=== PATIENT | male | born 1955 | race Caucasian/White ===

== ENCOUNTER 2020-07-29 06:20 | Outpatient (REF) | payer MEDICARE, OTHER, SELFPAY ==
[2020-07-29 07:02] LABS: MANUAL DIFF FLAG NO
[2020-07-29 07:06] LABS: Basophils Absolute Auto 0.1 X10*3/uL (0.0-0.2); Basophils Percent Auto 1.5 % (0-2); Eosinophils Absolute Auto 0.2 X10*3/uL (0.0-0.4); Eosinophils Percent Auto 3.8 % (0-4); Hematocrit 44.2 % (42-52); Hemoglobin 15.2 g/dl (14.0-18.0); Imm Gran Abs Auto 0.01 X10*3/uL (0.00-0.03); Imm Gran Pct Auto 0.2 % (0.0-0.4); Lymphocytes Absolute Auto 1.6 X10*3/uL (1.2-4.9); Lymphocytes Percent Auto 30.3 % (20-40); Mean Corpuscular HGB Conc 34.4 g/dl (31.0-36.0); Mean Corpuscular Hemoglobin 30.5 pg (27.0-33.0); Mean Corpuscular Volume 88.6 fL (80-98); Mean Platelet Volume 10.7 fL (9.4-12.4); Monocytes Absolute Auto 0.6 X10*3/uL (0.1-1.2); Monocytes Percent Auto 11.1 % (2-11); Neutrophils Absolute Auto 2.8 X10*3/uL (2.0-8.3); Neutrophils Percent Auto 53.1 % (45-73); Platelet Count 218 X10*3/uL (160-400); Red Blood Count 4.99 X10*6/uL (4.60-5.80); Red Cell Distribution Width 11.6 % (11.0-16.0); White Blood Count 5.2 X10*3/uL (4.8-10.8)
[2020-07-29 07:32] LABS: Alanine Aminotransferase 21 U/L (0-40); Albumin Level 4.3 g/dL (3.5-5.0); Alkaline Phosphatase 81 U/L (39-117); Anion Gap 10 (12-20); Aspartate Amino Transferase 20 U/L (5-37); Bilirubin Total 0.6 mg/dL (0.0-1.0); Blood Urea Nitrogen 17 mg/dL (9-16); Calcium 9.2 mg/dL (8.4-10.2); Carbon Dioxide 31 mmol/L (22-29); Chloride 106 mmol/L (96-108); Cholesterol 212 mg/dL; Estimated Glomerular Filt Rate > 60; Glucose Fasting 97 mg/dL (60-99); HDL Cholesterol 54 mg/dL; LDL Cholesterol Calculated 114 mg/dl; Potassium 4.2 mmol/l (3.3-5.1); Sodium 143 mmol/L (135-145); Total Protein 6.5 g/dL (6.5-8.0); Triglycerides 220 mg/dL
[2020-07-29 07:58] LABS: Prostate Specific Antigen Scr 1.49 ng/mL (<0.05-4.0); Thyroid Stimulating Hormone 1.49 mIU/mL (0.32-4.0)
[2020-07-29 08:29] LABS: T4 Thyroxine 7.5 ug/dL (4.5-12.0)
[2020-07-29 08:44] LABS: Folate 19.4 ng/mL (> or = 4.0); Vitamin B12 789 pg/mL (200-900)
== END 2020-07-29 06:21 | disposition home or self-care (01) ==
LOC: HO.LAB 06:20
PROVIDERS: PCP Internal Medicine; Visit Provider Internal Medicine
DX: Z12.5 Encounter for screening for malignant neoplasm of prostate (principal); N40.0 Benign prostatic hyperplasia without lower urinary tract symptoms; E78.00 Pure hypercholesterolemia, unspecified; J44.9 Chronic obstructive pulmonary disease, unspecified
CPT/HCPCS: 36415; 80053; 80061; 82607; 82746; 84153; 84436; 84443; 85025

== ENCOUNTER 2022-08-09 11:04 | Outpatient (REF) | payer MEDICARE, SELFPAY ==
[2022-08-09 11:49] LABS: Binax Internal Control QC Valid; Binax Now Covid-19 Ag Negative (Negative)
[2022-08-09 14:54] LABS: Influenza A PCR NEGATIVE (Negative); Influenza B PCR NEGATIVE (Negative); Resp Syncy Virus RNA Qual PCR POSITIVE (Negative); SARS COV2 PCR INHOUSE NEGATIVE (Negative)
== END 2022-08-09 11:05 | disposition home or self-care (01) ==
LOC: HO.HMGCLDS 11:04
PROVIDERS: PCP Internal Medicine; Visit Provider Physician Assistant
DX: J06.9 Acute upper respiratory infection, unspecified (principal); Z20.822 Contact with and (suspected) exposure to COVID-19
CPT/HCPCS: 0241U; 87811; C9803

== ENCOUNTER 2022-08-17 10:37 | Outpatient (REF) | payer MEDICARE, SELFPAY ==
--- NOTE | ~2022-08-17 | XR_ITS ---
EXAMINATION: XR CHEST CLINICAL INFORMATION: Acute exacerbation of COPD. COMPARISON: March 24, 2012. TECHNIQUE: 2 views of the chest were obtained. FINDINGS: No significant abnormality is noted involving the heart, lungs, mediastinum, or soft tissues. Mild degenerative changes of the spine. XR/XR chest 2V IMPRESSION: Unremarkable examination.
== END 2022-08-17 10:38 | disposition home or self-care (01) ==
LOC: HO.HMGCX 10:37
PROVIDERS: PCP Internal Medicine; Visit Provider Internal Medicine
DX: J44.1 Chronic obstructive pulmonary disease with (acute) exacerbation (principal)
CPT/HCPCS: 71046

== ENCOUNTER 2022-11-19 08:10 | Outpatient (REF) | payer MEDICARE, SELFPAY ==
[2022-11-19 08:21] LABS: MANUAL DIFF FLAG NO
[2022-11-19 09:03] LABS: Basophils Absolute Auto 0.1 X10*3/uL (0.0-0.2); Basophils Percent Auto 1.6 % (0-2); Eosinophils Absolute Auto 0.2 X10*3/uL (0.0-0.4); Eosinophils Percent Auto 4.3 % (0-4); Hematocrit 44.8 % (42.0-52.0); Hemoglobin 14.9 g/dl (14.0-18.0); Imm Gran Abs Auto 0.01 X10*3/uL (0.00-0.03); Imm Gran Pct Auto 0.2 % (0.0-0.4); Lymphocytes Absolute Auto 1.5 X10*3/uL (1.2-4.9); Lymphocytes Percent Auto 33.6 % (20-40); Mean Corpuscular HGB Conc 33.3 g/dl (31.0-36.0); Mean Corpuscular Hemoglobin 29.3 pg (27.0-33.0); Mean Corpuscular Volume 88.2 fL (80.0-98.0); Mean Platelet Volume 10.9 fL (9.4-12.4); Monocytes Absolute Auto 0.5 X10*3/uL (0.1-1.2); Monocytes Percent Auto 10.4 % (2-11); Neutrophils Absolute Auto 2.2 x10*3/uL (2.0-8.3); Neutrophils Percent Auto 49.9 % (45-73); Platelet Count 222 X10*3/uL (160-400); Red Blood Count 5.08 X10*6/uL (4.60-5.80); Red Cell Distribution Width 11.8 % (11.0-16.0); White Blood Count 4.4 X10*3/uL (4.8-10.8)
[2022-11-19 09:53] LABS: Alanine Aminotransferase 15 U/L (0-40); Albumin Level 4.2 g/dL (3.5-5.0); Alkaline Phosphatase 75 U/L (39-117); Anion Gap 13 (12-20); Aspartate Amino Transferase 19 U/L (5-37); Bilirubin Total 0.6 mg/dL (0.0-1.0); Blood Urea Nitrogen 17 mg/dL (9-16); Calcium 9.5 mg/dL (8.4-10.2); Carbon Dioxide 29 mmol/L (22-29); Chloride 106 mmol/L (96-108); Cholesterol 231 mg/dL; Estimated Glomerular Filt Rate > 60; Glucose Random 100 mg/dL (60-115); HDL Cholesterol 65 mg/dL; LDL Cholesterol Calculated 144 mg/dl; Potassium 4.8 mmol/L (3.3-5.1); Sodium 143 mmol/L (135-145); Total Protein 6.4 g/dL (6.5-8.0); Triglycerides 110 mg/dL
[2022-11-19 10:12] LABS: Free T4 (Free Thyroxine) 0.95 ng/dL (0.71-1.85); Prostate Specific Antigen Scr 1.03 ng/mL (<0.05-4.0); Thyroid Stimulating Hormone 1.61 uIU/mL (0.32-4.0)
[2022-11-19 10:15] LABS: Folate 16.7 ng/mL (> or = 4.0); Vitamin B12 487 pg/mL (200-900)
== END 2022-11-19 08:11 | disposition home or self-care (01) ==
LOC: HO.LAB 08:10
PROVIDERS: PCP Internal Medicine; Visit Provider Internal Medicine
DX: Z12.5 Encounter for screening for malignant neoplasm of prostate (principal); N40.1 Benign prostatic hyperplasia with lower urinary tract symptoms; R39.11 Hesitancy of micturition; E78.00 Pure hypercholesterolemia, unspecified
CPT/HCPCS: 36415; 80053; 80061; 82607; 82746; 84153; 84439; 84443; 85025

== ENCOUNTER 2023-02-08 07:13 | Outpatient (REF) | payer MEDICARE, SELFPAY ==
[2023-02-08 08:26] LABS: Estimated Average Glucose 111 mg/dL; Hemoglobin A1C 151.3549 umol/L; Hemoglobin A1c % 5.5 %
[2023-02-08 08:32] LABS: Alanine Aminotransferase 16 U/L (0-40); Albumin Level 4.1 g/dL (3.5-5.0); Alkaline Phosphatase 79 U/L (39-117); Anion Gap 12 (12-20); Aspartate Amino Transferase 18 U/L (5-37); Bilirubin Total 0.8 mg/dL (0.0-1.0); Blood Urea Nitrogen 15 mg/dL (9-16); Calcium 9.1 mg/dL (8.4-10.2); Carbon Dioxide 29 mmol/L (22-29); Chloride 108 mmol/L (96-108); Cholesterol 226 mg/dL; Estimated Glomerular Filt Rate > 60; Glucose Random 98 mg/dL (60-115); HDL Cholesterol 61 mg/dL; LDL Cholesterol Calculated 137 mg/dl; Potassium 4.5 mmol/L (3.3-5.1); Sodium 144 mmol/L (135-145); Total Protein 6.1 g/dL (6.5-8.0); Triglycerides 141 mg/dL
== END 2023-02-08 07:14 | disposition home or self-care (01) ==
LOC: HO.LAB 07:13
PROVIDERS: PCP Internal Medicine; Visit Provider Internal Medicine
DX: R73.01 Impaired fasting glucose (principal); E78.00 Pure hypercholesterolemia, unspecified
CPT/HCPCS: 36415; 80053; 80061; 83036

== ENCOUNTER 2023-07-19 22:13 | Emergency (ER) | payer MEDICARE, SELFPAY ==
[2023-07-19 22:17] VITALS: BP 137/58; PULSE 79; RESP 18; TEMP 37.1; O2SAT 96; BMI 24.0
[2023-07-19 23:16] LABS: MANUAL DIFF FLAG NO
[2023-07-19 23:18] LABS: Basophils Absolute Auto 0.1 X10*3/uL (0.0-0.2); Basophils Percent Auto 0.8 % (0-2); Eosinophils Percent Auto 0.3 % (0-4); Hematocrit 43.7 % (42.0-52.0); Hemoglobin 14.6 g/dl (14.0-18.0); Imm Gran Abs Auto 0.02 X10*3/uL (0.00-0.03); Imm Gran Pct Auto 0.3 % (0.0-0.4); Lymphocytes Absolute Auto 0.6 X10*3/uL (1.2-4.9); Lymphocytes Percent Auto 8.9 % (20-40); Mean Corpuscular HGB Conc 33.4 g/dl (31.0-36.0); Mean Corpuscular Hemoglobin 29.4 pg (27.0-33.0); Mean Corpuscular Volume 88.1 fL (80.0-98.0); Mean Platelet Volume 10.3 fL (9.4-12.4); Monocytes Absolute Auto 0.7 X10*3/uL (0.1-1.2); Monocytes Percent Auto 10.9 % (2-11); Neutrophils Absolute Auto 5.2 x10*3/uL (2.0-8.3); Neutrophils Percent Auto 78.8 % (45-73); Platelet Count 179 X10*3/uL (160-400); Red Blood Count 4.96 X10*6/uL (4.60-5.80); Red Cell Distribution Width 11.7 % (11.0-16.0); White Blood Count 6.6 X10*3/uL (4.8-10.8)
[2023-07-19 23:24] LABS: COVID-19 Test Positive (Negative); IDNOW Serial# 08D9AD1C
[2023-07-19 23:45] LABS: Anion Gap 13 (12-20); Blood Urea Nitrogen 12 mg/dL (9-16); Calcium 9.2 mg/dL (8.4-10.2); Carbon Dioxide 28 mmol/L (22-29); Chloride 104 mmol/L (96-108); Creatinine Clr Calc Pharmacy 66.5; Estimated Glomerular Filt Rate > 60; Glucose Random 104 mg/dL (60-115); Sodium 141 mmol/L (135-145)
--- NOTE | 2023-07-20 00:02 | ED.URI ---
HPI - URI/Sore Throat General Chief Complaint: Upper Respiratory Symptoms Stated Complaint: COVID positive, headache Time Seen by Provider: 07/19/23 23:38 Source: patient Mode of arrival: ambulatory Limitations: no limitations History of Present Illness HPI Narrative: 68-year-old male presents emergency department for evaluation of headache and positive COVID test. The patient states he has been working at the [employer] the past week. States that today he developed a headache and a nonproductive cough. He also had chest tightness. He denied shortness of breath or dyspnea on exertion. He did a home COVID test which was positive. He came to the emergency department to seek treatment. Related Data Home Medications Medication Instructions Recorded Confirmed aspirin 81 mg tablet,delayed 81 mg PO DAILY 08/04/20 02/07/23 release (Adult Aspirin Regimen) multivitamin 1 tab PO DAILY 08/04/20 02/07/23 Previous Rx's Medication Instructions Recorded fluticasone propionate 50 2 spray intranasal DAILY #16 grams 08/10/22 mcg/actuation nasal spray,suspension (Flonase Allergy Relief) albuterol sulfate 90 mcg/actuation 2 puff inhalation Q4-6H PRN 08/17/22 aerosol inhaler (ProAir HFA) bronchospasm #8.5 grams dutasteride 0.5 mg capsule 0.5 mg PO DAILY #90 caps 09/12/22 pravastatin 40 mg tablet 40 mg PO DAILY 90 days #90 tabs 11/23/22 tamsulosin 0.4 mg capsule 0.4 mg PO DAILY #90 caps 07/11/23 nirmatrelvir 300 mg (150 mg See Rx Instructions PO .COMPLEX 07/20/23 x2)-ritonavir 100 mg tablet,dose #30 ea pack (Paxlovid) Allergies Allergy/AdvReac Type Severity Reaction Status Date / Time ENVIROMENTAL Allergy Unknown RUNNY, Uncoded 02/07/23 11:44 SNEEZING, SINUS Review of Systems Review of Systems: Yes all other systems are reviewed and are negative [facility] Past Medical History [facility] Narrative: Social history: He denies tobacco use. Occasional drinks alcohol. He denies drug use. Medical History COPD (chronic obstructive pulmonary disease) BPH (benign prostatic hyperplasia) Impaired glucose tolerance Hypercholesterolemia Surgical History History of removal of skin mole History of wrist fracture History of nasal septoplasty History of dislocation of shoulder History of tonsillectomy History of appendectomy Family History Family History Father CVD (cardiovascular disease) Myocardial infarction Mother Dementia Sister Family history of cervical cancer Social History Social History Housing: House Alcohol intake: current Alcohol intake frequency: a few times a month Patient Tobacco Use Status: Former Tobacco user Tobacco use type: Cigarette Years Smoked: quit 1999 e-Cigarette/Vaping Use: Never Used Second Hand Smoke Exposure: Yes Advance Directives: No Advance Directives Information Provided: No service: Yes Current occupational status: retired Cognitive needs: No Hearing needs: No Vision needs: Yes Physical Exam Vital Signs: Vital Signs: Last Vital Signs Temp 98.7 F 07/19/23 22:17 Pulse 79 07/19/23 22:17 Resp 18 07/19/23 22:17 BP 137/58 L 07/19/23 22:17 Pulse Ox 96 07/19/23 22:17 O2 Del Method Room Air 07/19/23 22:17 BMI result Body Mass Index 24.0 Vital signs were normal Exam General: Awake, alert in no distress Head: Normocephalic, atraumatic EENT: PERRL, Lids normal, sclera normal, conjunctiva normal, nose normal , ears normal, throat without erythema or exudates Neck: Supple, no adenopathy, trachea midline and nontender Lung: breath sounds symmetric, no wheezing, rales or rhonchi Chest: symmetric movement, nontender Heart: regular rate and rhythm, normal S1, S2 no murmurs or rubs Abdomen: soft, non-tender, nondistended, normal bowel sounds Back: no vertebral tenderness, no CVAT Extremities: no deformities, moves all extremities symmetrically Skin: no rashes, no lesion, normal color and warmth Neuro: Awake, alert, oriented, normal speech, cranial nerves intact, moves all extremities symmetrically Psych: Pleasant, cooperative Medical Decision Making Medical Decision Making MDM Narrative: 68-year-old male who history of COPD, BPH and hyperlipidemia presents emergency department for evaluation of headache, dyspnea on exertion and nonproductive cough x1 day. Patient had a positive home COVID test. Patient's the vital signs were normal with a normal O2 saturation on room air. Physical examination was unremarkable. Following evaluation was ordered: CBC, CMP, COVID-19 0019: Patient's laboratory evaluation was unremarkable. The patient has been vaccinated against COVID-19 but he is at high risk for worsening illness secondary to his COPD and hyperlipidemia. Patient was started on Paxlovid convenience pack q.12 hours x5 days He was instructed to stop taking his pravastatin and tamsulosin while he is taking. Patient was also instructed to isolate for 5 days and to wear a mask for total of 10 days. He was given printed and verbal instructions and discharged home Differential Diagnosis Differential Diagnoses: The differential diagnosis associated with the presentation includes Differential diagnosis includes was not limited to COVID-19 infection, electrolyte abnormalities, anemia COVID-19 pneumonia Admission/Observation Consideration of admission/observation: Escalation of care including admission/observation considered Lab Data [facility] Lab Attestation statement: I reviewed the patient's lab results. My independent interpretation patient's laboratory evaluation as follows: CBC and BMP were normal. COVID-19 was positive 07/19/23 23:12 07/19/23 23:12 Labs: Lab Results 07/19/23 Range/Units 23:12 WBC 6.6 (4.8-10.8) X10*3/uL RBC 4.96 (4.60-5.80) X10*6/uL Hgb 14.6 (14.0-18.0) g/dl Hct 43.7 (42.0-52.0) % MCV 88.1 (80.0-98.0) fL MCH 29.4 (27.0-33.0) pg MCHC 33.4 (31.0-36.0) g/dl RDW 11.7 (11.0-16.0) % Plt Count 179 (160-400) X10*3/uL MPV 10.3 (9.4-12.4) fL Immature Gran % (Auto) 0.3 (0.0-0.4) % Neut % (Auto) 78.8 H (45-73) % Lymph % (Auto) 8.9 L (20-40) % Forrest % (Auto) 10.9 (2-11) % Eos % (Auto) 0.3 (0-4) % Baso % (Auto) 0.8 (0-2) % Lymph # (Auto) 0.6 L (1.2-4.9) X10*3/uL Forrest # (Auto) 0.7 (0.1-1.2) X10*3/uL Eos # (Auto) 0.0 (0.0-0.4) X10*3/uL Baso # (Auto) 0.1 (0.0-0.2) X10*3/uL Abs Immat Gran (auto) 0.02 (0.00-0.03) X10*3/uL Absolute Neuts (auto) 5.2 (2.0-8.3) x10*3/uL Absolute Nucleated RBC 0.000 (0.0-0.012) X10*3/uL Nucleated RBC % (auto) 0.0 (0.0-0.2) /100WBC Sodium 141 (135-145) mmol/L Potassium 4.0 (3.3-5.1) mmol/L Chloride 104 (96-108) mmol/L Carbon Dioxide 28 (22-29) mmol/L Anion Gap 13 (12-20) BUN 12 (9-16) mg/dL Creatinine 0.98 (0.5-1.4) mg/dL Estim Creat Clear Calc 66.5 Estimated GFR > 60 Random Glucose 104 (60-115) mg/dL Calcium 9.2 (8.4-10.2) mg/dL COVID-19 (RACH) Positive A (Negative) COVID-19 Clin Com See Note Prescription Management I considered prescription management with: Other (Paxlivid) Chronic Conditions Patient?s care impacted by: Other (COPD, hyperlipidemia, BPH) Discharge Plan Discharge Clinical Impression: COVID-19 Patient Disposition: Home, Self-Care Instructions: COVID-19 (Coronavirus Disease 2019) (ED) Additional Instructions: Your blood work was normal. Your COVID-19 test was positive. Take Paxlovid convenience pack( 3 pills) every 12 hours x5 days. While you are taking Paxlovid, you need to stop taking tamsulosin and pravastatin. You can restart these medications after you finish the Paxlovid. You need to isolate (stay home) for 5 days and wear a mask for total of 10 days. Take ibuprofen 200 mg pills, 2 pills every 6 hours as needed for pain or fever. Take Tylenol (acetaminophen) 500 mg pills, 2 pills every 6 hours as needed for pain or fever. Follow-up with your doctor in 2 days. Please return to the emergency department if your symptoms get worse or if you develop any symptoms that are concerning to you. Prescriptions: New Paxlovid 300 mg (150 mg x 2)-100 mg tablets,dose pack See Rx Instructions PO .COMPLEX Qty: 30 0RF Rx Instructions: take TWO 150 mg tablets of nirmatrelvir with ONE 100 mg tablet of ritonavir twice daily for 5 days No Action fluticasone propionate [Flonase Allergy Relief] 50 mcg/actuation spray,suspension 2 spray intranasal DAILY Qty: 16 0RF Rx Instructions: administer into each nostril dutasteride 0.5 mg capsule 0.5 mg PO DAILY Qty: 90 2RF tamsulosin 0.4 mg capsule 0.4 mg PO DAILY Qty: 90 2RF aspirin [Adult Aspirin Regimen] 81 mg tablet,delayed release (DR/EC) 81 mg PO DAILY multivitamin Tablet 1 tab PO DAILY pravastatin 40 mg tablet 40 mg PO DAILY 90 Days Qty: 90 2RF albuterol sulfate [ProAir HFA] 90 mcg/actuation HFA aerosol inhaler 2 puff inhalation Q4-6H PRN (Reason: bronchospasm) Qty: 8.5 0RF
== END 2023-07-20 01:15 | disposition home or self-care (01) ==
PROVIDERS: Emergency Provider Emergency Medicine Emergency Medical Services; PCP Internal Medicine
DX: U07.1 COVID-19 (principal); R51.9 Headache, unspecified; R05.9 Cough, unspecified; Z87.891 Personal history of nicotine dependence; Z79.899 Other long term (current) drug therapy
CPT/HCPCS: 36415; 80048; 85025; 87635; 99283; 99284

== ENCOUNTER 2023-08-10 06:56 | Outpatient (REF) | payer MEDICARE, SELFPAY ==
[2023-08-10 07:12] LABS: MANUAL DIFF FLAG NO
[2023-08-10 07:53] LABS: Basophils Absolute Auto 0.1 X10*3/uL (0.0-0.2); Basophils Percent Auto 1.3 % (0-2); Eosinophils Absolute Auto 0.1 X10*3/uL (0.0-0.4); Eosinophils Percent Auto 3.1 % (0-4); Hematocrit 43.4 % (42.0-52.0); Hemoglobin 14.7 g/dl (14.0-18.0); Imm Gran Abs Auto 0.01 X10*3/uL (0.00-0.03); Imm Gran Pct Auto 0.2 % (0.0-0.4); Lymphocytes Absolute Auto 1.5 X10*3/uL (1.2-4.9); Lymphocytes Percent Auto 34.1 % (20-40); Mean Corpuscular HGB Conc 33.9 g/dl (31.0-36.0); Mean Corpuscular Hemoglobin 29.9 pg (27.0-33.0); Mean Corpuscular Volume 88.2 fL (80.0-98.0); Mean Platelet Volume 11.2 fL (9.4-12.4); Monocytes Absolute Auto 0.5 X10*3/uL (0.1-1.2); Monocytes Percent Auto 10.4 % (2-11); Neutrophils Absolute Auto 2.3 x10*3/uL (2.0-8.3); Neutrophils Percent Auto 50.9 % (45-73); Platelet Count 229 X10*3/uL (160-400); Red Blood Count 4.92 X10*6/uL (4.60-5.80); Red Cell Distribution Width 11.6 % (11.0-16.0); White Blood Count 4.5 X10*3/uL (4.8-10.8)
[2023-08-10 08:22] LABS: Alanine Aminotransferase 11 U/L (0-40); Alkaline Phosphatase 94 U/L (39-117); Anion Gap 13 (12-20); Aspartate Amino Transferase 18 U/L (5-37); Bilirubin Total 0.6 mg/dL (0.0-1.0); Blood Urea Nitrogen 14 mg/dL (9-16); Calcium 9.5 mg/dL (8.4-10.2); Carbon Dioxide 25 mmol/L (22-29); Chloride 107 mmol/L (96-108); Cholesterol 198 mg/dL (<200); Estimated Glomerular Filt Rate > 60; Glucose Random 94 mg/dL (60-115); HDL Cholesterol 53 mg/dL (>40); LDL Cholesterol Calculated 121 mg/dL (<100); Potassium 4.1 mmol/L (3.3-5.1); Sodium 141 mmol/L (135-145); Total Protein 6.8 g/dL (6.5-8.0); Triglycerides 122 mg/dL (<150)
[2023-08-10 08:41] LABS: Thyroid Stimulating Hormone 2.44 uIU/mL (0.32-4.0)
[2023-08-10 10:09] LABS: Influenza A PCR NEGATIVE (Negative); Influenza B PCR NEGATIVE (Negative); Resp Syncy Virus RNA Qual PCR NEGATIVE (Negative); SARS COV2 PCR INHOUSE POSITIVE (Negative)
== END 2023-08-10 06:57 | disposition home or self-care (01) ==
LOC: HO.LAB 06:56
PROVIDERS: PCP Internal Medicine; Visit Provider Internal Medicine
DX: Z11.52 Encounter for screening for COVID-19 (principal); E78.00 Pure hypercholesterolemia, unspecified; J44.1 Chronic obstructive pulmonary disease with (acute) exacerbation
CPT/HCPCS: 0241U; 80053; 80061; 84443; 85025

== ENCOUNTER 2023-08-11 09:46 | Outpatient (AMB) | payer MEDICARE, SELFPAY ==
[2023-08-11 09:50] VITALS: BP 110/62; PULSE 68; O2SAT 97; BMI 23.5
--- NOTE | 2023-08-11 09:50 | MHC.PC.OV ---
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 Accompanied by: Self / Same As Patient Allergies ENVIROMENTAL Allergy (Unknown, Uncoded 08/11/23 09:50) RUNNY, SNEEZING, SINUS Medication List - Last Reconciled 08/11/23 by Lawrence Coats MD albuterol sulfate 90 mcg/actuation (ProAir HFA) 2 puffs inhalation Q4-6H PRN aspirin (Adult Aspirin Regimen) 81 mg PO DAILY dutasteride 0.5 mg PO DAILY fluticasone propionate 50 mcg/actuation (Flonase Allergy Relief) 2 sprays intranasal DAILY multivitamin 1 tab PO DAILY pravastatin 40 mg PO DAILY 90 days Tobacco use date assessed: 11/23/22 Fall risk assessment: No Falls in past year Last assessed Fall Risk: 08/11/23 Dental Screening Dental Screen Date: 08/11/23 Did you have a dental visit in the last 12 months?: No Did you have a dental problem in the last 6 months where you did not have access to dental care?: No Was dental information given to patient?: Patient has dentist HPI 6 month f/u HPI Details 68-year-old male with hypercholesterolemia COPD impaired glucose tolerance and BPH last seen in January 2023 patient is here for follow-up. Up-to-date with colonoscopy. Review of the notes June 2023 was in the ER for respiratory symptoms COVID positive patient was prescribed antiviral. [facility] Medical History COPD (chronic obstructive pulmonary disease) BPH (benign prostatic hyperplasia) Impaired glucose tolerance Hypercholesterolemia Surgical History History of removal of skin mole History of wrist fracture History of nasal septoplasty History of dislocation of shoulder History of tonsillectomy History of appendectomy Family History Father CVD (cardiovascular disease) Myocardial infarction Mother Dementia Sister Family history of cervical cancer Social History Housing: House Alcohol intake: current Alcohol intake frequency: a few times a month Patient Tobacco Use Status: Former Tobacco user Tobacco use type: Cigarette Years Smoked: quit 1999 e-Cigarette/Vaping Use: Never Used Second Hand Smoke Exposure: Yes service: Yes Current occupational status: retired Cognitive needs: No Hearing needs: No Vision needs: Yes Questionnaire Thrive Questionnaire Date Thrive assessed: 11/23/22 ADEN-7 AMB Questionnaire ADEN-7 Date ADEN - 7 assessed: 11/23/22 Source: Developed by Drs. Sumit Begum, Rosario Savage, Duarte Deras and colleagues, with an educational donavon from [employer]. Physical exam (Primary Care) Vital Signs: Last Vital Signs Pulse 68 08/11/23 09:50 BP 110/62 08/11/23 09:50 Pulse Ox 97 08/11/23 09:50 Oxygen Delivery Method Room Air 08/11/23 09:50 BMI result Body Mass Index 25.1 Tobacco/Smoking Status: Tobacco use Status Tobacco use date assessed 11/23/22 08/11/23 09:53 Patient Tobacco Use Status Former Tobacco user 08/11/23 09:53 Tobacco use type Cigarette 08/11/23 09:53 e-Cigarette/Vaping Use Never Used 08/11/23 09:53 Thrive Assessment: Date of Thrive Assessment Date Thrive assessed 11/23/22 08/11/23 09:53 Const General: alert; No acute distress Eyes Conjunctivae: conjunctivae normal Resp Auscultation: clear to auscultation bilaterally Cardio Rate: regular rate Rhythm: regular rhythm GI Inspection: Yes normal to inspection Extrem General: Yes normal to inspection and No edema Office Procedures Flu Questionnaire Does the patient have a severe egg allergy?: No Does the patient have severe life threatening allergies?: No Does the patient have a fever or illness today?: No Has the patient ever had Guillain-Addy Syndrome?: No Has the patient ever had any past reaction to a flu shot?: No Immunizations flu vacc [id number] 6mos up(PF) 60 mcg(15 mcgx4)/0.5 mL IM syringe Performing Provider: Lawrence Coats MD Performing Location: [facility] Administered by: VIVI [place] on 08/11/23 10:36 Dose Route Admin Location Dispensed Lot Number Expiration Date [employer] 0.5 mL IM Right Deltoid 0.5 mL [id number] 04/22/24 32275-965-23 [employer] VIS Given Date VIS Provided VIS Publication Date 08/11/23 Single Vaccine 21 Eligibility Eligibility Date Funding Source Not [facility] Eligible 08/11/23 Private Assessment and Plan Assessment & Plan (1) Hypercholesterolemia: Code(s): E78.00 - Pure hypercholesterolemia, unspecified Plan: Avoid fried foods, chicken skin, eggs, butter margarine, pastries and meat. Be it pork or beef they have a lot of cholesterol LDL goal of less than 130 and triglyceride of less than 150. Patient on pravastatin 40 mg once a day (2) BPH (benign prostatic hyperplasia): Code(s): N40.0 - Benign prostatic hyperplasia without lower urinary tract symptoms Qualifiers: Lower urinary tract symptom detail: urinary hesitancy Lower urinary tract symptom presence: symptoms present Qualified Code(s): N40.1 - Benign prostatic hyperplasia with lower urinary tract symptoms; R39.11 - Hesitancy of micturition Plan: Continue with dutasteride (3) COPD (chronic obstructive pulmonary disease): Code(s): J44.9 - Chronic obstructive pulmonary disease, unspecified Plan: Continue with inhaler (4) Impaired fasting blood sugar: Code(s): R73.01 - Impaired fasting glucose Plan: Decrease the amount of carbohydrate intake, pasta, bread, rice and potatoes are all sugar and that is aside from all the sweet stuff, remember that fruits are good but they are Sweet also. Orders: Orders Influenza [id number] Immunization Today Z23 - Encounter for immunization Coding Level of Care Code Est Pt Level 4 (19918) Diagnoses Hypercholesterolemia E78.00 Benign prostatic hyperplasia with urinary hesitancy N40.1; R39.11 Lower urinary tract symptom detail: urinary hesitancy Lower urinary tract symptom presence: symptoms present COPD (chronic obstructive pulmonary disease) J44.9 Impaired fasting blood sugar R73.01
== END 2023-08-11 10:40 | disposition home or self-care (01) ==
PROVIDERS: Visit Provider Internal Medicine
DX: E78.00 Pure hypercholesterolemia, unspecified (principal); N40.1 Benign prostatic hyperplasia with lower urinary tract symptoms; R39.11 Hesitancy of micturition; J44.9 Chronic obstructive pulmonary disease, unspecified; R73.01 Impaired fasting glucose; Z23 Encounter for immunization
CPT/HCPCS: 90471; 90686; 99214

== ENCOUNTER 2023-12-05 08:41 | Outpatient (AMB) | payer MEDICARE, SELFPAY ==
[2023-12-05 08:41] VITALS: BP 114/60; PULSE 71; O2SAT 95; BMI 23.7
--- NOTE | 2023-12-05 08:41 | A.OFFPC_ITS ---
Vital Signs 12/05/23 08:41 Height 5 ft 7 in Weight 151 lb 0.4 oz BMI 23.7 BP 114/60 Blood Pressure Location Lt brachial Position Sitting Pulse 71 Pulse Source Pulse Oximeter Pulse Oximetry (%) 95 Oxygen Delivery Method Room Air Intake Visit Reasons: Annual Exam Intake Note: Patient is here today for a physical. Rn Community Required: No Allergies ENVIROMENTAL Allergy (Unknown, Uncoded 12/05/23 08:45) RUNNY, SNEEZING, SINUS Medication List - Last Reconciled 12/05/23 by Lawrence Coats MD albuterol sulfate 90 mcg/actuation (ProAir HFA) 2 puffs inhalation Q4-6H PRN aspirin (Adult Aspirin Regimen) 81 mg PO DAILY dutasteride 0.5 mg PO DAILY fluticasone propionate 50 mcg/actuation (Flonase Allergy Relief) 2 sprays intranasal DAILY multivitamin 1 tab PO DAILY pravastatin 40 mg PO DAILY 90 days Tobacco use date assessed: 12/05/23 Fall risk assessment: No Falls in past year Last assessed Fall Risk: 12/05/23 Dental Screening Dental Screen Date: 12/05/23 Did you have a dental visit in the last 12 months?: Yes Did you have a dental problem in the last 6 months where you did not have access to dental care?: No Was dental information given to patient?: Patient has dentist HPI Annual Exam HPI Details 68-year-old male with COPD impaired gluc ose tolerance BPH hypercholesterolemia last seen July 2023. Patient's colonoscopy is up-to-date. And is here for physical exam. . R foot noted to be externally rotated and has been exercising . noted forgetfull and will have a cognitive testing - end of the month testing. will have chacorta fit - exercise program [facility] Medical History COPD (chronic obstructive pulmonary disease) BPH (benign prostatic hyperplasia) Impaired glucose tolerance Hypercholesterolemia Surgical History History of removal of skin mole History of wrist fracture History of nasal septoplasty History of dislocation of shoulder History of tonsillectomy History of appendectomy Family History Father CVD (cardiovascular disease) Myocardial infarction Mother Dementia Sister Family history of cervical cancer Social History (Updated 12/05/23 @ 09:01 by Lawrence Coats MD) Housing: House Alcohol intake: current Alcohol intake frequency: a few times a month Comment: once q week 1 beer Patient Tobacco Use Status: Former Tobacco user Tobacco use type: Cigarette Years Smoked: quit 1999 e-Cigarette/Vaping Use: Never Used Second Hand Smoke Exposure: Yes service: Yes Current occupational status: retired Cognitive needs: No Hearing needs: No Vision needs: Yes Questionnaire PHQ-9 Over the last 2 weeks, how often have you been bothered by any of the following problems? 1. Little interest or pleasure in doing things: not at all 2. Feeling down, depressed, or hopeless: not at all 3. Trouble falling or staying asleep, or sleeping too much: not at all 4. Feeling tired or having little energy: not at all 5. Poor appetite or overeating: not at all 6. Feeling bad about yourself - or that you are a failure or have let yourself or your family down: not at all 7. Trouble concentrating on things, such as reading the newspaper or watching television: not at all 8. Moving or speaking so slowly that other people could have noticed. Or the opposite - being so fidgety or restless that you have been moving around a lot more than usual: not at all 9. Thoughts that you would be better off or of hurting yourself in some way: not at all Total score: 0 Depression Screening Interpretation: Negative Depression Screening Done: Yes Source: Developed by Drs. Sumit Begum, Rosario Savage, Duarte Deras and colleagues, with an educational donavon from [employer]. Thrive Questionnaire Date Thrive assessed: 12/05/23 I am a: Patient What is your living situation today?: I have a steady place to live Within the past 12 months, did the food you bought not last and you didn't have the money to get more?: Never true Within the past 12 months, did you worry whether your food would run out before you got money to buy more?: Never true Do you have trouble paying for medicines?: No Do you have trouble getting transportation to medical appointments?: No Do you have trouble paying your heating and electricity bill?: No Do you have trouble taking care of your child, family member or friend?: No Do you have trouble with day-to-day activities such as bathing, preparing meals, shopping, managing finances, etc.?: No Are you currently unemployed and looking for a job?: No Are you interested in more education?: No Please select the resources that you would like help with: None THRIVE Score: 0 AUDIT C Alcohol Use Questionnaire (AUDIT-C) 1. How often do you have a drink containing alcohol?: 2-4 times a month 2. How many drinks containing alcohol do you have on a typical day when you are drinking?: 5 or 6 3. How often do you have six or more drinks on one occasion?: Never Total Score: 4 ADEN-7 AMB Questionnaire ADEN-7 Date ADEN - 7 assessed: 12/05/23 Feeling nervous, anxious, or on edge: 0 = Not at all Not being able to stop or control worryin = Not at all Worrying too much about different things: 0 = Not at all Trouble relaxin = Not at all Being so restless that it is hard to sit still: 0 = Not at all Becoming easily annoyed or irritable: 0 = Not at all Feeling afraid as if something awful might happen: 0 = Not at all Total ADEN-7 score (0-4 normal; 5-9 mild; 10-14 moderate; 15-21 severe): 0 Source: Developed by Drs. Sumit Begum, Rosario Savage, Duarte Deras and colleagues, with an educational donavon from [employer]. Review of Systems Const Denies poor appetite and Denies weakness Eyes Denies no additional complaints ENT Reports Normal hearing present, Denies dizziness, Denies nasal congestion, Denies tinnitus and Denies sore throat Card Denies chest pain, Denies syncope, Denies rapid heart rate and Denies dyspnea Resp Denies cough and Denies dyspnea GI Denies change in stool character, Reports constipation, Denies diarrhea, Denies nausea and Denies vomiting Denies dysuria and Denies urinary frequency Neuro Reports Normal hearing present, Denies confusion, Denies dizziness, Denies syncope and Denies weakness Psych Denies confusion Physical exam (Primary Care) Vital Signs: Last Vital Signs Pulse 71 12/05/23 08:41 BP 114/60 12/05/23 08:41 Pulse Ox 95 12/05/23 08:41 Oxygen Delivery Method Room Air 12/05/23 08:41 BMI result Body Mass Index 23.7 Tobacco/Smoking Status: Tobacco use Status Tobacco use date assessed 12/05/23 12/05/23 08:47 Patient Tobacco Use Status Former Tobacco user 12/05/23 08:47 Tobacco use type Cigarette 12/05/23 08:47 e-Cigarette/Vaping Use Never Used 12/05/23 08:47 PHQ-9: PHQ-9 Score PHQ-9: Total score 0 12/05/23 08:47 Depression Screening Interpretation: Negative Thrive Assessment: Date of Thrive Assessment Date Thrive assessed 12/05/23 12/05/23 08:47 Const General: No confusion Orientation/consciousness: No confusion HENMT Head: Yes normocephalic Ears: external ears normal and TM's normal bilaterally Face and sinus: Yes normal facial exam Mouth: moist mucous membranes Throat: Yes tonsils normal Eyes Conjunctivae: conjunctivae normal Pupils: Equal, round and reactive pupils present and Pupil accommodation reflex normal Direct Ophthalmoscopy: normal light reflex Neck Neck: No lymphadenopathy Thyroid: Thyroid normal Chest Chest palpation & inspection: normal inspection of the chest Resp Effort & Inspection: normal respiratory effort and no audible wheezes Auscultation: clear to auscultation bilaterally, no crackles, no wheezes and lung sounds not diminished Cardio Rate: regular rate Rhythm: regular rhythm Peripheral pulses: radial pulses present and dorsalis pedis present GI Other: declined Palpation (GI): no masses Auscultation: normal bowel sounds and normoactive bowel sounds Rectal Exam - Male: Yes deferred Male General Exam: Yes normal external exam Skin General skin exam: no rashes or lesions noted Rashes: no rashes Neuro General: No confusion Cranial nerves: Yes Equal, round and reactive pupils present and Yes Normal hearing present Cognition (Neuro): normal cognition Gait exam (Neuro): Normal gait present Motor exam (neuro): 5/5 motor strength present throughout Deep tendon reflexes (DTR's): Right brachioradialis reflex intensity grade: 2+, Left brachioradialis reflex intensity grade: 2+, Right patellar reflex intensity grade: 2+ and Left patellar reflex intensity grade: 2+ Extrem General: No edema Assessment and Plan Assessment & Plan (1) Annual physical exam: Code(s): Z00.00 - Encounter for general adult medical examination without abnormal findings (2) COPD (chronic obstructive pulmonary disease): Code(s): J44.9 - Chronic obstructive pulmonary disease, unspecified Plan: Continue with the inhaler as needed (3) Hypercholesterolemia: Code(s): E78.00 - Pure hypercholesterolemia, unspecified Plan: Avoid fried foods, chicken skin, eggs, butter margarine, pastries and meat. Be it pork or beef they have a lot of cholesterol LDL goal of less than 130 and triglyceride of less than 150 July blood work normal (4) BPH (benign prostatic hyperplasia): Code(s): N40.0 - Benign prostatic hyperplasia without lower urinary tract symptoms Qualifiers: Lower urinary tract symptom presence: symptoms present Lower urinary tract symptom detail: urinary hesitancy Qualified Code(s): N40.1 - Benign prostatic hyperplasia with lower urinary tract symptoms; R39.11 - Hesitancy of micturition Plan: Continue with the steroid. Orders: Orders Thyroid Stimulating Hormone 6 Months E78.00 - Pure hypercholesterolemia, unspecified Vitamin B12 and Folate 6 Months E78.00 - Pure hypercholesterolemia, unspecified Prostate Specific Antigen Scr 6 Months E78.00 - Pure hypercholesterolemia, unspecified Complete Blood Count Auto Diff 6 Months E78.00 - Pure hypercholesterolemia, unspecified Comprehensive Met. Panel 6 Months E78.00 - Pure hypercholesterolemia, unspecified Free T4 (Free Thyroxine) 6 Months E78.00 - Pure hypercholesterolemia, unspecified Lipid Panel 6 Months E78.00 - Pure hypercholesterolemia, unspecified Coding Level of Care Code Est Pt Prev Care >65y(65626) Diagnoses Annual physical exam Z00.00 COPD (chronic obstructive pulmonary disease) J44.9 Hypercholesterolemia E78.00 Benign prostatic hyperplasia with urinary hesitancy N40.1; R39.11 Lower urinary tract symptom presence: symptoms present Lower urinary tract symptom detail: urinary hesitancy
== END 2023-12-05 09:16 | disposition home or self-care (01) ==
PROVIDERS: Visit Provider Internal Medicine
DX: Z00.00 Encounter for general adult medical examination without abnormal findings (principal); J44.9 Chronic obstructive pulmonary disease, unspecified; E78.00 Pure hypercholesterolemia, unspecified; N40.1 Benign prostatic hyperplasia with lower urinary tract symptoms; R39.11 Hesitancy of micturition
CPT/HCPCS: 99397

== ENCOUNTER 2023-12-06 10:39 | Outpatient (REF) | payer MEDICARE, SELFPAY ==
[2023-12-06 10:49] LABS: MANUAL DIFF FLAG NO
[2023-12-06 10:53] LABS: Basophils Absolute Auto 0.1 X10*3/uL (0.0-0.2); Basophils Percent Auto 1.5 % (0-2); Eosinophils Absolute Auto 0.2 X10*3/uL (0.0-0.4); Eosinophils Percent Auto 4.4 % (0-4); Hematocrit 46.6 % (42.0-52.0); Hemoglobin 15.8 g/dl (14.0-18.0); Imm Gran Abs Auto 0.01 X10*3/uL (0.00-0.03); Imm Gran Pct Auto 0.2 % (0.0-0.4); Lymphocytes Absolute Auto 1.5 X10*3/uL (1.2-4.9); Lymphocytes Percent Auto 27.9 % (20-40); Mean Corpuscular HGB Conc 33.9 g/dl (31.0-36.0); Mean Corpuscular Hemoglobin 29.6 pg (27.0-33.0); Mean Corpuscular Volume 87.3 fL (80.0-98.0); Mean Platelet Volume 10.5 fL (9.4-12.4); Monocytes Absolute Auto 0.6 X10*3/uL (0.1-1.2); Neutrophils Absolute Auto 2.8 x10*3/uL (2.0-8.3); Platelet Count 222 X10*3/uL (160-400); Red Blood Count 5.34 X10*6/uL (4.60-5.80); Red Cell Distribution Width 11.5 % (11.0-16.0); White Blood Count 5.3 X10*3/uL (4.8-10.8)
[2023-12-06 11:59] LABS: Alanine Aminotransferase 15 U/L (0-40); Albumin Level 4.3 g/dL (3.5-5.0); Alkaline Phosphatase 92 U/L (39-117); Anion Gap 11 (12-20); Aspartate Amino Transferase 19 U/L (5-37); Bilirubin Total 0.6 mg/dL (0.0-1.0); Blood Urea Nitrogen 13 mg/dL (9-16); Calcium 9.4 mg/dL (8.4-10.2); Carbon Dioxide 30 mmol/L (22-29); Chloride 106 mmol/L (96-108); Cholesterol 211 mg/dL (<200); Estimated Glomerular Filt Rate > 60; Glucose Random 96 mg/dL (60-115); HDL Cholesterol 63 mg/dL (>40); LDL Cholesterol Calculated 127 mg/dL (<100); Potassium 4.7 mmol/L (3.3-5.1); Sodium 142 mmol/L (135-145); Total Protein 7.2 g/dL (6.5-8.0); Triglycerides 108 mg/dL (<150)
[2023-12-06 12:15] LABS: Free T4 (Free Thyroxine) 1.05 ng/dL (0.71-1.85); Thyroid Stimulating Hormone 1.55 uIU/mL (0.32-4.0)
[2023-12-06 12:23] LABS: Folate 13.7 ng/mL (> or = 4.0); Prostate Specific Antigen Scr 1.58 ng/mL (<0.05-4.0); Vitamin B12 1445 pg/mL (200-900)
== END 2023-12-06 10:40 | disposition home or self-care (01) ==
LOC: HO.LAB 10:39
PROVIDERS: PCP Internal Medicine; Visit Provider Internal Medicine
DX: Z12.5 Encounter for screening for malignant neoplasm of prostate (principal); E78.00 Pure hypercholesterolemia, unspecified
CPT/HCPCS: 36415; 80053; 80061; 82607; 82746; 84153; 84439; 84443; 85025

== ENCOUNTER 2024-02-23 13:15 | Outpatient (REF) | payer MEDICARE, SELFPAY ==
[2024-02-23 13:36] LABS: MANUAL DIFF FLAG NO
[2024-02-23 14:24] LABS: Basophils Absolute Auto 0.1 X10*3/uL (0.0-0.2); Basophils Percent Auto 0.9 % (0-2); Eosinophils Absolute Auto 0.1 X10*3/uL (0.0-0.4); Eosinophils Percent Auto 1.1 % (0-4); Hematocrit 43.8 % (42.0-52.0); Hemoglobin 14.8 g/dl (14.0-18.0); Imm Gran Abs Auto 0.02 X10*3/uL (0.00-0.03); Imm Gran Pct Auto 0.4 % (0.0-0.4); Lymphocytes Absolute Auto 1.3 X10*3/uL (1.2-4.9); Lymphocytes Percent Auto 22.5 % (20-40); Mean Corpuscular HGB Conc 33.8 g/dl (31.0-36.0); Mean Corpuscular Volume 88.7 fL (80.0-98.0); Monocytes Absolute Auto 0.5 X10*3/uL (0.1-1.2); Neutrophils Absolute Auto 3.7 x10*3/uL (2.0-8.3); Neutrophils Percent Auto 66.1 % (45-73); Platelet Count 219 X10*3/uL (160-400); Red Blood Count 4.94 X10*6/uL (4.60-5.80); Red Cell Distribution Width 11.7 % (11.0-16.0); White Blood Count 5.6 X10*3/uL (4.8-10.8)
[2024-02-23 14:28] LABS: Estimated Average Glucose 114 mg/dL; Hemoglobin A1c % 5.6 % (<6.0)
[2024-02-23 14:57] LABS: Creatinine Urine 119.39 mg/dL
[2024-02-23 15:09] LABS: Alanine Aminotransferase 15 U/L (0-40); Albumin Level 4.1 g/dL (3.5-5.0); Alkaline Phosphatase 68 U/L (39-117); Anion Gap 14 (12-20); Aspartate Amino Transferase 18 U/L (5-37); Bilirubin Total 0.6 mg/dL (0.0-1.0); Blood Urea Nitrogen 14 mg/dL (9-16); Calcium 9.3 mg/dL (8.4-10.2); Carbon Dioxide 25 mmol/L (22-29); Chloride 104 mmol/L (96-108); Cholesterol 200 mg/dL (<200); Estimated Glomerular Filt Rate > 60; Glucose Random 82 mg/dL (60-115); HDL Cholesterol 68 mg/dL (>40); LDL Cholesterol Calculated 119 mg/dL (<100); Sodium 139 mmol/L (135-145); Total Protein 6.7 g/dL (6.5-8.0); Triglycerides 69 mg/dL (<150)
[2024-02-23 15:17] LABS: TSH reflex Free T4 1.12 uIU/mL (0.32-4.0)
[2024-02-23 15:34] LABS: Folate 14.3 ng/mL (> or = 4.0); Prostate Specific Antigen 1.06 ng/mL (<0.05-4.0); Vitamin B12 1975 pg/mL (200-900)
== END 2024-02-23 13:16 | disposition home or self-care (01) ==
LOC: HO.LAB 13:15
PROVIDERS: PCP Internal Medicine; Visit Provider Physician Assistant
DX: Z12.5 Encounter for screening for malignant neoplasm of prostate (principal); N40.0 Benign prostatic hyperplasia without lower urinary tract symptoms; R41.3 Other amnesia; E78.5 Hyperlipidemia, unspecified
CPT/HCPCS: 36415; 80053; 80061; 82043; 82306; 82570; 82607; 82746; 83036; 84153; 84443; 85025

== ENCOUNTER 2024-06-06 08:20 | Outpatient (AMB) | payer MEDICARE, SELFPAY ==
--- NOTE | 2024-06-06 08:25 | MHC.PC.OV ---
Vital Signs 06/06/24 08:26 Height 5 ft 7 in Weight 143 lb BMI 22.4 BP 122/68 Blood Pressure Location Lt brachial Position Sitting Pulse 57 Pulse Source Pulse Oximeter Pulse Oximetry (%) 94 Oxygen Delivery Method Room Air Intake Visit Reasons: copd Allergies ENVIROMENTAL Allergy (Unknown, Uncoded 06/06/24 08:26) RUNNY, SNEEZING, SINUS Tobacco use date assessed: 12/05/23 Fall risk assessment: No Falls in past year Last assessed Fall Risk: 06/06/24 Dental Screening Dental Screen Date: 12/05/23 HPI copd HPI Details 69-year-old male with COPD hypercholesterolemia BPH last seen in November 2023 patient is here for follow-up. Patient is colonoscopy last done in June 2019. [facility] Medical History COPD (chronic obstructive pulmonary disease) BPH (benign prostatic hyperplasia) Impaired glucose tolerance Hypercholesterolemia Surgical History History of removal of skin mole History of wrist fracture History of nasal septoplasty History of dislocation of shoulder History of tonsillectomy History of appendectomy Family History Father CVD (cardiovascular disease) Myocardial infarction Mother Dementia Sister Family history of cervical cancer Social History (Updated 12/05/23 @ 09:01 by Lawrence Coats MD) Housing: House Alcohol intake: current Alcohol intake frequency: a few times a month Comment: once q week 1 beer Patient Tobacco Use Status: Former Tobacco user Tobacco use type: Cigarette Years Smoked: quit 1999 e-Cigarette/Vaping Use: Never Used Second Hand Smoke Exposure: Yes service: Yes Current occupational status: retired Cognitive needs: No Hearing needs: No Vision needs: Yes Questionnaire PHQ-9 Over the last 2 weeks, how often have you been bothered by any of the following problems? 1. Little interest or pleasure in doing things: not at all 2. Feeling down, depressed, or hopeless: not at all 3. Trouble falling or staying asleep, or sleeping too much: not at all 4. Feeling tired or having little energy: not at all 5. Poor appetite or overeating: not at all 6. Feeling bad about yourself - or that you are a failure or have let yourself or your family down: not at all 7. Trouble concentrating on things, such as reading the newspaper or watching television: not at all 8. Moving or speaking so slowly that other people could have noticed. Or the opposite - being so fidgety or restless that you have been moving around a lot more than usual: not at all 9. Thoughts that you would be better off or of hurting yourself in some way: not at all Total score: 0 Depression Screening Interpretation: Negative Depression Screening Done: Yes Source: Developed by Drs. Sumit Begum, Rosario Savage, Duarte Deras and colleagues, with an educational donavon from [employer]. Thrive Questionnaire Date Thrive assessed: 12/05/23 AUDIT C Alcohol Use Questionnaire (AUDIT-C) 1. How often do you have a drink containing alcohol?: 2-4 times a month 2. How many drinks containing alcohol do you have on a typical day when you are drinking?: 5 or 6 3. How often do you have six or more drinks on one occasion?: Never Total Score: 4 ADEN-7 AMB Questionnaire ADEN-7 Date ADEN - 7 assessed: 12/05/23 Source: Developed by Drs. Sumit Begum, Rosario Savage, Duarte Deras and colleagues, with an educational donavon from [employer]. Physical exam (Primary Care) Vital Signs: Last Vital Signs Pulse 57 06/06/24 08:26 BP 122/68 06/06/24 08:26 Pulse Ox 94 06/06/24 08:26 Oxygen Delivery Method Room Air 06/06/24 08:26 BMI result Body Mass Index 22.4 Tobacco/Smoking Status: Tobacco use Status Tobacco use date assessed 12/05/23 06/06/24 08:31 Patient Tobacco Use Status Former Tobacco user 06/06/24 08:31 Tobacco use type Cigarette 06/06/24 08:31 e-Cigarette/Vaping Use Never Used 06/06/24 08:31 PHQ-9: PHQ-9 Score PHQ-9: Total score 0 06/06/24 08:31 Depression Screening Interpretation: Negative Thrive Assessment: Date of Thrive Assessment Date Thrive assessed 12/05/23 06/06/24 08:31 Const General: alert; No acute distress Eyes Conjunctivae: conjunctivae normal Resp Auscultation: clear to auscultation bilaterally Cardio Rate: regular rate Rhythm: regular rhythm GI Inspection: Yes normal to inspection Extrem General: Yes normal to inspection and No edema Assessment and Plan Assessment & Plan (1) Impaired fasting blood sugar: Code(s): R73.01 - Impaired fasting glucose Plan: Decrease the amount of carbohydrate intake, pasta, bread, rice and potatoes are all sugar and that is aside from all the sweet stuff, remember that fruits are good but they are Sweet also. (2) COPD (chronic obstructive pulmonary disease): Code(s): J44.9 - Chronic obstructive pulmonary disease, unspecified Plan: Continue with albuterol inhaler p.r.n. (3) BPH (benign prostatic hyperplasia): Code(s): N40.0 - Benign prostatic hyperplasia without lower urinary tract symptoms Qualifiers: Lower urinary tract symptom presence: symptoms present Lower urinary tract symptom detail: urinary hesitancy Qualified Code(s): N40.1 - Benign prostatic hyperplasia with lower urinary tract symptoms; R39.11 - Hesitancy of micturition Plan: Continue with dutasteride 0.5 mg once a day (4) Hypercholesterolemia: Code(s): E78.00 - Pure hypercholesterolemia, unspecified Plan: Avoid fried foods, chicken skin, eggs, butter margarine, pastries and meat. Be it pork or beef they have a lot of cholesterol LDL goal of less than 130 and triglyceride of less than 150. Barbara blood work received. Coding Level of Care Code Est Pt Level 4 (23149) Diagnoses Impaired fasting blood sugar R73.01 COPD (chronic obstructive pulmonary disease) J44.9 Benign prostatic hyperplasia with urinary hesitancy N40.1; R39.11 Lower urinary tract symptom presence: symptoms present Lower urinary tract symptom detail: urinary hesitancy Hypercholesterolemia E78.00
[2024-06-06 08:26] VITALS: BP 122/68; PULSE 57; O2SAT 94; BMI 22.4
== END 2024-06-06 09:14 | disposition home or self-care (01) ==
PROVIDERS: PCP Internal Medicine; Visit Provider Internal Medicine
DX: R73.01 Impaired fasting glucose (principal); J44.9 Chronic obstructive pulmonary disease, unspecified; N40.1 Benign prostatic hyperplasia with lower urinary tract symptoms; R39.11 Hesitancy of micturition; E78.00 Pure hypercholesterolemia, unspecified
CPT/HCPCS: 99214

== ENCOUNTER 2024-12-06 12:21 | Outpatient (AMB) | payer MEDICARE, SELFPAY ==
--- OUTSIDE RECORDS SUMMARY | 2024-12-06 12:33 | XMS_ITS | Encounter Summary ---
Author Name [facility] [place] [facility] [place] [facility] [place] [facility] [place] Address [address] [place] [id number] Care Team Providers Care Zone Maintenance Technician Name Role Phone CONSTANTIN SULTANA Primary Care Provider Unavailabl e Insurance Providers: All historical and current Section Date Range: From patient's date of to the date document was created. This section includes the names of all active insurance providers for the patient. Insurance Provider Type of Coverage Plan Name Start of Policy Coverage End of Policy Coverage Group Number Member ID Insurance Provider's Telephone Number Policy Raymond's Name Patient's Relationship to Policy Raymond [facility] ([facility]) MEDICARE ADVANTAGE MCR ([facility]) Oct 24, 2021 [id number] DAREN MCGRAW PATIENT [facility] ([facility]) MEDICARE ADVANTAGE MCR ([facility]) Oct 24, 2021 [id number] DAREN MCGRAW PATIENT Selected Encounter This section includes the information on record at [place] for the Encounter. Date/Time Encounter Type Encounter Description Reason Provider Source Nov 21, 2024 07:30 AM EXERCISE CLASS HEALTH/WELL[facility] ICD-10-CM Z72.3 Lack of physical exercise HEATHER HOANG Encounter Template Text not used by [place] Assessments - Encounter Diagnoses This section includes the primary and secondary diagnoses documented for the Encounter. Date/Time Primary/Secondary Diagnosis Diagnosis Name Provider Source Nov 21, 2024 10:47 AM PRIMARY Lack of physical exercise HEATHER HOANG [place] [facility] [place] [facility] Plan of Treatment: Future Appointments (+ 6 months) and Future Tests (+/- 45 days) The Plan of Treatment section includes future care activities for the patient [facility] [place] [facility] This section includes future appointments and future orders which are active, pending or scheduled. Future Appointments This section includes appointments that were scheduled to occur 6 months from the date of the Encounter, up to a maximum of 20 appointments. The data comes from all [facility]. Appointment Date/Time Appointment Type Appointme nt Facility Name Nov 27, 2024 01:30 PM AMBULATORY - REHAB MEDICIN E [place] [facility] [place] [facility] Dec 04, 2024 09:00 AM AMBULATORY - [place]HAB MEDICIN E [place] [facility] [place] [facility] Dec 05, 2024 01:00 PM AMBULATORY - PSYCHIATRY [place] [facility] [place] [facility] Dec 06, 2024 08:30 AM AMBULATORY - MEDICINE [place] [facility] [place] [facility] Dec 12, 2024 09:30 AM AMBULATORY - [facility] [place] [facility] Dec 18, 2024 10:00 AM AMBULATORY - [place] MEDICIN [place] [facility] [place] [facility] Jan 09, 2025 09:30 AM AMBULATORY - MEDICINE [place] [facility] [place] [facility] Jan 28, 2025 08:30 AM AMBULATORY - PSYCHIATRY [place] [facility] [place] [facility] Feb 01, 2025 09:00 AM AMBULATORY - MEDICINE [place] [facility] [place] [facility] February 22, 2025 01:00 PM AMBULATORY - PSYCHIATRY [facility] [place] [facility] March 20, 2025 02:30 PM AMBULATORY - MEDICINE [place] [facility] [place] [facility] Active, Pending, and Scheduled Orders This section includes a listing of several types of active, pending, and scheduled orders, including clinic medications orders, diagnostic test orders, procedure orders and consult orders; where the start date of the order is 45 days before the date of the Encounter or 45 days after the date of theEncounter. The data comes from all [facility]. Test Date/Time Test Type Test Details Facility Name Oct 10, 2024 11:06 AM Consult Order NEUROPSYCHOLOGICAL TESTING OUTPT Cons Policy Officer's Choice [place] [facility] [place] [facility] Dec 06, 2024 09:03 AM Consult [facility] Policy Officer's Choice [place] [facility] [place] [facility] Lab Results: +/- 30 days of the encounter This section includes the Chemistry and Hematology Lab Results on record with [place] for the patient. Radiology Reports and Pathology Reports are provided separately, in subsequent sections. Lab Results This section contains the Chemistry/Hematology Results that were resulted 30 days before or 30 daysafter the date of the Encounter. Date/Time Source Result Type Result - Unit Interpretation Reference Range Comment Nov 13, 2024 08:42 AM [place] [facility] [place] [facility] METHYLMALONIC ACID (SERUM-QU) Specimen Type: SERUM Comment: Serum methylmalonic acid (MMA) levels are used to diagnose and monitor several rare inborn errors of metabolism, including methylmalonic aciduria. The enzymatic conversion of MMA to succinic acid requires vitamin B12 (adenosyl-cobala min) as a cofactor. Serum MMA levels are also used for assessing functional vitamin B12 deficiency. Vitamin B12 is essential for neurodevelopment , particularly early in . Undiagnosed maternal vitamin B12 deficiency may be associated with adverse / outcomes, such as neural tube defects and intrauterine growth restriction. [facility] utilized Multi-Modal Decomposition (MMD) analysis to establish first and second trimester- specific MMA reference intervals in , as given below: MMA, First trimester (<13 wks gestation): 58-167 nmol/L MMA, Second trimester (13-23 wks gestation): 63-241 nmol/L This test was developed and its analytical performance characteristics have been determined by [employer]. It has not been cleared or approved by the FDA. This assay has been validated pursuant to the CLIA regulations and is used for clinical purposes. Test Performed by [facility], [facility], [address] [place] [address] Oz Dalton M.D., Ph.D., Director of Laboratories , CLIA [id number] TEST PERFORMED AT: , Ordering Provider: CONSTANTIN SULTANA Report Released Date/Time: Nov 02, 2024 08:37 AM Reporting Lab: [facility] [address] [facility] [address] Performing Lab: [facility] [address] [address] METHYLMALONIC ACID (SERUM-QU) 138 nmol/L 69-390 Nov 13, 2024 08:42 AM [facility] HOMOCYSTEINE Specimen Type: SERUM Comment: For Test: HOMOCYSTEINE + Ordering Provider: CONSTANTIN SULTANA Report Released Date/Time: Nov 02, 2024 08:37 AM Reporting Lab: [facility] [address] [facility] [address] Performing Lab: [facility] [address] [facility] [address] HOMOCYSTEINE 6.5 umol/L 5-15 Nov 13, 2024 08:42 AM [facility] VITAMIN B12 Specimen Type: SERUM No comment entered. Ordering Provider: CONSTANTIN SULTANA Report Released Date/Time: Nov 02, 2024 08:37 AM Reporting Lab: [facility] [address] [facility] [address] Performing Lab: [facility] [address] [facility] [address] VITAMIN B12 582 pg/mL 200-900 Nov 13, 2024 08:42 AM [facility] BASIC METABOLIC PANEL (non-fasting) Specimen Type: SERUM No comment entered. Ordering Provider: CONSTANTIN SULTANA Report Released Date/Time: Nov 02, 2024 08:37 AM Reporting Lab: [facility] [address] [facility] [address] Performing Lab: [facility] [address] [facility] [address] UREA NITROGEN 18 mg/dL 7-25 GLUCOSE 100 mg/dL 65-100 SODIUM 143 mmol/L 135-145 POTASSIUM 4.0 mmol/L 3.5-5.0 CHLORIDE 107 mmol/L 100-110 CO2 27 meq/L 20-30 CREATININE, Serum 0.95 mg/dL 0.50-1.40 eGFR(CKD-EPI 2020) 86 mL/min >60 Nov 13, 2024 08:42 AM [facility] LIVER FUNCTION Specimen Type: SERUM No comment entered. Ordering Provider: CONSTANTIN SULTANA Report Released Date/Time: Nov 02, 2024 08:37 AM Reporting Lab: [facility] [address] [facility] [address] Performing Lab: [address] [address] PROTEIN,TOTAL 7.3 g/dL 6.0-8.3 ALBUMIN 4.3 g/dL 3.5-5.0 ALKALINE PHOSPHATASE 79 U/L 40-150 AST 17 U/L 5-34 ALT 13 U/L BILIRUBIN, TOTAL 0.7 mg/dL 0.2-1.2 Nov 13, 2024 08:42 AM [facility] TSH Specimen Type: SERUM No comment entered. Ordering Provider: CONSTANTIN SULTANA Report Released Date/Time: Nov 02, 2024 08:37 AM Reporting Lab: [facility] [address] [facility] [address] Performing Lab: [address] [address] TSH 1.28 u[IU]/mL 0.35-5.00 Nov 13, 2024 08:42 AM [facility] CBC AND DIFF (AUTO) Specimen Type: BLOOD No comment entered. Ordering Provider: CONSTANTIN SULTANA Report Released Date/Time: Nov 02, 2024 08:37 AM Reporting Lab: [facility] [address] [facility] [address] Performing Lab: [address] [address] WBC 5.22 10*3/uL 4.50-11.00 RBC 5.01 10*6/uL 4.23-5.66 HGB 15.3 g/dL 12.8-17 HCT 44.9 39.2-50.4 MCV 89.6 fL 82-99 MCHC 34.1 g/dL 30.8-35.1 PLT 227 10*3/uL 140-360 RDW-CV 11.9 L 12.0-16.0 MONO, ABS 0.52 10*3/uL 0.30-1.10 MCH 30.5 pg 26.2-32.6 NEUT % 61.4 43.7-75.8 LYMPH % 23.8 14.0-42.3 MONO % 10.0 5.1-13.7 EOS % 3.3 0.4-6.8 BASO % 1.3 0.1-2.0 NEUT, ABS 3.21 10*3/uL 2.20-7.60 LYMPH, ABS 1.24 10*3/uL 1.00-3.20 EOS, ABS 0.17 10*3/uL 0.03-0.44 BASO, ABS 0.07 10*3/uL 0.01-0.13 IMMATURE GRAN % 0.2 0.0-0.7 IMMATURE GRAN, ABS 0.01 10*3/uL 0.00-0.06 NRBC % 0.0 0.0-0.0 NRBC, ABS 0.00 10*3/uL 0.00-0.00 Nov 13, 2024 08:42 AM [facility] PSA Specimen Type: SERUM No comment entered. Ordering Provider: CONSTANTIN SULTANA Report Released Date/Time: Nov 02, 2024 08:37 AM Reporting Lab: [address] [address] Performing Lab: [address] [address] PSA 1.22 ng/mL 0.00-4.00 Nov 13, 2024 08:42 AM [facility] LIPASE Specimen Type: SERUM No comment entered. Ordering Provider: CONSTANTIN SULTANA Report Released Date/Time: Nov 02, 2024 08:37 AM Reporting Lab: [address] [address] Performing Lab: [address] [address] LIPASE 28 U/L 8-82 Nov 13, 2024 08:42 AM [facility] URINALYSIS CLEAN CATCH Specimen Type: URINE Comment: If Glucose = >500 and Ketones are positive, please alert the Physician. Ordering Provider: CONSTANTIN SULTANA Report Released Date/Time: Nov 02, 2024 08:37 AM Reporting Lab: [facility] [address] [facility] [address] Performing Lab: [address] [address] UA COLOR Yellow Yellow UA APPEARANCE Clear Clear UA GLUCOSE Normal mg/dL Negative UA KETONES NEGATIVE mg/dL Negative UA BLOOD NEGATIVE mg/dL Negative UA PROTEIN 10 mg/dL Negative UA NITRITE NEGATIVE mg/dL Negative UA BILIRUBIN NEGATIVE mg/dL Negative UA SPECIFIC GRAVITY 1.029 H 1.016-1.02 2 UA pH 6.0 5.0-9.0 UA UROBILINOGEN Normal mg/dL <2.0 UA LEUKOCYTE NEGATIVE Negative Nov 02, 2024 12:00 AM [facility] OCCULT BLOOD FIT X1 SCREEN(IN-HOUSE) Specimen Type: FECES No comment entered. Ordering Provider: CONSTANTIN USLTANA Report Released Date/Time: Nov 02, 2024 04:48 PM Reporting Lab: [address] [address] Performing Lab: [address] [address] OCCULT BLOOD (FIT)#1 OF 1 Negative NEG Social History: Smoking Status (Most current) and Tobacco Use (All prior to encounter date) This section includes the most current, and the historical, smoking and tobacco- related health factors from the [place] facility where the Encounter took place. Current Smoking Status This section includes the most current smoking, or tobacco-related health factor, from the [place] facility where the Encounter took place. Date/Time Current Smoking Status Comment Facil ity May 23, 2024 10:00 AM [place]-TOBACCO QUIT 15 YRS OR MORE [facility] Tobacco Use History This section includes a history of the smoking, or tobacco-related health factors, that were collected on or before the date of the Encounter. The data comes from the [place] facility where the Encounter took place. Date/Time Smoking Status/Tobacco Use Comment F acility May 23, 2024 10:00 AM [place]-TOBACCO QUIT 15 YRS OR MORE [facility] Apr 06, 2023 11:05 AM [place]-TOBACCO FORMER USER [facility] Apr 06, 2023 11:05 AM [place]-TOBACCO QUIT 15 YRS OR MORE [facility] Radiology Reports: +/- 30 days of the encounter Radiology Reports For cases when an order for radiology services may have been completed prior to the date of the Encounter, the report list includes the Radiology Reports that were completed up to 30 days before dateof the Encounter. For cases when an order for radiology services may have been completed after the date of the Encounter, the report list also includes the Radiology Reports that were completed up to30 days after date of the Encounter. The data comes from all [place] treatment facilities. Date/Time Radiology Report Provider Source Nov 15, 2024 12:[address] ABDOMEN AND PELVIS WITH CONTRAST: OLGA MCGRAW [id number] -[id number] M Exm Date: NOV 15, 2024@12:08 Req Phys: CONSTANTIN SULTANA Loc: CWM/NO/PACT 2 (Req'g Loc) Img Loc: [facility]/CT Service: Unknown [place] [address] (Case [id number] COMPLETE) CT ABDOMEN AND PELVIS WITH CONTRA(CT Detailed) CPT:28046 Contrast Media : Non-ionic Iodinated Reason for Study: LLQ pain, look for cancer Clinical History: Report Status: Verified Date Reported: NOV 15, 2024 Date Verified: NOV 15, 2024 Oncology Navigator E-Sig:/ES/AVANI MONROY JR Report: Study: CT scan of the abdomen and pelvis with contrast. Comparison: None. Technique: After the uneventful administration of oral and 100 cc of Omnipaque 350 nonionic intravenous contrast media, multiple 2 mm contiguous axial images were taken from the lung bases through the pubic symphysis. Soft tissue windows are provided. Coronal and sagittal reformatted images are also provided. Findings: Moderate centrilobular and paraseptal emphysematous changes are present at the lung bases. The visualized heart and pericardium appear normal. Several too small to characterize hypodensities in the liver are statistically consistent with simple cysts. No solid mass or abnormal enhancement is identified. The portal vein is patent and normal. No intrahepatic or extra hepatic biliary ductal dilatation is identified. The pancreas, small splenule, spleen, and the adrenal glands appear normal. The kidneys enhance normally and symmetrically. Left renal parapelvic cysts are present. There is a small lower pole cortical simple cyst in the left kidney. The ureters are normal in course and caliber. The stomach and small bowel appear normal in course and caliber. The ascending and transverse colons contain a moderate to large amount of formed stool. There is a moderate diverticular burden present to the descending and sigmoid colons with some sigmoid colonic wall mural thickening suggestive of remote prior episodes of diverticulitis versus infection or inflammation, with no evidence of acute diverticulitis. Colonoscopy is much more sensitive for colonic pathology, if clinically indicated. The abdominal aorta is patent and normal in course and caliber. No abdominal wall hernia is identified. A cutaneous marker over the left groin shows no focal abnormality. Moderate prostatomegaly indents the base of the bladder. No focal bladder abnormality is identified. The seminal vesicles appear normal. Multiple pelvic phleboliths are present. There is no dominant abdominal, pelvic or retroperitoneal lymphadenopathy. There is no intra-abdominal free air or free fluid. Age-appropriate degenerative changes are seen to the spine. No acute bony pathology is seen. Impression: No acute abnormality identified with no clear etiology for left lower quadrant pain. Moderate to large amount of formed stool present in the ascending and transverse colons with evidence of prior infectious or inflammatory process likely related to repetitive episodes of diverticulitis within the descending and sigmoid colons without acute diverticulitis changes identified, as described above. Primary Diagnostic Code: No immediate attention required Primary Interpreting Staff: AVANI MONROY JR, Radiologist (Oncology Navigator) /EAAVANI NOLAN JR [facility] Nov 02, 2024 08:43 AM FINGER(S) 2 OR MORE VIEWS: OLGA MCGRAW [id number] -[id number] M Ex Date: NOV 02, 2024@08:43 Req Phys: CONSTANTIN SULTANA Loc: CWM/NO/PACT 2 (Req'g Loc) Im Loc: [facility] Service: Unknown [facility] [address] (Case [id number] COMPLETE) FINGER(S) 2 OR MORE VIEWS (RAD Detailed) CPT:02090 Proc Modifiers : LEFT Reason for Study: left finger #4 trigger finger Clinical History: Report Status: Verified Date Reported: NOV 02, 2024 Date Verified: NOV 02, 2024 Oncology Navigator E-Sig:/DELVIN/AVANI MONROY JR Report: Study: AP, lateral and oblique views of the left fourth finger. Comparison: None. Findings: The soft tissues appear normal. The bony mineralization appears normal. No joint space erosions are identified. The left fourth finger joint spaces are normal and well-maintained. No acute bony abnormality is seen. Impression: No focal abnormality identified. Primary Diagnostic Code: No immediate attention required Primary Interpreting Staff: AVANI MONROY JR, Radiologist (Oncology Navigator) /AVANI PARKER JR [facility] Encounter Notes: All associated encounter notes This section contains the clinical notes associated to the Encounter. Date/Time Encounter Note(s) Provider Source Nov 21, 2024 10:46 AM PHYSICAL MEDICINE REHAB NOTE: LOCAL TITLE: GEROFIT-SUPERVISED EXERCISE NOTE STANDARD TITLE: PHYSICAL MEDICINE REHAB NOTE DATE OF NOTE: NOV 21, 2024@10:46 ENTRY DATE: NOV 21, 2024@10:46:35 AUTHOR: ANIKA HOANG COSIGNER: URGENCY: STATUS: COMPLETED [place] participated in the [facility] exercise program today. Activities were focused on progression of their individual exercise prescription (cardiorespiratory fitness training, strength training, etc.) and group based exercise sessions to include, but not limited to: flexibility training, balance training, functional circuit training, Vignesh Chi for arthritis, and other functional strength and neuromotor exercises. Exercise participation was supervised by [facility] staff and any questions/concerns were addressed with the patient. Modifications were made to programming as appropriate to suit Veterans individual needs, preferences, and whole health concerns. /delvin/ AMADOR LI LICENSE DEPUTY CLERK Signed: 11/21/2024 10:51 ANIKA HOANG [facility]
--- OUTSIDE RECORDS SUMMARY | 2024-12-06 12:33 | XMS_ITS | Encounter Summary ---
Author Name [facility] [place] [facility] [place] [facility] [facility] [place] Address [address] [place] [id number] Care Team Providers Care Material Stress Tester Name Role Phone CONSTANTIN SULTANA Primary Care [...] Raymond's Name Patient's Relationship to Policy Raymond [facility] ([facility]) MEDICARE ADVANTAGE MCR ([facility]) Oct 24, 2021 [id number] DAREN MCGRAW PATIENT [facility] ([facility]) MEDICARE ADVANTAGE MCR ([facility]) Oct 24, 2021 [id number] DAREN MCGRAW PATIENT Selected Encounter This section includes the information on record at CT for the Encounter. Date/Time Encounter Type Encounter Description Reason Provider Source Nov 19, 2024 07:30 AM EXERCISE CLASS HEALTH/WELLBEING [facility] ICD-10-CM Z72.3 Lack of physical exercise HEATHER HOANG Encounter Template Text not used by CT Assessments - Encounter Diagnoses This section includes the primary and secondary diagnoses documented for the Encounter. Date/Time Primary/Secondary Diagnosis Diagnosis Name Provider Source Nov 19, 2024 10:36 AM PRIMARY Lack of physical exercise HEATHER HOANG [facility] [place] [facility] Plan of Treatment: Future Appointments (+ 6 months) and Future Tests (+/- 45 days) The Plan of Treatment section includes future care activities for the patient [facility] This section includes future appointments and future orders which are active, pending or scheduled. Future Appointments This section includes appointments that were scheduled to occur 6 months from the date of the Encounter, up to a maximum of 20 appointments. The data comes from all [facility]. Appointment Date/Time Appointment Type Appointme nt Facility Name Nov 27, 2024 01:30 PM AMBULATORY - REHAB MEDICIN E [facility] [place] [facility] Dec 04, 2024 09:00 AM AMBULATORY - REHAB MEDICIN E [facility] [place] [facility] Dec 05, 2024 01:00 PM AMBULATORY - PSYCHIATRY [facility] [place] [facility] Dec 06, 2024 08:30 AM AMBULATORY - MEDICINE [facility] [place] [facility] Dec 12, 2024 09:30 AM AMBULATORY - [facility] MEDICIN [facility] [place] [facility] Dec 18, 2024 10:00 AM AMBULATORY - REHAB MEDICIN E [facility] [place] [facility] Jan 09, 2025 09:30 AM AMBULATORY - MEDICINE [facility] [place] [facility] Jan 28, 2025 08:30 AM AMBULATORY - PSYCHIATRY [facility] [place] [facility] Feb 01, 2025 09:00 AM AMBULATORY - MEDICINE [facility] [place] [facility] February 22, 2025 01:00 PM AMBULATORY - PSYCHIATRY [facility] [place] [facility] March 20, 2025 02:30 PM AMBULATORY - MEDICINE [facility] [place] [facility] Active, Pending, and Scheduled Orders This section includes a listing of several types of active, pending, and scheduled orders, including clinic medications orders, diagnostic test orders, procedure orders and consult orders; where the start date of the order is 45 days before the date of the Encounter or 45 days after the date of theEncounter. The data comes from all [facility]. Test Date/Time Test Type Test Details Facility Name Oct 10, 2024 11:06 AM Consult Order NEUROPSYCHOLOGICAL TESTING OUTPT Cons Slip Cover Sewer's Choice [facility] [place] [facility] Dec 06, 2024 09:03 AM Consult Order [facility] Cons Slip Cover Sewer's Choice [facility] [place] [facility] Lab Results: +/- 30 days of the encounter This section includes the Chemistry and Hematology Lab Results on record with CT for the patient. Radiology Reports and Pathology Reports are provided separately, in subsequent sections. Lab Results This section contains the Chemistry/Hematology Results that were resulted 30 days before or 30 daysafter the date of the Encounter. Date/Time Source Result Type Result - Unit Interpretation Reference Range Comment Nov 13, 2024 08:[address] [facility] [place] [facility] METHYLMALONIC ACID (SERUM-QU) Specimen Type: SERUM [...] neural tube defects and intrauterine growth restriction. [facility] utilized Multi-Modal Decomposition (MMD) analysis to establish first and second trimester- specific MMA reference intervals in , as given below: MMA, First trimester (<13 wks gestation): 58-167 nmol/L MMA, Second trimester (13-23 wks gestation): 63-241 nmol/L This test was developed and its analytical performance characteristics have been determined by [facility]. It has not been cleared or approved by the FDA. This assay has been validated pursuant to the CLIA regulations and is used for clinical purposes. Test Performed by [facility], [facility], [address] [place] [address] Oz Dalton M.D., Ph.D., Director of Laboratories , CLIA [id number] TEST PERFORMED AT: , Ordering Provider: CONSTANTIN SULTANA Report Released Date/Time: Nov 02, 2024 08:37 AM Reporting Lab: [facility] [place] [facility] [address] [facility] [address] Performing Lab: [facility] [place] [facility] [address] [address] METHYLMALONIC ACID (SERUM-QU) 138 nmol/L 69-390 Nov 13, 2024 08:42 AM [facility] HOMOCYSTEINE Specimen Type: SERUM Comment: For Test: HOMOCYSTEINE + Ordering Provider: CONSTANTIN SULTANA Report Released Date/Time: Nov 02, 2024 08:37 AM Reporting Lab: [facility] [address] [facility] [address] Performing Lab: [facility] [address] [facility] [address] HOMOCYSTEINE 6.5 umol/L 5-15 Nov 13, 2024 08:42 AM [facility] VITAMIN B12 Specimen Type: SERUM No comment entered. Ordering Provider: CONSTANTIN SULTANA Report Released Date/Time: Nov 02, 2024 08:37 AM Reporting Lab: [facility] [address] [facility] [address] Performing Lab: [facility] [address] [facility] [address] VITAMIN B12 582 pg/mL 200-900 Nov 13, 2024 08:42 AM [facility] LIVER FUNCTION Specimen Type: SERUM No comment entered. Ordering Provider: CONSTANTIN SULTANA Report Released Date/Time: Nov 02, 2024 08:37 AM Reporting Lab: [facility] [address] [facility] [address] Performing Lab: [facility] [address] [address] PROTEIN,TOTAL 7.3 g/dL 6.0-8.3 ALBUMIN 4.3 g/dL 3.5-5.0 ALKALINE PHOSPHATASE 79 U/L 40-150 AST 17 U/L 5-34 ALT 13 U/L BILIRUBIN, TOTAL 0.7 mg/dL 0.2-1.2 Nov 13, 2024 08:42 AM [facility] BASIC METABOLIC PANEL (non-fasting) Specimen Type: SERUM No comment entered. Ordering Provider: CONSTANTIN SULTANA Report Released Date/Time: Nov 02, 2024 08:37 AM Reporting Lab: [facility] [address] [facility] [address] Performing Lab: [facility] [address] [address] UREA NITROGEN 18 mg/dL 7-25 GLUCOSE 100 mg/dL 65-100 SODIUM 143 mmol/L 135-145 POTASSIUM 4.0 mmol/L 3.5-5.0 CHLORIDE 107 mmol/L 100-110 CO2 27 meq/L 20-30 CREATININE, Serum 0.95 mg/dL 0.50-1.40 eGFR(CKD-EPI 2020) 86 mL/min >60 Nov 13, 2024 08:42 AM [facility] TSH Specimen Type: SERUM No comment entered. Ordering Provider: CONSTANTIN SULTANA Report Released Date/Time: Nov 02, 2024 08:37 AM Reporting Lab: [facility] [address] Performing Lab: [facility] [address] TSH 1.28 u[IU]/mL 0.35-5.00 Nov 13, 2024 08:42 AM [facility] PSA Specimen Type: SERUM No comment entered. Ordering Provider: CONSTANTIN SULTANA Report Released Date/Time: Nov 02, 2024 08:37 AM Reporting Lab: [facility] [address] [facility] [address] Performing Lab: [facility]ENTERUSETS [address] [address] PSA 1.22 ng/mL 0.00-4.00 Nov 13, 2024 08:42 AM [facility] CBC AND DIFF (AUTO) Specimen Type: BLOOD No comment entered. Ordering Provider: CONSTANTIN SULTANA Report Released Date/Time: Nov 02, 2024 08:37 AM Reporting Lab: [facility] [address] Performing Lab: [facility] [address] [facility] [address] WBC 5.22 10*3/uL 4.50-11.00 RBC 5.01 10*6/uL [...] 10*3/uL 0.00-0.00 Nov 13, 2024 08:42 AM [facility] LIPASE Specimen Type: SERUM No comment entered. Ordering Provider: CONSTANTIN SULTANA Report Released Date/Time: Nov 02, 2024 08:37 AM Reporting Lab: [facility] [address] [facility] [address] Performing Lab: [facility] [address] [facility] [address] LIPASE 28 U/L 8-82 Nov 13, 2024 08:42 AM [facility] URINALYSIS CLEAN CATCH Specimen Type: URINE Comment: If Glucose = >500 and Ketones are positive, please alert the Physician. Ordering Provider: CONSTANTIN SULTANA Report Released Date/Time: Nov 02, 2024 08:37 AM Reporting Lab: [facility] [address] [facility] [address] Performing Lab: [address] [address] UA COLOR Yellow Yellow UA APPEARANCE Clear Clear UA GLUCOSE Normal mg/dL Negative UA KETONES NEGATIVE mg/dL Negative UA BLOOD NEGATIVE mg/dL Negative UA PROTEIN 10 mg/dL Negative UA NITRITE NEGATIVE mg/dL Negative UA BILIRUBIN NEGATIVE mg/dL Negative UA SPECIFIC GRAVITY 1.029 H 1.016-1.02 2 UA pH 6.0 5.0-9.0 UA UROBILINOGEN Normal mg/dL <2.0 UA LEUKOCYTE NEGATIVE Negative Nov 02, 2024 12:00 AM [facility] OCCULT BLOOD FIT X1 SCREEN(IN-HOUSE) Specimen Type: FECES No comment entered. Ordering Provider: CONSTANTIN SULTANA Report Released Date/Time: Nov 02, 2024 04:48 PM Reporting Lab: [address] [address] Performing Lab: [address] [address] OCCULT BLOOD (FIT)#1 OF 1 Negative NEG Social History: Smoking Status (Most current) and Tobacco Use (All prior to encounter date) This section includes the most current, and the historical, smoking and tobacco- related health factors from the CT facility where the Encounter took place. Current Smoking Status This section includes the most current smoking, or tobacco-related health factor, from the [place] facility where the Encounter took place. Date/Time Current Smoking Status Comment Facil ity May 23, 2024 10:00 AM VA-TOBACCO FORMER USER [facility] Tobacco Use History This section includes a history of the smoking, or tobacco-related health factors, that were collected on or before the date of the Encounter. The data comes from the CT facility where the Encounter took place. Date/Time Smoking Status/Tobacco Use Comment F acility May 23, 2024 10:[address]-TOBACCO QUIT 15 YRS OR MORE [facility] Apr 06, 2023 11:[address]-TOBACCO FORMER USER [facility] Apr 06, 2023 11:[address]-TOBACCO QUIT 15 YRS OR MORE [facility] Radiology Reports: +/- 30 days of the [...] the Encounter. The data comes from all CT treatment facilities. Date/Time Radiology Report Provider Source Nov 15, 2024 12:[address] ABDOMEN AND PELVIS WITH CONTRAST: OLGA MCGRAW [id number] -1955 M Exm Date: NOV 15, 2024@12:08 Req Phys: CONSTANTIN SULTANA Loc: CWM/NO/PACT 2 (Req'g Loc) Img Loc: [facility]/CT Service: [place] [address] (Case [id number] COMPLETE) CT ABDOMEN AND PELVIS WITH CONTRA(CT Detailed) CPT:19195 Contrast Media : Non-ionic Iodinated Reason for Study: LLQ pain, look for cancer Clinical History: Report Status: Verified Date Reported: NOV 15, 2024 Date Verified: NOV 15, 2024 Convention Services Manager E-Sig:/ES/AVANI MONROY JR Report: Study: CT scan [...] Primary Interpreting Staff: AVANI MONROY JR, Radiologist (Convention Services Manager) /AVANI PARKER JR [facility] Nov 02, 2024 08:43 AM FINGER(S) 2 OR MORE VIEWS: OLGA MCGRAW [id number] -1955 Ex Date: NOV 02, 2024@08:43 Req Phys: CONSTANTIN SULTANA Loc: CWM/NO/PACT 2 (Req'g Loc) Img [facility] Service: [place] [address] (Case [id number] COMPLETE) FINGER(S) 2 OR MORE VIEWS (RAD Detailed) CPT:31318 Proc Modifiers : LEFT Reason for Study: left finger #4 trigger finger Clinical History: Report Status: Verified Date Reported: NOV 02, 2024 Date Verified: NOV 02, 2024 Convention Services Manager E-Sig:/DELVIN/AVANI MONROY JR Report: Study: AP, lateral [...] Primary Interpreting Staff: AVANI MONROY JR, Radiologist (Convention Services Manager) /AVANI PARKER JR [facility] Encounter Notes: All associated encounter notes This section contains the clinical notes associated to the Encounter. Date/Time Encounter Note(s) Provider Source Nov 19, 2024 10:35 AM PHYSICAL MEDICINE REHAB NOTE: LOCAL TITLE: GEROFIT-SUPERVISED EXERCISE NOTE STANDARD TITLE: PHYSICAL MEDICINE REHAB NOTE DATE OF NOTE: NOV 19, 2024@10:35 ENTRY DATE: NOV 19, 2024@10:35:37 AUTHOR: ANIKA HOANG EXP COSIGNER: URGENCY: STATUS: COMPLETED [place] participated in the [facility] exercise program today. Activities were focused on progression of their individual exercise prescription (cardiorespiratory fitness training, strength training, etc.) and group based exercise sessions to include, but not limited to: flexibility training, balance training, functional circuit training, Vignesh Chi for arthritis, and other functional strength and neuromotor exercises. Exercise participation was supervised by [facility] staff and any questions/concerns were addressed with the patient. Modifications were made to programming as appropriate to suit Veterans individual needs, preferences, and whole health concerns. /delvin/ AMADOR LI LICENSE VP PATIENT Signed: 11/19/2024 10:41 ANIKA HOANG [facility]
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
--- OUTSIDE RECORDS SUMMARY | 2024-12-06 12:33 | XMS_ITS | Encounter Summary ---
Author Name [facility] [place] [facility] [place] Organization [facility] [place] Address [address] [place] [id number] Care Team Providers Care Biodiesel Plant Manager Name Role Phone CONSTANTIN SULTANA Primary Care [...] Raymond's Name Patient's Relationship to Policy Raymond [facility]) MEDICARE ADVANTAGE MCR ([facility]) Oct 24, 2021 [id number] DAREN MCGRAW PATIENT [facility] ([facility]) MEDICARE ADVANTAGE MCR ([facility]) Oct 24, 2021 [id number] DAREN MCGRAW PATIENT Selected Encounter This section includes the information on record at [place] for the Encounter. Date/Time Encounter Type Encounter Description Reason Pro vider Source IHE Encounter Template Text not used by VA
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
--- OUTSIDE RECORDS SUMMARY | 2024-12-06 12:33 | XMS_ITS | Encounter Summary ---
Author Name [facility] [place] [facility] [place] [address] [place] [id number] Care Team Providers Care Slide Fastener Repairer Name Role Phone CONSTANTIN SULTANA Primary Care [...] Name Patient's Relationship to Policy Raymond [facility] ([facility]) MEDICARE ADVANTAGE MCR ([facility]) Oct 24, 2021 [id number] DAREN MCGRAW PATIENT [facility] ([facility]) MEDICARE ADVANTAGE MCR ([facility]) Oct 24, 2021 [id number] [phone] DAREN MCGRAW PATIENT Selected Encounter This section includes the information on record at [place] for the Encounter. Date/Time Encounter Type Encounter Description Reason Provider Source Nov 28, 2024 07:30 AM EXERCISE CLASS HEALTH/WELLBEING [facility] ICD-10-CM Z72.3 Lack of physical exercise HEATHER HOANG IHKimberly Encounter Template Text not used by [facility] Assessments - Encounter Diagnoses This section includes the primary and secondary diagnoses documented for the Encounter. Date/Time Primary/Secondary Diagnosis Diagnosis Name Provider Source Nov 28, 2024 10:50 AM PRIMARY Lack of physical exercise HEATHER HOANG [place] [facility] [place] [facility] Plan of Treatment: Future Appointments (+ 6 months) and Future Tests (+/- 45 days) The Plan of Treatment section includes future care activities for the [facility] [place] [facility] This section includes future appointments and future orders which are active, pending or scheduled. Future Appointments This section includes appointments that were scheduled to occur 6 months from the date of the Encounter, up to a maximum of 20 appointments. The data comes from all [facility]. Appointment Date/Time Appointment Type Appointme nt Facility Name Dec 04, 2024 09:00 AM AMBUL[place]ORY - [place] [facility] [place] [facility] Dec 05, 2024 01:00 PM AM[place] [facility] [place] [facility] Dec 06, 2024 08:30 AM AMBULATORY - MEDICINE [facility] [place] [facility] Dec 12, 2024 09:30 AM [place] [facility] [place] [facility] Dec 18, 2024 10:00 AM [place] [facility] [place] [facility] Jan 09, 2025 09:30 AM [place] [facility] [place] [facility] Jan 28, 2025 08:30 AM [place] [facility] [place] [facility] Feb 01, 2025 09:00 AM AMBULATORY - MEDICINE [facility] [place] [facility] February 22, 2025 01:00 PM [place] [facility] [place] [facility] March 20, 2025 02:30 PM AMBULATORY - MEDICINE [facility] [place] [facility] Active, Pending, and Scheduled Orders This section includes a listing of several types of active, pending, and scheduled orders, including clinic medications orders, diagnostic test orders, procedure orders and consult orders; where the start date of the order is 45 days before the date of the Encounter or 45 days after the date of theEncounter. The data comes from all [facility]. Test Date/Time Test Type Test Details Facility Name Dec 06, 2024 09:03 AM Consult Order [facility] Cons Clean Rice Grader And Reel Tender's Choice [facility] Lab Results: +/- 30 days of the encounter This section includes the Chemistry and Hematology Lab Results on record with [place] for the patient. Radiology Reports and Pathology Reports are provided separately, in subsequent sections. Lab Results This section contains the Chemistry/Hematology Results that were resulted 30 days before or 30 daysafter the date of the Encounter. Date/Time Source Result Type Result - Unit Interpretation Reference Range Comment Nov 13, 2024 08:42 AM [facility] METHYLMALONIC ACID (SERUM-QU) Specimen Type: [...] neural tube defects and intrauterine growth restriction. [employer] utilized Multi-Modal Decomposition (MMD) analysis to establish first and second trimester- specific MMA reference intervals in , as given below: MMA, First trimester (<13 wks gestation): 58-167 nmol/L MMA, Second trimester (13-23 wks gestation): 63-241 nmol/L This test was developed and its analytical performance characteristics have been determined by [employer]. It has not been cleared or approved by the FDA. This assay has been validated pursuant to the CLIA regulations and is used for clinical purposes. Test Performed by [employer], [facility], [address] [place] [address] Oz Dalton M.D., Ph.D., Director of Laboratories , CLIA [id number] TEST PERFORMED AT: , Ordering Provider: CONSTANTIN SULTANA Report Released Date/Time: Nov 02, 2024 08:37 AM Reporting Lab: [facility] [address] [facility] [address] Performing Lab: [facility] [address] [address] METHYLMALONIC ACID (SERUM-QU) 138 nmol/L 69-390 Nov 13, 2024 08:42 AM [facility] HOMOCYSTEINE Specimen Type: SERUM Comment: For Test: HOMOCYSTEINE + Ordering Provider: CONSTANTIN SULTANA Report Released Date/Time: Nov 02, 2024 08:37 AM Reporting Lab: [facility] [address] [facility] [address] Performing Lab: [facility] [address] [facility] [address] HOMOCYSTEINE 6.5 umol/L 5-15 Nov 13, 2024 08:42 AM [facility] VITAMIN B12 Specimen Type: SERUM No comment entered. Ordering Provider: CONSTANTIN SULTANA Report Released Date/Time: Nov 02, 2024 08:37 AM Reporting Lab: [facility] [address] [facility] [address] Performing Lab: [address] [address] VITAMIN B12 582 pg/mL 200-900 Nov 13, 2024 08:42 AM [facility] BASIC METABOLIC PANEL (non-fasting) Specimen Type: SERUM No comment entered. Ordering Provider: CONSTANTIN SULTANA Report Released Date/Time: Nov 02, 2024 08:37 AM Reporting Lab: [facility] [address] [facility] [address] Performing Lab: [address] [address] UREA NITROGEN 18 mg/dL 7-25 GLUCOSE 100 mg/dL 65-100 SODIUM 143 mmol/L 135-145 POTASSIUM 4.0 mmol/L 3.5-5.0 CHLORIDE 107 mmol/L 100-110 CO2 27 meq/L 20-30 CREATININE, Serum 0.95 mg/dL 0.50-1.40 eGFR(CKD-EPI 2020) 86 mL/min >60 Nov 13, 2024 08:42 AM [facility] LIVER FUNCTION Specimen Type: SERUM No comment entered. Ordering Provider: CONSTANTIN SULTANA Report Released Date/Time: Nov 02, 2024 08:37 AM Reporting [facility] [address] [facility] [address] Performing Lab: [facility] [address] [facility] [address] PROTEIN,TOTAL 7.3 g/dL 6.0-8.3 ALBUMIN 4.3 g/dL 3.5-5.0 ALKALINE PHOSPHATASE 79 U/L 40-150 AST 17 U/L 5-34 ALT 13 U/L BILIRUBIN, TOTAL 0.7 mg/dL 0.2-1.2 Nov 13, 2024 08:42 AM [facility] TSH Specimen Type: SERUM No comment entered. Ordering Provider: CONSTANTIN SULTANA Report Released Date/Time: Nov 02, 2024 08:37 AM Reporting Lab: [facility] [address] [facility] [address] Performing Lab: [address] [address] TSH 1.28 u[IU]/mL 0.35-5.00 Nov 13, 2024 08:42 AM [facility] PSA Specimen Type: SERUM No comment entered. Ordering Provider: CONSTANTIN SULTANA Report Released Date/Time: Nov 02, 2024 08:37 AM Reporting Lab: [facility] [address] [facility] [address] Performing Lab: [address] [address] PSA 1.22 ng/mL 0.00-4.00 Nov 13, 2024 08:42 AM [facility] CBC AND DIFF (AUTO) Specimen Type: BLOOD No comment entered. Ordering Provider: CONSTANTIN SULTANA Report Released Date/Time: Nov 02, 2024 08:37 AM Reporting Lab: [facility] [address] [facility] [address] Performing Lab: [facility] [address] WBC 5.22 10*3/uL 4.50-11.00 RBC 5.01 10*6/uL [...] 10*3/uL 0.00-0.00 Nov 13, 2024 08:42 AM [facility] LIPASE Specimen Type: SERUM No comment entered. Ordering Provider: CONSTANTIN SULTANA Report Released Date/Time: Nov 02, 2024 08:37 AM Reporting Lab: [facility] [address] [facility] [address] Performing Lab: [address] [address] LIPASE 28 U/L 8-82 Nov 13, 2024 08:42 AM [facility] URINALYSIS CLEAN CATCH Specimen Type: URINE Comment: If Glucose = >500 and Ketones are positive, please alert the Physician. Ordering Provider: CONSTANTIN SULTANA Report Released Date/Time: Nov 02, 2024 08:37 AM Reporting Lab: [address] [place] [address] Performing Lab: [facility] [address] [facility] [address] UA COLOR Yellow Yellow UA APPEARANCE Clear Clear UA GLUCOSE Normal mg/dL Negative UA KETONES NEGATIVE mg/dL Negative UA BLOOD NEGATIVE mg/dL Negative UA PROTEIN 10 mg/dL Negative UA NITRITE NEGATIVE mg/dL Negative UA BILIRUBIN NEGATIVE mg/dL Negative UA SPECIFIC GRAVITY 1.029 H 1.016-1.02 2 UA pH 6.0 5.0-9.0 UA UROBILINOGEN Normal mg/dL <2.0 UA LEUKOCYTE NEGATIVE Negative Nov 02, 2024 12:00 AM [facility] OCCULT BLOOD FIT X1 SCREEN(IN-HOUSE) Specimen Type: FECES No comment entered. Ordering Provider: CONSTANTIN SULTANA Report Released Date/Time: Nov 02, 2024 04:48 PM Reporting Lab: [address] [address] Performing Lab: [address] [address] OCCULT BLOOD (FIT)#1 OF 1 Negative NEG Social History: Smoking Status (Most current) and Tobacco Use (All prior to encounter date) This section includes the most current, and the historical, smoking and tobacco- related health factors from the [place] facility where the Encounter took place. Current Smoking Status This section includes the most current smoking, or tobacco-related health factor, from the [place] facility where the Encounter took place. Date/Time Current Smoking Status Comment Ariel ity May 23, 2024 10:00 AM [place]-TOBACCO FORMER USER [facility] Tobacco Use History This section includes a history of the smoking, or tobacco-related health factors, that were collected on or before the date of the Encounter. The data comes from the [place] facility where the Encounter took place. Date/Time Smoking Status/Tobacco Use Comment F acrosa May 23, 2024 10:00 AM [place]-TO[place] QU[place] 15 YRS OR MORE [facility] Apr 06, 2023 11:05 AM [place]-TOBACCO FORMER USER [facility] Apr 06, 2023 11:05 AM [place] QUIT 15 YRS OR MORE [facility] Radiology Reports: +/- 30 days of [...] the Encounter. The data comes from all [place] treatment facilities. Date/Time Radiology Report Provider Source Nov 15, 2024 12:[address] ABDOMEN AND PELVIS WITH CONTRAST: OLGA MCGRAW [id number] -[id number] M Exm Date: NOV 15, 2024@12:08 Req Phys: CONSTANTIN SULTANA Loc: CWM/NO/PACT 2 (Req'g Loc) Img Loc: [facility]/CT Service: Unknown [facility] [address] (Case [id number] COMPLETE) CT ABDOMEN AND PELVIS WITH CONTRA(CT Detailed) CPT:45121 Contrast Media : Non-ionic Iodinated Reason for Study: LLQ pain, look for cancer Clinical History: Report Status: Verified Date Reported: NOV 15, 2024 Date Verified: NOV 15, 2024 Lance Crewmember/Mlrs Sergeant E-Sig:/ES/AVANI MONROY JR Report: Study: CT scan [...] Primary Interpreting Staff: AVANI MONROY JR, Radiologist (Lance Crewmember/Mlrs Sergeant) /AVANI PARKER JR [facility] Nov 02, 2024 08:43 AM FINGER(S) 2 OR MORE VIEWS: MARILUZOLGA CRUZ [id number] -[id number] M Ex Date: NOV 02, 2024@08:43 Req Phys: CONSTANTIN SULTANA Loc: CWM/NO/PACT 2 (Req'g Loc) Img Loc: [facility] 1 Service: [place] [address] (Case [id number] COMPLETE) FINGER(S) 2 OR MORE VIEWS (RAD Detailed) CPT:75206 Proc Modifiers : LEFT Reason for Study: left finger #4 trigger finger Clinical History: Report Status: Verified Date Reported: NOV 02, 2024 Date Verified: NOV 02, 2024 Lance Crewmember/Mlrs Sergeant E-Sig:/ES/AVANI MONROY JR Report: Study: AP, lateral [...] Primary Interpreting Staff: AVANI MONROY JR, Radiologist (Lance Crewmember/Mlrs Sergeant) /EAD AVANI MONROY JR [facility] Encounter Notes: All associated encounter notes This section contains the clinical notes associated to the Encounter. Date/Time Encounter Note(s) Provider Source Nov 28, 2024 10:49 AM PHYSICAL MEDICINE REHAB NOTE: LOCAL TITLE: GEROFIT-SUPERVISED EXERCISE NOTE STANDARD TITLE: PHYSICAL MEDICINE REHAB NOTE DATE OF NOTE: NOV 28, 2024@10:49 ENTRY DATE: NOV 28, 2024@10:49:29 AUTHOR: ANIKA HOANG COSIGNER: URGENCY: STATUS: COMPLETED participated in the [facility] exercise program today. Activities were focused on progression of their individual exercise prescription (cardiorespiratory fitness training, strength training, etc.) and group based exercise sessions to include, but not limited to: flexibility training, balance training, functional circuit training, Vignesh Chi for arthritis, and other functional strength and neuromotor exercises. Exercise participation was supervised by [facility] staff and any questions/concerns were addressed with the patient. Modifications were made to programming as appropriate to suit Veterans individual needs, preferences, and whole health concerns. /karen/ AMADOR LI LICENSE QUILL SKINNER Signed: 11/28/2024 10:54 ANIKA HOANG [facility]
--- OUTSIDE RECORDS SUMMARY | 2024-12-06 12:34 | XMS_ITS | Encounter Summary ---
Author Name [facility] [place] Address [address] [place] [id number] Care Team Providers Care Photographic Equipment Technician Name Role Phone CONSTANTIN SULTANA Primary [...] Name Patient's Relationship to Policy Raymond [facility] ([facility]) MEDICARE ADVANTAGE MCR ([facility]) Oct 24, 2021 [id number] [phone] DAREN MCGRAW PATIENT [facility] ([facility]) MEDICARE ADVANTAGE MCR ([facility]) Oct 24, 2021 [id number] [phone] DAREN MCGRAW PATIENT Selected Encounter This section includes the information on record at [place] for the Encounter. Date/Time Encounter Type Encounter Description Reason Provider Source Dec 03, 2024 07:30 AM EXERCISE CLASS [facility] ICD-10-CM Z72.3 Lack of physical exercise JANNA DANIELLE Kimberly Encounter Template Text not used by [facility] Assessments - Encounter Diagnoses This section includes the primary and secondary diagnoses documented for the Encounter. Date/Time Primary/Secondary Diagnosis Diagnosis Name Provider Source Dec 03, 2024 10:18 AM PRIMARY Lack of physical exercise HEATHER HOANG [place] [facility] [place] [facility] Plan of Treatment: Future Appointments (+ 6 months) and Future Tests (+/- 45 days) The Plan of Treatment section includes future care activities for the [facility] This section includes future appointments and future orders which are active, pending or scheduled. Future Appointments This section includes appointments that were scheduled to occur 6 months from the date of the Encounter, up to a maximum of 20 appointments. The data comes from all [facility]. Appointment Date/Time Appointment Type Appointme nt Facility Name Dec 04, 2024 09:00 AM AMBULATORY - REHAB MEDICIN E [place] [facility] [place] [facility] Dec 05, 2024 01:00 PM AMBULATORY - PSYCHIATRY [place] [facility] [place] [facility] Dec 06, 2024 08:30 AM AMBULATORY - MEDICINE [place] [facility] [place] [facility] Dec 12, 2024 09:30 AM AMBULATORY - REHAB MEDICIN E [facility] [place] [facility] Dec 18, 2024 10:00 AM AMBULATORY - REHAB MEDICIN E [facility] [place] [facility] Jan 09, 2025 09:30 AM AMBULATORY - MEDICINE [place] [facility] [place] [facility] Jan 28, 2025 08:30 AM AMBULATORY - PSYCHIATRY [place] [facility] [place] [facility] Feb 01, 2025 09:00 AM AMBULATORY - MEDICINE [facility] [place] [facility] February 22, 2025 01:00 PM AMBULATORY - PSYCHIATRY [place] [facility] [place] [facility] March 20, 2025 02:30 PM AMBULATORY - MEDICINE [facility] [place] [facility] Active, Pending, and Scheduled Orders This section includes a listing of several types of active, pending, and scheduled orders, including clinic medications orders, diagnostic test orders, procedure orders and consult orders; where the start date of the order is 45 days before the date of the Encounter or 45 days after the date of theEncounter. The data comes from all [facility]. Test Date/Time Test Type Test Details Facility Name Dec 06, 2024 09:03 AM Consult Order [facility] Cons Anime Artist's Choice [facility] Lab Results: +/- 30 days of the encounter This section includes the Chemistry and Hematology Lab Results on record with [place] for the patient. Radiology Reports and Pathology Reports are provided separately, in subsequent sections. Lab Results This section contains the Chemistry/Hematology Results that were resulted 30 days before or 30 daysafter the date of the Encounter. Date/Time Source Result Type Result - Unit Interpretation Reference Range Comment Nov 13, 2024 08:42 AM [facility] METHYLMALONIC ACID (SERUM-QU) Specimen Type: SERUM [...] neural tube defects and intrauterine growth restriction. [facility] utilized Multi-Modal Decomposition (MMD) analysis to establish first and second trimester- specific MMA reference intervals in , as given below: MMA, First trimester (<13 wks gestation): 58-167 nmol/L MMA, Second trimester (13-23 wks gestation): 63-241 nmol/L This test was developed and its analytical performance characteristics have been determined by [facility]. It has not been cleared or approved by the FDA. This assay has been validated pursuant to the CLIA regulations and is used for clinical purposes. Test Performed by [facility] [place], [facility], [address] [place] [address] Oz Dalton M.D., Ph.D., Director of Laboratories , CLIA [id number] TEST PERFORMED AT: , Ordering Provider: CONSTANTIN SULTANA Report Released Date/Time: Nov 02, 2024 08:37 AM Reporting Lab: [facility] [address] [facility] [address] Performing Lab: [facility] [address] [address] METHYLMALONIC ACID (SERUM-QU) 138 nmol/L 69-390 Nov 13, 2024 08:42 AM [facility] HOMOCYSTEINE Specimen Type: SERUM Comment: For Test: HOMOCYSTEINE + Ordering Provider: CONSTANTIN SULTANA Report Released Date/Time: Nov 02, 2024 08:37 AM Reporting Lab: [facility] [address] [facility] [address] Performing [facility]: [facility] [address] [facility] [address] HOMOCYSTEINE 6.5 umol/L 5-15 Nov 13, 2024 08:42 AM [facility] VITAMIN B12 Specimen Type: SERUM No comment entered. Ordering Provider: CONSTANTIN SULTANA Report Released Date/Time: Nov 02, 2024 08:37 AM Reporting Lab: [facility] [address] [facility] [address] Performing Lab: [address] [address] VITAMIN B12 582 pg/mL 200-900 Nov 13, 2024 08:42 AM [facility] BASIC METABOLIC PANEL (non-fasting) Specimen Type: SERUM No comment entered. Ordering Provider: CONSTANTIN SULTANA Report Released Date/Time: Nov 02, 2024 08:37 AM Reporting Lab: [facility] [address] [facility] [address] Performing Lab: [address] [address] UREA NITROGEN 18 mg/dL 7-25 GLUCOSE 100 mg/dL 65-100 SODIUM 143 mmol/L 135-145 POTASSIUM 4.0 mmol/L 3.5-5.0 CHLORIDE 107 mmol/L 100-110 CO2 27 meq/L 20-30 CREATININE, Serum 0.95 mg/dL 0.50-1.40 eGFR(CKD-EPI 2020) 86 mL/min >60 Nov 13, 2024 08:42 AM [facility] TSH Specimen Type: SERUM No comment entered. Ordering Provider: CONSTANTIN SULTANA Report Released Date/Time: Nov 02, 2024 08:37 AM Reporting Lab: [facility] [place] [facility] [address] [facility] [address] Performing Lab: [place] [facility] [place] [facility] [address] [facility] [address] TSH 1.28 u[IU]/mL 0.35-5.00 Nov 13, 2024 08:42 AM [facility] CBC AND DIFF (AUTO) Specimen Type: BLOOD No comment entered. Ordering Provider: CONSTANTIN SULTANA Report Released Date/Time: Nov 02, 2024 08:37 AM Reporting Lab: [facility] [address] [facility] [address] Performing Lab: [facility] [address] [facility] [address] WBC 5.22 10*3/uL 4.50-11.00 RBC 5.01 10*6/uL [...] 10*3/uL 0.00-0.00 Nov 13, 2024 08:42 AM [facility] LIVER FUNCTION Specimen Type: SERUM No comment entered. Ordering Provider: CONSTANTIN SULTANA Report Released Date/Time: Nov 02, 2024 08:37 AM Reporting Lab: [facility] [address] [facility] [address] Performing Lab: [address] [address] PROTEIN,TOTAL 7.3 g/dL 6.0-8.3 ALBUMIN 4.3 g/dL 3.5-5.0 ALKALINE PHOSPHATASE 79 U/L 40-150 AST 17 U/L 5-34 ALT 13 U/L BILIRUBIN, TOTAL 0.7 mg/dL 0.2-1.2 Nov 13, 2024 08:42 AM [facility] PSA Specimen Type: SERUM No comment entered. Ordering Provider: CONSTANTIN SULTANA Report Released Date/Time: Nov 02, 2024 08:37 AM Reporting Lab: [address] [address] Performing Lab: [address] [address] PSA 1.22 ng/mL 0.00-4.00 Nov 13, 2024 08:42 AM [facility] LIPASE Specimen Type: SERUM No comment entered. Ordering Provider: CONSTANTIN SULTANA Report Released Date/Time: Nov 02, 2024 08:37 AM Reporting Lab: [address] [address] Performing Lab: [address] [address] LIPASE 28 U/L 8-82 Nov 13, 2024 08:42 AM [facility] URINALYSIS CLEAN CATCH Specimen Type: URINE Comment: If Glucose = >500 and Ketones are positive, please alert the Physician. Ordering Provider: CONSTANTIN SULTANA Report Released Date/Time: Nov 02, 2024 08:37 AM Reporting Lab: [address] [place] [address] Performing Lab: [facility] [address] [facility] [address] UA COLOR Yellow Yellow UA APPEARANCE Clear Clear UA GLUCOSE Normal mg/dL Negative UA KETONES NEGATIVE mg/dL Negative UA BLOOD NEGATIVE mg/dL Negative UA PROTEIN 10 mg/dL Negative UA NITRITE NEGATIVE mg/dL Negative UA BILIRUBIN NEGATIVE mg/dL Negative UA SPECIFIC GRAVITY 1.029 H 1.016-1.02 2 UA pH 6.0 5.0-9.0 UA UROBILINOGEN Normal mg/dL <2.0 UA LEUKOCYTE NEGATIVE Negative Social History: Smoking Status (Most current) and Tobacco Use (All prior to encounter date) This section includes the most current, and the historical, smoking and tobacco- related health factors from the NE facility where the Encounter took place. Current Smoking Status This section includes the most current smoking, or tobacco-related health factor, from the NE facility where the Encounter took place. Date/Time Current Smoking Status Comment Facil ity May 23, 2024 10:00 AM NE-TOBACCO FORMER USER [facility] Tobacco Use History This section includes a history of the smoking, or tobacco-related health factors, that were collected on or before the date of the Encounter. The data comes from the NE facility where the Encounter took place. Date/Time Smoking Status/Tobacco Use Comment F acrosa May 23, 2024 10:00 AM NE-TOBACCO QUIT 15 YRS OR MORE [facility] Apr 06, 2023 11:05 AM NE-TOBACCO FORMER USER [facility] Apr 06, 2023 11:05 AM NE-TOBACCO QUIT 15 YRS OR MORE [facility] Radiology Reports: +/- 30 days [...] the Encounter. The data comes from all [facility] facilities. Date/Time Radiology Report Provider Source Nov 15, 2024 12:[address] ABDOMEN AND PELVIS WITH CONTRAST: OLGA MCGRAW [id number] -[id number] M Exm Date: NOV 15, 2024@12:08 Req Phys: CONSTANTIN SULTANA Loc: CWM/NO/PACT 2 (Req'g Loc) Img Loc: NHM/CT Service: Unknown [facility] [address] (Case [id number] COMPLETE) CT ABDOMEN AND PELVIS WITH CONTRA(CT Detailed) CPT:35940 Contrast Media : Non-ionic Iodinated Reason for Study: LLQ pain, look for cancer Clinical History: Report Status: Verified Date Reported: NOV 15, 2024 Date Verified: NOV 15, 2024 Molecular Spectroscopist E-Sig:/ES/AVANI MONROY JR Report: Study: CT scan [...] Primary Interpreting Staff: AVANI MONROY JR, Radiologist (Molecular Spectroscopist) /AVANI PARKER JR [facility] Encounter Notes: All associated encounter notes This section contains the clinical notes associated to the Encounter. Date/Time Encounter Note(s) Provider Source Dec 03, 2024 10:17 AM PHYSICAL MEDICINE REHAB NOTE: LOCAL TITLE: GEROFIT-SUPERVISED EXERCISE NOTE STANDARD TITLE: PHYSICAL MEDICINE REHAB NOTE DATE OF NOTE: DEC 03, 2024@10:17 ENTRY DATE: DEC 03, 2024@10:17:15 AUTHOR: ANIKA HOANG COSIGNER: URGENCY: STATUS: COMPLETED [place] participated in the [facility] exercise program today. Activities were focused on progression of their individual exercise prescription (cardiorespiratory fitness training, strength training, etc.) and group based exercise sessions to include, but not limited to: flexibility training, balance training, functional circuit training, Vignesh Chi for arthritis, and other functional strength and neuromotor exercises. Exercise participation [facility] supervised [facility] staff and any questions/concerns were addressed with the patient. Modifications were made to programming as appropriate to suit Veterans individual needs, preferences, and whole health concerns. /karen/ [employer] LICENSE G[employer]ING COMMISSIONER Signed: 12/03/2024 10:25 ANIKA HOANG [facility]
--- OUTSIDE RECORDS SUMMARY | 2024-12-06 12:34 | XMS_ITS ---
Author Name [facility] (MD) Organization [facility] (MD) Address [address] [place] [address] Care Team Providers Care Silicator Name Role Phone EVGENY SPARKS Primary Care [...] Patient's Relationship to Policy Raymond [facility] ([facility]) MEDICARE ADVANTAGE MCR ([facility]) Oct 24, 2021 [id number] [phone] DAREN MCGRAW PATIENT [facility] ([facility]) MEDICARE ADVANTAGE MCR ([facility]) Oct 24, 2021 [id number] DAREN MCGRAW PATIENT Selected Encounter This section includes the information on record at MD for the Encounter. Date/Time Encounter Type Encounter Description Reason Pro vider Source Nov 15, 2024 02:50 PM Outpatient Encounter PRIMARY CARE/MEDICINE IHE Encounter Template Text not used by MD Plan of Treatment: Future Appointments (+ 6 months) and Future Tests (+/- 45 days) The Plan of Treatment section includes future care activities for the patient from all VA treatmentfacilities. This section includes future appointments and future orders which are active, pending or scheduled. Future Appointments This section includes appointments that were scheduled to occur 6 months from the date of the Encounter, up to a maximum of 20 appointments. The data comes from all MD treatment facilities. Appointment Date/Time Appointment Type Appointme nt Facility Name Nov 16, 2024 01:00 PM AMBULATORY - [facility]IATRY [facility] [place] [facility] Nov 27, 2024 01:30 PM AMBULATORY - REHAB MEDICIN E [facility] [place] [facility] Dec 04, 2024 09:00 AM AMBULATORY - REHAB MEDICIN E [facility] [place] [facility] Dec 05, 2024 01:00 PM AMBULATORY - PSYCHIATRY [facility] [place] [facility] Dec 06, 2024 08:30 AM AMBULATORY - MEDICINE [facility] [place] [facility] Dec 12, 2024 09:30 AM AMBULATORY - REHAB MEDICIN E [facility] [place] [facility] Dec 18, 2024 10:00 AM AMBULATORY - REHAB MEDICIN E [facility] [place] [facility] Jan 09, 2025 09:30 AM AMBULATORY - MEDICINE [facility] [place] [facility] Jan 28, 2025 08:30 AM AMBULATORY - PSYCHIATRY [facility] [place] [facility] Feb 01, 2025 09:00 AM AMBULATORY - MEDICINE [facility] [place] [facility] February 22, 2025 01:00 PM AMBULATORY - PSYCHIATRY [facility] [place] [facility] March 20, 2025 02:30 PM AMBULATORY - MEDICINE [facility] [place] [facility] Active, Pending, and Scheduled Orders [...] The data comes from all MD treatment [facility]. Test Date/Time Test Type Test Details Facility Name Oct 10, 2024 11:06 AM Consult Order NEUROPSYCHOLOGICAL TESTING OUTPT Cons Instructional Supervisor's Choice [facility] [place] [facility] Dec 06, 2024 09:03 AM Consult Order [facility] Cons Instructional Supervisor's Choice [facility] [place] [facility] Lab Results: +/- 30 days of the [...] Range Comment Nov 13, 2024 08:42 AM [facility] METHYLMALONIC ACID (SERUM-QU) Specimen Type: SERUM [...] neural tube defects and intrauterine growth restriction. [facility] utilized Multi-Modal Decomposition (MMD) analysis to establish first and second trimester- specific MMA reference intervals in , as given below: MMA, First trimester (<13 wks gestation): 58-167 nmol/L MMA, Second trimester (13-23 wks gestation): 63-241 nmol/L This test was developed and its analytical performance characteristics have been determined by [facility]. It has not been cleared or approved by the FDA. This assay has been validated pursuant to the CLIA regulations and is used for clinical purposes. Test Performed by [employer], [facility], [address] [place] [address] Oz Dalton M.D., Ph.D., Director of Laboratories , CLIA [id number] TEST PERFORMED AT: , Ordering Provider: EVGENY SPARKS Report Released Date/Time: Nov 02, 2024 08:37 AM Reporting Lab: [facility] [address] [facility] [address] Performing Lab: [facility] [address] [address] METHYLMALONIC ACID (SERUM-QU) 138 nmol/L 69-390 Nov 13, 2024 08:42 AM [facility] HOMOCYSTEINE Specimen Type: SERUM Comment: For Test: HOMOCYSTEINE + Ordering Provider: EVGENY SPARKS Report Released Date/Time: Nov 02, 2024 08:37 AM Reporting Lab: [facility] [address] [facility] [address] Performing Lab: [facility] [address] [facility] [address] HOMOCYSTEINE 6.5 umol/L 5-15 Nov 13, 2024 08:42 AM [facility] VITAMIN B12 Specimen Type: SERUM No comment entered. Ordering Provider: EVGENY SPARKS Report Released Date/Time: Nov 02, 2024 08:37 AM Reporting Lab: [address] [address] Performing Lab: [address] [address] VITAMIN B12 582 pg/mL 200-900 Nov 13, 2024 08:42 AM [facility] BASIC METABOLIC PANEL (non-fasting) Specimen Type: SERUM No comment entered. Ordering Provider: EVGENY SPARKS Report Released Date/Time: Nov 02, 2024 08:37 AM Reporting Lab: [address] [address] Performing Lab: [address] [address] UREA NITROGEN 18 mg/dL 7-25 GLUCOSE 100 mg/dL 65-100 SODIUM 143 mmol/L 135-145 POTASSIUM 4.0 mmol/L 3.5-5.0 CHLORIDE 107 mmol/L 100-110 CO2 27 meq/L 20-30 CREATININE, Serum 0.95 mg/dL 0.50-1.40 eGFR(CKD-EPI 2020) 86 mL/min >60 Nov 13, 2024 08:42 AM [facility] LIVER FUNCTION Specimen Type: SERUM No comment entered. Ordering Provider: EVGENY SPARKS Report Released Date/Time: Nov 02, 2024 08:37 AM Reporting Lab: [facility] [address] [facility] [address] Performing Lab: [facility] [address] [facility] [address] PROTEIN,TOTAL 7.3 g/dL 6.0-8.3 ALBUMIN 4.3 g/dL 3.5-5.0 ALKALINE PHOSPHATASE 79 U/L 40-150 AST 17 U/L 5-34 ALT 13 U/L BILIRUBIN, TOTAL 0.7 mg/dL 0.2-1.2 Nov 13, 2024 08:42 AM [facility] TSH Specimen Type: SERUM No comment entered. Ordering Provider: EVGENY SPARKS Report Released Date/Time: Nov 02, 2024 08:37 AM Reporting Lab: [facility] [address] [facility] [address] Performing Lab: [facility] [address] TSH 1.28 u[IU]/mL 0.35-5.00 Nov 13, 2024 08:42 AM [facility] PSA Specimen Type: SERUM No comment entered. Ordering Provider: EVGENY SPARKS Report Released Date/Time: Nov 02, 2024 08:37 AM Reporting Lab: [facility] [address] [facility] [facility] [address] Performing Lab: [facility] [address] [address] PSA 1.22 ng/mL 0.00-4.00 Nov 13, 2024 08:42 AM [facility] CBC AND DIFF (AUTO) Specimen Type: BLOOD No comment entered. Ordering Provider: EVGENY SPARKS Report Released Date/Time: Nov 02, 2024 08:37 AM Reporting Lab: [facility] [address] [facility] [facility] [address] Performing Lab: [facility] [address] [address] WBC 5.22 10*3/uL 4.50-11.00 RBC 5.01 10*6/uL [...] 10*3/uL 0.00-0.00 Nov 13, 2024 08:42 AM [facility] LIPASE Specimen Type: SERUM No comment entered. Ordering Provider: EVGENY SPARKS Report Released Date/Time: Nov 02, 2024 08:37 AM Reporting Lab: [facility] [address] [facility] [address] Performing Lab: [address] [address] LIPASE 28 U/L 8-82 Nov 13, 2024 08:42 AM [facility] URINALYSIS CLEAN CATCH Specimen Type: URINE Comment: If Glucose = >500 and Ketones are positive, please alert the Physician. Ordering Provider: EVGENY SPARKS Report Released Date/Time: Nov 02, 2024 08:37 AM Reporting Lab: [facility] [address] [facility] [facility] [address] Performing Lab: [address] [address] UA COLOR Yellow Yellow UA APPEARANCE Clear Clear UA GLUCOSE Normal mg/dL Negative UA KETONES NEGATIVE mg/dL Negative UA BLOOD NEGATIVE mg/dL Negative UA PROTEIN 10 mg/dL Negative UA NITRITE NEGATIVE mg/dL Negative UA BILIRUBIN NEGATIVE mg/dL Negative UA SPECIFIC GRAVITY 1.029 H 1.016-1.02 2 UA pH 6.0 5.0-9.0 UA UROBILINOGEN Normal mg/dL <2.0 UA LEUKOCYTE NEGATIVE Negative Nov 02, 2024 12:00 AM [facility] OCCULT BLOOD FIT X1 SCREEN(IN-HOUSE) Specimen Type: FECES No comment entered. Ordering Provider: EVGENY SPARKS Report Released Date/Time: Nov 02, 2024 04:48 PM Reporting Lab: [address] [address] Performing Lab: [address] [address] OCCULT BLOOD (FIT)#1 OF 1 Negative NEG [...] Ariel miramontes May 23, 2024 10:00 AM VA-TOBACCO FORMER USER [facility] Tobacco Use History This section includes a history of the smoking, or tobacco-related health factors, that were collected on or before the date of the Encounter. The data comes from the MD facility where the Encounter took place. Date/Time Smoking Status/Tobacco Use Comment F vipul May 23, 2024 10:00 AM MD-TOBACCO QUIT 15 YRS OR MORE [facility] Apr 06, 2023 11:05 AM VA-TOBACCO FORMER USER [facility] Apr 06, 2023 11:05 AM MD-TOBACCO QUIT 15 YRS OR MORE [facility] Radiology Reports: +/- 30 days of [...] ABDOMEN AND PELVIS WITH CONTRAST: OLGA MCGRAW [id number] -1955 M Exm Date: NOV 15, 2024@12:08 Req Phys: EVGENY SPARKS Loc: CWM/NO/PACT 2 (Req'g Loc) Img Loc: NHM/CT Service: Unknown [place] [address] (Case [id number] COMPLETE) CT ABDOMEN AND PELVIS WITH CONTRA(CT Detailed) CPT:48405 Contrast Media : Non-ionic Iodinated Reason for Study: LLQ pain, look for cancer Clinical History: Report Status: Verified Date Reported: NOV 15, 2024 Date Verified: NOV 15, 2024 Solution Designer E-Sig:/ES/AVANI MONROY JR Report: Study: CT scan [...] Primary Interpreting Staff: AVANI MONROY JR, Radiologist (Solution Designer) /AVANI PARKER JR [facility] Nov 02, 2024 08:43 AM FINGER(S) 2 OR MORE VIEWS: OLGA MCGRAW [id number] -1955 Ex Date: NOV 02, 2024@08:43 Req Phys: EVGENY SPARKS Loc: CWM/NO/PACT 2 (Req'g Loc) Img Loc: [facility] 1 Service: [place] [address] (Case [id number] COMPLETE) FINGER(S) 2 OR MORE VIEWS (RAD Detailed) CPT:40037 Proc Modifiers : LEFT Reason for Study: left finger #4 trigger finger Clinical History: Report Status: Verified Date Reported: NOV 02, 2024 Date Verified: NOV 02, 2024 Solution Designer E-Sig:/ES/AVANI MONROY JR Report: Study: AP, lateral [...] Primary Interpreting Staff: AVANI MONROY JR, Radiologist (Solution Designer) /AVANI PARKER JR [facility] Encounter Notes: All associated encounter notes This section contains the clinical notes associated to the Encounter. Date/Time Encounter Note(s) Provider Source Nov 15, 2024 02:50 PM LETTERS: LOCAL TITLE: PATIENT LETTER (T) STANDARD TITLE: LETTERS DATE OF NOTE: NOV 15, 2024@14:50 ENTRY DATE: NOV 15, 2024@14:51:05 AUTHOR: EVGENY SPARKS EXP COSIGNER: URGENCY: STATUS: COMPLETED DEPARTMENT OF [facility] Toll Free Number Primary Care Telephone Assistance can be reached at extension [phone] [facility] scheduling can be reached at extension [phone] [facility] scheduling can be reached at ext [phone] OLGA MCGRAW [address], [place], [address] November 15, 2024 Dear Stuart, Please find enclosed a copy of recent testing. CAT scan of the abdomen showed no acute disease. Please contact me if you have questions. Respectfully, Evgeny Sparks MD Sincerely, Your Primary Care Team [facility] [address] [address] [place] [address] [phone] [facility] [address] [place] [address] [place] [address] [facility] [address] [place] [address] [place] [address] EVGENY SPARKS [facility]
--- OUTSIDE RECORDS SUMMARY | 2024-12-06 12:34 | XMS_ITS ---
Author Name [facility] Organization [facility] [place] Address [address] [place] [address] Care Team Providers Care Beadworker Name Role Phone EVGENY SPARKS Primary Care [...] Name Patient's Relationship to Policy Raymond [facility] ([facility]) MEDICARE ADVANTAGE MCR ([facility]) Oct 24, 2021 [id number] DAREN MCGRAW PATIENT [facility] ([facility]) MEDICARE ADVANTAGE MCR ([facility]) Oct 24, 2021 [id number] DAREN MCGRAW PATIENT Selected Encounter This section includes the information on record at [place] for the Encounter. Date/Time Encounter Type Encounter Description Reason Pro vider Source Nov 18, 2024 04:40 PM Outpatient Encounter PRIMARY CARE/MEDICINE IHE Encounter Template Text not used by [place] Plan of Treatment: Future Appointments (+ 6 [...] 20 appointments. The data comes from all [place] treatment facilities. Appointment Date/Time Appointment Type Appointme nt Facility Name Nov 27, 2024 01:30 PM AMBULATORY - [facility] [place] [facility] Dec 04, 2024 09:00 AM AMBULATORY - [facility] MEDIC[facility] [place] [facility] Dec 05, 2024 01:00 PM AMBULATORY - PSYCHIATRY [facility] [place] [facility] Dec 06, 2024 08:30 AM [facility]IC[facility] [place] [facility] Dec 12, 2024 09:30 AM AMBULATORY - [facility] MEDICIN [facility] [place] [facility] Dec 18, 2024 10:00 AM AMBULATORY - REHAB MEDICIN [facility] [place] [facility] Jan 09, 2025 09:30 AM [facility]ULATORY [facility] [place] [facility] Jan 28, 2025 08:30 AM AMBULATORY - PSYCHIATRY [facility] [place] [facility] Feb 01, 2025 09:00 AM AM[facility]ULATORY [facility]IC[facility] [place] [facility] February 22, 2025 01:00 PM AMBULATORY - PSYCHIATRY [facility] [place] [facility] March 20, 2025 02:30 PM AMBULATORY - MEDICINE [facility] [place] [facility] Active, Pending, and Scheduled Orders This section includes a listing of several types of active, pending, and scheduled orders, including clinic medications orders, diagnostic test orders, procedure orders and consult orders; where the start date of the order is 45 days before the date of the Encounter or 45 days after the date of theEncounter. The data comes from all [place] treatment facilities. Test Date/Time Test Type Test Details Facility Name Oct 10, 2024 11:06 AM Consult Order NEUROPSYCHOLOGICAL TESTING OUTPT Cons Director [employer] [facility] [place] [facility] Dec 06, 2024 09:03 AM Consult Order COMMUNITY CARE-MENTAL HEALTH Cons Director [employer] [facility] [place] [facility] Lab Results: +/- 30 days of the encounter This section includes the Chemistry and Hematology Lab Results on record with [place] for the patient. Radiology Reports and Pathology Reports are provided separately, in subsequent sections. Lab Results This section contains the Chemistry/Hematology Results that were resulted 30 days before or 30 daysafter the date of the Encounter. Date/Time Source Result Type Result - Unit Interpretation Reference Range Comment Nov 13, 2024 08:42 AM [facility] METHYLMALONIC ACID (SERUM-QU) Specimen Type: SERUM Comment: [...] neural tube defects and intrauterine growth restriction. [facility] utilized Multi-Modal Decomposition (MMD) analysis to establish first and second trimester- specific MMA reference intervals in , as given below: MMA, First trimester (<13 wks gestation): 58-167 nmol/L MMA, Second trimester (13-23 wks gestation): 63-241 nmol/L This test was developed and its analytical performance characteristics have been determined by [facility]. It has not been cleared or approved by the FDA. This assay has been validated pursuant to the CLIA regulations and is used for clinical purposes. Test Performed by [place], [facility], [address] [place] [address] Oz Dalton M.D., Ph.D., Director of Laboratories , CLIA [id number] TEST PERFORMED AT: , Ordering Provider: EVGENY SPARKS Report Released Date/Time: Nov 02, 2024 08:37 AM Reporting Lab: [facility] [address] [facility] [address] Performing Lab: [facility] [address] [address] METHYLMALONIC ACID (SERUM-QU) 138 nmol/L 69-390 Nov 13, 2024 08:42 AM [facility] HOMOCYSTEINE Specimen Type: SERUM Comment: For Test: HOMOCYSTEINE + Ordering Provider: EVGENY SPARKS Report Released Date/Time: Nov 02, 2024 08:37 AM Reporting [facility]: [facility] [address] [facility] [address] Performing Lab: [facility] [address] [facility] [place] [address] HOMOCYSTEINE 6.5 umol/L 5-15 Nov 13, 2024 08:42 AM [facility] VITAMIN B12 Specimen Type: SERUM No comment entered. Ordering Provider: EVGENY SPARKS Report Released Date/Time: Nov 02, 2024 08:37 AM Reporting Lab: [facility] [address] [facility] [address] Performing Lab: [address] [address] VITAMIN B12 582 pg/mL 200-900 Nov 13, 2024 08:42 AM [facility] LIVER FUNCTION Specimen Type: SERUM No comment entered. Ordering Provider: EVGENY SPARKS Report Released Date/Time: Nov 02, 2024 08:37 AM Reporting Lab: [facility] [address] [facility] [address] Performing Lab: [address] [address] PROTEIN,TOTAL 7.3 g/dL 6.0-8.3 ALBUMIN 4.3 g/dL 3.5-5.0 ALKALINE PHOSPHATASE 79 U/L 40-150 AST 17 U/L 5-34 ALT 13 U/L BILIRUBIN, TOTAL 0.7 mg/dL 0.2-1.2 Nov 13, 2024 08:42 AM [facility] BASIC METABOLIC PANEL (non-fasting) Specimen Type: SERUM No comment entered. Ordering Provider: EVGENY SPARKS Report Released Date/Time: Nov 02, 2024 08:37 AM Reporting Lab: [facility] [address] Performing Lab: [place] [address] [facility] [address] UREA NITROGEN 18 mg/dL 7-25 GLUCOSE 100 mg/dL 65-100 SODIUM 143 mmol/L 135-145 POTASSIUM 4.0 mmol/L 3.5-5.0 CHLORIDE 107 mmol/L 100-110 CO2 27 meq/L 20-30 CREATININE, Serum 0.95 mg/dL 0.50-1.40 eGFR(CKD-EPI 2020) 86 mL/min >60 Nov 13, 2024 08:42 AM [facility] TSH Specimen Type: SERUM No comment entered. Ordering Provider: EVGENY SPARKS Report Released Date/Time: Nov 02, 2024 08:37 AM Reporting Lab: [address] [address] Performing Lab: [address] [address] TSH 1.28 u[IU]/mL 0.35-5.00 Nov 13, 2024 08:42 AM [facility] PSA Specimen Type: SERUM No comment entered. Ordering Provider: EVGENY SPARKS Report Released Date/Time: Nov 02, 2024 08:37 AM Reporting Lab: [address] [address] Performing Lab: [address] [address] PSA 1.22 ng/mL 0.00-4.00 Nov 13, 2024 08:42 AM [facility] CBC AND DIFF (AUTO) Specimen Type: BLOOD No comment entered. Ordering Provider: EVGENY SPARKS Report Released Date/Time: Nov 02, 2024 08:37 AM Reporting Lab: [address] [address] Performing Lab: [address] [address] WBC 5.22 10*3/uL 4.50-11.00 RBC 5.01 10*6/uL [...] 10*3/uL 0.00-0.00 Nov 13, 2024 08:42 AM [facility] LIPASE Specimen Type: SERUM No comment entered. Ordering Provider: EVGENY SPARKS Report Released Date/Time: Nov 02, 2024 08:37 AM Reporting Lab: [facility] [address] [facility] [address] Performing Lab: [address] [address] LIPASE 28 U/L 8-82 Nov 13, 2024 08:42 AM [facility] URINALYSIS CLEAN CATCH Specimen Type: URINE Comment: If Glucose = >500 and Ketones are positive, please alert the Physician. Ordering Provider: EVGENY SPARKS Report Released Date/Time: Nov 02, 2024 08:37 AM Reporting Lab: [address] [address] Performing Lab: [facility] [address] [facility] [address] UA COLOR Yellow Yellow UA APPEARANCE Clear Clear UA GLUCOSE Normal mg/dL Negative UA KETONES NEGATIVE mg/dL Negative UA BLOOD NEGATIVE mg/dL Negative UA PROTEIN 10 mg/dL Negative UA NITRITE NEGATIVE mg/dL Negative UA BILIRUBIN NEGATIVE mg/dL Negative UA SPECIFIC GRAVITY 1.029 H 1.016-1.02 2 UA pH 6.0 5.0-9.0 UA UROBILINOGEN Normal mg/dL <2.0 UA LEUKOCYTE NEGATIVE Negative Nov 02, 2024 12:00 AM [facility] OCCULT BLOOD FIT X1 SCREEN(IN-HOUSE) Specimen Type: FECES No comment entered. Ordering Provider: EVGENY SPARKS Report Released Date/Time: Nov 02, 2024 04:48 PM Reporting Lab: [address] [address] Performing Lab: [address] [address] OCCULT BLOOD (FIT)#1 OF 1 Negative NEG Social History: Smoking Status (Most current) and Tobacco Use (All prior to encounter date) This section includes the most current, and the historical, smoking and tobacco- related health factors from the [place] facility where the Encounter took place. Current Smoking Status This section includes the most current smoking, or tobacco-related health factor, from the [place] facility where the Encounter took place. Date/Time Current Smoking Status Comment Ariel ity May 23, 2024 10:00 AM [place]-TOBACCO FORMER USER [facility] Tobacco Use History This section includes a history of the smoking, or tobacco-related health factors, that were collected on or before the date of the Encounter. The data comes from the [place] facility where the Encounter took place. Date/Time Smoking Status/Tobacco Use Comment F acility May 23, 2024 10:00 AM [place]-TOBACCO QUIT 15 YRS OR MORE [facility] Apr 06, 2023 11:05 AM [place]-TOBAC[place] FORMER USER [facility] Apr 06, 2023 11:05 AM [place]-TOBACCO QUIT 15 YRS OR MORE [facility] Radiology Reports: +/- 30 days of the [...] the Encounter. The data comes from all [place] treatment facilities. Date/Time Radiology Report Provider Source Nov 15, 2024 12:[address] ABDOMEN AND PELVIS WITH CONTRAST: OLGA MCGRAW [id number] -1955 M Exm Date: NOV 15, 2024@12:08 Req Phys: EVGENY SPARKS Loc: CWM/NO/PACT 2 (Req'g Loc) Img Loc: [facility]/CT Service: Unknown [place] [facility] [address] (Case [id number] COMPLETE) CT ABDOMEN AND PELVIS WITH CONTRA(CT Detailed) CPT:50660 Contrast Media : Non-ionic Iodinated Reason for Study: LLQ pain, look for cancer Clinical History: Report Status: Verified Date Reported: NOV 15, 2024 Date Verified: NOV 15, 2024 Administrative Asst E-Sig:/ES/AVANI MONROY JR Report: Study: CT scan [...] Primary Interpreting Staff: AVANI MONROY JR, Radiologist (Administrative Asst) /AVANI PARKER JR [facility] Nov 02, 2024 08:43 AM FINGER(S) 2 OR MORE VIEWS: OLGA MCGRAW [id number] -1955 M Ex Date: NOV 02, 2024@08:43 Req Phys: EVGENY SPARKS Loc: CWM/NO/PACT 2 (Req'g Loc) Img Loc: [facility] 1 Service: [place] [address] (Case [id number] COMPLETE) FINGER(S) 2 OR MORE VIEWS (RAD Detailed) CPT:60475 Proc Modifiers : LEFT Reason for Study: left finger #4 trigger finger Clinical History: Report Status: Verified Date Reported: NOV 02, 2024 Date Verified: NOV 02, 2024 Administrative Asst E-Sig:/ES/AVANI MONROY JR Report: Study: AP, lateral [...] Primary Interpreting Staff: AVANI MONROY JR, Radiologist (Administrative Asst) /AVANI PARKER JR [facility] Encounter Notes: All associated encounter notes This section contains the clinical notes associated to the Encounter. Date/Time Encounter Note(s) Provider Source Nov 18, 2024 04:40 PM LETTERS: LOCAL TITLE: PATIENT LETTER (T) STANDARD TITLE: LETTERS DATE OF NOTE: NOV 18, 2024@16:40 ENTRY DATE: NOV 18, 2024@16:40:33 AUTHOR: EVGENY SPARKS EXP COSIGNER: URGENCY: STATUS: COMPLETED DEPARTMENT OF [facility] Toll Free Number Primary Care Telephone Assistance can be reached at extension [phone] [facility] scheduling can be reached at extension [phone] [facility] scheduling can be reached at ext [phone] OLGA CRUZ MCGRAW [address], [place], [address] November 18, 2024 Dear , Please find enclosed a copy of recent testing. The following tests were normal: Red blood cell count, white blood cell count, platelets, TSH thyroid, PSA prostate, liver enzymes, kidney enzymes, glucose, urine. Please contact me if you have questions. Respectfully, Evgeny Sparks MD Sincerely, Your Primary Care Team [facility] [address] [address] [place] [address] [phone] [facility] [address] [place] [address] [place] [address] [facility] [address] [facility] [place] [phone] [place] [address] EVGENY SPARKS [facility]
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
--- OUTSIDE RECORDS SUMMARY | 2024-12-06 12:34 | XMS_ITS | Encounter Summary ---
Author Name [facility] [facility] [place] [facility] [place] Address [address] [place] [id number] Care Team Providers Care Order Entry Representative Name Role Phone CONSTANTIN SULTANA Primary Care [...] Patient's Relationship to Policy Raymond [facility] ([facility]) MEDICARE ADVANTAGE MCR ([facility]) Oct 24, 2021 [id number] [phone] DAREN MCGRAW PATIENT [facility] ([facility]) MEDICARE ADVANTAGE MCR ([facility]) Oct 24, 2021 [id number] [phone] DAREN MCGRAW PATIENT Selected Encounter This section includes the information on record at [place] for the Encounter. Date/Time Encounter Type Encounter Description Reason Provider Source Nov 16, 2024 07:30 AM EXERCISE CLASS HEALTH/WELLBE[facility] ICD-10-CM Z72.3 Lack of physical exercise FRANKY SOLIS Kimberly Encounter Template Text not used by [place] Assessments - Encounter Diagnoses This section includes the primary and secondary diagnoses documented for the Encounter. Date/Time Primary/Secondary Diagnosis Diagnosis Name Provider Source Nov 16, 2024 02:47 PM PRIMARY Lack of physical exercise FRANKY SOLIS [facility] [place] [facility] Plan of Treatment: Future Appointments (+ 6 months) and Future Tests (+/- 45 days) The Plan of Treatment section includes future care activities for the patient [facility] [place] [facility]. This section includes future appointments and future orders which are active, pending or scheduled. Future Appointments This section includes appointments that were scheduled to occur 6 months from the date of the Encounter, up to a maximum of 20 appointments. The data comes from all [place] treatment facilities. Appointment Date/Time Appointment Type Appointme nt Facility Name Nov 27, 2024 01:30 PM AMBULATORY - REHAB MEDICIN E [facility] [place] [facility] Dec 04, 2024 09:00 AM AMBULATORY - [place]IC[facility] [place] [facility] [place] [facility] Dec 05, 2024 01:00 PM AMBULATORY - PS[place]CHIATRY [place] [facility] [place] [facility] Dec 06, 2024 08:30 AM AMBULATORY - MEDICINE [place] [facility] [place] [facility] Dec 12, 2024 09:30 AM AMBULATORY - [facility]AB MEDICIN E [facility] [place] [facility] Dec 18, 2024 10:00 AM AMBULATORY - [place] MEDICIN [place] [facility] [place] [facility] Jan 09, 2025 09:30 AM AMBULATORY - MEDICINE [place] [facility] [place] [facility] Jan 28, 2025 08:30 AM AMBULATORY - PS[place]CHIATRY [facility] [place] [facility] Feb 01, 2025 09:00 AM AMBULATORY - MEDICINE [place] [facility] [place] [facility] February 22, 2025 01:00 PM AMBULATORY - PS[place]CHIATRY [place] [facility] [place] [facility] March 20, 2025 02:30 PM AMBULATORY - MEDICINE [place] [facility] [place] [facility] Active, Pending, and Scheduled Orders This section includes a listing of several types of active, pending, and scheduled orders, including clinic medications orders, diagnostic test orders, procedure orders and consult orders; where the start date of the order is 45 days before the date of the Encounter or 45 days after the date of theEncounter. The data comes from all [place] treatment [facility]. Test Date/Time Test Type Test Details Facility Name Oct 10, 2024 11:06 AM Consult Order NEUROPSYCHOLOGICAL TESTING OUTPT Cons Proof Plate Maker[facility] Choice [facility] [place] [facility] Dec 06, 2024 09:03 AM Consult Order [facility] Cons Proof Plate Maker's Choice [facility] Lab Results: +/- 30 days of the encounter This section includes the Chemistry and Hematology Lab Results on record with [place] for the patient. Radiology Reports and Pathology Reports are provided separately, in subsequent sections. Lab Results This section contains the Chemistry/Hematology Results that were resulted 30 days before or 30 daysafter the date of the Encounter. Date/Time Source Result Type Result - Unit Interpretation Reference Range Comment Nov 13, 2024 08:42 AM [facility] METHYLMALONIC ACID (SERUM-QU) Specimen Type: SERUM Comment: [...] neural tube defects and intrauterine growth restriction. [employer] utilized Multi-Modal Decomposition (MMD) analysis to establish first and second trimester- specific MMA reference intervals in , as given below: MMA, First trimester (<13 wks gestation): 58-167 nmol/L MMA, Second trimester (13-23 wks gestation): 63-241 nmol/L This test was developed and its analytical performance characteristics have been determined by [employer]. It has not been cleared or approved by the FDA. This assay has been validated pursuant to the CLIA regulations and is used for clinical purposes. Test Performed by [facility], [employer] [facility], [address] [place], [place] Oz Dalton M.D., Ph.D., Director of Laboratories , CLIA [id number] TEST PERFORMED AT: , Ordering Provider: CONSTANTIN SULTANA Report Released Date/Time: Nov 02, 2024 08:37 AM Reporting Lab: [facility] [address] [address] Performing Lab: [facility] [address] [address] METHYLMALONIC ACID (SERUM-QU) 138 nmol/L 69-390 Nov 13, 2024 08:42 AM [facility] HOMOCYSTEINE Specimen Type: SERUM Comment: For Test: HOMOCYSTEINE + Ordering Provider: CONSTANTIN SULTANA Report Released Date/Time: Nov 02, 2024 08:37 AM Reporting Lab: [facility] [address] [address] Performing Lab: [facility] [address] [facility] [address] HOMOCYSTEINE 6.5 umol/L 5-15 Nov 13, 2024 08:42 AM [facility] VITAMIN B12 Specimen Type: SERUM No comment entered. Ordering Provider: CONSTANTIN SULTANA Report Released Date/Time: Nov 02, 2024 08:37 AM Reporting Lab: [address] [address] Performing Lab: [address] [address] VITAMIN B12 582 pg/mL 200-900 Nov 13, 2024 08:42 AM [facility] LIVER FUNCTION Specimen Type: SERUM No comment entered. Ordering Provider: CONSTANTIN SULTANA Report Released Date/Time: Nov 02, 2024 08:37 AM Reporting Lab: [facility] [address] [address] Performing Lab: [facility] [address] PROTEIN,TOTAL 7.3 g/dL 6.0-8.3 ALBUMIN 4.3 g/dL 3.5-5.0 ALKALINE PHOSPHATASE 79 U/L 40-150 AST 17 U/L 5-34 ALT 13 U/L BILIRUBIN, TOTAL 0.7 mg/dL 0.2-1.2 Nov 13, 2024 08:42 AM [facility] BASIC METABOLIC PANEL (non-fasting) Specimen Type: SERUM No comment entered. Ordering Provider: CONSTANITN SULTANA Report Released Date/Time: Nov 02, 2024 08:37 AM Reporting Lab: [facility] [place] [facility] [address] [address] Performing Lab: [facility] [address] [address] UREA NITROGEN 18 mg/dL 7-25 GLUCOSE 100 mg/dL 65-100 SODIUM 143 mmol/L 135-145 POTASSIUM 4.0 mmol/L 3.5-5.0 CHLORIDE 107 mmol/L 100-110 CO2 27 meq/L 20-30 CREATININE, Serum 0.95 mg/dL 0.50-1.40 eGFR(CKD-EPI 2020) 86 mL/min >60 Nov 13, 2024 08:42 AM [facility] TSH Specimen Type: SERUM No comment entered. Ordering Provider: CONSTANTIN SULTANA Report Released Date/Time: Nov 02, 2024 08:37 AM Reporting Lab: [facility] [place] [address] [address] Performing Lab: [facility] [address] [address] TSH 1.28 u[IU]/mL 0.35-5.00 Nov 13, 2024 08:42 AM [facility] PSA Specimen Type: SERUM No comment entered. Ordering Provider: CONSTANTIN SULTANA Report Released Date/Time: Nov 02, 2024 08:37 AM Reporting Lab: [facility] [place] [facility] [address] [address] Performing Lab: [facility] [address] [address] PSA 1.22 ng/mL 0.00-4.00 Nov 13, 2024 08:42 AM [facility] CBC AND DIFF (AUTO) Specimen Type: BLOOD No comment entered. Ordering Provider: CONSTANTIN SULTANA Report Released Date/Time: Nov 02, 2024 08:37 AM Reporting Lab: [facility] [address] [address] Performing Lab: [facility] [address] [address] WBC 5.22 10*3/uL 4.50-11.00 RBC 5.01 10*6/uL [...] 10*3/uL 0.00-0.00 Nov 13, 2024 08:42 AM [facility] LIPASE Specimen Type: SERUM No comment entered. Ordering Provider: CONSTANTIN SULTANA Report Released Date/Time: Nov 02, 2024 08:37 AM Reporting Lab: [facility] [address] [address] Performing Lab: [address] [address] LIPASE 28 U/L 8-82 Nov 13, 2024 08:42 AM [facility] URINALYSIS CLEAN CATCH Specimen Type: URINE Comment: If Glucose = >500 and Ketones are positive, please alert the Physician. Ordering Provider: CONSTANTIN SULTANA Report Released Date/Time: Nov 02, 2024 08:37 AM Reporting Lab: [address] [address] Performing Lab: [address] [address] UA COLOR Yellow Yellow UA APPEARANCE Clear Clear UA GLUCOSE Normal mg/dL Negative UA KETONES NEGATIVE mg/dL Negative UA BLOOD NEGATIVE mg/dL Negative UA PROTEIN 10 mg/dL Negative UA NITRITE NEGATIVE mg/dL Negative UA BILIRUBIN NEGATIVE mg/dL Negative UA SPECIFIC GRAVITY 1.029 H 1.016-1.02 2 UA pH 6.0 5.0-9.0 UA UROBILINOGEN Normal mg/dL <2.0 UA LEUKOCYTE NEGATIVE Negative Nov 02, 2024 12:00 AM [facility] OCCULT BLOOD FIT X1 SCREEN(IN-HOUSE) Specimen Type: FECES No comment entered. Ordering Provider: CONSTANTIN SULTANA Report Released Date/Time: Nov 02, 2024 04:48 PM Reporting Lab: [address] [address] Performing Lab: [address] [address] OCCULT BLOOD (FIT)#1 OF 1 Negative NEG Social History: Smoking Status (Most current) and Tobacco Use (All prior to encounter date) This section includes the most current, and the historical, smoking and tobacco- related health factors from the [place] facility where the Encounter took place. Current Smoking Status This section includes the most current smoking, or tobacco-related health factor, from the [place] facility where the Encounter took place. Date/Time Current Smoking Status Comment Facil ity May 23, 2024 10:00 AM [place]-TOBAC[place] FORMER USER [facility] Tobacco Use History This section includes a history of the smoking, or tobacco-related health factors, that were collected on or before the date of the Encounter. The data comes from the [place] facility where the Encounter took place. Date/Time Smoking Status/Tobacco Use Comment F acility May 23, 2024 10:00 AM [place] QU[place] 15 YRS OR MORE [facility] Apr 06, 2023 11:05 AM [place] FORMER USER [facility] Apr 06, 2023 11:05 AM [place] QU[place] 15 YRS OR MORE [facility] Radiology Reports: +/- 30 days of the [...] the Encounter. The data comes from all [place] treatment facilities. Date/Time Radiology Report Provider Source Nov 15, 2024 12:[address] ABDOMEN AND PELVIS WITH CONTRAST: OLGA MCGRAW [id number] -[id number] M Exm Date: NOV 15, 2024@12:08 Req Phys: CONSTANTIN SULTANA Pat Loc: CWM/NO/PACT 2 (Req'g Loc) Img Loc: [facility]/CT Service: Unknown [place] [address] (Case [id number] COMPLETE) CT ABDOMEN AND PELVIS WITH CONTRA(CT Detailed) CPT:00308 Contrast Media : Non-ionic Iodinated Reason for Study: LLQ pain, look for cancer Clinical History: Report Status: Verified Date Reported: NOV 15, 2024 Date Verified: NOV 15, 2024 Mat Maker E-Sig:/ES/AVANI MONROY JR Report: Study: CT scan [...] Primary Interpreting Staff: AVANI MONROY JR, Radiologist (Mat Maker) /AVANI PARKER JR [facility] Nov 02, 2024 08:43 AM FINGER(S) 2 OR MORE VIEWS: OLGA MCGRAW [id number] -[id number] M Ex Date: NOV 02, 2024@08:43 Req Phys: CONSTANTIN SULTANA Loc: CWM/NO/PACT 2 (Req'g Loc) Img Loc: [facility] 1 Service: Unknown [facility] [place] [address] (Case [id number] COMPLETE) FINGER(S) 2 OR MORE VIEWS (RAD Detailed) CPT:88810 Proc Modifiers : LEFT Reason for Study: left finger #4 trigger finger Clinical History: Report Status: Verified Date Reported: NOV 02, 2024 Date Verified: NOV 02, 2024 Mat Maker E-Sig:/DELVIN/AVANI MONROY JR Report: Study: AP, lateral [...] Primary Interpreting Staff: AVANI MONROY JR, Radiologist (Mat Maker) /AVANI PARKER JR [facility] Encounter Notes: All associated encounter notes This section contains the clinical notes associated to the Encounter. Date/Time Encounter Note(s) Provider Source Nov 16, 2024 02:47 PM PHYSICAL MEDICINE REHAB NOTE: [facility] STANDARD TITLE: PHYSICAL MEDICINE REHAB NOTE DATE OF NOTE: NOV 16, 2024@14:47 ENTRY DATE: NOV 16, 2024@14:47:29 AUTHOR: FRANKY SOLIS COSIGNER: URGENCY: STATUS: COMPLETED [place] participated in the [facility] exercise program today. Activities were focused on progression of their individual exercise prescription (cardiorespiratory fitness training, strength training, etc.) and group based exercise sessions to include, but not limited to: flexibility training, balance training, functional circuit training, Vignesh Chi for arthritis, and other functional strength and neuromotor exercises. Exercise participation was supervised by [facility] staff and any questions/concerns were addressed with the patient. Modifications were made to programming as appropriate to suit Veterans individual needs, preferences, and whole health concerns. /delvin/ FRANKY SOLIS, PT, DPT PHYSICAL THERAPIST Signed: 11/16/2024 14:49 FRANKY SOLIS [facility]
--- OUTSIDE RECORDS SUMMARY | 2024-12-06 12:34 | XMS_ITS ---
Author Name [facility] Organization [facility] [place] Address [address] [place] [id number] Care Team Providers Care Research Aide Name Role Phone CONSTANTIN SULTANA Primary Care [...] Name Patient's Relationship to Policy Raymond [facility] ([facility] MEDICARE ADVANTAGE MCR ([facility]) Oct 24, 2021 [id number] DAREN MCGRAW PATIENT [facility] ([facility]) MEDICARE ADVANTAGE MCR ([facility]) Oct 24, 2021 [id number] DAREN MCGRAW PATIENT Selected Encounter This section includes the information on record at OR for the Encounter. Date/Time Encounter Type Encounter Description Reason Provider Source Nov 23, 2024 12:50 PM EXERCISE CLASS HEALTH/WELL[facility] ICD-10-CM Z72.3 Lack of physical exercise JANNA DANIELLE Kimberly Encounter Template Text not used by OR Assessments - Encounter Diagnoses This section includes the primary and secondary diagnoses documented for the Encounter. Date/Time Primary/Secondary Diagnosis Diagnosis Name Provider Source Nov 23, 2024 12:57 PM PRIMARY Lack of physical exercise JANNA DANIELLE [facility] [place] [facility] Plan of Treatment: Future Appointments (+ 6 months) and Future Tests (+/- 45 days) The Plan of Treatment section includes future care activities for the [facility] This section includes future appointments and future orders which are active, pending or scheduled. Future Appointments This section includes appointments that were scheduled to occur 6 months from the date of the Encounter, up to a maximum of 20 appointments. The data comes from all [facility]. Appointment Date/Time Appointment Type Appointme nt Facility Name Nov 27, 2024 01:30 PM AMBULATORY - REHAB MEDICIN E [place] [facility] [place] [facility] Dec 04, 2024 09:00 AM AMBULATORY - REHAB MEDICIN E [place] [facility] [place] [facility] Dec 05, 2024 01:00 PM AMBULATORY - PSYCHIATRY [place] [facility] [place] [facility] Dec 06, 2024 08:30 AM AMBULATORY - MEDICINE [place] [facility] [place] [facility] Dec 12, 2024 09:30 AM AMBULATORY - REHAB MEDICIN E [place] [facility] [place] [facility] Dec 18, 2024 10:00 AM AMBULATORY - REHAB MEDICIN E [place] [facility] [place] [facility] Jan 09, 2025 09:30 AM AMBULATORY - MEDICINE OR [facility] [place] [facility] Jan 28, 2025 08:30 AM AMBULATORY - PSYCHIATRY [place] [facility] [place] [facility] Feb 01, 2025 09:00 AM AMBULATORY - MEDICINE OR [facility] [place] [facility] February 22, 2025 01:00 PM AMBULATORY - PSYCHIATRY [place] [facility] [place] [facility] March 20, 2025 02:30 PM AMBULATORY - MEDICINE OR C [facility] [place] [facility] Active, Pending, and Scheduled Orders This section includes a listing of several types of active, pending, and scheduled orders, including clinic medications orders, diagnostic test orders, procedure orders and consult orders; where the start date of the order is 45 days before the date of the Encounter or 45 days after the date of theEncounter. The data comes from all [facility]. Test Date/Time Test Type Test Details Facility Name Oct 10, 2024 11:06 AM Consult Order NEUROPSYCHOLOGICAL TESTING OUTPT [employer] [facility] [place] [facility] Dec 06, 2024 09:03 AM Consult [facility] [employer] [facility] [place] [facility] Lab Results: +/- 30 days of the encounter This section includes the Chemistry and Hematology Lab Results on record with OR for the patient. Radiology Reports and Pathology Reports are provided separately, in subsequent sections. Lab Results This section contains the Chemistry/Hematology Results that were resulted 30 days before or 30 daysafter the date of the Encounter. Date/Time Source Result Type Result - Unit Interpretation Reference Range Comment Nov 13, 2024 08:42 AM [facility] METHYLMALONIC ACID (SERUM-QU) Specimen Type: [...] neural tube defects and intrauterine growth restriction. [employer] utilized Multi-Modal Decomposition (MMD) analysis to establish first and second trimester- specific MMA reference intervals in , as given below: MMA, First trimester (<13 wks gestation): 58-167 nmol/L MMA, Second trimester (13-23 wks gestation): 63-241 nmol/L This test was developed and its analytical performance characteristics have been determined by [employer]. It has not been cleared or approved by the FDA. This assay has been validated pursuant to the CLIA regulations and is used for clinical purposes. Test Performed by [employer], [employer] [facility], [address] [place], [place] Oz Dalton M.D., Ph.D., Director of Laboratories , CLIA [id number] TEST PERFORMED AT: , Ordering Provider: CONSTANTIN SULTANA Report Released Date/Time: Nov 02, 2024 08:37 AM Reporting [facility]: [facility] [address] [facility] [address] Performing Lab: [facility] [address] [address] METHYLMALONIC ACID (SERUM-QU) 138 nmol/L 69-390 Nov 13, 2024 08:42 AM [facility] HOMOCYSTEINE Specimen Type: SERUM Comment: For Test: HOMOCYSTEINE + Ordering Provider: CONSTANTIN SULTANA Report Released Date/Time: Nov 02, 2024 08:37 AM Reporting Lab: [facility] [address] [facility] [facility] [address] Performing Lab: [facility] [address] [facility] [address] HOMOCYSTEINE 6.5 umol/L 5-15 Nov 13, 2024 08:42 AM [facility] VITAMIN B12 Specimen Type: SERUM No comment entered. Ordering Provider: CONSTANTIN SULTANA Report Released Date/Time: Nov 02, 2024 08:37 AM Reporting Lab: [facility] [address] [facility] [address] Performing [facility]: [facility] [address] [facility] [facility] [address] VITAMIN B12 582 pg/mL 200-900 Nov 13, 2024 08:42 AM [facility] BASIC METABOLIC PANEL (non-fasting) Specimen Type: SERUM No comment entered. Ordering Provider: CONSTANTIN SULTANA Report Released Date/Time: Nov 02, 2024 08:37 AM Reporting Lab: [facility] [address] [facility] [address] Performing Lab: [facility] [address] [facility] [facility] [address] UREA NITROGEN 18 mg/dL 7-25 GLUCOSE 100 mg/dL 65-100 SODIUM 143 mmol/L 135-145 POTASSIUM 4.0 mmol/L 3.5-5.0 CHLORIDE 107 mmol/L 100-110 CO2 27 meq/L 20-30 CREATININE, Serum 0.95 mg/dL 0.50-1.40 eGFR(CKD-EPI 2020) 86 mL/min >60 Nov 13, 2024 08:42 AM [facility] LIVER FUNCTION Specimen Type: SERUM No comment entered. Ordering Provider: CONSTANTIN SULTANA Report Released Date/Time: Nov 02, 2024 08:37 AM Reporting Lab: [facility] [address] [facility] [facility] [address] Performing Lab: [address] [address] PROTEIN,TOTAL 7.3 g/dL 6.0-8.3 ALBUMIN 4.3 g/dL 3.5-5.0 ALKALINE PHOSPHATASE 79 U/L 40-150 AST 17 U/L 5-34 ALT 13 U/L BILIRUBIN, TOTAL 0.7 mg/dL 0.2-1.2 Nov 13, 2024 08:42 AM [facility] TSH Specimen Type: SERUM No comment entered. Ordering Provider: CONSTANTIN SULTANA Report Released Date/Time: Nov 02, 2024 08:37 AM Reporting Lab: [facility] [address] Performing Lab: [facility] [address] [address] TSH 1.28 u[IU]/mL 0.35-5.00 Nov 13, 2024 08:42 AM [facility] PSA Specimen Type: SERUM No comment entered. Ordering Provider: CONSTANTIN SULTANA Report Released Date/Time: Nov 02, 2024 08:37 AM Reporting Lab: [facility] [address] [facility] [facility] [address] Performing Lab: [facility] [address] PSA 1.22 ng/mL 0.00-4.00 Nov 13, 2024 08:42 AM [facility] CBC AND DIFF (AUTO) Specimen Type: BLOOD No comment entered. Ordering Provider: CONSTANTIN SULTANA Report Released Date/Time: Nov 02, 2024 08:37 AM Reporting Lab: [facility] [address] Performing Lab: [facility] [address] [facility] [facility] [address] WBC 5.22 10*3/uL 4.50-11.00 RBC 5.01 10*6/uL [...] 10*3/uL 0.00-0.00 Nov 13, 2024 08:42 AM [facility] LIPASE Specimen Type: SERUM No comment entered. Ordering Provider: CONSTANTIN SULTANA Report Released Date/Time: Nov 02, 2024 08:37 AM Reporting Lab: [address] [address] Performing Lab: [address] [address] LIPASE 28 U/L 8-82 Nov 13, 2024 08:42 AM [facility] URINALYSIS CLEAN CATCH Specimen Type: URINE Comment: If Glucose = >500 and Ketones are positive, please alert the Physician. Ordering Provider: CONSTANTIN SULTANA Report Released Date/Time: Nov 02, 2024 08:37 AM Reporting Lab: [facility] [address] [facility] [address] Performing Lab: [address] [address] UA COLOR Yellow Yellow UA APPEARANCE Clear Clear UA GLUCOSE Normal mg/dL Negative UA KETONES NEGATIVE mg/dL Negative UA BLOOD NEGATIVE mg/dL Negative UA PROTEIN 10 mg/dL Negative UA NITRITE NEGATIVE mg/dL Negative UA BILIRUBIN NEGATIVE mg/dL Negative UA SPECIFIC GRAVITY 1.029 H 1.016-1.02 2 UA pH 6.0 5.0-9.0 UA UROBILINOGEN Normal mg/dL <2.0 UA LEUKOCYTE NEGATIVE Negative Nov 02, 2024 12:00 AM [facility] OCCULT BLOOD FIT X1 SCREEN(IN-HOUSE) Specimen Type: FECES No comment entered. Ordering Provider: CONSTANTIN SULTANA Report Released Date/Time: Nov 02, 2024 04:48 PM Reporting Lab: [address] [address] Performing Lab: [address] [address] OCCULT BLOOD (FIT)#1 OF 1 Negative NEG Social History: Smoking Status (Most current) and Tobacco Use (All prior to encounter date) This section includes the most current, and the historical, smoking and tobacco- related health factors from the OR facility where the Encounter took place. Current Smoking Status This section includes the most current smoking, or tobacco-related health factor, from the OR facility where the Encounter took place. Date/Time Current Smoking Status Comment Facil ity May 23, 2024 10:00 AM [place]-TOBACCO FORMER USER [facility] Tobacco Use History This section includes a history of the smoking, or tobacco-related health factors, that were collected on or before the date of the Encounter. The data comes from the OR facility where the Encounter took place. Date/Time Smoking Status/Tobacco Use Comment F acility May 23, 2024 10:00 AM OR-TOBACCO QUIT 15 YRS OR MORE [facility] Apr 06, 2023 11:05 AM OR-TOBACCO FORMER USER [facility] Apr 06, 2023 11:05 AM OR-TOBACCO QUIT 15 YRS OR MORE [facility] Radiology Reports: +/- 30 days of [...] the Encounter. The data comes from all [place] treatment facilities. Date/Time Radiology Report Provider Source Nov 15, 2024 12:[address] ABDOMEN AND PELVIS WITH CONTRAST: OLGA MCGRAW [id number] -1955 M Exm Date: NOV 15, 2024@12:08 Req Phys: CONSTANTIN SULTANA Loc: CWM/NO/PACT 2 (Req'g Loc) Img Loc: NHM/CT Service: [place] [address] (Case [id number] COMPLETE) CT ABDOMEN AND PELVIS WITH CONTRA(CT Detailed) CPT:72727 Contrast Media : Non-ionic Iodinated Reason for Study: LLQ pain, look for cancer Clinical History: Report Status: Verified Date Reported: NOV 15, 2024 Date Verified: NOV 15, 2024 Pharmacy Coordinator E-Sig:/ES/AVANI MONROY JR Report: Study: CT scan [...] Primary Interpreting Staff: AVANI MONROY JR, Radiologist (Pharmacy Coordinator) /AVANI PARKER JR [facility] Nov 02, 2024 08:43 AM FINGER(S) 2 OR MORE VIEWS: OLGA MCGRAW [id number] -1955 M Ex Date: NOV 02, 2024@08:43 Req Phys: CONSTANTIN SULTANA Loc: CWM/NO/PACT 2 (Req'g Loc) Img Loc: [facility] 1 Service: [place] [address] (Case [id number] COMPLETE) FINGER(S) 2 OR MORE VIEWS (RAD Detailed) CPT:51899 Proc Modifiers : LEFT Reason for Study: left finger #4 trigger finger Clinical History: Report Status: Verified Date Reported: NOV 02, 2024 Date Verified: NOV 02, 2024 Pharmacy Coordinator E-Sig:/DELVIN/AVANI MONROY JR Report: Study: AP, lateral [...] Primary Interpreting Staff: AVANI MONROY JR, Radiologist (Pharmacy Coordinator) /AVANI PARKER JR [facility] Encounter Notes: All associated encounter notes This section contains the clinical notes associated to the Encounter. Date/Time Encounter Note(s) Provider Source Nov 23, 2024 12:56 PM PHYSICAL MEDICINE REHAB NOTE: LOCAL TITLE: GEROFIT-SUPERVISED EXERCISE NOTE STANDARD TITLE: PHYSICAL MEDICINE REHAB NOTE DATE OF NOTE: NOV 23, 2024@12:56 ENTRY DATE: NOV 23, 2024@12:56:36 AUTHOR: JANNA DANIELLE EXP COSIGNER: URGENCY: STATUS: COMPLETED participated in the [facility] exercise program today. Activities were focused on progression of their individual exercise prescription (cardiorespiratory fitness training, strength training, etc.) and group based exercise sessions to include, but not limited to: flexibility training, balance training, functional circuit training, Vignesh Chi for arthritis, and other functional strength and neuromotor exercises. Exercise participation was supervised by [facility] staff and any questions/concerns were addressed with the patient. Modifications were made to programming as appropriate to suit Veterans individual needs, preferences, and whole health concerns. /delvin/ Janna Danielle PT,DPT PHYSICAL THERAPIST Signed: 11/23/2024 13:01 JANNA DANIELLE [facility]
--- OUTSIDE RECORDS SUMMARY | 2024-12-06 12:34 | XMS_ITS ---
Author Name [facility] [place] Organization [place] Address [address] [place] [id number] Care Team Providers Care Senior Process Analyst Name Role Phone CONSTANTIN SULTANA Primary Care [...] Raymond's Name Patient's Relationship to Policy Raymond [facility] [place] 2[place] MEDICARE ADVANTAGE MCR ([facility]) Oct 24, 2021 [id number] DAREN MCGRAW PATIENT [facility] ([facility]) MEDICARE ADVANTAGE MCR ([facility]) Oct 24, 2021 [id number] [phone] DAREN MCGRAW PATIENT Selected Encounter This section includes the information on record at [place] for the Encounter. Date/Time Encounter Type Encounter Description Reason Provider Source Dec 04, 2024 09:00 AM MULUGETA MDLTY 1+ULTRASOUND EA 15 OCCUPATIONAL THERAPY ICD-10-CM M79.645 Pain in left finger(s) LUCY DUARTE Encounter Template Text not used by [facility] Assessments - Encounter Diagnoses This section includes the primary and secondary diagnoses documented for the Encounter. Date/Time Primary/Secondary Diagnosis Diagnosis Name Provider Source Dec 04, 2024 01:56 PM PRIMARY Pain in left finger(s) USHA DUARTELIKimberly Harris [facility] [place] [facility] Plan of Treatment: Future Appointments (+ 6 months) and Future Tests (+/- 45 days) The Plan of Treatment section includes future care activities for the patient from [facility] [place] [facility] [place] This section includes future appointments and future orders which are active, pending or scheduled. Future Appointments This section includes appointments that were scheduled to occur 6 months from the date of the Encounter, up to a maximum of 20 appointments. The data comes from all [place] treatment [facility]. Appointment Date/Time Appointment Type Appointme nt Facility Name Dec 05, 2024 01:00 PM AMBULATORY - PSYCHIATRY [place] [facility] [place] [facility] Dec 06, 2024 08:30 AM AMBULATORY - MEDICINE NE C [facility] [facility] Dec 12, 2024 09:30 AM AMBULATORY - REHAB MEDICIN E [place] [facility] [place] [facility] Dec 18, 2024 10:00 AM AMBULATORY - REHAB MEDICIN E [place] [facility] [place] [facility] Jan 09, 2025 09:30 AM AMBULATORY - MEDICINE NE C [place] [facility] Jan 28, 2025 08:30 AM AMBULATORY - PSYCHIATRY [place] [facility] [place] [facility] Feb 01, 2025 09:00 AM AMBULATORY - MEDICINE NE C [place] [facility] February 22, 2025 01:00 PM AMBULATORY - PSYCHIATRY [place] [facility] [place] [facility] March 20, 2025 02:30 PM AMBULATORY - MEDICINE [facility] Active, Pending, and Scheduled Orders This section includes a listing of several types of active, pending, and scheduled orders, including clinic medications orders, diagnostic test orders, procedure orders and consult orders; where the start date of the order is 45 days before the date of the Encounter or 45 days after the date of theEncounter. The data comes from all [facility]. Test Date/Time Test Type Test Details Facility Name Dec 06, 2024 09:03 AM Consult Order [facility] Cons [employer] Worker's Choice [facility] Lab Results: +/- 30 days [...] Range Comment Nov 13, 2024 08:42 AM [facility] METHYLMALONIC ACID (SERUM-QU) Specimen Type: SERUM [...] neural tube defects and intrauterine growth restriction. [employer] utilized Multi-Modal Decomposition (MMD) analysis to establish first and second trimester- specific MMA reference intervals in , as given below: MMA, First trimester (<13 wks gestation): 58-167 nmol/L MMA, Second trimester (13-23 wks gestation): 63-241 nmol/L This test was developed and its analytical performance characteristics have been determined by [employer]. It has not been cleared or approved by the FDA. This assay has been validated pursuant to the CLIA regulations and is used for clinical purposes. Test Performed by [facility], [employer] [facility], [address] [place] [address] Oz Dalton M.D., Ph.D., Director of Laboratories , CLIA [id number] TEST PERFORMED AT: , Ordering Provider: CONSTANTIN SULTANA Report Released Date/Time: Nov 02, 2024 08:37 AM Reporting Lab: [facility] [address] [facility] [address] Performing Lab: [facility] [address] [address] METHYLMALONIC ACID (SERUM-QU) 138 nmol/L 69-390 Nov 13, 2024 08:42 AM [facility] HOMOCYSTEINE Specimen Type: SERUM Comment: For Test: HOMOCYSTEINE + Ordering Provider: CONSTANTIN SULTANA Report Released Date/Time: Nov 02, 2024 08:37 AM Reporting [facility] [address] [facility] [address] Performing Lab: [facility] [address] [facility] [address] HOMOCYSTEINE 6.5 umol/L 5-15 Nov 13, 2024 08:42 AM [facility] VITAMIN B12 Specimen Type: SERUM No comment entered. Ordering Provider: CONSTANTIN SULTANA Report Released Date/Time: Nov 02, 2024 08:37 AM Reporting Lab: [address] [address] Performing Lab: [address] [address] VITAMIN B12 582 pg/mL 200-900 Nov 13, 2024 08:42 AM [facility] LIVER FUNCTION Specimen Type: SERUM No comment entered. Ordering Provider: CONSTANTIN SULTANA Report Released Date/Time: Nov 02, 2024 08:37 AM Reporting Lab: [address] [address] Performing Lab: [address] [address] PROTEIN,TOTAL 7.3 g/dL 6.0-8.3 ALBUMIN 4.3 g/dL 3.5-5.0 ALKALINE PHOSPHATASE 79 U/L 40-150 AST 17 U/L 5-34 ALT 13 U/L BILIRUBIN, TOTAL 0.7 mg/dL 0.2-1.2 Nov 13, 2024 08:42 AM [facility] BASIC METABOLIC PANEL (non-fasting) Specimen Type: SERUM No comment entered. Ordering Provider: CONSTANTIN SULTANA Report Released Date/Time: Nov 02, 2024 08:37 AM Reporting Lab: [facility]ITAL[facility] [address] [address] Performing Lab: [facility] [address] [facility] [address] UREA NITROGEN 18 mg/dL 7-25 GLUCOSE 100 mg/dL 65-100 SODIUM 143 mmol/L 135-145 POTASSIUM 4.0 mmol/L 3.5-5.0 CHLORIDE 107 mmol/L 100-110 CO2 27 meq/L 20-30 CREATININE, Serum 0.95 mg/dL 0.50-1.40 eGFR(CKD-EPI 2020) 86 mL/min >60 Nov 13, 2024 08:42 AM [facility] TSH Specimen Type: SERUM No comment entered. Ordering Provider: CONSTANTIN SULTANA Report Released Date/Time: Nov 02, 2024 08:37 AM Reporting Lab: [facility] [address] [facility] [address] Performing Lab: [address] [address] TSH 1.28 u[IU]/mL 0.35-5.00 Nov 13, 2024 08:42 AM [facility] PSA Specimen Type: SERUM No comment entered. Ordering Provider: CONSTANTIN SULTANA Report Released Date/Time: Nov 02, 2024 08:37 AM Reporting Lab: [facility] [address] [facility] [address] Performing Lab: [address] [address] PSA 1.22 ng/mL 0.00-4.00 Nov 13, 2024 08:42 AM [facility] CBC AND DIFF (AUTO) Specimen Type: BLOOD No comment entered. Ordering Provider: CONSTANTIN SULTANA Report Released Date/Time: Nov 02, 2024 08:37 AM Reporting Lab: [address] [address] Performing Lab: [address] [address] WBC 5.22 10*3/uL 4.50-11.00 RBC 5.01 10*6/uL [...] 10*3/uL 0.00-0.00 Nov 13, 2024 08:42 AM [facility] LIPASE Specimen Type: SERUM No comment entered. Ordering Provider: CONSTANTIN SULTANA Report Released Date/Time: Nov 02, 2024 08:37 AM Reporting Lab: [facility] [address] [facility] [address] Performing Lab: [address] [address] LIPASE 28 U/L 8-82 Nov 13, 2024 08:42 AM [facility] URINALYSIS CLEAN CATCH Specimen Type: URINE Comment: If Glucose = >500 and Ketones are positive, please alert the Physician. Ordering Provider: CONSTANTIN SULTANA Report Released Date/Time: Nov 02, 2024 08:37 AM Reporting Lab: [facility] [employer] [address] Performing Lab: [facility] [address] [facility] [address] UA COLOR Yellow Yellow UA APPEARANCE Clear [...] 23, 2024 10:00 AM NE-TOBACCO FORMER USER [facility] Tobacco Use History This section includes a history of the smoking, or tobacco-related health factors, that were collected on or before the date of the Encounter. The data comes from the [place] facility where the Encounter took place. Date/Time Smoking Status/Tobacco Use Comment F acility May 23, 2024 10:00 AM NE-TOBACCO QUIT 15 YRS OR MORE [facility] Apr 06, 2023 11:05 AM NE-TOBACCO FORMER USER [facility] Apr 06, 2023 11:05 AM NE-TOBACCO QUIT 15 YRS OR MORE [facility] Radiology Reports: +/- 30 days of [...] the Encounter. The data comes from all [place] treatment facilities. Date/Time Radiology Report Provider Source Nov 15, 2024 12:[address] ABDOMEN AND PELVIS WITH CONTRAST: OLGA MCGRAW [id number] -[id number] M Exm Date: NOV 15, 2024@12:08 Req Phys: CONSTANTIN SULTANA Loc: CWM/NO/PACT 2 (Req'g Loc) Img Loc: WAM/CT Service: Unknown [place] CNTRL TRN [facility]USE[facility] [address] (Case [id number] COMPLETE) CT ABDOMEN AND PELVIS WITH CONTRA(CT Detailed) CPT:77211 Contrast Media : Non-ionic Iodinated Reason for Study: LLQ pain, look for cancer Clinical History: Report Status: Verified Date Reported: NOV 15, 2024 Date Verified: NOV 15, 2024 [employer] E-Sig:/ES/AVANI MONROY JR Report: Study: CT scan [...] Primary Interpreting Staff: AVANI MONROY JR, Radiologist ([employer]) /AVANI PARKER JR [place] [facility] Encounter Notes: All associated encounter notes This section contains the clinical notes associated to the Encounter. Date/Time Encounter Note(s) Provider Source Dec 04, 2024 08:23 AM OCCUPATIONAL THERAPY NOTE: LOCAL TITLE: OCCUPATIONAL THERAPY STANDARD TITLE: OCCUPATIONAL THERAPY NOTE DATE OF NOTE: DEC 04, 2024@08:23 ENTRY DATE: DEC 04, 2024@08:23:55 AUTHOR: LUCY DUARTE COSIGNER: URGENCY: STATUS: COMPLETED Initial Evaluation date: Nov Progress Note Date: Treatment #: 2 Treatment time: 28 minutes Diagnosis: Pain in left Finger(s)(ICD-10-CM M79.645) Provider: Clare GOMES Treatment Precautions: Patient identified by full name and date of SUBJECTIVE: Pt reports that his finger isn't snapping as hard. The splint is very helpful in preventing the snapping all together. Pain Level: 0/10 OBJECTIVE: THERAPEUTIC EXERCISE: MINUTES: MANUAL THERAPY: *mobilization/FDM to L RF flexor tendon, LLPS of L RF into hyperextension at MCP joint w/ 30-60 second hold MINUTES: 16 THERAPEUTIC DYNAMIC ACTIVITIES: MINUTES: NEUROMUSCULAR EDUCATION: MINUTES: OTHER: MINUTES: MODALITIES: *US 1.4 w/cm2 100% 3MHz over L RF flexor tendon MINUTES: 8 [] Contraindication screen completed prior to modality [] Skin intact pre/post SELF CARE/EDUCATION: MINUTES: Patient education was provided for all aspects of care during this clinical encounter. ASSESSMENT: pt tolerated tx well this date. he reports some improvement w/ the severity of the triggering. during mobilization, palpable nodule w/ ttp. improved flexibility w/ stretch into hyperextension at MCP joint. reminded pt to perform this on his own, which he will. following tx, no triggering of RF w/ active flexion. PLAN: continue w/ OT POC; modify tx as needed. pt is in agreement w/ this POC. /karen/ Lucy Duarte, MS OTR/L, T Occupational Therapist Signed: 12/04/2024 13:56 LUCY DUARTE CN[facility]L [facility]
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
--- OUTSIDE RECORDS SUMMARY | 2024-12-06 12:34 | XMS_ITS ---
Author Name [facility] [place] Organization [facility] [place] Address [address] [place] [id number] Care Team Providers Care Surveillance Supervisor Name Role Phone EVGENY SPARKS Primary Care [...] Name Patient's Relationship to Policy Raymond [facility]) MEDICARE ADVANTAGE MCR ([facility]) Oct 24, 2021 [id number] D[address] ROBLES PATIENT [facility] ([facility]) MEDICARE ADVANTAGE MCR ([facility]) Oct 24, 2021 [id number] [phone] DAREN ROBLES PATIENT Selected Encounter This section includes the information on record at [place] for the Encounter. Date/Time Encounter Type Encounter Description Reason Provider Source Nov 27, 2024 01:30 PM MANUAL THERAPY 1/> [facility] ICD-10-CM M79.645 Pain in left finger(s) JENNIFER DUARTE Encounter Template Text not used by [facility] Assessments - Encounter Diagnoses This section includes the primary and secondary diagnoses documented for the Encounter. Date/Time Primary/Secondary Diagnosis Diagnosis Name Provider Source Nov 27, 2024 04:26 PM PRIMARY Pain in left finger(s) JENNIFER DUARTE [place] [facility] [place] [facility] Plan of Treatment: Future Appointments (+ 6 months) and Future Tests (+/- 45 days) The Plan of Treatment section includes future care activities for the patient from all [place] treatmentfacilities. This section includes future appointments and future orders which are active, pending or scheduled. Future Appointments This section includes appointments that were scheduled to occur 6 months from the date of the Encounter, up to a maximum of 20 appointments. The data comes from all [place] treatment facilities. Appointment Date/Time Appointment Type Appointme nt Facility Name Dec 04, 2024 09:00 AM AMBULATORY - REHAB MEDICIN E [facility] [place] [facility] Dec 05, 2024 01:00 PM AMBULATORY - PSYCHIATRY [facility] [place] [facility] Dec 06, 2024 08:30 AM AMBULATORY - MEDICINE [place] [facility] [place] [facility] Dec 12, 2024 09:30 AM AMBULATORY - REHAB MEDICIN E [facility] [place] [facility] Dec 18, 2024 10:00 AM AMBULATORY - REHAB MEDICIN E [facility] [place] [facility] Jan 09, 2025 09:30 AM AMBULATORY - MEDICINE [place] [facility] [place] [facility] Jan 28, 2025 08:30 AM AMBULATORY - PSYCHIATRY [facility] [place] [facility] Feb 01, 2025 09:00 AM AMBULATORY - MEDICINE [place] [facility] [place] [facility] February 22, 2025 01:00 PM AMBULATORY - PSYCHIATRY [facility] [place] [facility] March 20, 2025 02:30 PM AMBULATORY - MEDICINE [place] [facility] [place] [facility] Active, Pending, and Scheduled Orders This section includes a listing of several types of active, pending, and scheduled orders, including clinic medications orders, diagnostic test orders, procedure orders and consult orders; where the start date of the order is 45 days before the date of the Encounter or 45 days after the date of theEncounter. The data comes from all [facility]. Test Date/Time Test Type Test Details Facility Name Dec 06, 2024 09:03 AM Consult Order [facility] Cons Deodorizer Operator's Choice [facility] Lab Results: +/- 30 days of the encounter This section includes the Chemistry and Hematology Lab Results on record with [place] for the patient. Radiology Reports and Pathology Reports are provided separately, in subsequent sections. Lab Results This section contains the Chemistry/Hematology Results that were resulted 30 days before or 30 daysafter the date of the Encounter. Date/Time Source Result Type Result - Unit Interpretation Reference Range Comment Nov 13, 2024 08:42 AM [facility] METHYLMALONIC ACID (SERUM-QU) Specimen Type: SERUM [...] neural tube defects and intrauterine growth restriction. [employer] utilized Multi-Modal Decomposition (MMD) analysis to establish first and second trimester- specific MMA reference intervals in , as given below: MMA, First trimester (<13 wks gestation): 58-167 nmol/L MMA, Second trimester (13-23 wks gestation): 63-241 nmol/L This test was developed and its analytical performance characteristics have been determined by [employer]. It has not been cleared or approved by the FDA. This assay has been validated pursuant to the CLIA regulations and is used for clinical purposes. Test Performed by [facility], [facility], [address] [place] [address] Oz Dalton M.D., Ph.D., Director of Laboratories , CLIA [id number] TEST PERFORMED AT: , Ordering Provider: EVGENY SPARKS Report Released Date/Time: Nov 02, 2024 08:37 AM Reporting Lab: [facility] [address] [facility] [address] Performing Lab: [facility] [address] [address] METHYLMALONIC ACID (SERUM-QU) 138 nmol/L 69-390 Nov 13, 2024 08:42 AM [facility] HOMOCYSTEINE Specimen Type: SERUM Comment: For Test: HOMOCYSTEINE + Ordering Provider: EVGENY SPARKS Report Released Date/Time: Nov 02, 2024 08:37 AM Reporting Lab: [address] [address] Performing Lab: [facility] [address] [facility] [address] HOMOCYSTEINE 6.5 umol/L 5-15 Nov 13, 2024 08:42 AM [facility] VITAMIN B12 Specimen Type: SERUM No comment entered. Ordering Provider: EVGENY SPARKS Report Released Date/Time: Nov 02, 2024 08:37 AM Reporting Lab: [address] [address] Performing Lab: [address] [address] VITAMIN B12 582 pg/mL 200-900 Nov 13, 2024 08:42 AM [facility] BASIC METABOLIC PANEL (non-fasting) Specimen Type: SERUM No comment entered. Ordering Provider: EVGENY SPARKS Report Released Date/Time: Nov 02, 2024 08:37 AM Reporting Lab: [address] [address] Performing Lab: [address] [address] UREA NITROGEN 18 mg/dL 7-25 GLUCOSE 100 mg/dL 65-100 SODIUM 143 mmol/L 135-145 POTASSIUM 4.0 mmol/L 3.5-5.0 CHLORIDE 107 mmol/L 100-110 CO2 27 meq/L 20-30 CREATININE, Serum 0.95 mg/dL 0.50-1.40 eGFR(CKD-EPI 2020) 86 mL/min >60 Nov 13, 2024 08:42 AM [facility] LIVER FUNCTION Specimen Type: SERUM No comment entered. Ordering Provider: EVGENY SPARKS Report Released Date/Time: Nov 02, 2024 08:37 AM [facility] [address] [facility] [address] [facility] [address] [address] PROTEIN,TOTAL 7.3 g/dL 6.0-8.3 ALBUMIN 4.3 g/dL 3.5-5.0 ALKALINE PHOSPHATASE 79 U/L 40-150 AST 17 U/L 5-34 ALT 13 U/L BILIRUBIN, TOTAL 0.7 mg/dL 0.2-1.2 Nov 13, 2024 08:42 AM [facility] TSH Specimen Type: SERUM No comment entered. Ordering Provider: EVGENY SPARKS Report Released Date/Time: Nov 02, 2024 08:37 AM Reporting Lab: [address] [address] Performing Lab: [address] [address] TSH 1.28 u[IU]/mL 0.35-5.00 Nov 13, 2024 08:42 AM [facility] CBC AND DIFF (AUTO) Specimen Type: BLOOD No comment entered. Ordering Provider: EVGENY SPARKS Report Released Date/Time: Nov 02, 2024 08:37 AM Reporting Lab: [address] [address] Performing Lab: [address] [address] WBC 5.22 10*3/uL 4.50-11.00 RBC 5.01 10*6/uL [...] 10*3/uL 0.00-0.00 Nov 13, 2024 08:42 AM [facility] PSA Specimen Type: SERUM No comment entered. Ordering Provider: EVGENY SPARKS Report Released Date/Time: Nov 02, 2024 08:37 AM Reporting Lab: [facility] [address] [address] Performing Lab: [facility] [address] PSA 1.22 ng/mL 0.00-4.00 Nov 13, 2024 08:42 AM [facility] LIPASE Specimen Type: SERUM No comment entered. Ordering Provider: EVGENY SPARKS Report Released Date/Time: Nov 02, 2024 08:37 AM Reporting Lab: [facility] [address] [facility] [address] Performing Lab: [facility] [address] LIPASE 28 U/L 8-82 Nov 13, 2024 08:42 AM [facility] URINALYSIS CLEAN CATCH Specimen Type: URINE Comment: If Glucose = >500 and Ketones are positive, please alert the Physician. Ordering Provider: EVGENY SPARKS Report Released Date/Time: Nov 02, 2024 08:37 AM Reporting Lab: [facility] [address] [facility] [address] Performing Lab: [address] [address] UA COLOR Yellow Yellow UA APPEARANCE Clear Clear UA GLUCOSE Normal mg/dL Negative UA KETONES NEGATIVE mg/dL Negative UA BLOOD NEGATIVE mg/dL Negative UA PROTEIN 10 mg/dL Negative UA NITRITE NEGATIVE mg/dL Negative UA BILIRUBIN NEGATIVE mg/dL Negative UA SPECIFIC GRAVITY 1.029 H 1.016-1.02 2 UA pH 6.0 5.0-9.0 UA UROBILINOGEN Normal mg/dL <2.0 UA LEUKOCYTE NEGATIVE Negative Nov 02, 2024 12:00 AM [facility] OCCULT BLOOD FIT X1 SCREEN(IN-HOUSE) Specimen Type: FECES No comment entered. Ordering Provider: EVGENY SPARKS Report Released Date/Time: Nov 02, 2024 04:48 PM Reporting Lab: [address] [address] Performing Lab: [address] [address] OCCULT BLOOD (FIT)#1 OF 1 Negative NEG Social History: Smoking Status (Most current) and Tobacco Use (All prior to encounter date) This section includes the most current, and the historical, smoking and tobacco- related health factors from the [place] facility where the Encounter took place. Current Smoking Status This section includes the most current smoking, or tobacco-related health factor, from the [place] facility where the Encounter took place. Date/Time Current Smoking Status Comment Ariel miramontes May 23, 2024 10:00 AM [place]-TOBACCO QUIT 15 YRS OR MORE [facility] Tobacco Use History This section includes a history of the smoking, or tobacco-related health factors, that were collected on or before the date of the Encounter. The data comes from the [place] facility where the Encounter took place. Date/Time Smoking Status/Tobacco Use Comment Fannie matthew May 23, 2024 10:00 AM [place]-TOBACCO QUIT 15 YRS OR MORE [facility] Apr 06, 2023 11:05 AM [place]-TOBACCO FORMER USER [facility] Apr 06, 2023 11:05 AM [place]-TOBACCO QUIT 15 YRS OR MORE [facility] Radiology Reports: +/- 30 days of [...] the Encounter. The data comes from all [place] treatment facilities. Date/Time Radiology Report Provider Source Nov 15, 2024 12:[address] ABDOMEN AND PELVIS WITH CONTRAST: OLGA ROBLES [id number] -[id number] M Exm Date: NOV 15, 2024@12:08 Req Phys: EVGENY SPARKS Loc: CWM/NO/PACT 2 (Req'g Loc) Img Loc: NHM/CT Service: Unknown [place] [address] (Case [id number] COMPLETE) CT ABDOMEN AND PELVIS WITH CONTRA(CT Detailed) CPT:66896 Contrast Media : Non-ionic Iodinated Reason for Study: LLQ pain, look for cancer Clinical History: Report Status: Verified Date Reported: NOV 15, 2024 Date Verified: NOV 15, 2024 Nursing Instructor E-Sig:/ES/AVANI MONROY JR Report: Study: CT scan [...] Primary Interpreting Staff: AVANI MONROY JR, Radiologist (Nursing Instructor) /AVANI PARKER JR [facility] Nov 02, 2024 08:43 AM FINGER(S) 2 OR MORE VIEWS: MARILUZOLGAMICHELINE CRUZ [id number] -[id number] M Ex Date: NOV 02, 2024@08:43 Req Phys: EVGENY SPARKS Loc: CWM/NO/PACT 2 (Req'g Loc) Img Loc: [facility] Service: [place] [address] (Case [id number] COMPLETE) FINGER(S) 2 OR MORE VIEWS (RAD Detailed) CPT:36401 Proc Modifiers : LEFT Reason for Study: left finger #4 trigger finger Clinical History: Report Status: Verified Date Reported: NOV 02, 2024 Date Verified: NOV 02, 2024 Nursing Instructor E-Sig:/ES/AVANI MONROY JR Report: Study: AP, lateral [...] Primary Interpreting Staff: AVANI MONROY JR, Radiologist ([place]) /AVANI PARKER JR [place] [facility] Encounter Notes: All associated encounter notes This section contains the clinical notes associated to the Encounter. Date/Time Encounter Note(s) Provider Source Nov 27, 2024 01:29 PM OCCUPATIONAL MEDICINE CONSULT: LOCAL TITLE: CONSULT REPORT/OCCUPATIONAL THERAPY STANDARD TITLE: OCCUPATIONAL MEDICINE CONSULT DATE OF NOTE: NOV 27, 2024@13:29 ENTRY DATE: NOV 27, 2024@13:30:25 AUTHOR: JENNIFER DUARTE COSIGNER: EVGENY SPARKS URGENCY: STATUS: COMPLETED Initial Evaluation date: Nov Progress Note Date: Treatment #: eval Treatment time: 50 minutes Diagnosis: Pain in left Finger(s)(ICD-10-CM M79.645) Provider: Clare GOMES Treatment Precautions: Patient identified by full name and date of S: Mr. Robles is a 69 y/o [facility] male who was referred to OT for L RF trigger finger. He was seen in the OT clinic on 11/27/2024. PMH: Active problems - Computerized Problem List is the source for the followin. Abdominal pain 2. Trigger finger 3. Anxiety (SCT [id number]) 4. Impaired memory 5. Hypercholesterolemia (SCT 08380042) 6. Pain of right knee joint 7. Enlarged prostate 8. Chronic obstructive lung disease 9. Tinnitus 10. Cataracts JAHAIRA: pt reports that he has been experiencing L RF trigger finger for over a month. it has been getting stuck for a little over a month. it can get achy. 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 he has never had this dx before. Imaging: X-ray dated 11/02/2024: Report: Study: AP, lateral and oblique views of the left fourth finger. Comparison: None. Findings: The soft tissues appear normal. The bony mineralization appears normal. No joint space erosions are identified. The left fourth finger joint spaces are normal and well-maintained. No acute bony abnormality is seen. Impression: No focal abnormality identified. Primary Diagnostic Code: No immediate attention required Pain Level: 1-2/10 at rest, increasing to 4-5/10 Pain Location: volar aspect of L RF, flexor tendon Aggravating Factors: flexing the finger Alleviating Factors: rest O: Pt is R hand dominant. 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 He enjoys fishing and yard work. Clinical Presentation: obvious locking of L RF no edema nor erythema noted Palpation: palpable nodule palpable, ttp here palpable locking/triggering w/ active flexion Bar Host/Hostess Strength Per Dynamometer: measured in pounds per pressure (norms: age) [R] [L] 1. 43# (norm:85#) 48# (norm:80#) 2. 43# 47# 3. 42# 44# Sensation: pt denies paresthesia's; nocturnal or otherwise. TX: *US 1.4 w/cm2 100% 3MHz over L RF flexor tendon x7' *mobilization/FDM to L RF flexor tendon, LLPS of L RF into hyperextension at MCP joint w/ 30-60 second hold, x9' *fabrication of MCP blocking orthosis for L RF. care was taken to smooth edges to ensure comfort. Amelia was instructed to wear x2 hours and then remove to inspect skin. If no red bryson/indentations, continue wear as instructed (during sleep and during the day when appropriate). If there are red bryson/indentations, wait 15-20 minutes and re-inspect skin. If bryson disappear, resume use. If they do not please contact this scenario writer and come in for modifications. Discontinuation of orthosis wear is recommended until modifications can be made. Amelia v/u. *pt will engage in LLPS of L RF into hyperextension at MCP joint w/ 30-60 second hold. able to r/d and v/u. ASSESSMENT: Salomón is a 69 y/o male who presents to the OT clinic w/ s/s of L non- dominant RF trigger finger as evidenced by pt report and clinical presentation. He has obvious locking of the RF w/ active flexion moving back into extension. He tolerated tx well w/ persistent triggering following tx. Fabricated a MCP blocking orthosis for wear during the day as tolerated. PLAN: Plan to see 1x/week for 4-6 weeks. Tx to include modalities (ice, heat, u/s), ther-ex (ROM, strengthening when indicated), manual therapy/FDM/IASTM, orthosis fabrication as needed, HEP and patient edu. Patient is in agreement with this POC. GOALS: 1. pt to be compliant w/ HEP and orthosis wear 2. pt will report improved locking of digit to <4x per day 3. pain <5/10 at worst The practitioner's co-signature on this note signifies agreement with plan of care and clinical diagnosis code. /karen/ Jennifer Duarte MS OTR/Delia, CHT Occupational Therapist Signed: 11/27/2024 16:26 /karen/ Evgeny Sparks MD Staff Physician Cosigned: 11/27/2024 17:56 JENNIFER DUARTE [place] [facility] [place] [facility]
--- OUTSIDE RECORDS SUMMARY | 2024-12-06 12:34 | XMS_ITS | Continuity of Care Document ---
Author Name [facility] Organization [facility] Care Team Providers Care Art Model Name Role Phone [facility] Unavailable Unavailable Problems Combined list of problems from Department of Defense and Veterans Affairs facilities. It does not include entries that were removed or entered in error. Problem Status Onset Date Problem Type Date of Resolution Comments Source Abdominal pain Active 025 Condition Nov 02, 2024 Entered By: CONSTANTIN SULTANA Comment: ordered evaluation [facility] Trigger finger Active 025 Condition Nov 02, 2024 Entered By: CONSTANTIN SULTANA Comment: ordered occupational therapy [facility] Anxiety (SCT [id number]) Active 024 Condition May 23, 2024 Entered By: CONSTANTNI SULTANA Comment: Referred to mental health [facility] Hypercholesterolemia (SCT [id number]) Active 023 Condition Apr 19, 2023 Entered By: CONSTANTIN SULTANA Comment: Treated with pravastatin [facility] Impaired memory Active 023 Condition Aug 15, 2023 Entered By: COSNTANTIN SULTANA Comment: Ordered neuropsychology testing [facility] Pain of right knee joint Active 023 Condition Apr 19, 2023 Entered By: CONSTANTIN SULTANA Comment: Treated with physical therapy [facility] Cataracts Active 022 Condition Apr 06, 2023 Entered By: LEANDRO MARIE Comment: Left eye [facility] Enlarged prostate Active 018 Condition [facility] Chronic obstructive lung disease Active 013 Condition [facility] Tinnitus Active 000 Condition [facility] Diagnosis: ICD-10-CM R10.9 Unspecified abdominal pain Active Diagnosis [facility] Diagnosis: ICD-10-CM F41.9 Anxiety disorder, unspecified Active Diagnosis [facility] Diagnosis: ICD-10-CM Z72.3 Lack of physical exercise Active Diagnosis [facility] Diagnosis: ICD-10-CM M79.645 Pain in left finger(s) Active Diagnosis [facility] Diagnosis: ICD-10-CM R10.30 Lower abdominal pain, unspecified Active Diagnosis [facility] Diagnosis: ICD-10-CM R41.3 Other amnesia Active Diagnosis [facility] Diagnosis: ICD-10-CM H04.123 Dry eye syndrome of bilateral lacrimal glands Active Diagnosis [facility] Diagnosis: ICD-10-CM Z13.6 Encounter for screening for cardiovascular disorders Active Diagnosis [facility] Diagnosis: ICD-10-CM M25.561 Pain in right knee Active Diagnosis [facility] Medications Combined list of outpatient medications from Department of Defense and Veterans Affairs facilities.Medications provided include 1) outpatient medications from the last 15 months, and 2) patient-reported medications. Medication Details Route Status Patient Instructions Prescription Expires Prescription Number Last Dispense Date Ordering Provider Order Date Order Qty Source PRAVASTATIN NA 40MG TAB TAKE ONE TABLET BY MOUTH AT BEDTIME ORAL ACTIVE TYSHAWN SULTANA 2022 [facility] SERTRALINE HCL 100MG TAB TAKE ONE-HALF TABLET BY MOUTH ONCE DAILY ORAL ACTIVE 10/04/2025 [id number] KIMI ALLEN 2023 45 [facility] SERTRALINE HCL 100MG TAB TAKE ONE-HALF TABLET BY MOUTH ONCE DAILY FOR MAJOR DEPRESSI VE DISORDER ORAL DISCONT INUED (EDIT) 08/08/2025 [id number] KIMI ALLEN 2023 15 [facility] TAMSULOSIN HCL 0.4MG CAP TAKE 1 CAPSULE BY MOUTH AT BEDTIME ORAL ACTIVE TYSHAWN SULTANA [address] [facility] [place] [facility] Allergies, Adverse Reactions, Alerts Combined list of allergies from Department of Defense and Veterans Affairs facilities. It does not include entries that were removed or entered in error. Substance Category Reaction Severity Reaction type Status Date Reported Comments Source LISINOPRIL Propensity to adverse reactions to drug (finding) active 3 [facility] [place] [facility] OMEPRAZOLE Propensity to adverse reactions to drug (finding) active [address] [facility] [place] [facility] Immunizations Combined list of available immunizations from the Department of Defense and Veterans Affairs facilities. Immunization Series Date Given Administered By Site Reaction Lot Number CVX Code Drug Reservation Agent Status Comments Source COVID-19 (MODERNA), MRNA, LNP-S, PF, 50 MCG/0.5 ML (AGES 12+ YEARS) 2023 YOSEPH MATTSON RIGHT DELTO ID [id number] 312 complet ed [facility] [place] [facility] INFLUENZA, HIGH-DOSE, TRIVALENT, PF 2023 YOSEPH MATTSON LEFT DELTO ID [id number] 135 complet ed [facility] [place] [facility] COVID-19 (MODERNA), MRNA, LNP-S, PF, 50 MCG/0.5 ML (AGES 12+ YEARS) 2023 YOSEPH MATTSON LEFT DELTO ID [id number] 312 complet ed [facility] [place] [facility] PNEUMOCOCCAL CONJUGATE PCV20, POLYSACCHARID E [id number] CONJUGATE, ADJUVANT, PF 2023 YOSEPH MATTSON LEFT DELTO ID [id number] 216 complet ed [facility] [facility] TDAP 2023 YOSEPH MATTSON RIGHT DELTO ID [id number] 115 complet ed [facility] [place] [facility] COVID-19 (MODERNA), MRNA, LNP-S, PF, 50 MCG/0.5 ML (AGES 12+ YEARS) 8 2023 FLYNN CEVALLOS LEFT DELTO ID [id number] 312 complet ed [facility] RSV, BIVALENT, PROTEIN SUBUNIT RSVPREF, DILUENT RECONSTITUTED , 0.5 ML, PF 2023 FLYNN CEVALLOS RIGHT DELTO ID [id number] 305 complet ed [facility] INFLUENZA, UNSPECIFIED FORMULATION 2022 88 complet ed [facility] COVID-19 (MODERNA), MRNA, LNP-S, BIVALENT, PF, 50 MCG/0.5 ML OR 25MCG/0.25 ML DOSE 2022 IAN CALI RIGHT DELTO ID [id number] 229 complet ed [facility] COVID-19 (MODERNA), MRNA, LNP-S, PF, 50 MCG/0.5 ML (AGES 12+ YEARS) 1 2022 312 complet ed [facility] COVID-19 (PFIZER), MRNA, LNP-S, PF, 30 MCG/0.3 ML DOSE, ELAINE-SUCROSE (AGES 12+ YEARS) 5 2022 217 complet ed Covid card Mfr: [employer] [facility] INFLUENZA, UNSPECIFIED FORMULATION 2021 88 complet ed vet's record [facility] COVID-19 (PFIZER), MRNA, LNP-S, BIVALENT, PF, 30 MCG/0.3 ML DOSE 6 2021 300 complet ed Covid Card Lot#: [id number] Mfr: [employer] [facility] COVID-19 (PFIZER), MRNA, LNP-S, PF, 30 MCG/0.3 ML DOSE 4 2021 208 complet ed Covid Card Lot#: [id number] Mfr: [employer] [facility] COVID-19 (Agolo), MRNA, LNP-S, PF, 30 MCG/0.3 ML DOSE 3 2020 208 complet ed Covid Card Lot#: [id number] Mfr: [employer] [facility] COVID-19 (Agolo), MRNA, LNP-S, PF, 30 MCG/0.3 ML DOSE 2 2020 208 complet ed Covid card Lot#: [id number] Mfr: [employer] [facility] COVID-19 (PFIZER), MRNA, LNP-S, PF, 30 MCG/0.3 ML DOSE 1 2020 208 complet ed Covid Card Lot#: [id number] Mfr: [employer] [facility] Results Combined list of recent chemistry, hematology and other laboratory results from Department of Defense and Veterans Affairs, ranging from 15 months to all on record, depending upon the facility. Order Name Results Value Reference Range Date Interpretation Specimen Comments Source METHYLMA LONIC ACID (SERUM-Q U) METHYLMALO TORRI [MOLES/VOL UME] IN SERUM OR PLASMA 138 nmol/L 69 - 390 11/13 Specimen Type: SERUM Comment: Serum methylmalon ic acid (MMA) levels are used to diagnose and monitor several rare inborn errors of metabolism, including methylmalon ic aciduria. The enzymatic conversion of MMA to succinic acid requires vitamin B12 (adenosyl-c obalamin) as a cofactor. Serum MMA levels are also used for assessing functional vitamin B12 deficiency. Vitamin B12 is essential for neurodevelo pment, particularl y early in . Undiagnosed maternal vitamin B12 deficiency may be associated with adverse /neona dex outcomes, such as neural tube defects and intrauterin e growth restriction . [facility] utilized Multi-Modal Decompositi on (MMD) analysis to establish first and second trimester- specific MMA reference intervals in , as given below: MMA, First trimester (<13 wks gestation): 58-167 nmol/L MMA, Second trimester (13-23 wks gestation): 63-241 nmol/L This test was developed and its analytical performance characteris tics have been determined by [facility] . It has not been cleared or approved by the FDA. This assay has been validated pursuant to the CLIA regulations and is used for clinical purposes. Test Performed by [facility], [address] [place] [address] Oz Dalton M.D., Ph.D., Director of Laboratorie s , CLIA [id number] TEST PERFORMED AT: , Ordering Provider: TOSHIA SULTANA Report Released Date/Time: Nov 02, 2024 08:37 AM Reporting Lab: [facility] [place] [facility] [address] [facility] [address] Performing Lab: [facility] [place] [facility] [address] [address] [facility] [place] [facility] HOMOCYST EINE HOMOCYSTEI NE [MOLES/VOL UME] IN SERUM OR PLASMA 6.5 umol/L 5 - 15 11/13 Specimen Type: SERUM Comment: For Test: HOMOCYSTEIN E + Ordering Provider: TOSHIA SULTANA Report Released Date/Time: Nov 02, 2024 08:37 AM Reporting Lab: [facility] [place] [facility] [address] [facility] [address] Performing Lab: [facility] [place] [facility] [address] [facility] [address] [facility] [place] [facility] VITAMIN B12 COBALAMIN (VITAMIN B12) [MASS/VOLU ME] IN SERUM OR PLASMA 582 pg/mL 200 - 900 11/13 Specimen Type: SERUM No comment entered. Ordering Provider: TOSHIA SULTANA Report Released Date/Time: Nov 02, 2024 08:37 AM Reporting Lab: [facility] [place] [facility] [address] [facility] [address] Performing Lab: [facility] [place] [facility] [address] [facility] [address] [facility] [place] [facility] BASIC METABOLI C PANEL (non-fas ting) UREA NITROGEN [MASS/VOLU ME] IN SERUM OR PLASMA 18 mg/dL 7 - 25 11/13 Specimen Type: SERUM No comment entered. Ordering Provider: TOSHIA SULTANA Report Released Date/Time: Nov 02, 2024 08:37 AM Reporting Lab: [facility] [place] [facility] [address] [facility] [address] Performing Lab: [facility] [address] [facility] [address] [facility] BASIC METABOLI C PANEL (non-fas ting) GLUCOSE [MASS/VOLU ME] IN SERUM OR PLASMA 100 mg/dL 65 - 100 11/13 Specimen Type: SERUM No comment entered. Ordering Provider: TOSHIA SULTANA Report Released Date/Time: Nov 02, 2024 08:37 AM Reporting Lab: [facility] [address] [address] Performing Lab: [facility] [address] [address] [facility] BASIC METABOLI C PANEL (non-fas ting) SODIUM [MOLES/VOL UME] IN SERUM OR PLASMA 143 mmol/L 135 - 145 11/13 Specimen Type: SERUM No comment entered. Ordering Provider: TOSHIA SULTANA Report Released Date/Time: Nov 02, 2024 08:37 AM Reporting Lab: [address] [address] Performing Lab: [address] [address] [facility] BASIC METABOLI C PANEL (non-fas ting) POTASSIUM [MOLES/VOL UME] IN SERUM OR PLASMA 4.0 mmol/L 3.5 - 5.0 11/13 Specimen Type: SERUM No comment entered. Ordering Provider: TOSHIA SULTANA Report Released Date/Time: Nov 02, 2024 08:37 AM Reporting Lab: [facility] [address] [address] Performing Lab: [facility] [address] [address] [facility] BASIC METABOLI C PANEL (non-fas ting) CHLORIDE [MOLES/VOL UME] IN SERUM OR PLASMA 107 mmol/L 100 - 110 11/13 Specimen Type: SERUM No comment entered. Ordering Provider: TOSHIA SULTANA Report Released Date/Time: Nov 02, 2024 08:37 AM Reporting Lab: [facility] [place] [facility] [address] [facility] [address] Performing Lab: [facility] [address] [facility] [place] [facility] BASIC METABOLI C PANEL (non-fas ting) CARBON DIOXIDE, TOTAL [MOLES/VOL UME] IN SERUM OR PLASMA 27 meq/L 20 - 30 11/13 Specimen Type: SERUM No comment entered. Ordering Provider: TOSHIA SULTANA Report Released Date/Time: Nov 02, 2024 08:37 AM Reporting Lab: [facility] [address] [address] Performing Lab: [facility] [address] [facility] BASIC METABOLI C PANEL (non-fas ting) CREATININE [MASS/VOLU ME] IN SERUM OR PLASMA 0.95 mg/dL 0.50 - 1.40 11/13 Specimen Type: SERUM No comment entered. Ordering Provider: TOSHIA SULTANA Report Released Date/Time: Nov 02, 2024 08:37 AM Reporting Lab: [facility] [address] Performing Lab: [facility] [address] [facility] BASIC METABOLI C PANEL (non-fas ting) GLOMERULAR FILTRATION RATE/1.73 SQ M.PREDICTE D [VOLUME RATE/AREA] IN SERUM, PLASMA OR BLOOD BY CREATININE -BASED FORMULA (CKD-EPI 2020) 86 mL/min 60 11/13 Specimen Type: SERUM No comment entered. Ordering Provider: TOSHIA SULTANA Report Released Date/Time: Nov 02, 2024 08:37 AM Reporting Lab: [facility] [address] Performing Lab: [facility] [address] [facility] [place] [facility] LIVER FUNCTION PROTEIN [MASS/VOLU ME] IN SERUM OR PLASMA 7.3 g/dL 6.0 - 8.3 11/13 Specimen Type: SERUM No comment entered. Ordering Provider: TOSHIA SULTANA Report Released Date/Time: Nov 02, 2024 08:37 AM Reporting Lab: [facility] [place] [facility] [address] [facility] [address] Performing Lab: [facility] [place] [facility] [address] [facility] [address] [facility] [place] [facility] LIVER FUNCTION ALBUMIN [MASS/VOLU ME] IN SERUM OR PLASMA 4.3 g/dL 3.5 - 5.0 11/13 Specimen Type: SERUM No comment entered. Ordering Provider: TOSHIA SULTANA Report Released Date/Time: Nov 02, 2024 08:37 AM Reporting Lab: [facility] [place] [address] [address] Performing Lab: [facility] [place] [address] [address] [facility] [place] [facility] LIVER FUNCTION ALKALINE PHOSPHATAS E [ENZYMATIC ACTIVITY/V OLUME] IN SERUM OR PLASMA 79 U/L 40 - 150 11/13 Specimen Type: SERUM No comment entered. Ordering Provider: TOSHIA SULTANA Report Released Date/Time: Nov 02, 2024 08:37 AM Reporting Lab: [facility] [place] [address] [address] Performing Lab[facility] [place] [facility] [address] [facility] [address] [facility] [place] [facility] LIVER FUNCTION ASPARTATE AMINOTRANS FERASE [ENZYMATIC ACTIVITY/V OLUME] IN SERUM OR PLASMA 17 U/L 5 - 34 11/13 Specimen Type: SERUM No comment entered. Ordering Provider: TOSHIA SULTANA Report Released Date/Time: Nov 02, 2024 08:37 AM Reporting Lab: [facility] [place] [address] [address] Performing Lab: [facility] [place] [facility] [address] [facility] [address] [facility] [place] [facility] LIVER FUNCTION ALANINE AMINOTRANS FERASE [ENZYMATIC ACTIVITY/V OLUME] IN SERUM OR PLASMA 13 U/L 11/13 Specimen Type: SERUM No comment entered. Ordering Provider: TOSHIA SULTANA Report Released Date/Time: Nov 02, 2024 08:37 AM Reporting Lab: [facility] [place] [facility] [address] [facility] [address] Performing Lab: [facility] [place] [facility] [address] [facility] [address] [facility] LIVER FUNCTION BILIRUBIN. TOTAL [MASS/VOLU ME] IN SERUM OR PLASMA 0.7 mg/dL 0.2 - 1.2 11/13 Specimen Type: SERUM No comment entered. Ordering Provider: TOSHIA SULTANA Report Released Date/Time: Nov 02, 2024 08:37 AM Reporting Lab: [facility] [place] [facility] [address] [facility] [address] Performing Lab: [facility] [place] [facility] [address] [facility] [address] [facility] [place] [facility] TSH THYROTROPI N [UNITS/VOL UME] IN SERUM OR PLASMA 1.28 u[IU]/mL 0.35 - 5.00 11/13 Specimen Type: SERUM No comment entered. Ordering Provider: TOSHIA SULTANA Report Released Date/Time: Nov 02, 2024 08:37 AM Reporting Lab: [facility] [place] [facility] [address] [facility] [address] Performing Lab: [facility] [place] [facility] [address] [facility] [address] [facility] [place] [facility] PSA PROSTATE SPECIFIC AG [MASS/VOLU ME] IN SERUM OR PLASMA 1.22 ng/mL 0.00 - 4.00 11/13 Specimen Type: SERUM No comment entered. Ordering Provider: TOSHIA SULTANA Report Released Date/Time: Nov 02, 2024 08:37 AM Reporting Lab: [facility] [address] [facility] [address] Performing Lab: [facility] [place] [facility] [address] [facility] [address] [facility] [place] CBC AND DIFF (AUTO) LEUKOCYTES [#/VOLUME] IN BLOOD BY AUTOMATED COUNT 5.22 10*3/uL 4.50 - 11.00 11/13 Specimen Type: BLOOD No comment entered. Ordering Provider: TOSHIA SULTANA Report Released Date/Time: Nov 02, 2024 08:37 AM Reporting Lab: [facility] [place] [facility] [address] [facility] [address] Performing Lab: [facility] [place] [facility] [address] [facility] [address] [facility] CBC AND DIFF (AUTO) ERYTHROCYT ES [#/VOLUME] IN BLOOD BY AUTOMATED COUNT 5.01 10*6/uL 4.23 - 5.66 11/13 Specimen Type: BLOOD No comment entered. Ordering Provider: TOSHIA SULTANA Report Released Date/Time: Nov 02, 2024 08:37 AM Reporting Lab: [facility] [place] [facility] [address] [facility] [address] Performing Lab: [facility] [place] [facility] [address] [facility] [address] [facility] CBC AND DIFF (AUTO) HEMOGLOBIN [MASS/VOLU ME] IN BLOOD 15.3 g/dL 12.8 - 17 11/13 Specimen Type: BLOOD No comment entered. Ordering Provider: TOSHIA SULTANA Report Released Date/Time: Nov 02, 2024 08:37 AM Reporting Lab: [facility] [place] [facility] [address] [facility] [address] Performing Lab: [facility] [place] [facility] [address] [facility] [address] [facility] CBC AND DIFF (AUTO) HEMATOCRIT [VOLUME FRACTION] OF BLOOD BY AUTOMATED COUNT 44.9 39.2 - 50.4 11/13 Specimen Type: BLOOD No comment entered. Ordering Provider: TOSHIA SULTANA Report Released Date/Time: Nov 02, 2024 08:37 AM Reporting Lab: [facility] [place] [facility] [address] [facility] [address] Performing Lab: [facility] [place] [facility] [address] [facility] [address] [facility] [place] [facility] CBC AND DIFF (AUTO) MCV [ENTITIC VOLUME] BY AUTOMATED COUNT 89.6 fL 82 - 99 11/13 Specimen Type: BLOOD No comment entered. Ordering Provider: TOSHIA SULTANA Report Released Date/Time: Nov 02, 2024 08:37 AM Reporting Lab: [facility] [place] [facility] [address] [facility] [address] Performing Lab: [facility] [place] [address] [address] [facility] [place] [facility] CBC AND DIFF (AUTO) MCHC [MASS/VOLU ME] BY AUTOMATED COUNT 34.1 g/dL 30.8 - 35.1 11/13 Specimen Type: BLOOD No comment entered. Ordering Provider: TOSHIA SULTANA Report Released Date/Time: Nov 02, 2024 08:37 AM Reporting Lab: [facility] [place] [facility] [address] [facility] [address] Performing Lab: [facility] [place] [facility] [address] [facility] [address] [facility] [place] [facility] CBC AND DIFF (AUTO) PLATELETS [#/VOLUME] IN BLOOD BY AUTOMATED COUNT 227 10*3/uL 140 - 360 11/13 Specimen Type: BLOOD No comment entered. Ordering Provider: TOSHIA SULTANA Report Released Date/Time: Nov 02, 2024 08:37 AM Reporting Lab: [facility] [place] [facility] [address] [facility] [address] Performing Lab: [facility] [place] [facility] [address] [facility] [address] [facility] [place] [facility] CBC AND DIFF (AUTO) ERYTHROCYT E DISTRIBUTI ON WIDTH [RATIO] BY AUTOMATED COUNT 11.9 12.0 - 16.0 11/13 L Specimen Type: BLOOD No comment entered. Ordering Provider: TOSHIA SULTANA Report Released Date/Time: Nov 02, 2024 08:37 AM Reporting Lab: [facility] [place] [facility] [address] [facility] [address] Performing Lab: [facility] [place] [facility] [address] [facility] [address] [facility] [place] [facility] CBC AND DIFF (AUTO) MONOCYTES [#/VOLUME] IN BLOOD BY AUTOMATED COUNT 0.52 10*3/uL 0.30 - 1.10 11/13 Specimen Type: BLOOD No comment entered. Ordering Provider: TOSHIA SULTANA Report Released Date/Time: Nov 02, 2024 08:37 AM Reporting Lab: [facility] [place] [address] [address] Performing Lab: [facility] [place] [address] [address] [facility] [place] [facility] CBC AND DIFF (AUTO) MCH [ENTITIC MASS] BY AUTOMATED COUNT 30.5 pg 26.2 - 32.6 11/13 Specimen Type: BLOOD No comment entered. Ordering Provider: TOSHIA SULTANA Report Released Date/Time: Nov 02, 2024 08:37 AM Reporting Lab: [facility] [place] [address] [address] Performing Lab: [facility] [place] [address] [address] [facility] [place] [facility] CBC AND DIFF (AUTO) NEUTROPHIL S/100 LEUKOCYTES IN BLOOD BY AUTOMATED COUNT 61.4 43.7 - 75.8 11/13 Specimen Type: BLOOD No comment entered. Ordering Provider: TOSHIA SULTANA Report Released Date/Time: Nov 02, 2024 08:37 AM Reporting Lab: [facility] [place] [address] [address] Performing Lab: [facility] [place] [address] [address] [facility] [place] [facility] CBC AND DIFF (AUTO) LYMPHOCYTE S/100 LEUKOCYTES IN BLOOD BY AUTOMATED COUNT 23.8 14.0 - 42.3 11/13 Specimen Type: BLOOD No comment entered. Ordering Provider: TOSHIA SULTANA Report Released Date/Time: Nov 02, 2024 08:37 AM Reporting Lab: [facility] [place] [facility] [address] [facility] [address] Performing Lab: [facility] [address] [facility] [address] [facility] CBC AND DIFF (AUTO) MONOCYTES/ 100 LEUKOCYTES IN BLOOD BY AUTOMATED COUNT 10.0 5.1 - 13.7 11/13 Specimen Type: BLOOD No comment entered. Ordering Provider: TOSHIA SULTANA Report Released Date/Time: Nov 02, 2024 08:37 AM Reporting Lab: [facility] [address] [place] [phone] Performing Lab: [facility] [address] [place] [phone] [facility] CBC AND DIFF (AUTO) EOSINOPHIL S/100 LEUKOCYTES IN BLOOD BY AUTOMATED COUNT 3.3 0.4 - 6.8 11/13 Specimen Type: BLOOD No comment entered. Ordering Provider: TOSHIA SULTANA Report Released Date/Time: Nov 02, 2024 08:37 AM Reporting Lab: [facility] [address] [place] [phone] Performing Lab: [facility] [address] [place] [phone] [facility] CBC AND DIFF (AUTO) BASOPHILS/ 100 LEUKOCYTES IN BLOOD BY AUTOMATED COUNT 1.3 0.1 - 2.0 11/13 Specimen Type: BLOOD No comment entered. Ordering Provider: TOSHIA SULTANA Report Released Date/Time: Nov 02, 2024 08:37 AM Reporting Lab: [facility] [address] [place] [phone] Performing Lab: [facility] [address] [facility] [address] [facility] CBC AND DIFF (AUTO) NEUTROPHIL S [#/VOLUME] IN BLOOD BY AUTOMATED COUNT 3.21 10*3/uL 2.20 - 7.60 11/13 Specimen Type: BLOOD No comment entered. Ordering Provider: TOSHIA SULTANA Report Released Date/Time: Nov 02, 2024 08:37 AM Reporting Lab: [facility] [address] [facility] [address] Performing Lab: [facility] [address] [facility] [address] [facility] CBC AND DIFF (AUTO) LYMPHOCYTE S [#/VOLUME] IN BLOOD BY AUTOMATED COUNT 1.24 10*3/uL 1.00 - 3.20 11/13 Specimen Type: BLOOD No comment entered. Ordering Provider: TOSHIA SULTANA Report Released Date/Time: Nov 02, 2024 08:37 AM Reporting Lab: [facility] [address] [facility] [address] Performing Lab: [facility] [address] [facility] [address] [facility] CBC AND DIFF (AUTO) EOSINOPHIL S [#/VOLUME] IN BLOOD BY AUTOMATED COUNT 0.17 10*3/uL 0.03 - 0.44 11/13 Specimen Type: BLOOD No comment entered. Ordering Provider: TOSHIA SULTANA Report Released Date/Time: Nov 02, 2024 08:37 AM Reporting Lab: [facility] [address] [facility] [address] Performing Lab: [facility] [address] [facility] [address] [facility] CBC AND DIFF (AUTO) BASOPHILS [#/VOLUME] IN BLOOD BY AUTOMATED COUNT 0.07 10*3/uL 0.01 - 0.13 11/13 Specimen Type: BLOOD No comment entered. Ordering Provider: TOSHIA SULTANA Report Released Date/Time: Nov 02, 2024 08:37 AM Reporting Lab: [facility] [address] [facility] [address] Performing Lab: [facility] [address] [address] [facility] CBC AND DIFF (AUTO) IMMATURE GRANULOCYT ES/100 LEUKOCYTES IN BLOOD BY AUTOMATED COUNT 0.2 0.0 - 0.7 11/13 Specimen Type: BLOOD No comment entered. Ordering Provider: TOSHIA SULTANA Report Released Date/Time: Nov 02, 2024 08:37 AM Reporting Lab: [facility] [address] [address] Performing Lab[facility] [address] [address] [facility] CBC AND DIFF (AUTO) IMMATURE GRANULOCYT ES [#/VOLUME] IN BLOOD 0.01 10*3/uL 0.00 - 0.06 11/13 Specimen Type: BLOOD No comment entered. Ordering Provider: TOSHIA SULTANA Report Released Date/Time: Nov 02, 2024 08:37 AM Reporting Lab: [facility] [address] [address] Performing Lab: [facility] [address] [address] [facility] CBC AND DIFF (AUTO) NRBC % 0.0 0.0 - 0.0 11/13 Specimen Type: BLOOD No comment entered. Ordering Provider: TOSHIA SULTANA Report Released Date/Time: Nov 02, 2024 08:37 AM Reporting Lab: [facility] [address] [address] Performing Lab: [facility] [address] [address] [facility] CBC AND DIFF (AUTO) NRBC, ABS 0.00 10*3/uL 0.00 - 0.00 11/13 Specimen Type: BLOOD No comment entered. Ordering Provider: TOSHIA SULTANA Report Released Date/Time: Nov 02, 2024 08:37 AM Reporting Lab: [facility] [address] [facility] [address] Performing Lab: [facility] [address] [facility] [address] [facility] LIPASE LIPASE [ENZYMATIC ACTIVITY/V OLUME] IN SERUM OR PLASMA 28 U/L 8 - 82 11/13 Specimen Type: SERUM No comment entered. Ordering Provider: TOSHIA SULTANA Report Released Date/Time: Nov 02, 2024 08:37 AM Reporting Lab: [facility] [address] [address] Performing Lab: [facility] [address] [address] [facility] URINALYS IS CLEAN CATCH COLOR OF URINE Yellow 11/13 Specimen Type: URINE Comment: If Glucose = >500 and Ketones are positive, please alert the Physician. Ordering Provider: TOSHIA SULTANA Report Released Date/Time: Nov 02, 2024 08:37 AM Reporting Lab: [facility] [address] [facility] [address] Performing Lab: [facility] [address] [address] [facility] URINALYS IS CLEAN CATCH APPEARANCE OF URINE Clear 11/13 Specimen Type: URINE Comment: If Glucose = >500 and Ketones are positive, please alert the Physician. Ordering Provider: TOSHIA SULTANA Report Released Date/Time: Nov 02, 2024 08:37 AM Reporting Lab: [facility] [address] [facility] [address] Performing Lab: [facility] [address] [address] [facility] URINALYS IS CLEAN CATCH GLUCOSE [MASS/VOLU ME] IN URINE Normalmg /dL 11/13 Specimen Type: URINE Comment: If Glucose = >500 and Ketones are positive, please alert the Physician. Ordering Provider: TOSHIA SULTANA Report Released Date/Time: Nov 02, 2024 08:37 AM Reporting Lab: [facility] [address] [facility] [address] Performing Lab: [facility] [address] [address] [facility] URINALYS IS CLEAN CATCH KETONES [MASS/VOLU ME] IN URINE BY TEST STRIP NEGATIVE mg/dL 11/13 Specimen Type: URINE Comment: If Glucose = >500 and Ketones are positive, please alert the Physician. Ordering Provider: TOSHIA SULTANA Report Released Date/Time: Nov 02, 2024 08:37 AM Reporting Lab: [facility] [address] [address] Performing Lab: [facility] [address] [address] [facility] URINALYS IS CLEAN CATCH ERYTHROCYT ES [PRESENCE] IN URINE SEDIMENT BY LIGHT MICROSCOPY NEGATIVE mg/dL 11/13 Specimen Type: URINE Comment: If Glucose = >500 and Ketones are positive, please alert the Physician. Ordering Provider: TOSHIA SULTANA Report Released Date/Time: Nov 02, 2024 08:37 AM Reporting Lab: [facility] [address] [address] Performing Lab: [facility] [address] [address] [facility] URINALYS IS CLEAN CATCH PROTEIN [MASS/VOLU ME] IN URINE BY TEST STRIP 10 mg/dL 11/13 Specimen Type: URINE Comment: If Glucose = >500 and Ketones are positive, please alert the Physician. Ordering Provider: TOSHIA SULTANA Report Released Date/Time: Nov 02, 2024 08:37 AM Reporting Lab: [facility] [address] [address] Performing Lab: [facility] [facility] [address] [facility] [address] [facility] URINALYS IS CLEAN CATCH NITRITE [PRESENCE] IN URINE NEGATIVE mg/dL 11/13 Specimen Type: URINE Comment: If Glucose = >500 and Ketones are positive, please alert the Physician. Ordering Provider: TOSHIA SULTANA Report Released Date/Time: Nov 02, 2024 08:37 AM Reporting Lab: [facility] [address] [facility] [address] Performing Lab: [facility] [address] [address] [facility] URINALYS IS CLEAN CATCH BILIRUBIN. TOTAL [PRESENCE] IN URINE NEGATIVE mg/dL 11/13 Specimen Type: URINE Comment: If Glucose = >500 and Ketones are positive, please alert the Physician. Ordering Provider: TOSHIA SULTANA Report Released Date/Time: Nov 02, 2024 08:37 AM Reporting Lab: [facility] [address] [address] Performing Lab: [facility] [address] [address] [facility] URINALYS IS CLEAN CATCH SPECIFIC GRAVITY OF URINE BY REFRACTOME TRY 1.029 1.016 - 1.022 11/13 H Specimen Type: URINE Comment: If Glucose = >500 and Ketones are positive, please alert the Physician. Ordering Provider: TOSHIA SULTANA Report Released Date/Time: Nov 02, 2024 08:37 AM Reporting Lab: [facility] [address] [address] Performing Lab: [facility] [address] [address] [facility] URINALYS IS CLEAN CATCH PH OF URINE BY TEST STRIP 6.0 5.0 - 9.0 11/13 Specimen Type: URINE Comment: If Glucose = >500 and Ketones are positive, please alert the Physician. Ordering Provider: TOSHIA SULTANA Report Released Date/Time: Nov 02, 2024 08:37 AM Reporting Lab: [facility] [facility] [address] [facility] [address] Performing Lab: [facility] [facility] [address] [facility] [address] [facility] URINALYS IS CLEAN CATCH UROBILINOG EN [MASS/VOLU ME] IN URINE BY TEST STRIP Normalmg /dL <2.0 - 2.0 11/13 Specimen Type: URINE Comment: If Glucose = >500 and Ketones are positive, please alert the Physician. Ordering Provider: TOSHIA SULTANA Report Released Date/Time: Nov 02, 2024 08:37 AM Reporting Lab: [facility] [facility] [address] [facility] [address] Performing Lab: [facility] [facility] [address] [facility] [address] [facility] URINALYS IS CLEAN CATCH LEUKOCYTE ESTERASE [PRESENCE] IN URINE BY TEST STRIP NEGATIVE 11/13 Specimen Type: URINE Comment: If Glucose = >500 and Ketones are positive, please alert the Physician. Ordering Provider: TOSHIA SULTANA Report Released Date/Time: Nov 02, 2024 08:37 AM Reporting Lab: [facility] [address] [address] Performing Lab: [facility] [address] [address] [facility] Vital Signs Combined list of inpatient and outpatient Vital Signs from Department of Defense and Veterans Affairs, ranging from 12 months to all on record, depending upon the facility. Vital Sign Value Date Comments Source SYSTOLIC BLOOD PRESSURE 136 12/06/19 25 08:26:12 [facility] [facility] DIASTOLIC BLOOD PRESSURE 78 025 08:26:12 [facility] [place] [facility] PULSE OXIMETRY 94 12/06/2024 08:26:12 [facility] WEIGHT 146.1 12/06/2024 08:26:12 [facility] BMI 23 kg/m2 12/06/2024 08:26:12 [facility] PAIN 0 12/06/2024 08:26:12 [facility] HEIGHT 67 12/06/2024 08:26:12 [facility] TEMPERATURE 97.2 12/06/2024 08:26:12 [facility] PULSE 74 12/06/2024 08:26:12 [facility] RESPIRATION 16 12/06/2024 08:26:12 [facility] SYSTOLIC BLOOD PRESSURE 118 11/02/19 25 08:12:59 [facility] DIASTOLIC BLOOD PRESSURE 62 025 08:12:59 [facility] PULSE OXIMETRY 98 11/02/2024 08:12:59 [facility] WEIGHT 146 11/02/2024 08:12:59 [facility] BMI 23 kg/m2 11/02/2024 08:12:59 [facility] PAIN 3 11/02/2024 08:12:59 [facility] TEMPERATURE 97.3 11/02/2024 08:12:59 [facility] PULSE 70 11/02/2024 08:12:59 [facility] RESPIRATION 16 11/02/2024 08:12:59 [facility] SYSTOLIC BLOOD PRESSURE 115 08/03/20 24 12:58:36 [facility] DIASTOLIC BLOOD PRESSURE 69 024 12:58:36 [facility] PULSE OXIMETRY 95 08/03/2024 12:58:36 [facility] WEIGHT 144.2 08/03/2024 12:58:36 [facility] BMI 23 kg/m2 08/03/2024 12:58:36 [facility] PAIN 0 08/03/2024 12:58:36 [facility] HEIGHT 67 08/03/2024 12:58:36 [facility] TEMPERATURE 98.1 08/03/2024 12:58:36 [facility] PULSE 66 08/03/2024 12:58:36 [facility] RESPIRATION 16 08/03/2024 12:58:36 [facility] SYSTOLIC BLOOD PRESSURE 125 05/23/20 09:59:53 [facility] DIASTOLIC BLOOD PRESSURE 70 024 09:59:53 [facility] PULSE OXIMETRY 95 05/23/2024 09:59:53 [facility] WEIGHT 147.8 05/23/2024 09:59:53 [facility] BMI 23 kg/m2 05/23/2024 09:59:53 [facility] PAIN 1 05/23/2024 09:59:53 [facility] HEIGHT 67 05/23/2024 09:59:53 [facility] TEMPERATURE 97.7 05/23/2024 09:59:53 [facility] PULSE 63 05/23/2024 09:59:53 [facility] RESPIRATION 16 05/23/2024 09:59:53 [facility] SYSTOLIC BLOOD PRESSURE 120 01/27/20 24 08:18:02 [facility] DIASTOLIC BLOOD PRESSURE 60 024 08:18:02 [facility] PULSE OXIMETRY 97 01/27/2024 08:18:02 [facility] WEIGHT 151 01/27/2024 08:18:02 [facility] BMI 24 kg/m2 01/27/2024 08:18:02 [facility] PAIN 0 01/27/2024 08:18:02 [facility] TEMPERATURE 98.4 01/27/2024 08:18:02 [facility] PULSE 72 01/27/2024 08:18:02 [facility] RESPIRATION 16 01/27/2024 08:18:02 [facility] Encounters Combined list of: 1) Encounters from Department of Veterans Affairs facilities going backup to the last 18 months, not all VA inpatient encounters are included; 2) Encounters from the Department of Defense facilities going backup to 280 months. Location Location Details Encounter Type Encounter Number Reason For Visit Attending Provider ADM Date DC Date Status Disposition Source [facility] THERAPEUTI C EXERCISES [id number] Diagnos is: ICD-10- CM M25.561 Pain in right knee JAUN LAWTON 06/07 [facility] THERAPEUTI C EXERCISES [id number] Diagnos is: ICD-10- CM M25.561 Pain in right knee JUAN LAWTON 06/14 [facility] THERAPEUTI C EXERCISES [id number] Diagnos is: ICD-10- CM M25.561 Pain in right knee JUAN LAWTON 06/20 [facility] THERAPEUTI C EXERCISES [id number] Diagnos is: ICD-10- CM M25.561 Pain in right knee JUAN LAWTON 06/30 [facility] Outpatient Encounter [id number] 07/26 [facility] Out[facility] Encounter [id number] 08/09 [facility] Out[facility] Encounter [id number] 08/12 [facility] OFFICE O/P EST LOW 20-29 MIN [id number] Diagnos is: ICD-10- CM M25.561 Pain in right knee ALEX SULTANA RD 08/15 [facility] Out[facility] Encounter [id number] 08/19 [facility] MANUAL THERAPY 1/> REGIONS [id number] Diagnos is: ICD-10- CM M25.561 Pain in right knee CHANDRAKANT SOLIS 08/25 [facility] SELF CARE MNGMENT TRAINING [id number] Diagnos is: ICD-10- CM M25.561 Pain in right knee CHANDRAKANT SOLIS 09/29 [facility] Out[facility] Encounter [id number] 11/10 [facility] OFFICE O/P EST SF 10 MIN [id number] Diagnos is: ICD-10- CM R41.3 Other amnesia RDALEX ELMA Faye 11/15 [facility] Out[facility] Encounter [id number] 11/18 [facility] HC PRO PHONE CALL 11-20 MIN [id number] Diagnos is: ICD-10- CM Z72.3 Lack of physica l exercis e GA DANIELLE 12/25 [facility] PSYCH DIAGNOSTIC EVALUATION [id number] Diagnos is: ICD-10- CM R41.3 Other amnesia KIMO OLMOS 01/01 [facility] Out[facility] Encounter [id number] 01/01 [facility] UNLISTED PHYSCL MED/[place] [id number] Diagnos is: ICD-10- CM Z72.3 Lack of physica l exercis CHANDRAKANT Sy 01/15 [facility] Out[facility] Encounter [id number] 01/18 [facility] Out[facility] Encounter [id number] Colby CHACON 01/18 [facility] Out[facility] Encounter [id number] 01/25 [facility] OFFICE O/P EST SF 10 MIN [id number] Diagnos is: ICD-10- CM R41.3 Other amnesia SULTANAALEX ELMA Faye 01/26 [facility] PSYCL/NRPS YC TST PHY/Q[place] [id number] Diagnos is: ICD-10- CM R41.3 Other amnesia KIMO OLMOS A 02/01 [facility] Out[facility] Encounter [id number] 02/05 [facility] Out[facility] Encounter [id number] 03/06 [facility] Out[facility] Encounter [id number] 03/15 [facility] EXERCISE CLASS [id number] Diagnos is: ICD-10- CM Z72.3 Lack of physica l exercis e GA DANIELLE 04/02 [facility] Out[facility] Encounter [id number] 04/10 [facility] EXERCISE CLASS [id number] Diagnos is: ICD-10- CM Z72.3 Lack of physica l exercis e Colby HOANG 04/16 [facility] EXERCISE CLASS [id number] Diagnos is: ICD-10- CM Z72.3 Lack of physica l exercis Colby Marsh 04/18 [facility] EXERCISE CLASS [id number] Diagnos is: ICD-10- CM Z72.3 Lack of physica l exercis CHANDRAKANT Sy 04/20 [facility] EXERCISE CLASS [id number] Diagnos is: ICD-10- CM Z72.3 Lack of physica l exercis e GA DANIELLE 04/23 [facility] EXERCISE CLASS [id number] Diagnos is: ICD-10- CM Z72.3 Lack of physica l exercis Colby Marsh 04/25 [facility] EXERCISE CLASS [id number] Diagnos is: ICD-10- CM Z72.3 Lack of physica l exercis e CHANDRAKANT SOLIS 04/27 [facility] EXERCISE CLASS [id number] Diagnos is: ICD-10- CM Z72.3 Lack of physica l exercis CHANDRAKANT Sy 05/04 [facility] EXERCISE CLASS [id number] Diagnos is: ICD-10- CM Z72.3 Lack of physica l exercis Colby Marsh 05/07 [facility] EXERCISE CLASS [id number] Diagnos is: ICD-10- CM Z72.3 Lack of physica l exercis Colby MarshIN 05/09 [facility] EXERCISE CLASS [id number] Diagnos is: ICD-10- CM Z72.3 Lack of physica l exercis e Colby HAONG ZACH 05/11 [facility] EXERCISE CLASS [id number] Diagnos is: ICD-10- CM Z72.3 Lack of physica l exercis e GA DANIELLE M 05/14 [facility] EXERCISE CLASS [id number] Diagnos is: ICD-10- CM Z72.3 Lack of physica l exercis e Colby HOANG ZACH 05/16 [facility] Outpatient Encounter [id number] 05/16 [facility] EXERCISE CLASS [id number] Diagnos is: ICD-10- CM Z72.3 Lack of physica l exercis e GA DANIELLE M 05/21 [facility] EXERCISE CLASS [id number] Diagnos is: ICD-10- CM Z72.3 Lack of physica l exercis e Colby HOANG ZACH 05/23 [facility] OFFICE O/P EST LOW 20 MIN [id number] Diagnos is: ICD-10- CM R41.[address] 05/23 [facility] ELECTROCAR DIOGRAM REPORT [id number] Diagnos is: ICD-10- CM Z13.6 Encount er for screeni ng for cardiov ascular disorde JONNY Newman U 05/23 [facility] EXERCISE CLASS [id number] Diagnos is: ICD-10- CM Z72.3 Lack of physica l exercis e GA DANIELLE 05/25 [facility] Outpatient Encounter [id number] 05/27 [facility] EXERCISE CLASS [id number] Diagnos is: ICD-10- CM Z72.3 Lack of physica l exercis e GA DANIELLE 05/28 [facility] EXERCISE CLASS [id number] Diagnos is: ICD-10- CM Z72.3 Lack of physica l exercis e Cloby HOANG 05/30 [facility] PSYCH DIAGNOSTIC EVALUATION [id number] Diagnos is: ICD-10- CM F41.9 Anxiety disorde r, unspeci ELDER Hightower N 05/31 [facility] PSYCH DIAGNOSTIC EVALUATION [id number] Diagnos is: ICD-10- CM F41.9 Anxiety disorde r, unspeci ELDER Hightower N 05/31 [facility] EXERCISE CLASS [id number] Diagnos is: ICD-10- CM Z72.3 Lack of physica l exercis e GA DANIELLE M 06/01 [facility] Outpatient Encounter [id number] 06/01 [facility] [place]LISTED PHYSCL [place] [id number] Diagnos is: ICD-10- CM Z72.3 Lack of physica l exercis e Colby HOANG 06/04 [facility] EXERCISE CLASS [id number] Diagnos is: ICD-10- CM Z72.3 Lack of physica l exercis e GA DANIELLE M 06/04 [facility] Outpatient Encounter [id number] 06/06 [facility] EXERCISE CLASS [id number] Diagnos is: ICD-10- CM Z72.3 Lack of physica l exercis e CHANDRAKANT SOLIS 06/08 [facility] Outpatient Encounter [id number] 06/08 [facility] EXERCISE CLASS [id number] Diagnos is: ICD-10- CM Z72.3 Lack of physica l exercis e GA DANIELLE 06/11 [facility] Outpatient Encounter [id number] 06/11 [facility] Outpatient Encounter [id number] 06/11 [facility] EXERCISE CLASS [id number] Diagnos is: ICD-10- CM Z72.3 Lack of physica l exercis e Colby HOANG ZACH 06/13 [facility] EXERCISE CLASS [id number] Diagnos is: ICD-10- CM Z72.3 Lack of physica l exercis e Colby HOANG ZACH 06/15 [facility] MTMS BY PHARM ADDL 15 MIN [id number] Diagnos is: ICD-10- CM F41.9 Anxiety disorde r, unspeci KIMI Schmitz 06/15 [facility] EXERCISE CLASS [id number] Diagnos is: ICD-10- CM Z72.3 Lack of physica l exercis e GA DANIELLE M 06/18 [facility] EXERCISE CLASS [id number] Diagnos is: ICD-10- CM Z72.3 Lack of physica l exercis e Colby HOANG ZACH 06/20 [facility] EXERCISE CLASS [id number] Diagnos is: ICD-10- CM Z72.3 Lack of physica l exercis e GA DANIELLE M 06/22 [facility] EXERCISE CLASS [id number] Diagnos is: ICD-10- CM Z72.3 Lack of physica l exercis e Colby HOANGIN 06/27 [facility] EXERCISE CLASS [id number] 1. Diagnos is: ICD-10- CM Z72.3 Lack of physica l exercis e CHANDRAKANT SOLIS 06/29 [facility] EXERCISE CLASS [id number] 1. Diagnos is: ICD-10- CM Z72.3 Lack of physica l exercis e GA DANIELLE 07/04 [facility] EXERCISE CLASS [id number] Diagnos is: ICD-10- CM Z72.3 Lack of physica l exercis e GA DANIELLE M 07/13 [facility] EXERCISE CLASS [id number] 1. Diagnos is: ICD-10- CM Z72.3 Lack of physica l exercis e GA DANIELLE 07/16 [facility] EXERCISE CLASS [id number] Diagnos is: ICD-10- CM Z72.3 Lack of physica l exercis e Colby HOANG ZACH 07/18 [facility] INTRM OPH EXAM NEW PATIENT [id number] 1. Diagnos is: ICD-10- CM H04.123 Dry eye syndrom e of bilater al lacrima l glands MERHAR,ISIDRO H B 07/19 [facility] Outpatient Encounter [id number]/20 [facility] EXERCISE CLASS [id number] Diagnos is: ICD-10- CM Z72.3 Lack of physica l exercis e GA DANIELLE 07/20 [facility] EXERCISE CLASS [id number] Diagnos is: ICD-10- CM Z72.3 Lack of physica l exercis e Colby HOANGIN 07/25 [facility] [place] [place]YSCL [place] [id number] Diagnos is: ICD-10- CM Z72.3 Lack of physica l exercis e CHANDRAKANT SOLIS 07/25 [facility] MTMS BY PHARM ADDL 15 MIN [id number] Diagnos is: ICD-10- CM F41.9 Anxiety disorde r, unspeci fiKIMI Harvey 07/25 [facility] EXERCISE CLASS [id number] Diagnos is: ICD-10- CM Z72.3 Lack of physica l exercis e CHANDRAKANT SOLIS 07/27 [facility] EXERCISE CLASS [id number] Diagnos is: ICD-10- CM Z72.3 Lack of physica l exercis e GA DANIELLE 07/30 [facility] Outpatient Encounter [id number] 07/30 [facility] EXERCISE CLASS [id number] Diagnos is: ICD-10- CM Z72.3 Lack of physica l exercis Colby Marsh 08/01 [facility] EXERCISE CLASS [id number] Diagnos is: ICD-10- CM Z72.3 Lack of physica l exercis e GA DANIELLE 08/03 [facility] OFFICE O/P EST SF 10 MIN [id number] Diagnos is: ICD-10- CM R41.[address]LEX SULTA[address] 08/03 [facility] Outpatient Encounter [id number] 08/03 [facility] MTMS BY PHARM ADDL 15 MIN [id number] Diagnos is: ICD-10- CM F41.9 Anxiety disorde r, unspeci fied KIMI ALLEN 08/07 [facility] EXERCISE CLASS [id number] Diagnos is: ICD-10- CM Z72.3 Lack of physica l exercis e Colby HOANG 08/08 [facility] Outpatient [facility]counter [id number] 08/10 [facility] EXERCISE CLASS [id number] Diagnos is: ICD-10- CM Z72.3 Lack of physica l exercis e GA DANIELLE M 08/10 [facility] EXERCISE CLASS [id number] Diagnos is: ICD-10- CM Z72.3 Lack of physica l exercis e GA DANIELLE M 08/13 [facility] EXERCISE CLASS [id number] Diagnos is: ICD-10- CM Z72.3 Lack of physica l exercis e GA DANIELLE M 08/17 [facility] EXERCISE CLASS [id number] Diagnos is: ICD-10- CM Z72.3 Lack of physica l exercis e GA DANIELLE M 08/20 [facility] EXERCISE CLASS [id number] Diagnos is: ICD-10- CM Z72.3 Lack of physica l exercis Colby Marsh 08/22 [facility] Outpatient Encounter [id number] 08/22 [facility] Outpatient Encounter [id number] 1.08/26 [facility] Outpatient Encounter [id number] 08/27 [facility] EXERCISE CLASS [id number] Diagnos is: ICD-10- CM Z72.3 Lack of physica l exercis Colby Marsh 09/05 [facility] EXERCISE CLASS [id number] Diagnos is: ICD-10- CM Z72.3 Lack of physica l exercis e CHANDRAKANT SOLIS 09/07 [facility] MTMS BY PHARM ADDL 15 MIN [id number] Diagnos is: ICD-10- CM F41.9 Anxiety disorde r, unspeci fiKIMI Harvey 09/07 [facility] EXERCISE CLASS [id number] Diagnos is: ICD-10- CM Z72.3 Lack of physica l exercis e GA DANIELLE 09/10 [facility] EXERCISE CLASS [id number] Diagnos is: ICD-10- CM Z72.3 Lack of physica l exercis e Colby HOANG 09/12 [facility] EXERCISE CLASS [id number] Diagnos is: ICD-10- CM Z72.3 Lack of physica l exercis e GA DANIELLE 09/14 [facility] EXERCISE CLASS [id number] Diagnos is: ICD-10- CM Z72.3 Lack of physica l exercis e Colby HOANG 09/19 [facility] Outpatient Encounter [id number] 09/20 [facility] EXERCISE CLASS [id number] Diagnos is: ICD-10- CM Z72.3 Lack of physica l exercis e CHANDRAKANT SOLIS 09/21 [facility] EXERCISE CLASS [id number] Diagnos is: ICD-10- CM Z72.3 Lack of physica l exercis e GA DANIELLE M 09/24 [facility] EXERCISE CLASS [id number] Diagnos is: ICD-10- CM Z72.3 Lack of physica l exercis e Colby HOANG 09/26 [facility] EXERCISE CLASS [id number] Diagnos is: ICD-10- CM Z72.3 Lack of physica l exercis e GA DANIELLE M 10/01 [facility] EXERCISE CLASS [id number] Diagnos is: ICD-10- CM Z72.3 Lack of physica l exercis CHANDRAKANT Sy 10/03 [facility] MTMS BY PHARM ADDL 15 MIN [id number] Diagnos is: ICD-10- CM F41.9 Anxiety disorde r, unspeci KIMI Schmitz 10/03 [facility] EXERCISE CLASS [id number] Diagnos is: ICD-10- CM Z72.3 Lack of physica l exercis e GA DANIELLE M 10/05 [facility] EXERCISE CLASS [id number] . Diagnos is: ICD-10- CM Z72.3 Lack of physica l exercis e GA DANIELLE 10/08 [facility] Outpatient Encounter [id number] [facility] PSYTX W PT 45 MINUTES [id number] 1. Diagnos is: ICD-10- CM F41.9 Anxiety disorde r, unspeci LILLI Sen 10/09 [facility] EXERCISE CLASS [id number] 1. Diagnos is: ICD-10- CM Z72.3 Lack of physica l exercis e Colby HOANG 10/10 [facility] EXERCISE CLASS [id number] Diagnos is: ICD-10- CM Z72.3 Lack of physica l exercis e GA DANIELLE 10/12 [facility] EXERCISE CLASS [id number] Diagnos is: ICD-10- CM Z72.3 Lack of physica l exercis e GA DANIELLE 10/15 [facility] Outpatient Encounter [id number] 10/16 [facility] EXERCISE CLASS [id number] Diagnos is: ICD-10- CM Z72.3 Lack of physica l exercis e CHANDRAKANT SOLIS 10/19 [facility] EXERCISE CLASS [id number] Diagnos is: ICD-10- CM Z72.3 Lack of physica l exercis Colby Marsh ZACH 10/22 [facility] EXERCISE CLASS [id number] Diagnos is: ICD-10- CM Z72.3 Lack of physica l exercis e GA DANIELLE M 10/26 [facility] EXERCISE CLASS [id number] Diagnos is: ICD-10- CM Z72.3 Lack of physica l exercis e GA DANIELLE M 10/29 [facility] PSYTX W PT 30 MINUTES [id number] Diagnos is: ICD-10- CM F41.9 Anxiety disorde r, unspeci fiLILLI Car R 10/30 [facility] EXERCISE CLASS [id number] Diagnos is: ICD-10- CM Z72.3 Lack of physica l exercis Colby Marsh ZACH 10/31 [facility] OFFICE O/P EST LOW 20 MIN [id number] Diagnos is: ICD-10- CM R10.30 Lower abdomin al pain, unspeci fiALEX Guzmán RD D 11/02 [facility] EXERCISE CLASS [id number] Diagnos is: ICD-10- CM Z72.3 Lack of physica l exercis e GA DANIELLE M 11/05 [facility] Outpatient Encounter [id number] 11/05 [facility] EXERCISE CLASS [id number] Diagnos is: ICD-10- CM Z72.3 Lack of physica l exercis Colby Marsh 11/07 [facility] EXERCISE CLASS [id number] Diagnos is: ICD-10- CM Z72.3 Lack of physica l exercCHANDRAKANT Benavidez 11/09 [facility] EXERCISE CLASS [id number] Diagnos is: ICD-10- CM Z72.3 Lack of physica l Colby Adhikari 11/14 [facility] Out[facility] Encounter [id number] 11/15 [facility] EXERCISE CLASS [id number] Diagnos is: ICD-10- CM Z72.3 Lack of physica l CHANDRAKANT Wells 11/16 [facility] PSYTX W PT 30 MINUTES [id number] Diagnos is: ICD-10- CM F41.9 Anxiety disorde r, unspeci fiLILLI Car 11/16 [facility] Out[facility] Encounter [id number] 11/18 [facility] EXERCISE CLASS [id number] Diagnos is: ICD-10- CM Z72.3 Lack of physica l exercis Colby Marsh ZACH 11/19 [facility] EXERCISE CLASS [id number] Diagnos is: ICD-10- CM Z72.3 Lack of physica l exercis Colby Marsh ZACH 11/21 [facility] EXERCISE CLASS [id number] Diagnos is: ICD-10- CM Z72.3 Lack of physica l exercis e GA DANIELLE M 11/23 [facility] MANUAL THERAPY / REGIONS [id number] Diagnos is: ICD-10- CM M79.645 Pain in left finger( s) JESUSITAONUSHA E 11/27 [facility] EXERCISE CLASS [id number] Diagnos is: ICD-10- CM Z72.3 Lack of physica l exercis e Colby HOANG ZACH 11/28 [facility] EXERCISE CLASS [id number] Diagnos is: ICD-10- CM Z72.3 Lack of physica l exercis e CHANDRAKANT SOLIS 11/30 [facility] EXERCISE CLASS [id number] Diagnos is: ICD-10- CM Z72.3 Lack of physica l exercis e GA DANIELLE M 12/03 [facility] [place] [facility] MULUGETA MDLTY 1+ULTRASOU [place] EA 15 [id number] [id number] Diagnos is: ICD-10- CM M79.645 Pain in left finger( s) USHA DUARTE LIE E 12/04 [facility] [place] [facility] EXERCISE CLASS [id number] Diagnos is: ICD-10- CM Z72.3 Lack of physica l exercis e Colby HOANG ZACH 12/05 [facility] [place] [facility] MTMS BY PHARM ADDL 15 MIN [id number] Diagnos is: ICD-10- CM F41.9 Anxiety disorde r, unspeci fied KIMI ALLEN D 12/05 [facility] [place] [facility] OFFICE O/P EST LOW 20 MIN [id number] Diagnos is: ICD-10- CM R10.9 Unspeci fied abdomin al pain ALEX SULTANA RD D 12[facility] Social History Combined list of available smoking, tobacco, and other social history from Department of Defense and Veterans Affairs facilities. Social History Type Response Date Comment Sourc e Tobacco smoking status NHIS VA-TOBACCO FORMER USER 05/23/2024 [facility] History of tobacco use NM-TOBACCO QUIT 15 YRS OR MORE 05[facility] History of tobacco use NM-TOBACCO FORMER USER [facility] Plan of Care List of future care activities from Department of Veterans Affairs facilities. Additional future care activities may be listed in the Assessment and Plan section. Date/Time Care Activity Care Activity Detail Facili ty 12/06/2024 AMBULATORY - MEDICINE AMBULATORY [facility]ICI [facility] [place] [facility] 12/12/2024 AMBULATORY - REHAB MEDICINE AMBULATORY - [facility]HAB MEDICINE [facility] [place] [facility] 12/18/2024 AMBULATORY - REHAB MEDICINE AMBULATORY - REHAB MEDICINE [facility] [place] [facility] 01/09/2025 AMBULATORY - MEDICINE AMBULATORY - MEDICI [facility] [place] [facility] 01/28/2025 AMBULATORY - PSYCHIATRY AMBULATORY - PSYC HIATRY [facility] [place] [facility] 02/01/2025 AMBULATORY - MEDICINE AMBULATORY - MEDICI [facility] [place] [facility] 02/22/2025 AMBULATORY - PSYCHIATRY AMBULATORY - PSYC HIATRY [facility] [place] [facility] 03/20/2025 AMBULATORY - MEDICINE AMBULATORY - MEDICI [facility] [place] [facility] 12/06/2024 Consult Order [facility] Cons Supervisor [employer]'s Choice [facility] [place] [facility]
--- OUTSIDE RECORDS SUMMARY | 2024-12-06 12:35 | XMS_ITS ---
Author Name [facility] Organization [facility] Address [address] [place] [address] Care Team Providers Care Patient Registration Representative Name Role Phone CONSTANTIN SULTANA Primary [...] Raymond's Name Patient's Relationship to Policy Raymond [facility] ([facility]) MEDICARE ADVANTAGE MCR ([facility]) Oct 24, 2021 [id number] PATIENT [facility] ([facility]) MEDICARE ADVANTAGE MCR ([facility]) Oct 24, 2021 [id number] MCGRAW PATIENT Selected Encounter This section includes the information on record at ID for the Encounter. Date/Time Encounter Type Encounter Description Reason Pro vider Source Aug 10, 2024 09:51 AM Outpatient Encounter [facility] Encounter Template Text not used by [facility] Plan of Treatment: Future Appointments (+ 6 [...] 20 appointments. The data comes from all [facility] treatment facilities. Appointment Date/Time Appointment Type Appointme nt Facility Name Sep 07, 2024 10:00 AM AMBULATORY - [facility]ATRY [facility] [place] [facility] Oct 03, 2024 01:00 PM AMBULATORY - [facility]IATRY [facility] [place] [facility] Oct 09, 2024 02:00 PM AMBULATORY - [facility]IATRY [facility] [place] [facility] Oct 09, 2024 10:15 PM [facility]INE [facility] [place] [facility] Oct 30, 2024 09:00 AM AMBULATORY - [facility]IATRY [facility] [place] [facility] Nov 02, 2024 08:00 AM [facility]INE [facility] [place] [facility] Nov 15, 2024 11:15 AM AMBULATORY - NONE [facility] [place] [facility] Nov 16, 2024 01:00 PM AMBULATORY - PSYCHIATRY [facility] [place] [facility] Nov 27, 2024 01:30 PM AMBULATORY - REHAB MEDICIN E [facility] [place] [facility] Dec 04, 2024 09:00 AM AMBULATORY - REHAB MEDICIN E [facility] [place] [facility] Dec 05, 2024 01:00 PM AMBULATORY - PSYCHIATRY [facility] [place] [facility] Dec 06, 2024 08:30 AM AMBULATORY - MEDICINE [facility] [place] [facility] Dec 12, 2024 09:30 AM AMBULATORY - REHAB MEDICIN E [facility] [place] [facility] Dec 18, 2024 10:00 AM AMBULATORY - REHAB MEDICIN E [facility] [place] [facility] Jan 09, 2025 09:30 AM AMBULATORY - MEDICINE [facility] [place] [facility] Jan 28, 2025 08:30 AM AMBULATORY - PSYCHIATRY [facility] [place] [facility] Feb 01, 2025 09:00 AM AMBULATORY - MEDICINE [facility] [place] [facility] Social History: Smoking Status (Most current) and Tobacco Use (All prior to encounter date) This section includes the most current, and the historical, smoking and tobacco- related health factors from the ID facility where the Encounter took place. Current Smoking Status This section includes the most current smoking, or tobacco-related health factor, from the ID facility where the Encounter took place. Date/Time Current Smoking Status Comment Facil ity May 23, 2024 10:00 AM VA-TOBACCO FORMER USER [facility] Tobacco Use History This section includes a history of the smoking, or tobacco-related health factors, that were collected on or before the date of the Encounter. The data comes from the ID facility where the Encounter took place. Date/Time Smoking Status/Tobacco Use Comment F acility May 23, 2024 10:00 AM ID-TOBACCO QUIT 15 YRS OR MORE ID [facility] [place] [facility] Apr 06, 2023 11:05 AM VA-TOBACCO FORMER USER [facility] [place] [facility] Apr 06, 2023 11:05 AM ID-TOBACCO QUIT 15 YRS OR MORE [facility] [place] [facility]
--- OUTSIDE RECORDS SUMMARY | 2024-12-06 12:35 | XMS_ITS | Encounter Summary ---
Author Name [facility] [place] Address [address] [place] [id number] Care Team Providers Care Plaster Mold Maker Name Role Phone CONSTANTIN SULTANA Primary Care [...] Raymond's Name Patient's Relationship to Policy Raymond [facility] ([facility]) MEDICARE ADVANTAGE MCR ([facility]) Oct 24, 2021 [id number] [phone] DAREN MCGRAW PATIENT [facility] ([facility]) MEDICARE ADVANTAGE MCR ([facility]) Oct 24, 2021 [id number] DAREN MCGRAW PATIENT Selected Encounter This section includes the information on record at [place] for the Encounter. Date/Time Encounter Type Encounter Description Reason Provider Source Nov 07, 2024 07:30 AM EXERCISE CLASS HEALTH/WELLBEING [facility] ICD-10-CM Z72.3 Lack of physical exercise HEATHER HOANG Encounter Template Text not used by [place] Assessments - Encounter Diagnoses This section includes the primary and secondary diagnoses documented for the Encounter. Date/Time Primary/Secondary Diagnosis Diagnosis Name Provider Source Nov 07, 2024 10:38 AM PRIMARY Lack of physical exercise HEATHER HOANG [place] [facility] [place] [facility] Plan of Treatment: Future Appointments (+ 6 months) and Future Tests (+/- 45 days) The Plan of Treatment section includes future care activities for the patient [facility] [place] [facility] This section includes future appointments and future orders which are active, pending or scheduled. Future Appointments This section includes appointments that were scheduled to occur 6 months from the date of the Encounter, up to a maximum of 20 appointments. The data comes from all [place] treatment facilities. Appointment Date/Time Appointment Type Appointme nt Facility Name Nov 15, 2024 11:15 AM AMBULATORY - NONE [facility] [place] [facility] Nov 16, 2024 01:00 PM AMBULATORY - PSYCHIATRY [facility] [place] [facility] Nov 27, 2024 01:30 PM AMBULATORY - REHAB MEDICIN E [facility] [place] [facility] Dec 04, 2024 09:00 AM AMBULATORY - REHAB MEDICIN E [facility] [place] [facility] Dec 05, 2024 01:00 PM AMBULATORY - PSYCHIATRY [facility] [place] [facility] Dec 06, 2024 08:30 AM AMBULATORY - MEDICINE [place] [facility] [place] [facility] Dec 12, 2024 09:30 AM AMBULATORY - REHAB MEDICIN E [facility] [place] [facility] Dec 18, 2024 10:00 AM AMBULATORY - REHAB MEDICIN E [facility] [place] [facility] Jan 09, 2025 09:30 AM AMBULATORY - MEDICINE [facility] [place] [facility] Jan 28, 2025 08:30 AM AMBULATORY - PSYCHIATRY [facility] [place] [facility] Feb 01, 2025 09:00 AM AMBULATORY - MEDICINE [place] [facility] [place] [facility] February 22, 2025 01:00 PM AMBULATORY - PSYCHIATRY [facility] [place] [facility] March 20, 2025 02:30 PM AMBULATORY - MEDICINE NM [facility] [place] [facility] Active, Pending, and Scheduled Orders This section includes a listing of several types of active, pending, and scheduled orders, including clinic medications orders, diagnostic test orders, procedure orders and consult orders; where the start date of the order is 45 days before the date of the Encounter or 45 days after the date of theEncounter. The data comes from all [place] treatment facilities. Test Date/Time Test Type Test Details Facility Name Oct 10, 2024 11:06 AM Consult Order NEUROPSYCHOLOGICAL TESTING OUTPT Cons Teasel Gig Operator's Choice [place] [facility] [place] [facility] Dec 06, 2024 09:03 AM Consult Order COUNTS INCLUDE [facility] Teasel Gig Operator's Choice [place] [facility] [place] [facility] Lab Results: +/- 30 days of the encounter This section includes the Chemistry and Hematology Lab Results on record with [place] for the patient. Radiology Reports and Pathology Reports are provided separately, in subsequent sections. Lab Results This section contains the Chemistry/Hematology Results that were resulted 30 days before or 30 daysafter the date of the Encounter. Date/Time Source Result Type Result - Unit Interpretation Reference Range Comment Nov 13, 2024 08:42 AM [facility] METHYLMALONIC ACID (SERUM-QU) Specimen Type: SERUM [...] neural tube defects and intrauterine growth restriction. [facility] utilized Multi-Modal Decomposition (MMD) analysis to establish first and second trimester- specific MMA reference intervals in , as given below: MMA, First trimester (<13 wks gestation): 58-167 nmol/L MMA, Second trimester (13-23 wks gestation): 63-241 nmol/L This test was developed and its analytical performance characteristics have been determined by [facility]. It has not been cleared or approved by the FDA. This assay has been validated pursuant to the CLIA regulations and is used for clinical purposes. Test Performed by [employer], [facility], [address] [place] [address] Oz Dalton M.D., Ph.D., Director of Laboratories , CLIA [id number] TEST PERFORMED AT: , Ordering Provider: CONSTANTIN SULTANA Report Released Date/Time: Nov 02, 2024 08:37 AM Reporting Lab: [facility] [address] [address] Performing Lab: [facility] [address] [address] METHYLMALONIC ACID (SERUM-QU) 138 nmol/L 69-390 Nov 13, 2024 08:42 AM [facility] HOMOCYSTEINE Specimen Type: SERUM Comment: For Test: HOMOCYSTEINE + Ordering Provider: CONSTANTIN SULTANA Report Released Date/Time: Nov 02, 2024 08:37 AM Reporting Lab: [facility] [address] [address] Performing Lab: [facility] [address] [facility] [address] HOMOCYSTEINE 6.5 umol/L 5-15 Nov 13, 2024 08:42 AM [facility] VITAMIN B12 Specimen Type: SERUM No comment entered. Ordering Provider: CONSTANTIN SULTANA Report Released Date/Time: Nov 02, 2024 08:37 AM Reporting Lab: [facility] [address] [address] Performing Lab: [facility] [address] [address] VITAMIN B12 582 pg/mL 200-900 Nov 13, 2024 08:42 AM [facility] LIVER FUNCTION Specimen Type: SERUM No comment entered. Ordering Provider: CONSTANTIN SULTANA Report Released Date/Time: Nov 02, 2024 08:37 AM Reporting Lab: [facility] [address] [address] Performing Lab: [facility] [address] [address] PROTEIN,TOTAL 7.3 g/dL 6.0-8.3 ALBUMIN 4.3 g/dL 3.5-5.0 ALKALINE PHOSPHATASE 79 U/L 40-150 AST 17 U/L 5-34 ALT 13 U/L BILIRUBIN, TOTAL 0.7 mg/dL 0.2-1.2 Nov 13, 2024 08:42 AM [facility] BASIC METABOLIC PANEL (non-fasting) Specimen Type: SERUM No comment entered. Ordering Provider: CONSTANTIN SULTANA Report Released Date/Time: Nov 02, 2024 08:37 AM Reporting Lab: [address] [address] Performing Lab: [facility] [address] [address] UREA NITROGEN 18 mg/dL 7-25 GLUCOSE 100 mg/dL 65-100 SODIUM 143 mmol/L 135-145 POTASSIUM 4.0 mmol/L 3.5-5.0 CHLORIDE 107 mmol/L 100-110 CO2 27 meq/L 20-30 CREATININE, Serum 0.95 mg/dL 0.50-1.40 eGFR(CKD-EPI 2020) 86 mL/min >60 Nov 13, 2024 08:42 AM [facility] TSH Specimen Type: SERUM No comment entered. Ordering Provider: CONSTANTIN SULTANA Report Released Date/Time: Nov 02, 2024 08:37 AM Reporting Lab: [address] [address] Performing Lab: [address] [address] TSH 1.28 u[IU]/mL 0.35-5.00 Nov 13, 2024 08:42 AM [facility] PSA Specimen Type: SERUM No comment entered. Ordering Provider: CONSTANTIN SULTANA Report Released Date/Time: Nov 02, 2024 08:37 AM Reporting Lab: [address] [address] Performing Lab: [address] [address] PSA 1.22 ng/mL 0.00-4.00 Nov 13, 2024 08:42 AM [facility] CBC AND DIFF (AUTO) Specimen Type: BLOOD No comment entered. Ordering Provider: CONSTANTIN SULTANA Report Released Date/Time: Nov 02, 2024 08:37 AM Reporting Lab: [facility] [address] [address] Performing Lab: [facility] [address] [address] WBC 5.22 10*3/uL 4.50-11.00 RBC 5.01 10*6/uL [...] 10*3/uL 0.00-0.00 Nov 13, 2024 08:42 AM [facility] LIPASE Specimen Type: SERUM No comment entered. Ordering Provider: CONSTANTIN SULTANA Report Released Date/Time: Nov 02, 2024 08:37 AM Reporting Lab: [address] [address] Performing Lab: [place] [address] [address] LIPASE 28 U/L 8-82 Nov 13, 2024 08:42 AM [facility] URINALYSIS CLEAN CATCH Specimen Type: URINE Comment: If Glucose = >500 and Ketones are positive, please alert the Physician. Ordering Provider: CONSTANTIN SULTANA Report Released Date/Time: Nov 02, 2024 08:37 AM Reporting Lab: [address] [address] Performing Lab: [address] [address] UA COLOR Yellow Yellow UA APPEARANCE Clear Clear UA GLUCOSE Normal mg/dL Negative UA KETONES NEGATIVE mg/dL Negative UA BLOOD NEGATIVE mg/dL Negative UA PROTEIN 10 mg/dL Negative UA NITRITE NEGATIVE mg/dL Negative UA BILIRUBIN NEGATIVE mg/dL Negative UA SPECIFIC GRAVITY 1.029 H 1.016-1.02 2 UA pH 6.0 5.0-9.0 UA UROBILINOGEN Normal mg/dL <2.0 UA LEUKOCYTE NEGATIVE Negative Nov 02, 2024 12:00 AM [facility] OCCULT BLOOD FIT X1 SCREEN(IN-HOUSE) Specimen Type: FECES No comment entered. Ordering Provider: CONSTANTIN SULTANA Report Released Date/Time: Nov 02, 2024 04:48 PM Reporting Lab: [address] [address] Performing Lab: [address] [address] OCCULT BLOOD (FIT)#1 OF 1 Negative NEG Social History: Smoking Status (Most current) and Tobacco Use (All prior to encounter date) This section includes the most current, and the historical, smoking and tobacco- related health factors from the [place] facility where the Encounter took place. Current Smoking Status This section includes the most current smoking, or tobacco-related health factor, from the [place] facility where the Encounter took place. Date/Time Current Smoking Status Comment Facil kulwinder May 23, 2024 10:00 AM VA-TOBACCO FORMER USER [facility] Tobacco Use History This section includes a history of the smoking, or tobacco-related health factors, that were collected on or before the date of the Encounter. The data comes from the [place] facility where the Encounter took place. Date/Time Smoking Status/Tobacco Use Comment F acility May 23, 2024 10:00 AM NM-TOBACCO QUIT 15 YRS OR MORE [facility] Apr 06, 2023 11:05 AM NM-TOBACCO FORMER USER [facility] Apr 06, 2023 11:05 AM NM-TOBACCO QUIT 15 YRS OR MORE [facility] Radiology Reports: +/- 30 days of [...] the Encounter. The data comes from all [place] treatment facilities. Date/Time Radiology Report Provider Source Nov 15, 2024 12:[address] ABDOMEN AND PELVIS WITH CONTRAST: OLGA MCGRAW [id number] -1955 M Exm Date: NOV 15, 2024@12:08 Req Phys: CONSTANTIN SULTANA Loc: CWM/NO/PACT 2 (Req'g Loc) Img Loc: RIM/CT Service: [place] [address] (Case [id number] COMPLETE) CT ABDOMEN AND PELVIS WITH CONTRA(CT Detailed) CPT:07011 Contrast Media : Non-ionic Iodinated Reason for Study: LLQ pain, look for cancer Clinical History: Report Status: Verified Date Reported: NOV 15, 2024 Date Verified: NOV 15, 2024 Entertainment Musician E-Sig:/ES/AVANI MONROY JR Report: Study: CT scan [...] Primary Interpreting Staff: AVANI MONROY JR, Radiologist (Entertainment Musician) /AVANI PARKER JR [place] [facility] [place] [facility] Nov 02, 2024 08:43 AM FINGER(S) 2 OR MORE VIEWS: OLGA MCGRAW [id number] -1955 M Exm Date: NOV 02, 2024@08:43 Req Phys: CONSTANTIN SULTANA Pat Loc: CWM/NO/PACT 2 (Req'g Loc) Img Loc: NHM/BUILDING 1 Service: Unknown [facility] [place] [address] (Case [id number] COMPLETE) FINGER(S) 2 OR MORE VIEWS (RAD Detailed) CPT:03034 Proc Modifiers : LEFT Reason for Study: left finger #4 trigger finger Clinical History: Report Status: Verified Date Reported: NOV 02, 2024 Date Verified: NOV 02, 2024 Entertainment Musician E-Sig:/ES/AVANI MONROY JR Report: Study: AP, lateral [...] Primary Interpreting Staff: AVANI MONROY JR, Radiologist (Entertainment Musician) /AVANI PARKER JR [facility] Encounter Notes: All associated encounter notes This section contains the clinical notes associated to the Encounter. Date/Time Encounter Note(s) Provider Source Nov 07, 2024 10:37 AM PHYSICAL MEDICINE REHAB NOTE: LOCAL TITLE: GEROFIT-SUPERVISED EXERCISE NOTE STANDARD TITLE: PHYSICAL MEDICINE REHAB NOTE DATE OF NOTE: NOV 07, 2024@10:37 ENTRY DATE: NOV 07, 2024@10:37:37 AUTHOR: ANIKA HOANG COSIGNER: URGENCY: STATUS: COMPLETED participated in the [facility] exercise program today. Activities were focused on progression of their individual exercise prescription (cardiorespiratory fitness training, strength training, etc.) and group based exercise sessions to include, but not limited to: flexibility training, balance training, functional circuit training, Vignesh Chi for arthritis, and other functional strength and neuromotor exercises. Exercise participation was supervised by [facility] staff and any questions/concerns were addressed with the patient. Modifications were made to programming as appropriate to suit Veterans individual needs, preferences, and whole health concerns. /karen/ AMADOR LI LICENSE EMBOSSED OR IMPRESSED LETTERING PAINTER Signed: 11/07/2024 10:42 ANIKA HOANG [facility]
--- OUTSIDE RECORDS SUMMARY | 2024-12-06 12:35 | XMS_ITS ---
Author Name [facility] [place] Address [address] [place] [address] Care Team Providers Care Timber Selector Name Role Phone CONSTANTIN SULTANA Primary Care [...] Name Patient's Relationship to Policy Raymond [facility] ([facility]) MEDICARE ADVANTAGE MCR ([facility]) Oct 24, 2021 [id number] DAREN MCGRAW PATIENT [facility] ([facility]) MEDICARE ADVANTAGE MCR ([facility]) Oct 24, 2021 [id number] DAREN MCGRAW PATIENT Selected Encounter This section includes the information on record at [place] for the Encounter. Date/Time Encounter Type Encounter Description Reason Provider Source Oct 05, 2024 09:59 AM EXERCISE CLASS HEALTH/WELLBEING [facility] ICD-10-CM Z72.3 Lack of physical exercise JANNA DANIELLE Kimberly Encounter Template Text not used by [place] Assessments - Encounter Diagnoses This section includes the primary and secondary diagnoses documented for the Encounter. Date/Time Primary/Secondary Diagnosis Diagnosis Name Provider Source Oct 05, 2024 10:29 AM PRIMARY Lack of physical exercise JANNA DANEILLE [place] [facility] [place] [facility] Plan of Treatment: Future Appointments (+ 6 months) and Future Tests (+/- 45 days) The Plan of Treatment section includes future care activities for the patient from all [place] [facility]. This section includes future appointments and future orders which are active, pending or scheduled. Future Appointments This section includes appointments that were scheduled to occur 6 months from the date of the Encounter, up to a maximum of 20 appointments. The data comes from all [place] treatment facilities. Appointment Date/Time Appointment Type Appointme nt Facility Name Oct 09, 2024 02:00 PM AMBULATORY - PSYCHIATRY [facility] [place] [facility] Oct 09, 2024 10:15 PM AMBULATORY - MEDICINE [facility] [place] [facility] Oct 30, 2024 09:00 AM AMBULATORY - PSYCHIATRY [facility] [place] [facility] Nov 02, 2024 08:00 AM AMBULATORY - MEDICINE [facility] [place] [facility] Nov 15, 2024 11:15 AM AMBULATORY - NONE [facility] [place] [facility] Nov 16, 2024 01:00 PM AMBULATORY - PSYCHIATRY [facility] [place] [facility] Nov 27, 2024 01:30 PM AMBULATORY - REHAB MEDICIN E [facility] [place] [facility] Dec 04, 2024 09:00 AM AMBULATORY - REHAB MEDICIN E [facility] [place] [facility] Dec 05, 2024 01:00 PM AMBULATORY - PSYCHIATRY [facility] [place] [facility] Dec 06, 2024 08:30 AM AMBULATORY - MEDICINE [facility] [place] [facility] Dec 12, 2024 09:30 AM AMBULATORY - REHAB MEDICIN E [facility] [place] [facility] Dec 18, 2024 10:00 AM AMBULATORY - REHAB MEDICIN E [facility] [place] [facility] Jan 09, 2025 09:30 AM AMBULATORY - MEDICINE [facility] [place] [facility] Jan 28, 2025 08:30 AM AMBULATORY - PSYCHIATRY [facility] [place] [facility] Feb 01, 2025 09:00 AM AMBULATORY - MEDICINE [facility] [place] [facility] February 22, 2025 01:00 PM AMBULATORY - PSYCHIATRY [facility] March 20, 2025 02:30 PM AMBULATORY - MEDICINE [facility] Active, Pending, and Scheduled Orders This section includes a listing of several types of active, pending, and scheduled orders, including clinic medications orders, diagnostic test orders, procedure orders and consult orders; where the start date of the order is 45 days before the date of the Encounter or 45 days after the date of theEncounter. The data comes from all [place] treatment facilities. Test Date/Time Test Type Test Details Facility Name Oct 10, 2024 11:06 AM Consult Order NEUROPSYCHOLOGICAL TESTING OUTPT Cons Banquet Prep Cook's Choice [facility] Lab Results: +/- 30 days of the encounter This section includes the Chemistry and Hematology Lab Results on record with [place] for the patient. Radiology Reports and Pathology Reports are provided separately, in subsequent sections. Lab Results This section contains the Chemistry/Hematology Results that were resulted 30 days before or 30 daysafter the date of the Encounter. Date/Time Source Result Type Result - Unit Interpretation Reference Range Comment Nov 02, 2024 12:00 AM [facility] OCCULT BLOOD FIT X1 SCREEN(IN-HOUSE) Specimen Type: FECES No comment entered. Ordering Provider: CONSTANTIN SULTANA Report Released Date/Time: Nov 02, 2024 04:48 PM Reporting Lab: [facility] [address] [facility] [address] Performing Lab: [address] [address] OCCULT BLOOD (FIT)#1 OF 1 Negative NEG Social History: Smoking Status (Most current) and Tobacco Use (All prior to encounter date) This section includes the most current, and the historical, smoking and tobacco- related health factors from the [place] facility where the Encounter took place. Current Smoking Status This section includes the most current smoking, or tobacco-related health factor, from the [place] facility where the Encounter took place. Date/Time Current Smoking Status Comment Ariel miramontes May 23, 2024 10:00 AM VA-TOBACCO FORMER USER [facility] Tobacco Use History This section includes a history of the smoking, or tobacco-related health factors, that were collected on or before the date of the Encounter. The data comes from the [place] facility where the Encounter took place. Date/Time Smoking Status/Tobacco Use Comment F vipul May 23, 2024 10:00 AM ND-TOBACCO QUIT 15 YRS OR MORE [facility] Apr 06, 2023 11:05 AM ND-TOBACCO FORMER USER [facility] Apr 06, 2023 11:05 AM ND-TOBACCO QUIT 15 YRS OR MORE [facility] Radiology Reports: +/- 30 days of [...] the Encounter. The data comes from all [place] treatment facilities. Date/Time Radiology Report Provider Source Nov 02, 2024 08:43 AM FINGER(S) 2 OR MOR E VIEWS: OLGA MCGRAW [id number] -1955 M Exm Date: NOV 02, 2024@08:43 Req Phys: CONSTANTIN SULTANA Loc: CWM/NO/PACT 2 (Req'g Loc) Img Loc: [facility] Service: [place] [address] (Case [id number] COMPLETE) FINGER(S) 2 OR MORE VIEWS (RAD Detailed) CPT:11382 Proc Modifiers : LEFT Reason for Study: left finger #4 trigger finger Clinical History: Report Status: Verified Date Reported: NOV 02, 2024 Date Verified: NOV 02, 2024 Deflash And Wash Operator E-Sig:/ES/AVANI MONROY JR Report: Study: AP, [...] Primary Interpreting Staff: AVANI MONROY JR, Radiologist (Deflash And Wash Operator) /AVANI PARKER JR [facility] Encounter Notes: All associated encounter notes This section contains the clinical notes associated to the Encounter. Date/Time Encounter Note(s) Provider Source Oct 05, 2024 10:25 AM PHYSICAL MEDICINE REHAB NOTE: LOCAL TITLE: GEROFIT-SUPERVISED EXERCISE NOTE STANDARD TITLE: PHYSICAL MEDICINE REHAB NOTE DATE OF NOTE: OCT 05, 2024@10:25 ENTRY DATE: OCT 05, 2024@10:25:32 AUTHOR: JANNA DANIELLE EXP COSIGNER: URGENCY: STATUS: COMPLETED participated in the [facility] exercise program today. Activities were focused on progression of their individual exercise prescription (cardiorespiratory fitness training, strength training, etc.) and group based exercise sessions to include, but not limited to: flexibility training, balance training, functional circuit training, Vignesh Chi for arthritis, and other functional strength and neuromotor exercises. Exercise participation was supervised by [facility] staff and any questions/concerns were addressed with the patient. Modifications were made to programming as appropriate to suit Veterans individual needs, preferences, and whole health concerns. /es/ Janna Danielle PT,DPT PHYSICAL THERAPIST Signed: 10/05/2024 10:31 JANNA DANIELLE [facility]
--- OUTSIDE RECORDS SUMMARY | 2024-12-06 12:35 | XMS_ITS | Clinical Summary ---
Author Organization [facility] Address [address] [place] [address] Care Team Providers Care Digital Forensic Examiner Name Role Phone Unavailable Primary Care Provider Unavailabl e Social History Tobacco Use Types Packs/Day Years Used Date Smoking Tobacco: Never Assessed Sex and Gender Information Value Date Recorded Sex Assigned at Not on file Gender Identity Not on file Sexual Orientation Not on file Plan of Treatment Health Maintenance Due Date Last Done Comments Hepatitis C Virus Screening 1955 DTaP/Tdap/Td Vaccines (1 - Tdap) 1973 Pneumococcal Vaccines 50+ (1 of 1 - PCV) 2004 Zoster (Shingles) Vaccine (1 of 2) 2004 COVID-19 Vaccine ( - 2023-2 5 season) 2024 RSV Vaccine 60 years and old er and Patients (1 - 1-dose 75+ series) 2029 Hepatitis B Vaccines Aged Out No long er eligible based on patient's age to complete this topic
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
--- OUTSIDE RECORDS SUMMARY | 2024-12-06 12:35 | XMS_ITS ---
Author Name [facility] [place] Address [address] [place] [address] Care Team Providers Care Benefits Coordinator Name Role Phone CONSTANTIN SULTANA Primary Care [...] Name Patient's Relationship to Policy Raymond [facility] ([facility]) MEDICARE ADVANTAGE MCR ([facility]) Oct 24, 2021 [id number] [phone] DAREN MCGRAW PATIENT [facility] ([facility]) MEDICARE ADVANTAGE MCR ([facility]) Oct 24, 2021 [id number] [phone] DAREN MCGRAW PATIENT Selected Encounter This section includes the information on record at [place] for the Encounter. Date/Time Encounter Type Encounter Description Reason Provider Source Nov 30, 2024 07:30 AM EXERCISE CLASS HEALTH/WELLBEING SRVS ICD-10-CM Z72.3 Lack of physical exercise FRANKY SOLIS Kimberly Encounter Template Text not used by [place] Assessments - Encounter Diagnoses This section includes the primary and secondary diagnoses documented for the Encounter. Date/Time Primary/Secondary Diagnosis Diagnosis Name Provider Source Nov 30, 2024 10:55 AM PRIMARY Lack of physical exercise FRANKY SOLIS [facility] [place] [facility] Plan of Treatment: Future Appointments (+ 6 months) and Future Tests (+/- 45 days) The Plan of Treatment section includes future care activities for the patient from all [place] [facility] This section includes future appointments and future orders which are active, pending or scheduled. Future Appointments This section includes appointments that were scheduled to occur 6 months from the date of the Encounter, up to a maximum of 20 appointments. The data comes from all [facility]. Appointment Date/Time Appointment Type Appointme nt Facility Name Dec 04, 2024 09:00 AM AMBULATORY - [place]IN [place] [facility] [place] [facility] Dec 05, 2024 01:00 PM AM[place]UL[place]ORY [place] [facility] [place] [facility] Dec 06, 2024 08:30 AM AMBULATORY - MEDICINE [place] [facility] Dec 12, 2024 09:30 AM AMBUL[place]ORY - [place] [facility] [facility] Dec 18, 2024 10:00 AM AMBUL[place] - [place] [facility] [facility] Jan 09, 2025 09:30 AM AM[place]UL[place]ORY [place]ICINE [place] [facility] Jan 28, 2025 08:30 AM [place] [facility] [place] [facility] Feb 01, 2025 09:00 AM AMBULATORY - MEDICINE [facility] [place] [facility] February 22, 2025 01:00 PM AMBUL[place]ORY - [place]RY [place] [facility] March 20, 2025 02:30 PM AMBULATORY - MEDICINE [facility] [place] [facility] Active, Pending, and Scheduled Orders This section includes a listing of several types of active, pending, and scheduled orders, including clinic medications orders, diagnostic test orders, procedure orders and consult orders; where the start date of the order is 45 days before the date of the Encounter or 45 days after the date of theEncounter. The data comes from all [facility]. Test Date/Time Test Type Test Details Facility Name Dec 06, 2024 09:03 AM Consult Order [facility] Cons Rack Cleaner's Choice [facility] Lab Results: +/- 30 days of the encounter This section includes the Chemistry and Hematology Lab Results on record with [place] for the patient. Radiology Reports and Pathology Reports are provided separately, in subsequent sections. Lab Results This section contains the Chemistry/Hematology Results that were resulted 30 days before or 30 daysafter the date of the Encounter. Date/Time Source Result Type Result - Unit Interpretation Reference Range Comment Nov 13, 2024 08:42 AM [facility] METHYLMALONIC ACID (SERUM-QU) Specimen Type: SERUM [...] neural tube defects and intrauterine growth restriction. [facility] utilized Multi-Modal Decomposition (MMD) analysis to establish first and second trimester- specific MMA reference intervals in , as given below: MMA, First trimester (<13 wks gestation): 58-167 nmol/L MMA, Second trimester (13-23 wks gestation): 63-241 nmol/L This test was developed and its analytical performance characteristics have been determined by [employer]. It has not been cleared or approved by the FDA. This assay has been validated pursuant to the CLIA regulations and is used for clinical purposes. Test Performed by [facility], [facility], [address] [place] [address] Oz Dalton M.D., Ph.D., Director of Laboratories , CLIA [id number] TEST PERFORMED AT: , Ordering Provider: CONSTANTIN SULTANA Report Released Date/Time: Nov 02, 2024 08:37 AM Reporting Lab: [facility] [address] [facility] [address] Performing Lab: [facility] [address] [address] METHYLMALONIC ACID (SERUM-QU) 138 nmol/L 69-390 Nov 13, 2024 08:42 AM [facility] HOMOCYSTEINE Specimen Type: SERUM Comment: For Test: HOMOCYSTEINE + Ordering Provider: CONSTANTIN SULTANA Report Released Date/Time: Nov 02, 2024 08:37 AM Reporting Lab: [facility] [address] [facility] [address] Performing Lab: [facility] [address] [facility] [address] HOMOCYSTEINE 6.5 umol/L 5-15 Nov 13, 2024 08:42 AM [facility] VITAMIN B12 Specimen Type: SERUM No comment entered. Ordering Provider: CONSTANTIN SULTANA Report Released Date/Time: Nov 02, 2024 08:37 AM Reporting Lab: [facility] [address] [facility] [address] Performing Lab: [address] [address] VITAMIN B12 582 pg/mL 200-900 Nov 13, 2024 08:42 AM [facility] BASIC METABOLIC PANEL (non-fasting) Specimen Type: SERUM No comment entered. Ordering Provider: CONSTANTIN SULTANA Report Released Date/Time: Nov 02, 2024 08:37 AM Reporting Lab: [facility] [address] [facility] [address] Performing Lab: [address] [address] UREA NITROGEN 18 mg/dL 7-25 GLUCOSE 100 mg/dL 65-100 SODIUM 143 mmol/L 135-145 POTASSIUM 4.0 mmol/L 3.5-5.0 CHLORIDE 107 mmol/L 100-110 CO2 27 meq/L 20-30 CREATININE, Serum 0.95 mg/dL 0.50-1.40 eGFR(CKD-EPI 2020) 86 mL/min >60 Nov 13, 2024 08:42 AM [facility] LIVER FUNCTION Specimen Type: SERUM No comment entered. Ordering Provider: CONSTANTIN SULTANA Report Released Date/Time: Nov 02, 2024 08:37 AM Reporting Lab: [facility] [address] [facility] [address] Performing Lab: [address] [address] PROTEIN,TOTAL 7.3 g/dL 6.0-8.3 ALBUMIN 4.3 g/dL 3.5-5.0 ALKALINE PHOSPHATASE 79 U/L 40-150 AST 17 U/L 5-34 ALT 13 U/L BILIRUBIN, TOTAL 0.7 mg/dL 0.2-1.2 Nov 13, 2024 08:42 AM [facility] TSH Specimen Type: SERUM No comment entered. Ordering Provider: CONSTANTIN SULTANA Report Released Date/Time: Nov 02, 2024 08:37 AM Reporting Lab: [address] [address] Performing Lab: [address] [address] TSH 1.28 u[IU]/mL 0.35-5.00 Nov 13, 2024 08:42 AM [facility] CBC AND DIFF (AUTO) Specimen Type: BLOOD No comment entered. Ordering Provider: CONSTANTIN SULTANA Report Released Date/Time: Nov 02, 2024 08:37 AM Reporting Lab: [address] [address] Performing Lab: [address] [address] WBC 5.22 10*3/uL 4.50-11.00 RBC 5.01 10*6/uL [...] 10*3/uL 0.00-0.00 Nov 13, 2024 08:42 AM [facility] PSA Specimen Type: SERUM No comment entered. Ordering Provider: CONSTANTIN SULTANA Report Released Date/Time: Nov 02, 2024 08:37 AM Reporting Lab: [facility] [address] [facility] [address] Performing Lab: [facility] [address] PSA 1.22 ng/mL 0.00-4.00 Nov 13, 2024 08:42 AM [facility] LIPASE Specimen Type: SERUM No comment entered. Ordering Provider: CONSTANTIN SULTANA Report Released Date/Time: Nov 02, 2024 08:37 AM Reporting Lab: [facility] [address] [facility] [address] Performing Lab: [facility] [address] [address] LIPASE 28 U/L 8-82 Nov 13, 2024 08:42 AM [facility] URINALYSIS CLEAN CATCH Specimen Type: URINE Comment: If Glucose = >500 and Ketones are positive, please alert the Physician. Ordering Provider: CONSTANTIN SULTANA Report Released Date/Time: Nov 02, 2024 08:37 AM Reporting Lab: [facility] [address] Performing Lab: [facility] [address] [facility] [address] UA COLOR Yellow Yellow UA APPEARANCE Clear Clear UA GLUCOSE Normal mg/dL Negative UA KETONES NEGATIVE mg/dL Negative UA BLOOD NEGATIVE mg/dL Negative UA PROTEIN 10 mg/dL Negative UA NITRITE NEGATIVE mg/dL Negative UA BILIRUBIN NEGATIVE mg/dL Negative UA SPECIFIC GRAVITY 1.029 H 1.016-1.02 2 UA pH 6.0 5.0-9.0 UA UROBILINOGEN Normal mg/dL <2.0 UA LEUKOCYTE NEGATIVE Negative Nov 02, 2024 12:00 AM [facility] OCCULT BLOOD FIT X1 SCREEN(IN-HOUSE) Specimen Type: FECES No comment entered. Ordering Provider: CONSTANTIN SULTANA Report Released Date/Time: Nov 02, 2024 04:48 PM Reporting Lab: [address] [address] Performing Lab: [address] [address] OCCULT BLOOD (FIT)#1 OF 1 Negative NEG Social History: Smoking Status (Most current) and Tobacco Use (All prior to encounter date) This section includes the most current, and the historical, smoking and tobacco- related health factors from the [place] facility where the Encounter took place. Current Smoking Status This section includes the most current smoking, or tobacco-related health factor, from the [place] facility where the Encounter took place. Date/Time Current Smoking Status Comment Facil ity May 23, 2024 10:00 AM [place]-TOB[place] QU[place] 15 YRS OR MORE [facility] Tobacco Use History This section includes a history of the smoking, or tobacco-related health factors, that were collected on or before the date of the Encounter. The data comes from the [place] facility where the Encounter took place. Date/Time Smoking Status/Tobacco Use Comment F acility May 23, 2024 10:00 AM [place]TO[place] 15 YRS OR MORE [facility] Apr 06, 2023 11:05 AM [place] FORMER USER [facility] Apr 06, 2023 11:05 AM [place] QU[place] 15 YRS OR MORE [facility] Radiology Reports: +/- 30 days of [...] the Encounter. The data comes from all [place] treatment facilities. Date/Time Radiology Report Provider Source Nov 15, 2024 12:[address] ABDOMEN AND PELVIS WITH CONTRAST: OLGA MCGRAW [id number] -[id number] M Exm Date: NOV 15, 2024@12:08 Req Phys: CONSTANTIN SULTANA Loc: CWM/NO/PACT 2 (Req'g Loc) Img Loc: NHM/CT Service: [place] [address] (Case [id number] COMPLETE) CT ABDOMEN AND PELVIS WITH CONTRA(CT Detailed) CPT:06231 Contrast Media : Non-ionic Iodinated Reason for Study: LLQ pain, look for cancer Clinical History: Report Status: Verified Date Reported: NOV 15, 2024 Date Verified: NOV 15, 2024 Batch Freezer Operator E-Sig:/ES/AVANI MONROY JR Report: Study: CT scan [...] Primary Interpreting Staff: AVANI MONROY JR, Radiologist (Batch Freezer Operator) /AVANI PARKER JR [facility] Nov 02, 2024 08:43 AM FINGER(S) 2 OR MORE VIEWS: MARILUZOLGA NANCY [id number] -[id number] Ex Date: NOV 02, 2024@08:43 Req Phys: CONSTANTIN SULTANA Loc: CWM/NO/PACT 2 (Req'g Loc) Im Loc: [facility] 1 Service: [place] [address] (Case [id number] COMPLETE) FINGER(S) 2 OR MORE VIEWS (RAD Detailed) CPT:22105 Proc Modifiers : LEFT Reason for Study: left finger #4 trigger finger Clinical History: Report Status: Verified Date Reported: NOV 02, 2024 Date Verified: NOV 02, 2024 Batch Freezer Operator E-Sig:/ES/AVANI MONROY JR Report: Study: AP, [...] Primary Interpreting Staff: AVANI MONROY JR, Radiologist (Batch Freezer Operator) /CHOLOD AVANI MONROY JR [facility] Encounter Notes: All associated encounter notes This section contains the clinical notes associated to the Encounter. Date/Time Encounter Note(s) Provider Source Nov 30, 2024 10:54 AM PHYSICAL MEDICINE REHAB NOTE: LOCAL TITLE: GEROFIT-SUPERVISED EXERCISE NOTE STANDARD TITLE: PHYSICAL MEDICINE REHAB NOTE DATE OF NOTE: NOV 30, 2024@10:54 ENTRY DATE: NOV 30, 2024@10:54:25 AUTHOR: FRANKY SOLIS COSIGNER: URGENCY: STATUS: COMPLETED [place] participated in the [facility] exercise program today. Activities were focused on progression of their individual exercise prescription (cardiorespiratory fitness training, strength training, etc.) and group based exercise sessions to include, but not limited to: flexibility training, balance training, functional circuit training, Vignesh Chi for arthritis, and other functional strength and neuromotor exercises. Exercise participation was supervised by [facility] staff and any questions/concerns were addressed with the patient. Modifications were made to programming as appropriate to suit Veterans individual needs, preferences, and whole health concerns. /karen/ FRANKY SOLIS, PT, DPT PHYSICAL THERAPIST Signed: 11/30/2024 10:56 FRANKY SOLIS [facility]
--- OUTSIDE RECORDS SUMMARY | 2024-12-06 12:35 | XMS_ITS | Encounter Summary ---
Author Name [facility] [place] Address [address] [place] [address] Care Team Providers Care Welt Pocket Machine Operator Name Role Phone CONSTANTIN SULTANA Primary Care [...] Raymond's Name Patient's Relationship to Policy Raymond [facility] ([facility]) MEDICARE ADVANTAGE MCR ([facility]) Oct 24, 2021 [id number] [phone] DAREN MCGRAW PATIENT [facility] ([facility]) MEDICARE ADVANTAGE MCR ([facility]) Oct 24, 2021 [id number] [phone] DAREN MCGRAW PATIENT Selected Encounter This section includes the information on record at [place] for the Encounter. Date/Time Encounter Type Encounter Description Reason Provider Source Aug 20, 2024 07:30 AM EXERCISE CLASS HEALTH/WELLBEING [facility] ICD-10-CM Z72.3 Lack of physical exercise JANNA DANIELLE Kimberly Encounter Template Text not used by [place] Assessments - Encounter Diagnoses This section includes the primary and secondary diagnoses documented for the Encounter. Date/Time Primary/Secondary Diagnosis Diagnosis Name Provider Source Aug 20, 2024 12:45 PM PRIMARY Lack of physical exercise HEATHER HOANG [place] [facility] [place] [facility] Plan of Treatment: Future Appointments (+ 6 months) and Future Tests (+/- 45 days) The Plan of Treatment section includes future care activities for the patient from all [place] [facility]. This section includes future appointments and future orders which are active, pending or scheduled. Future Appointments This section includes appointments that were scheduled to occur 6 months from the date of the Encounter, up to a maximum of 20 appointments. The data comes from all [place] treatment facilities. Appointment Date/Time Appointment Type Appointme nt Facility Name Sep 07, 2024 10:00 AM AMBULATORY [place]ATRY [facility] [place] [place] [facility] Oct 03, 2024 01:00 PM AMBULATORY - PS[place]CHIATRY [facility] [place] [facility] Oct 09, 2024 02:00 PM AMBULATORY - PS[place]CHIATRY [facility] [place] [facility] Oct 09, 2024 10:15 PM AMBULATORY - MEDICINE [facility] [place] [facility] Oct 30, 2024 09:00 AM AMBULATORY - PS[place]CHIATRY [facility] [place] [facility] Nov 02, 2024 08:00 AM AMBULATORY - MEDICINE [facility] [place] [facility] Nov 15, 2024 11:15 AM AMBULATORY - NONE [place] [facility] [place] [facility] Nov 16, 2024 01:00 PM AMBULATORY - PS[place]CHIATRY [facility] [place] [facility] Nov 27, 2024 01:30 PM AMBULATORY - REHAB MEDICIN E [facility] [place] [facility] Dec 04, 2024 09:00 AM AMBULATORY - REHAB MEDICIN E [facility] [place] [facility] Dec 05, 2024 01:00 PM AMBULATORY - PSYCHIATRY [facility] [place] [facility] Dec 06, 2024 08:30 AM AMBULATORY - MEDICINE [facility] [place] [facility] Dec 12, 2024 09:30 AM AMBULATORY - REHAB MEDICIN E [facility] [place] [facility] Dec 18, 2024 10:00 AM AMBULATORY - REHAB MEDICIN E [facility] [place] [facility] Jan 09, 2025 09:30 AM AMBULATORY - MEDICINE [facility] [place] [facility] Jan 28, 2025 08:30 AM [facility] Feb 01, 2025 09:00 AM AMBULATORY - MEDICINE [facility] Social History: Smoking Status (Most current) and Tobacco Use (All prior to encounter date) This section includes the most current, and the historical, smoking and tobacco- related health factors from the [place] facility where the Encounter took place. Current Smoking Status This section includes the most current smoking, or tobacco-related health factor, from the [place] facility where the Encounter took place. Date/Time Current Smoking Status Comment Facil ity May 23, 2024 10:00 AM [place] FORMER USER [facility] Tobacco Use History This section includes a history of the smoking, or tobacco-related health factors, that were collected on or before the date of the Encounter. The data comes from the [place] facility where the Encounter took place. Date/Time Smoking Status/Tobacco Use Comment F acility May 23, 2024 10:00 AM [place] [address] [facility] Apr 06, 2023 11:05 AM [place] Apr 06, 2023 11:05 AM [place] QU[place] 15 YRS OR MORE [facility] Encounter Notes: All associated encounter notes This section contains the clinical notes associated to the Encounter. Date/Time Encounter Note(s) Provider Source Aug 20, 2024 12:31 PM PHYSICAL MEDICINE REHAB NOTE: LOCAL TITLE: GEROFIT-SUPERVISED EXERCISE NOTE STANDARD TITLE: PHYSICAL MEDICINE REHAB NOTE DATE OF NOTE: AUG 20, 2024@12:31 ENTRY DATE: AUG 20, 2024@12:31:23 AUTHOR: ANIKA HOANG COSIGNER: URGENCY: STATUS: COMPLETED [place] participated in the [facility] exercise program today. Activities were focused on progression of their individual exercise prescription (cardiorespiratory fitness training, strength training, etc.) and group based exercise sessions to include, but not limited to: flexibility training, balance training, functional circuit training, Vignesh Chi for arthritis, and other functional strength and neuromotor exercises. Exercise participation was supervised by [facility] staff and any questions/concerns were addressed with the patient. Modifications were made to programming as appropriate to suit Veterans individual needs, preferences, and whole health concerns. /karen/ AMADOR LI LICENSE BIAS CUTTING MACHINE OPERATOR Signed: 08/20/2024 12:51 ANIKA HOANG [place] [facility]
--- OUTSIDE RECORDS SUMMARY | 2024-12-06 12:35 | XMS_ITS | Encounter Summary ---
Author Name [facility] [place] [facility] [place] [facility] [facility] [place] Address [address] [place] [id number] Care Team Providers Care Abrasive Mixer Helper Name Role Phone CONSTANTIN SULTANA Primary Care [...] Policy Raymond's Name Patient's Relationship to Policy Arymond [facility] ([facility]) MEDICARE ADVANTAGE MCR ([facility]) Oct 24, 2021 [id number] DAREN MCGRAW PATIENT [facility] ([facility]) MEDICARE ADVANTAGE MCR ([facility]) Oct 24, 2021 [id number] DAREN MCGRAW PATIENT Selected Encounter This section includes the information on [place] at [place] for the Encounter. Date/Time Encounter Type Encounter Description Reason Provider Source Nov 14, 2024 07:30 AM EXERCISE CLASS HEALTH/WELLBEING [facility] ICD-10-CM Z72.3 Lack of physical exercise HEATHER HOANG Encounter Template Text not used by [place] Assessments - Encounter Diagnoses This section includes the primary and secondary diagnoses documented for the Encounter. Date/Time Primary/Secondary Diagnosis Diagnosis Name Provider Source Nov 14, 2024 10:41 AM PRIMARY Lack of physical exercise HEATHER HOANG [place] [facility] [place] [facility] Plan of Treatment: Future Appointments (+ 6 months) and Future Tests (+/- 45 days) The Plan of Treatment section includes future care activities for the patient from all [place] treatmentkaiser hayward. This section includes future appointments and future [...] AMBULATORY - NONE [facility] [place] [facility] Nov 16, 2024 01:00 PM AMBULATORY - PSYCHIATRY [facility] [place] [facility] Nov 27, 2024 01:30 PM AMBULATORY - REHAB MEDICIN E [facility] [place] [facility] Dec 04, 2024 09:00 AM AMBULATORY - REHAB MEDICIN E [facility] [place] [facility] Dec 05, 2024 01:00 PM AMBULATORY - PSYCHIATRY [facility] [place] [facility] Dec 06, 2024 08:30 AM AMBULATORY - MEDICINE [place] [facility] [place] [facility] Dec 12, 2024 09:30 AM AMBULATORY - REHAB MEDICIN E [facility] [place] [facility] Dec 18, 2024 10:00 AM AMBULATORY - REHAB MEDICIN E [facility] [place] [facility] Jan 09, 2025 09:30 AM AMBULATORY - MEDICINE [facility] [place] [facility] Jan 28, 2025 08:30 AM AMBULATORY - PSYCHIATRY [facility] [place] [facility] Feb 01, 2025 09:00 AM AMBULATORY - MEDICINE [place] [facility] [place] [facility] February 22, 2025 01:00 PM AMBULATORY - PSYCHIATRY [facility] [place] [facility] March 20, 2025 02:30 PM AMBULATORY - MEDICINE [place] [facility] [place] [facility] Active, Pending, and Scheduled Orders This [...] AM Consult Order NEUROPSYCHOLOGICAL TESTING OUTPT Cons Building [employer] [facility] [place] [facility] Dec 06, 2024 09:03 AM Consult [facility] [employer] [facility] [place] [facility] [place] [facility] Lab Results: +/- 30 days of [...] Range Comment Nov 13, 2024 08:42 AM [facility] METHYLMALONIC ACID (SERUM-QU) Specimen Type: SERUM [...] neural tube defects and intrauterine growth restriction. [facility] utilized Multi-Modal Decomposition (MMD) analysis to establish first and second trimester- specific MMA reference intervals in , as given below: MMA, First trimester (<13 wks gestation): 58-167 nmol/L MMA, Second trimester (13-23 wks gestation): 63-241 nmol/L This test was developed and its analytical performance characteristics have been determined by [facility]. It has not been cleared or approved by the FDA. This assay has been validated pursuant to the CLIA regulations and is used for clinical purposes. Test Performed by [facility], [facility], [address] [place] [address] Oz Dalton M.D., Ph.D., Director of Laboratories , CLIA [id number] TEST PERFORMED AT: , Ordering Provider: CONSTANTIN SULTANA Report Released Date/Time: Nov 02, 2024 08:37 AM Reporting Lab: [facility] [place] [facility] [address] [facility] [address] Performing Lab: [facility] [address] [address] METHYLMALONIC ACID (SERUM-QU) 138 nmol/L 69-390 Nov 13, 2024 08:42 AM [facility] HOMOCYSTEINE Specimen Type: SERUM Comment: For Test: HOMOCYSTEINE + Ordering Provider: CONSTANTIN SULTANA Report Released Date/Time: Nov 02, 2024 08:37 AM Reporting Lab: [facility] [address] [facility] [facility] [address] Performing Lab: [facility] [address] [facility] [address] HOMOCYSTEINE 6.5 umol/L 5-15 Nov 13, 2024 08:42 AM [facility] VITAMIN B12 Specimen Type: SERUM No comment entered. Ordering Provider: CONSTANTIN SULTANA Report Released Date/Time: Nov 02, 2024 08:37 AM Reporting Lab: [facility] [address] [facility] [address] Performing Lab: [facility] [address] [facility] [address] VITAMIN B12 582 pg/mL 200-900 Nov 13, 2024 08:42 AM [facility] BASIC METABOLIC PANEL (non-fasting) Specimen Type: SERUM No comment entered. Ordering Provider: CONSTANTIN SULTANA Report Released Date/Time: Nov 02, 2024 08:37 AM Reporting Lab: [facility] [address] [facility] [facility] [address] Performing Lab: [facility] [address] UREA NITROGEN 18 mg/dL 7-25 GLUCOSE 100 mg/dL 65-100 SODIUM 143 mmol/L 135-145 POTASSIUM 4.0 mmol/L 3.5-5.0 CHLORIDE 107 mmol/L 100-110 CO2 27 meq/L 20-30 CREATININE, Serum 0.95 mg/dL 0.50-1.40 eGFR(CKD-EPI 2020) 86 mL/min >60 Nov 13, 2024 08:42 AM [facility] LIVER FUNCTION Specimen Type: SERUM No comment entered. Ordering Provider: CONSTANTIN SULTANA Report Released Date/Time: Nov 02, 2024 08:37 AM Reporting Lab: [address] [address] Performing Lab: [address] [address] PROTEIN,TOTAL 7.3 g/dL 6.0-8.3 ALBUMIN 4.3 g/dL 3.5-5.0 ALKALINE PHOSPHATASE 79 U/L 40-150 AST 17 U/L 5-34 ALT 13 U/L BILIRUBIN, TOTAL 0.7 mg/dL 0.2-1.2 Nov 13, 2024 08:42 AM [facility] PSA Specimen Type: SERUM No comment entered. Ordering Provider: CONSTANTIN SULTANA Report Released Date/Time: Nov 02, 2024 08:37 AM Reporting Lab: [address] [address] Performing Lab: [address] [address] PSA 1.22 ng/mL 0.00-4.00 Nov 13, 2024 08:42 AM [facility] TSH Specimen Type: SERUM No comment entered. Ordering Provider: CONSTANTIN SULTANA Report Released Date/Time: Nov 02, 2024 08:37 AM Reporting Lab: [address] [address] Performing Lab: [address] [address] TSH 1.28 u[IU]/mL 0.35-5.00 Nov 13, 2024 08:42 AM [facility] CBC AND DIFF (AUTO) Specimen Type: BLOOD No comment entered. Ordering Provider: CONSTANTIN SULTANA Report Released Date/Time: Nov 02, 2024 08:37 AM Reporting Lab: [facility] [address] [facility] [address] Performing Lab: [facility] [address] [facility] [address] WBC 5.22 10*3/uL 4.50-11.00 RBC 5.01 10*6/uL [...] 10*3/uL 0.00-0.00 Nov 13, 2024 08:42 AM [facility] LIPASE Specimen Type: SERUM No comment entered. Ordering Provider: CONSTANTIN SULTANA Report Released Date/Time: Nov 02, 2024 08:37 AM Reporting Lab: [address] [address] Performing Lab: [place] [address] [address] LIPASE 28 U/L 8-82 Nov 13, 2024 08:42 AM [facility] URINALYSIS CLEAN CATCH Specimen Type: URINE Comment: If Glucose = >500 and Ketones are positive, please alert the Physician. Ordering Provider: CONSTANTIN SULTANA Report Released Date/Time: Nov 02, 2024 08:37 AM Reporting Lab: [address] [address] Performing Lab: [address] [address] UA COLOR Yellow Yellow UA APPEARANCE Clear Clear UA GLUCOSE Normal mg/dL Negative UA KETONES NEGATIVE mg/dL Negative UA BLOOD NEGATIVE mg/dL Negative UA PROTEIN 10 mg/dL Negative UA NITRITE NEGATIVE mg/dL Negative UA BILIRUBIN NEGATIVE mg/dL Negative UA SPECIFIC GRAVITY 1.029 H 1.016-1.02 2 UA pH 6.0 5.0-9.0 UA UROBILINOGEN Normal mg/dL <2.0 UA LEUKOCYTE NEGATIVE Negative Nov 02, 2024 12:00 AM [facility] OCCULT BLOOD FIT X1 SCREEN(IN-HOUSE) Specimen Type: FECES No comment entered. Ordering Provider: CONSTANTIN SULTANA Report Released Date/Time: Nov 02, 2024 04:48 PM Reporting Lab: [address] [address] Performing Lab: [address] [address] OCCULT BLOOD (FIT)#1 OF 1 Negative NEG [...] 23, 2024 10:00 AM [place]-TOBAC[place] FORMER USER [facility] Tobacco Use History This section includes a history of the smoking, or tobacco-related health factors, that were collected on or before the date of the Encounter. The data comes from the [place] facility where the Encounter took place. Date/Time Smoking Status/Tobacco Use Comment F acility May 23, 2024 10:00 AM [place] 15 YRS OR MORE [facility] Apr 06, 2023 11:05 AM [place] FORMER US[place] [facility] Apr 06, 2023 11:05 AM [place] 15 YRS OR MORE [facility] Radiology Reports: +/- 30 days [...] ABDOMEN AND PELVIS WITH CONTRAST: OLGA MCGRAW [id number] -1955 M Exm Date: NOV 15, 2024@12:08 Req Phys: CONSTANTIN SULTANA Loc: CWM/NO/PACT 2 (Req'g Loc) Img Loc: NMM/CT Service: [place] [address] (Case [id number] COMPLETE) CT ABDOMEN AND PELVIS WITH CONTRA(CT Detailed) CPT:27007 Contrast Media : Non-ionic Iodinated Reason for Study: LLQ pain, look for cancer Clinical History: Report Status: Verified Date Reported: NOV 15, 2024 Date Verified: NOV 15, 2024 Medical Education Manager E-Sig:/ES/AVANI MONROY JR Report: Study: CT [...] Primary Interpreting Staff: AVANI MONROY JR, Radiologist (Medical Education Manager) /AVANI PARKER JR [place] [facility] [place] [facility] Nov 02, 2024 08:43 AM FINGER(S) 2 OR MORE VIEWS: OLGA MCGRAW [id number] -1955 M Exm Date: NOV 02, 2024@08:43 Req Phys: CONSTANTIN SULTANA Pat Loc: CWM/NO/PACT 2 (Req'g Loc) Img Loc: NHM/BUILDING 1 Service: Unknown [facility] [place] [id number] (Case [id number] COMPLETE) FINGER(S) 2 OR MORE VIEWS (RAD Detailed) CPT:55938 Proc Modifiers : LEFT Reason for Study: left finger #4 trigger finger Clinical History: Report Status: Verified Date Reported: NOV 02, 2024 Date Verified: NOV 02, 2024 Medical Education Manager E-Sig:/ES/AVANI MONROY JR Report: Study: AP, lateral [...] Primary Interpreting Staff: AVANI MONROY JR, Radiologist (Medical Education Manager) /AVANI PARKER JR [facility] Encounter Notes: All associated encounter notes This section contains the clinical notes associated to the Encounter. Date/Time Encounter Note(s) Provider Source Nov 14, 2024 10:40 AM PHYSICAL MEDICINE REHAB NOTE: LOCAL TITLE: GEROFIT-SUPERVISED EXERCISE NOTE STANDARD TITLE: PHYSICAL MEDICINE REHAB NOTE DATE OF NOTE: NOV 14, 2024@10:40 ENTRY DATE: NOV 14, 2024@10:40:43 AUTHOR: ANIKA HOANG COSIGNER: URGENCY: STATUS: COMPLETED participated in the [facility] exercise program today. Activities were focused on progression of their individual exercise prescription (cardiorespiratory fitness training, strength training, etc.) and group based exercise sessions to include, but not limited to: flexibility training, balance training, functional circuit training, Vignesh Chi for arthritis, and other functional strength and neuromotor exercises. Exercise participation was supervised by [facility] staff and any questions/concerns were addressed with the patient. Modifications were made to programming as appropriate to suit Veterans individual needs, preferences, and whole health concerns. /karen/ AMADOR LI LICENSE APPLIANCE REPAIR TECHNICIAN Signed: 11/14/2024 10:45 ANIKA HOANG [facility]
--- OUTSIDE RECORDS SUMMARY | 2024-12-06 12:35 | XMS_ITS | Encounter Summary ---
Author Name [facility] [place] Organization [facility] [place] Address [address] [place] [id number] Care Team Providers Care Director Of Flight Operations Name Role Phone CONSTANTIN SPARKS Primary Care Provider Unavailabl e Insurance [...] Raymond's Name Patient's Relationship to Policy Raymond [facility]) MEDICARE ADVANTAGE MCR ([facility]) Oct 24, 2021 [id number] DAREN MCGRAW PATIENT [facility]) MEDICARE ADVANTAGE MCR ([facility]) Oct 24, 2021 [id number] DAREN MCGRAW PATIENT Selected Encounter This section includes the information on record at [place] for the Encounter. Date/Time Encounter Type Encounter Description Reason Provider Source Dec 06, 2024 08:30 AM OFFICE O/P EST LOW 20 MIN PRIMARY CARE/MEDICINE ICD-10-CM R10.9 Unspecified abdominal pain CONSTANTIN SPARKS [facility] Encounter Template Text not used by [facility] Assessments - Encounter Diagnoses This section includes the primary and secondary diagnoses documented for the Encounter. Date/Time Primary/Secondary Diagnosis Diagnosis Name Provider Source Dec 06, 2024 09:06 AM PRIMARY Unspecified abdominal pain CONSTANTIN SPARKS [facility] Plan of Treatment: Future Appointments (+ 6 months) and Future Tests (+/- 45 days) The Plan of Treatment section includes future care activities for the patient [facility] [place] [facility] This section includes future appointments and future orders which are active, pending or scheduled. Future Appointments This section includes appointments that were scheduled to occur 6 months from the date of the Encounter, up to a maximum of 20 appointments. The data comes from all [facility]. Appointment Date/Time Appointment Type Appointme nt Facility Name Dec 12, 2024 09:30 AM [facility] Dec 18, 2024 10:00 AM [facility] Jan 09, 2025 09:30 AM [facility] Jan 28, 2025 08:30 AM [facility] - [facility] Feb 01, 2025 09:00 AM AM[facility]UL[facility] February 22, 2025 01:00 PM AMBUL[facility]ORY [facility]RY [facility] March 20, 2025 02:30 PM AMBULATORY MEDICINE [facility] Active, Pending, and Scheduled Orders This section includes a listing of several types of active, pending, and scheduled orders, including clinic medications orders, diagnostic test orders, procedure orders and consult orders; where the start date of the order is 45 days before the date of the Encounter or 45 days after the date of theEncounter. The data comes from all [facility]. Test Date/Time Test Type Test Details Facility Name Dec 06, 2024 09:03 AM Consult Order [facility] Cons Auto Radiator Specialist's Choice [facility] Lab Results: +/- 30 days of the [...] Range Comment Nov 13, 2024 08:42 AM [facility] METHYLMALONIC ACID (SERUM-QU) Specimen Type: SERUM Comment: [...] neural tube defects and intrauterine growth restriction. [facility] utilized Multi-Modal Decomposition (MMD) analysis to establish first and second trimester- specific MMA reference intervals in , as given below: MMA, First trimester (<13 wks gestation): 58-167 nmol/L MMA, Second trimester (13-23 wks gestation): 63-241 nmol/L This test was developed and its analytical performance characteristics have been determined by [facility]. It has not been cleared or approved by the FDA. This assay has been validated pursuant to the CLIA regulations and is used for clinical purposes. Test Performed by [facility], [facility], [address] [place] [address] Oz Dalton M.D., Ph.D., Director of Laboratories , CLIA [id number] TEST PERFORMED AT: , Ordering Provider: CONSTANTIN SPARKS Report Released Date/Time: Nov 02, 2024 08:37 AM Reporting Lab[facility] [address] [facility] [address] Performing Lab: [facility] [address] [address] METHYLMALONIC ACID (SERUM-QU) 138 nmol/L 69-390 Nov 13, 2024 08:42 AM [facility] HOMOCYSTEINE Specimen Type: SERUM Comment: For Test: HOMOCYSTEINE + Ordering Provider: CONSTANTIN SPARKS Report Released Date/Time: Nov 02, 2024 08:37 AM Reporting Lab: [facility] [address] [facility] [address] Performing Lab: [facility] [address] [facility] [address] HOMOCYSTEINE 6.5 umol/L 5-15 Nov 13, 2024 08:42 AM [facility] VITAMIN B12 Specimen Type: SERUM No comment entered. Ordering Provider: CONSTANTIN SPARKS Report Released Date/Time: Nov 02, 2024 08:37 AM Reporting Lab: [facility] [address] [facility] [address] Performing Lab: [facility] [address] VITAMIN B12 582 pg/mL 200-900 Nov 13, 2024 08:42 AM [facility] LIVER FUNCTION Specimen Type: SERUM No comment entered. Ordering Provider: CONSTANTIN SPARKS Report Released Date/Time: Nov 02, 2024 08:37 AM Reporting Lab: [facility] [address] Performing Lab: [facility] [address] PROTEIN,TOTAL 7.3 g/dL 6.0-8.3 ALBUMIN 4.3 g/dL 3.5-5.0 ALKALINE PHOSPHATASE 79 U/L 40-150 AST 17 U/L 5-34 ALT 13 U/L BILIRUBIN, TOTAL 0.7 mg/dL 0.2-1.2 Nov 13, 2024 08:42 AM [facility] BASIC METABOLIC PANEL (non-fasting) Specimen Type: SERUM No comment entered. Ordering Provider: CONSTANTIN SPARKS Report Released Date/Time: Nov 02, 2024 08:37 AM Reporting Lab: [facility] [address] Performing Lab: [address] [address] UREA NITROGEN 18 mg/dL 7-25 GLUCOSE 100 mg/dL 65-100 SODIUM 143 mmol/L 135-145 POTASSIUM 4.0 mmol/L 3.5-5.0 CHLORIDE 107 mmol/L 100-110 CO2 27 meq/L 20-30 CREATININE, Serum 0.95 mg/dL 0.50-1.40 eGFR(CKD-EPI 2020) 86 mL/min >60 Nov 13, 2024 08:42 AM [facility] TSH Specimen Type: SERUM No comment entered. Ordering Provider: CONSTANTIN SPARKS Report Released Date/Time: Nov 02, 2024 08:37 AM Reporting Lab: [facility] [address] [facility] [address] Performing Lab: [address] [address] TSH 1.28 u[IU]/mL 0.35-5.00 Nov 13, 2024 08:42 AM [facility] PSA Specimen Type: SERUM No comment entered. Ordering Provider: CONSTANTIN SPARKS Report Released Date/Time: Nov 02, 2024 08:37 AM Reporting Lab: [facility] [address] [facility] [address] Performing Lab: [address] [address] PSA 1.22 ng/mL 0.00-4.00 Nov 13, 2024 08:42 AM [facility] CBC AND DIFF (AUTO) Specimen Type: BLOOD No comment entered. Ordering Provider: CONSTANTIN SPARKS Report Released Date/Time: Nov 02, 2024 08:37 AM Reporting Lab: [facility] [address] [facility] [address] Performing Lab: [address] [address] WBC 5.22 10*3/uL 4.50-11.00 RBC 5.01 10*6/uL [...] 10*3/uL 0.00-0.00 Nov 13, 2024 08:42 AM [facility] LIPASE Specimen Type: SERUM No comment entered. Ordering Provider: CONSTANTIN SPARKS Report Released Date/Time: Nov 02, 2024 08:37 AM Reporting Lab: [facility] [address] [facility] [address] Performing Lab: [address] [address] LIPASE 28 U/L 8-82 Nov 13, 2024 08:42 AM [facility] URINALYSIS CLEAN CATCH Specimen Type: URINE Comment: If Glucose = >500 and Ketones are positive, please alert the Physician. Ordering Provider: CONSTANTIN SPARKS Report Released Date/Time: Nov 02, 2024 08:37 AM Reporting Lab: [facility] [address] [facility] [address] Performing Lab: [address] [address] UA COLOR Yellow Yellow UA APPEARANCE Clear Clear UA GLUCOSE Normal mg/dL Negative UA KETONES NEGATIVE mg/dL Negative UA BLOOD NEGATIVE mg/dL Negative UA PROTEIN 10 mg/dL Negative UA NITRITE NEGATIVE mg/dL Negative UA BILIRUBIN NEGATIVE mg/dL Negative UA SPECIFIC GRAVITY 1.029 H 1.016-1.02 2 UA pH 6.0 5.0-9.0 UA UROBILINOGEN Normal mg/dL <2.0 UA LEUKOCYTE NEGATIVE Negative Vital Signs: All taken on the encounter date This section contains inpatient and outpatient Vital Signs collected on the date of the Encounter. Date/Time Temperature Pulse Blood Pressure Respiratory Rate SP02 Pain Height Weight Body Mass Index Source Dec 06, 2024 08:26 AM 97.2 74 136/78 16 94 0 67 146.1 [facility] Social History: Smoking Status (Most current) and [...] place. Date/Time Current Smoking Status Comment Facil weslyy May 23, 2024 10:00 AM [place]-TOBACCO FORMER USER [facility] Tobacco Use History This section includes a history of the smoking, or tobacco-related health factors, that were collected on or before the date of the Encounter. The data comes from the [place] facility where the Encounter took place. Date/Time Smoking Status/Tobacco Use Comment F vipul May 23, 2024 10:00 AM NE-TOBACCO QUIT 15 YRS OR MORE [facility] Apr 06, 2023 11:05 AM VA-TOBACCO FORMER USER [facility] Apr 06, 2023 11:05 AM NE-TOBACCO QUIT 15 YRS OR MORE [facility] Radiology Reports: +/- 30 days of the [...] ABDOMEN AND PELVIS WITH CONTRAST: OLGA MCGRAW [id number] -[id number] M Ex Date: NOV 15, 2024@12:08 Req Phys: CONSTANTIN SPARKS Loc: CWM/NO/PACT 2 (Req'g Loc) Img Loc: IDM/CT Service: [facility] [place] [address] (Case [id number] COMPLETE) CT ABDOMEN AND PELVIS WITH CONTRA(CT Detailed) CPT:80250 Contrast Media : Non-ionic Iodinated Reason for Study: LLQ pain, look for cancer Clinical History: Report Status: Verified Date Reported: NOV 15, 2024 Date Verified: NOV 15, 2024 Sewing Trimmer E-Sig:/ES/AVANI MONROY JR Report: Study: CT scan [...] Primary Interpreting Staff: AVANI MONROY JR, Radiologist (Sewing Trimmer) /AVANI PARKER JR [facility] Encounter Notes: All associated encounter notes This section contains the clinical notes associated to the Encounter. Date/Time Encounter Note(s) Provider Source Dec 06, 2024 09:03 AM PHYSICIAN NOTE: LOCAL TITLE: MD NOTE STANDARD TITLE: PHYSICIAN NOTE DATE OF NOTE: DEC 06, 2024@09:03 ENTRY DATE: DEC 06, 2024@09:03:38 AUTHOR: CONSTANTIN SPARKS COSIGNER: URGENCY: STATUS: COMPLETED Patient Name: OLGA MCGRAW VITALS: Patient temperature: 97.2 F [36.2 C] (12/06/2024 08:26) Blood pressure: 136/78 (12/06/2024 08:26) Patient height: 67 in [170.2 cm] (12/06/2024 08:26) Patient weight: 146.1 lb [66.27 kg] (12/06/2024 08:26) Patient BMI: BMI: 22.9 Patient pulse: 74 (12/06/2024 08:26) Patient respiration: 16 (12/06/2024 08:26) Patient Pulse Oximetry: 94% (12/06/2024 08:26) Pain Ratin (12/06/2024 08:26) Active [facility] Medications: Active Outpatient Medications (including Supplies): Active Outpatient Medications Status === 1) SERTRALINE HCL 100MG TAB TAKE ONE-HALF TABLET BY MOUTH ONCE ACTIVE DAILY Indication: FOR MAJOR DEPRESSIVE DISORDER Active Non-VA Medications Status === 1) Non-VA PRAVASTATIN NA 40MG TAB 40MG BY MOUTH AT BEDTIME ACTIVE Indication: FOR HIGH CHOLESTEROL 2) Non-VA TAMSULOSIN HCL 0.4MG CAP 0.4MG BY MOUTH AT BEDTIME ACTIVE 3 Total Medications Remote Medications: No Active Remote Medications for this patient chemist pharmaceutical note Chief complaint: Abdominal pain History of present illness Patient was seen in this clinic 1 month ago with left lower quadrant abdominal aching. He has now had normal CAT scan of abdomen, laboratory testing, stool testing. Today he reports feeling completely better. Abdominal pain has resolved completely. No vomiting, constipation, diarrhea or other symptoms. Physical examination Well-developed well-nourished male no acute distress Coronary no murmur Clear lungs Abdomen positive bowel sounds soft nontender no masses Mucous membranes moist Assessment and plan: 1. Abdominal pain: Clinically resolved. Possible causes could have been diverticulosis, constipation, gas pain Plan: Follow Already set for follow-up 02-01-2025 Medication Reconciliation: Outpatient: Has the patient been taking medications as documented in the EMLR? YES: The patient has been taking medications as documented in the EMLR. Essential Medication List for Review used to complete this medication reconciliation. INCLUDED IN THIS LIST: Alphabetical list of active outpatient prescriptions dispensed from this [place] (local) and dispensed from another [place] or DoD facility (remote) as well as inpatient orders (local, pending and active), local clinic medications, locally documented non-VA medications, and local prescriptions that have or been discontinued in the past 90 days. - All changes in medications, including all non-VA/Herbal/OTC medications were entered into CPRS. - If there were any medications the patient should no longer take, they were discontinued. - The patient/caregiver was instructed to update this list, discard old lists, and take this list to the next appointment, whether with a VA or non-VA provider. /karen/ Constantin Sparks MD Staff Physician Signed: 12/06/2024 09:06 CONSTANTIN SPARKS [facility] Dec 06, 2024 08:43 AM PREVENTIVE MEDICIN E NURSING NOTE: LOCAL TITLE: CLINICAL REMINDERS/NURSING STANDARD TITLE: PREVENTIVE MEDICINE NURSING NOTE DATE OF NOTE: DEC 06, 2024@08:43 ENTRY DATE: DEC 06, 2024@08:43:37 AUTHOR: PEYTON MATTSON EXP COSIGNER: URGENCY: STATUS: COMPLETED Advance Directive Screen MH AD: Patient has an up-to-date Advance Directive at an outside, non-va facility and was asked to forward a copy to his/her clinician. Comment: was given the paperwork to return upon completion /karen/ PEYTON MATTSON LPN LPN Signed: 12/06/2024 08:44 PEYTON MATTSON [facility]
--- OUTSIDE RECORDS SUMMARY | 2024-12-06 12:35 | XMS_ITS ---
Author Name [facility] [facility] [place] [facility] [place] Address [address] [place] [id number] Care Team Providers Care Psychiatric Nurse Name Role Phone CONSTANTIN SULTANA Primary Care [...] Raymond's Name Patient's Relationship to Policy Raymond [facility] ([facility]) MEDICARE ADVANTAGE MCR ([facility]) Oct 24, 2021 [id number] DAREN MCGRAW PATIENT [facility] ([facility]) MEDICARE ADVANTAGE MCR ([facility]) Oct 24, 2021 [id number] [phone] DAREN MCGRAW PATIENT Selected Encounter This section includes the [place]counter. Date/Time Encounter Type Encounter Description Reason Provider Source Dec 05, 2024 07:30 AM EXERCISE CLASS HEALTH/WELLBEING [facility] ICD-10-CM Z72.3 Lack of physical exercise HEATHER HOANG IHKimberly Encounter Template Text not used by [facility] Assessments - Encounter Diagnoses This section includes the primary and secondary diagnoses documented for the Encounter. Date/Time Primary/Secondary Diagnosis Diagnosis Name Provider Source Dec 05, 2024 10:32 AM PRIMARY Lack of physical exercise HEATHER HOANG [facility] Plan of Treatment: Future Appointments (+ 6 months) and Future Tests (+/- 45 days) The Plan of Treatment section includes future care activities for the [facility] [place] [facility] This section includes future appointments and [...] 06, 2024 08:30 AM AMBULATORY - MEDICINE [facility] Dec 12, 2024 09:30 AM AMBULAT[facility] - [facility] Dec 18, 2024 10:00 AM AMBULATORY - [facility] Jan 09, 2025 09:30 AM AMBULATORY - MEDICINE [facility] Jan 28, 2025 08:30 AM AMBULATORY - [facility]IATRY [facility] [place] [facility] Feb 01, 2025 09:00 AM AMBULATORY - MEDICINE [facility] February 22, 2025 01:00 PM AMBULATORY - PS[facility]CHIATRY [facility] [place] [facility] March 20, 2025 02:30 PM [facility] Active, Pending, and Scheduled Orders This [...] 2024 09:03 AM Consult Order [facility] Cons Scientific Publications Editor's Choice [facility] Lab Results: +/- 30 days of [...] Range Comment Nov 13, 2024 08:42 AM [facility] METHYLMALONIC ACID (SERUM-QU) Specimen [...] neural tube defects and intrauterine growth restriction. [facility] utilized Multi-Modal Decomposition (MMD) analysis to establish first and second trimester- specific MMA reference intervals in , as given below: MMA, First trimester (<13 wks gestation): 58-167 nmol/L MMA, Second trimester (13-23 wks gestation): 63-241 nmol/L This test was developed and its analytical performance characteristics have been determined by [facility]. It has not been cleared or approved by the FDA. This assay has been validated pursuant to the CLIA regulations and is used for clinical purposes. Test Performed by [place], [facility], [address] [place] [address] Oz Dalton M.D., Ph.D., Director of Laboratories , CLIA [id number] TEST PERFORMED AT: , Ordering Provider: CONSTANTIN SULTANA Report Released Date/Time: Nov 02, 2024 08:37 AM Reporting Lab: [facility] [address] [facility] [address] Performing Lab: [facility] [address] [address] METHYLMALONIC ACID (SERUM-QU) 138 nmol/L 69-390 Nov 13, 2024 08:42 AM [facility] HOMOCYSTEINE Specimen Type: SERUM Comment: For Test: HOMOCYSTEINE + Ordering Provider: CONSTANTIN SULTANA Report Released Date/Time: Nov 02, 2024 08:37 AM Reporting Lab: [place] [facility] [place] [facility] [address] [facility] [address] Performing Lab: [place] [facility] [place] [facility] [address] [facility] [address] HOMOCYSTEINE 6.5 umol/L 5-15 Nov 13, 2024 08:42 AM [facility] VITAMIN B12 Specimen Type: SERUM No comment entered. Ordering Provider: CONSTANTIN SULTANA Report Released Date/Time: Nov 02, 2024 08:37 AM Reporting Lab: [facility] [place] [facility] [address] [facility] [address] Performing Lab: [facility] [address] [facility] [address] VITAMIN B12 582 pg/mL 200-900 Nov 13, 2024 08:42 AM [facility] BASIC METABOLIC PANEL (non-fasting) Specimen Type: SERUM No comment entered. Ordering Provider: CONSTANTIN SULTANA Report Released Date/Time: Nov 02, 2024 08:37 AM Reporting Lab: [facility] [address] [facility] [address] Performing Lab: [facility] [address] [address] UREA NITROGEN 18 mg/dL 7-25 GLUCOSE 100 mg/dL 65-100 SODIUM 143 mmol/L 135-145 POTASSIUM 4.0 mmol/L 3.5-5.0 CHLORIDE 107 mmol/L 100-110 CO2 27 meq/L 20-30 CREATININE, Serum 0.95 mg/dL 0.50-1.40 eGFR(CKD-EPI 2020) 86 mL/min >60 Nov 13, 2024 08:42 AM [facility] LIVER FUNCTION Specimen Type: SERUM No comment entered. Ordering Provider: CONSTANTIN SULTANA Report Released Date/Time: Nov 02, 2024 08:37 AM Reporting Lab: [facility] [address] [facility] [address] Performing Lab: [facility] [address] [address] PROTEIN,TOTAL 7.3 g/dL 6.0-8.3 ALBUMIN 4.3 g/dL 3.5-5.0 ALKALINE PHOSPHATASE 79 U/L 40-150 AST 17 U/L 5-34 ALT 13 U/L BILIRUBIN, TOTAL 0.7 mg/dL 0.2-1.2 Nov 13, 2024 08:42 AM [facility] PSA Specimen Type: SERUM No comment entered. Ordering Provider: CONSTANTIN SULTANA Report Released Date/Time: Nov 02, 2024 08:37 AM Reporting Lab: [facility] [address] [facility] [address] Performing Lab: [address] [address] PSA 1.22 ng/mL 0.00-4.00 Nov 13, 2024 08:42 AM [facility] TSH Specimen Type: SERUM No comment entered. Ordering Provider: CONSTANTIN SULTANA Report Released Date/Time: Nov 02, 2024 08:37 AM Reporting Lab: [facility] [address] [facility] [address] Performing Lab: [facility] [address] [facility] [address] TSH 1.28 u[IU]/mL 0.35-5.00 Nov 13, 2024 08:42 AM [facility] CBC AND DIFF (AUTO) Specimen Type: BLOOD No comment entered. Ordering Provider: CONSTANTIN SULTANA Report Released Date/Time: Nov 02, 2024 08:37 AM Reporting Lab: [facility] [address] [facility] [address] Performing Lab: [address] [address] WBC 5.22 10*3/uL 4.50-11.00 RBC 5.01 10*6/uL [...] 10*3/uL 0.00-0.00 Nov 13, 2024 08:42 AM [facility] LIPASE Specimen Type: SERUM No comment entered. Ordering Provider: CONSTANTIN SULTANA Report Released Date/Time: Nov 02, 2024 08:37 AM Reporting Lab: [facility] [address] [facility] [address] Performing Lab: [address] [address] LIPASE 28 U/L 8-82 Nov 13, 2024 08:42 AM [facility] URINALYSIS CLEAN CATCH Specimen Type: URINE Comment: If Glucose = >500 and Ketones are positive, please alert the Physician. Ordering Provider: CONSTANTIN SULTANA Report Released Date/Time: Nov 02, 2024 08:37 AM Reporting Lab: [facility] [address] [facility] [address] Performing Lab: [address] [address] UA COLOR Yellow Yellow UA APPEARANCE Clear [...] Facil ity May 23, 2024 10:00 AM [place] FORMER US[place] [facility] Tobacco Use History This section includes a history of the smoking, or tobacco-related health factors, that were collected on or before the date of the Encounter. The data comes from the [place] facility where the Encounter took place. Date/Time Smoking Status/Tobacco Use Comment F acility May 23, 2024 10:00 AM [place] 15 YRS OR MORE [facility] Apr 06, 2023 11:05 AM [place]MER US[place] [facility] Apr 06, 2023 11:05 AM [place] 15 YRS OR MORE [facility] Radiology Reports: +/- 30 days of [...] ABDOMEN AND PELVIS WITH CONTRAST: OLGA MCGRAW [id number] -[id number] M Exm Date: NOV 15, 2024@12:08 Req Phys: CONSTANTIN SULTANA Loc: CWM/NO/PACT 2 (Req'g Loc) Img Loc: IDM/CT Service: Unknown [place] [facility] [facility] [place] [address] (Case [id number] COMPLETE) CT ABDOMEN AND PELVIS WITH CONTRA(CT Detailed) CPT:95480 Contrast Media : Non-ionic Iodinated Reason for Study: LLQ pain, look for cancer Clinical History: Report Status: Verified Date Reported: NOV 15, 2024 Date Verified: NOV 15, 2024 Sensor Specialist E-Sig:/ES/AVANI MONROY JR Report: Study: CT scan [...] Primary Interpreting Staff: AVANI MONROY JR, Radiologist (Sensor Specialist) /EAAVANI NOLAN JR [facility] Encounter Notes: All associated encounter notes This section contains the clinical notes associated to the Encounter. Date/Time Encounter Note(s) Provider Source Dec 05, 2024 10:30 AM PHYSICAL MEDICINE REHAB NOTE: LOCAL TITLE: GEROFIT-SUPERVISED EXERCISE NOTE STANDARD TITLE: PHYSICAL MEDICINE REHAB NOTE DATE OF NOTE: DEC 05, 2024@10:30 ENTRY DATE: DEC 05, 2024@10:31:08 AUTHOR: ANIKA HOANG COSIGNER: URGENCY: STATUS: COMPLETED participated in the [facility] [...] whole health concerns. /karen/ AMADOR LI LICENSE OUTREACH REPRESENTATIVE Signed: 12/05/2024 10:37 ANIKA HOANG [facility]
--- OUTSIDE RECORDS SUMMARY | 2024-12-06 12:35 | XMS_ITS ---
Author Name [facility] [place] [facility] [place] [facility] [place] [facility] [place] Address [address] [place] [address] Care Team Providers Care Stationary Equipment Mechanic Name Role Phone CONSTANTIN SULTANA Primary Care [...] Raymond's Name Patient's Relationship to Policy Raymond [facility] ([facility]) MEDICARE ADVANTAGE M[facility] ([facility]) Oct 24, 2021 [id number] D[address] MCGRAW PATIENT [facility] ([facility]) MEDICARE ADVANTAGE MCR ([facility]) Oct 24, 2021 [id number] DAREN MCGRAW PATIENT Selected Encounter This section includes the information on record at [place] for the Encounter. Date/Time Encounter Type Encounter Description Reason Provider Source Nov 09, 2024 07:30 AM EXERCISE CLASS HEALTH/WELLBEING [facility] ICD-10-CM Z72.3 Lack of physical exercise FRANKY SOLIS Kimberly Encounter Template Text not used by [place] Assessments - Encounter Diagnoses This section includes the primary and secondary diagnoses documented for the Encounter. Date/Time Primary/Secondary Diagnosis Diagnosis Name Provider Source Nov 09, 2024 01:36 PM PRIMARY Lack of physical exercise FRANKY SOLIS [facility] [place] [facility] Plan of Treatment: Future Appointments (+ 6 months) and Future Tests (+/- 45 days) The Plan of Treatment section includes future care activities for the patient from all [place] [facility]. This section includes future appointments and future orders which are active, pending or scheduled. Future Appointments This section includes appointments that were scheduled to occur 6 months from the date of the Encounter, up to a maximum of 20 appointments. The data comes from all [place] treatment facilities. Appointment Date/Time Appointment Type Appointme nt Facility Name Nov 15, 2024 11:15 AM AMBULATORY - NONE [facility] [place] [facility] Nov 16, 2024 01:00 PM AMBULATORY - PSYCHIATRY [facility] [place] [facility] Nov 27, 2024 01:30 PM AMBULATORY - REHAB MEDICIN E [facility] [place] [facility] Dec 04, 2024 09:00 AM AMBULATORY - REHAB MEDICIN E [facility] [place] [facility] Dec 05, 2024 01:00 PM AMBULATORY - PSYCHIATRY [facility] [place] [facility] Dec 06, 2024 08:30 AM AMBULATORY [place] [facility]ICINE [facility] [place] [facility] Dec 12, 2024 09:30 AM AMBULATORY - REHAB MEDICIN E [facility] [place] [facility] Dec 18, 2024 10:00 AM AMBULATORY - REHAB MEDICIN E [facility] [place] [facility] Jan 09, 2025 09:30 AM AMBULATORY - [facility]ICINE [facility] [place] [facility] Jan 28, 2025 08:30 AM AMBULATORY - PSYCHIATRY [facility] [place] [facility] Feb 01, 2025 09:00 AM AMBULATORY - [facility]ICINE [facility] [place] [facility] February 22, 2025 01:00 PM AMBULATORY - PSYCHIATRY [facility] [place] [facility] March 20, 2025 02:30 PM AM[facility]ULATORY [place]ICINE [facility] [place] [facility] [...] of theEncounter. The data comes from all [place] treatment facilities. Test Date/Time Test Type Test Details Facility Name Oct 10, 2024 11:06 AM Consult Order NEUROPSYCHOLOGICAL TESTING OUTPT Cons Transmission Systems Operator's Choice [facility] [place] [facility] Dec 06, 2024 09:03 AM Consult [facility] Lab Results: +/- 30 days of the encounter This section includes the Chemistry and Hematology Lab Results on record with [place] for the patient. Radiology Reports and Pathology Reports are provided separately, in subsequent sections. Lab Results This section contains the Chemistry/Hematology Results that were resulted 30 days before or 30 daysafter the date of the Encounter. Date/Time Source Result Type Result - Unit Interpretation Reference Range Comment Nov 13, 2024 08:42 AM [facility] METHYLMALONIC ACID (SERUM-QU) Specimen Type: SERUM Comment: [...] neural tube defects and intrauterine growth restriction. [facility] utilized Multi-Modal Decomposition (MMD) analysis to establish first and second trimester- specific MMA reference intervals in , as given below: MMA, First trimester (<13 wks gestation): 58-167 nmol/L MMA, Second trimester (13-23 wks gestation): 63-241 nmol/L This test was developed and its analytical performance characteristics have been determined by [facility]. It has not been cleared or approved by the FDA. This assay has been validated pursuant to the CLIA regulations and is used for clinical purposes. Test Performed by [facility], [facility], [address] [place] [address] Oz Dalton M.D., Ph.D., Director of Laboratories , CLIA [id number] TEST PERFORMED AT: , Ordering Provider: CONSTANTIN SULTANA Report Released Date/Time: Nov 02, 2024 08:37 AM Reporting Lab: [facility] [address] [facility] [address] Performing Lab: [facility] [address] [facility], [address] [place] [id number] METHYLMALONIC ACID (SERUM-QU) 138 nmol/L 69-390 Nov 13, 2024 08:42 AM [facility] HOMOCYSTEINE Specimen Type: SERUM Comment: For Test: HOMOCYSTEINE + Ordering Provider: CONSTANTIN SULTANA Report Released Date/Time: Nov 02, 2024 08:37 AM Reporting Lab: [facility] [address] [facility] [address] Performing Lab: [facility] [address] [facility] [place] [address] HOMOCYSTEINE 6.5 umol/L 5-15 Nov 13, 2024 08:42 AM [facility] VITAMIN B12 Specimen Type: SERUM No comment entered. Ordering Provider: CONSTANTIN SULTANA Report Released Date/Time: Nov 02, 2024 08:37 AM Reporting Lab: [facility] [address] [facility] [address] Performing Lab: [facility] [address] [facility] [address] VITAMIN B12 582 pg/mL 200-900 Nov 13, 2024 08:42 AM [facility] BASIC METABOLIC PANEL (non-fasting) Specimen Type: SERUM No comment entered. Ordering Provider: CONSTANTIN SULTANA Report Released Date/Time: Nov 02, 2024 08:37 AM Reporting Lab: [facility] [address] [facility] [address] Performing Lab: [facility] [address] [facility] [address] UREA NITROGEN 18 mg/dL 7-25 GLUCOSE 100 mg/dL 65-100 SODIUM 143 mmol/L 135-145 POTASSIUM 4.0 mmol/L 3.5-5.0 CHLORIDE 107 mmol/L 100-110 CO2 27 meq/L 20-30 CREATININE, Serum 0.95 mg/dL 0.50-1.40 eGFR(CKD-EPI 2020) 86 mL/min >60 Nov 13, 2024 08:42 AM [facility] TSH Specimen Type: SERUM No comment entered. Ordering Provider: CONSTANTIN SULTANA Report Released Date/Time: Nov 02, 2024 08:37 AM Reporting Lab: [facility] [address] [facility] [address] Performing Lab: [address] [address] TSH 1.28 u[IU]/mL 0.35-5.00 Nov 13, 2024 08:42 AM [facility] CBC AND DIFF (AUTO) Specimen Type: BLOOD No comment entered. Ordering Provider: CONSTANTIN SULTANA Report Released Date/Time: Nov 02, 2024 08:37 AM Reporting Lab: [facility] [address] [facility] [address] Performing Lab: [address] [address] WBC 5.22 10*3/uL 4.50-11.00 RBC 5.01 10*6/uL [...] 10*3/uL 0.00-0.00 Nov 13, 2024 08:42 AM [facility] LIVER FUNCTION Specimen Type: SERUM No comment entered. Ordering Provider: CONSTANTIN SULTANA Report Released Date/Time: Nov 02, 2024 08:37 AM Reporting Lab: [address] [address] Performing Lab: [address] [address] PROTEIN,TOTAL 7.3 g/dL 6.0-8.3 ALBUMIN 4.3 g/dL 3.5-5.0 ALKALINE PHOSPHATASE 79 U/L 40-150 AST 17 U/L 5-34 ALT 13 U/L BILIRUBIN, TOTAL 0.7 mg/dL 0.2-1.2 Nov 13, 2024 08:42 AM [facility] PSA Specimen Type: SERUM No comment entered. Ordering Provider: CONSTANTIN SULTANA Report Released Date/Time: Nov 02, 2024 08:37 AM Reporting Lab: [address] [address] Performing Lab: [address] [address] PSA 1.22 ng/mL 0.00-4.00 Nov 13, 2024 08:42 AM [facility] LIPASE Specimen Type: SERUM No comment entered. Ordering Provider: CONSTANTIN SULTANA Report Released Date/Time: Nov 02, 2024 08:37 AM Reporting Lab: [address] [address] Performing Lab: [address] [place] [address] LIPASE 28 U/L 8-82 Nov 13, 2024 08:42 AM [facility] URINALYSIS CLEAN CATCH Specimen Type: URINE Comment: If Glucose = >500 and Ketones are positive, please alert the Physician. Ordering Provider: CONSTANTIN SULTANA Report Released Date/Time: Nov 02, 2024 08:37 AM Reporting Lab: [address] [address] Performing Lab: [address] [address] UA COLOR Yellow Yellow UA APPEARANCE Clear Clear UA GLUCOSE Normal mg/dL Negative UA KETONES NEGATIVE mg/dL Negative UA BLOOD NEGATIVE mg/dL Negative UA PROTEIN 10 mg/dL Negative UA NITRITE NEGATIVE mg/dL Negative UA BILIRUBIN NEGATIVE mg/dL Negative UA SPECIFIC GRAVITY 1.029 H 1.016-1.02 2 UA pH 6.0 5.0-9.0 UA UROBILINOGEN Normal mg/dL <2.0 UA LEUKOCYTE NEGATIVE Negative Nov 02, 2024 12:00 AM [facility] OCCULT BLOOD FIT X1 SCREEN(IN-HOUSE) Specimen Type: FECES No comment entered. Ordering Provider: CONSTANTIN SULTANA Report Released Date/Time: Nov 02, 2024 04:48 PM Reporting Lab: [address] [address] Performing Lab: [address] [address] OCCULT BLOOD (FIT)#1 OF 1 Negative NEG Social History: Smoking Status (Most current) and Tobacco Use (All prior to encounter date) This section includes the most current, and the historical, smoking and tobacco- related health factors from the [place] facility where the Encounter took place. Current Smoking Status This section includes the most current smoking, or tobacco-related health factor, from the [place] facility where the Encounter took place. Date/Time Current Smoking Status Comment Facil kulwinder May 23, 2024 10:00 AM [facility]-TOBACCO FORMER USER [facility] Tobacco Use History This section includes a history of the smoking, or tobacco-related health factors, that were collected on or before the date of the Encounter. The data comes from the [place] facility where the Encounter took place. Date/Time Smoking Status/Tobacco Use Comment F acility May 23, 2024 10:00 AM [place]-TOBACCO QU[facility] 15 YRS OR MORE [facility] Apr 06, 2023 11:05 AM [place] FORMER US[facility] Apr 06, 2023 11:05 AM [place] QU[place] 15 YRS OR MORE [facility] Radiology Reports: +/- 30 days of [...] the Encounter. The data comes from all [place] treatment facilities. Date/Time Radiology Report Provider Source Nov 15, 2024 12:[address] ABDOMEN AND PELVIS WITH CONTRAST: OLGA MCGRAW [id number] -1955 M Exm Date: NOV 15, 2024@12:08 Req Phys: CONSTANTIN SULTANA Loc: CWM/NO/PACT 2 (Req'g Loc) Img Loc: [facility]/CT Service: [place] [address] (Case [id number] COMPLETE) CT ABDOMEN AND PELVIS WITH CONTRA(CT Detailed) CPT:92482 Contrast Media : Non-ionic Iodinated Reason for Study: LLQ pain, look for cancer Clinical History: Report Status: Verified Date Reported: NOV 15, 2024 Date Verified: NOV 15, 2024 Dyeing Machine Back Tender E-Sig:/ES/AVANI MONROY JR Report: Study: CT scan [...] Primary Interpreting Staff: AVANI MONROY JR, Radiologist (Dyeing Machine Back Tender) /AVANI PARKER JR [facility] [place] [facility] Nov 02, 2024 08:43 AM FINGER(S) 2 OR MORE VIEWS: OLGA MCGRAW [id number] -1955 M Exm Date: NOV 02, 2024@08:43 Req Phys: CONSTANTIN SULTANA Pat Loc: CWM/NO/PACT 2 (Req'g Loc) Img Loc: [facility]/BUILDING 1 Service: Unknown [facility] [place], [place] [address] (Case [id number] COMPLETE) FINGER(S) 2 OR MORE VIEWS (RAD Detailed) CPT:17839 Proc Modifiers : LEFT Reason for Study: left finger #4 trigger finger Clinical History: Report Status: Verified Date Reported: NOV 02, 2024 Date Verified: NOV 02, 2024 Dyeing Machine Back Tender E-Sig:/ES/AVANI MONROY JR Report: Study: AP, lateral [...] Primary Interpreting Staff: AVANI MONROY JR, Radiologist (Dyeing Machine Back Tender) /AVANI PARKER JR [facility] Encounter Notes: All associated encounter notes This section contains the clinical notes associated to the Encounter. Date/Time Encounter Note(s) Provider Source Nov 09, 2024 01:36 PM PHYSICAL MEDICINE REHAB NOTE: LOCAL TITLE: GEROFIT-SUPERVISED EXERCISE NOTE STANDARD TITLE: PHYSICAL MEDICINE REHAB NOTE DATE OF NOTE: NOV 09, 2024@13:36 ENTRY DATE: NOV 09, 2024@13:36:20 AUTHOR: FRANKY SOLIS COSIGNER: URGENCY: STATUS: COMPLETED Leivasy participated in the [facility] exercise program today. Activities were focused on progression of their individual exercise prescription (cardiorespiratory fitness training, strength training, etc.) and group based exercise sessions to include, but not limited to: flexibility training, balance training, functional circuit training, Vignesh Chi for arthritis, and other functional strength and neuromotor exercises. Exercise participation was supervised by [facility] staff and any questions/concerns were addressed with the patient. Modifications were made to programming as appropriate to suit Veterans individual needs, preferences, and whole health concerns. /karen/ FRANKY SOLIS, PT, DPT PHYSICAL THERAPIST Signed: 11/09/2024 13:43 FRANKY SOLIS [facility]
--- OUTSIDE RECORDS SUMMARY | 2024-12-06 12:35 | XMS_ITS ---
Author Name [facility] Organization [facility] [place] Address [address] [place] [id number] Care Team Providers Care Transitional Care Manager Name Role Phone CONSTANTIN SULTANA Primary [...] Raymond's Name Patient's Relationship to Policy Raymond [facility] ([facility]) MEDICARE ADVANTAGE MCR ([facility]) Oct 24, 2021 [id number] [phone] DAREN ROBLES PATIENT [facility] ([facility]) MEDICARE ADVANTAGE MCR ([facility]) Oct 24, 2021 [id number] DAREN ROBLES PATIENT Selected Encounter This section includes the information on record at [place] for the Encounter. Date/Time Encounter Type Encounter Description Reason Provider Source Nov 16, 2024 01:00 PM PSYTX W PT 30 MINUTES PCMHI INDIV ICD-10-CM F41.9 Anxiety disorder, unspecified SPENCER ORNELAS Encounter Template Text not used by [facility] Assessments - Encounter Diagnoses This section includes the primary and secondary diagnoses documented for the Encounter. Date/Time Primary/Secondary Diagnosis Diagnosis Name Provider Source Nov 17, 2024 04:10 PM PRIMARY Anxiety disorder, unspecified SPENCER ORNELAS Philip R [place] [facility] [place] [facility] Nov 17, 2024 04:10 PM SECONDARY Depression, unspecified SPENCER ORNELAS R [place] [facility] [place] [facility] Nov 17, 2024 04:10 PM SECONDARY Mild neurocog disord d/t known physiol cond w/o beh distrb SPENCER ORNELAS Y R [place] [facility] [place] [facility] Plan of Treatment: Future Appointments (+ 6 months) and Future Tests (+/- 45 days) The Plan of Treatment section includes future care activities for the patient from all [place] [facility] hospital[facility]. This section includes future appointments and future [...] REHAB MEDICIN E [facility] [place] [facility] Dec 04, 2024 09:00 AM AMBULATORY - REHAB MEDICIN E [facility] [place] [facility] Dec 05, 2024 01:00 PM AMBULATORY - PSYCHIATRY [facility] [place] [facility] Dec 06, 2024 08:30 AM AMBULATORY - MEDICINE [place] [facility] [place] [facility] Dec 12, 2024 09:30 AM AMBULATORY - REHAB MEDICIN E [facility] [place] [facility] Dec 18, 2024 10:00 AM AMBULATORY - REHAB MEDICIN E [facility] [place] [facility] Jan 09, 2025 09:30 AM AMBULATORY - MEDICINE [place] [facility] [place] [facility] Jan 28, 2025 08:30 AM AMBULATORY - PSYCHIATRY [facility] [place] [facility] Feb 01, 2025 09:00 AM AMBULATORY - MEDICINE [place] [facility] [place] [facility] February 22, 2025 01:00 PM AMBULATORY - PSYCHIATRY [facility] [place] [facility] March 20, 2025 02:30 PM AMBULATORY - MEDICINE [place] [facility] [place] [facility] Active, Pending, and Scheduled Orders This section [...] AM Consult Order NEUROPSYCHOLOGICAL TESTING OUTPT Cons Tape Rules Printing Machine Operator's Choice [facility] Dec 06, 2024 09:03 AM Consult Order [facility] Cons Tape Rules Printing Machine Operator's Choice [facility] Lab Results: +/- 30 days of [...] Range Comment Nov 13, 2024 08:42 AM [facility] METHYLMALONIC ACID (SERUM-QU) Specimen Type: SERUM [...] neural tube defects and intrauterine growth restriction. [employer] [facility] utilized Multi-Modal Decomposition (MMD) analysis to establish first and second trimester- specific MMA reference intervals in , as given below: MMA, First trimester (<13 wks gestation): 58-167 nmol/L MMA, Second trimester (13-23 wks gestation): 63-241 nmol/L This test was developed and its analytical performance characteristics have been determined by [employer]. It has not been cleared or approved by the FDA. This assay has been validated pursuant to the CLIA regulations and is used for clinical purposes. Test Performed by [employer], [employer], [address] [place], [place] Oz Dalton M.D., Ph.D., Director of Laboratories , [facility] [id number] TEST PERFORMED AT: , Ordering Provider: CONSTANTIN SULTANA Report Released Date/Time: Nov 02, 2024 08:37 AM Reporting Lab: [place] [facility] [address] [facility] [address] Performing Lab: [facility] [address] [address] METHYLMALONIC ACID (SERUM-QU) 138 nmol/L 69-390 Nov 13, 2024 08:42 AM [facility] HOMOCYSTEINE Specimen Type: SERUM Comment: For Test: HOMOCYSTEINE + Ordering Provider: CONSTANTIN SULTANA Report Released Date/Time: Nov 02, 2024 08:37 AM Reporting Lab: [facility] [address] [facility] [address] Performing Lab: [facility] [address] [facility] [address] HOMOCYSTEINE 6.5 umol/L 5-15 Nov 13, 2024 08:42 AM [facility] VITAMIN B12 Specimen Type: SERUM No comment entered. Ordering Provider: CONSTANTIN SULTANA Report Released Date/Time: Nov 02, 2024 08:37 AM Reporting Lab: [facility] [address] [facility] [address] Performing Lab: [facility] [address] [facility] [address] VITAMIN B12 582 pg/mL 200-900 Nov 13, 2024 08:42 AM [facility] LIVER FUNCTION Specimen Type: SERUM No comment entered. Ordering Provider: CONSTANTIN SULTANA Report Released Date/Time: Nov 02, 2024 08:37 AM Reporting Lab: [facility] [address] [facility] [address] Performing Lab: [facility] [address] [address] PROTEIN,TOTAL 7.3 g/dL 6.0-8.3 ALBUMIN 4.3 g/dL 3.5-5.0 ALKALINE PHOSPHATASE 79 U/L 40-150 AST 17 U/L 5-34 ALT 13 U/L BILIRUBIN, TOTAL 0.7 mg/dL 0.2-1.2 Nov 13, 2024 08:42 AM [facility] BASIC METABOLIC PANEL (non-fasting) Specimen Type: SERUM No comment entered. Ordering Provider: CONSTANTIN SULTANA Report Released Date/Time: Nov 02, 2024 08:37 AM Reporting Lab: [address] [address] Performing Lab: [address] [address] UREA NITROGEN 18 mg/dL 7-25 GLUCOSE 100 mg/dL 65-100 SODIUM 143 mmol/L 135-145 POTASSIUM 4.0 mmol/L 3.5-5.0 CHLORIDE 107 mmol/L 100-110 CO2 27 meq/L 20-30 CREATININE, Serum 0.95 mg/dL 0.50-1.40 eGFR(CKD-EPI 2020) 86 mL/min >60 Nov 13, 2024 08:42 AM [facility] TSH Specimen Type: SERUM No comment entered. Ordering Provider: CONSTANTIN SULTANA Report Released Date/Time: Nov 02, 2024 08:37 AM Reporting Lab: [address] [address] Performing Lab: [address] [address] TSH 1.28 u[IU]/mL 0.35-5.00 Nov 13, 2024 08:42 AM [facility] PSA Specimen Type: SERUM No comment entered. Ordering Provider: CONSTANTIN SULTANA Report Released Date/Time: Nov 02, 2024 08:37 AM Reporting Lab: [address] [address] Performing Lab: [address] [address] PSA 1.22 ng/mL 0.00-4.00 Nov 13, 2024 08:42 AM [facility] CBC AND DIFF (AUTO) Specimen Type: BLOOD No comment entered. Ordering Provider: CONSTANTIN SULTANA Report Released Date/Time: Nov 02, 2024 08:37 AM Reporting Lab: [facility] [address] [facility] [address] Performing Lab: [facility] [address] [facility] [address] WBC 5.22 10*3/uL 4.50-11.00 RBC 5.01 10*6/uL [...] 10*3/uL 0.00-0.00 Nov 13, 2024 08:42 AM [facility] LIPASE Specimen Type: SERUM No comment entered. Ordering Provider: CONSTANTIN SULTANA Report Released Date/Time: Nov 02, 2024 08:37 AM Reporting Lab: [facility] [address] [facility] [address] Performing Lab: [address] [address] LIPASE 28 U/L 8-82 Nov 13, 2024 08:42 AM [facility] URINALYSIS CLEAN CATCH Specimen Type: URINE Comment: If Glucose = >500 and Ketones are positive, please alert the Physician. Ordering Provider: CONSTANTIN SULTANA Report Released Date/Time: Nov 02, 2024 08:37 AM Reporting Lab: [address] [address] Performing Lab: [address] [address] UA COLOR Yellow Yellow UA APPEARANCE Clear Clear UA GLUCOSE Normal mg/dL Negative UA KETONES NEGATIVE mg/dL Negative UA BLOOD NEGATIVE mg/dL Negative UA PROTEIN 10 mg/dL Negative UA NITRITE NEGATIVE mg/dL Negative UA BILIRUBIN NEGATIVE mg/dL Negative UA SPECIFIC GRAVITY 1.029 H 1.016-1.02 2 UA pH 6.0 5.0-9.0 UA UROBILINOGEN Normal mg/dL <2.0 UA LEUKOCYTE NEGATIVE Negative Nov 02, 2024 12:00 AM [facility] OCCULT BLOOD FIT X1 SCREEN(IN-HOUSE) Specimen Type: FECES No comment entered. Ordering Provider: CONSTANTIN SULTANA Report Released Date/Time: Nov 02, 2024 04:48 PM Reporting Lab: [address] [address] Performing Lab: [address] [address] OCCULT BLOOD (FIT)#1 OF 1 Negative NEG [...] 23, 2024 10:00 AM VA-TOBACCO FORMER USER [facility] Tobacco Use History This section includes a history of the smoking, or tobacco-related health factors, that were collected on or before the date of the Encounter. The data comes from the [place] facility where the Encounter took place. Date/Time Smoking Status/Tobacco Use Comment F acility May 23, 2024 10:00 AM DC-TOBACCO QUIT 15 YRS OR MORE [facility] Apr 06, 2023 11:05 AM VA-TOBACCO FORMER USER [facility] Apr 06, 2023 11:05 AM [place]-TOBACCO QUIT 15 YRS OR MORE [facility] Radiology Reports: +/- 30 days of [...] PM CT ABDOMEN AND PELVIS WITH CONTRAST: SYEDA ROBLESMICHELINE CRUZ [id number] -1955 Exm Date: NOV 15, 2024@12:08 Req Phys: CONSTANTIN SULTANA Loc: CWM/NO/PACT 2 (Req'g Loc) Img Loc: [facility]/CT Service: [place] [address] (Case [id number] COMPLETE) CT ABDOMEN AND PELVIS WITH CONTRA(CT Detailed) CPT:07817 Contrast Media : Non-ionic Iodinated Reason for Study: LLQ pain, look for cancer Clinical History: Report Status: Verified Date Reported: NOV 15, 2024 Date Verified: NOV 15, 2024 Property Technician E-Sig:/ES/AVANI MONROY JR Report: Study: CT scan [...] Primary Interpreting Staff: AVANI MONROY JR, Radiologist (Property Technician) /AVANI PARKER JR [place] [facility] [place] [facility] Nov 02, 2024 08:43 AM FINGER(S) 2 OR MORE VIEWS: OLGA ROBLES [id number] -1955 M Exm Date: NOV 02, 2024@08:43 Req Phys: CONSTANTIN SULTANA Pat Loc: CWM/NO/PACT 2 (Req'g Loc) Img Loc: [facility]/BUILDING 1 Service: Unknown [facility] [place] [id number] (Case [id number] COMPLETE) FINGER(S) 2 OR MORE VIEWS (RAD Detailed) CPT:03527 Proc Modifiers : LEFT Reason for Study: left finger #4 trigger finger Clinical History: Report Status: Verified Date Reported: NOV 02, 2024 Date Verified: NOV 02, 2024 Property Technician E-Sig:/ES/AVANI MONROY JR Report: Study: AP, lateral [...] Primary Interpreting Staff: AVANI MONROY JR, Radiologist (Property Technician) /EAD AVANI MONROY JR [facility] Encounter Notes: All associated encounter notes This section contains the clinical notes associated to the Encounter. Date/Time Encounter Note(s) Provider Source Nov 16, 2024 04:44 AM MENTAL HEALTH OUTPATIENT NOTE: LOCAL TITLE: PRIMARY MENTAL HEALTH OUTPATIENT FOLLOW UP NOTE STANDARD TITLE: MENTAL HEALTH OUTPATIENT NOTE DATE OF NOTE: NOV 16, 2024@04:44 ENTRY DATE: NOV 16, 2024@04:44:48 AUTHOR: ALISON ORNELAS COSIGNER: URGENCY: STATUS: COMPLETED PC-MHI OUTPATIENT F/U NOTE DURATION: 25 mins Mr. Robles is a 69 year-old, single, once-, white male with a PMH of COPD, anxiety, hypercholesteremia and tinnitus. was identified by two means full name and date of . This was the third and final session between keno writer and [place]. [place] explored how stress and anxiety improve as he feels mroe safe in his home. He said that he has not had a break in, in a while, and believes the boards on the windows may be helping. He explored other strategies and treatments that are helping anxiety and stress including psychotropic medications, walking and bring in natures as well as Gerofit exercise. 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 He is also gaining clarity on neurological symptoms and working with medical providers. He denied SI/HI. He expressed interest in consolidating PCMOR treatment at this time. Provider reminded of other treatment options as well SCREENERS: PHQ-9: 4, mild depression (10/30/23) ADEN-7: 2, mild anxiety (10/30/23) DIAGNOSES: Mild Neurocognitive Disorder (per report 11/15/23); Anxiety Disorder, Unspecified; Depressive Disorder, Unspecified IMPRESSIONS/PLAN: Mr. Robles endorsed changes in short term memory as well as worsening depression and anxiety. He will undergo MRI brain imaging in a few weeks at [facility] and community providers requested [facility] screen in [facility]. Results from [facility] were provided to and he was encouraged to provide [place] neuropsychological testing results from 11/15/23 to community providers and consider undergoing additional testing. He was referred for repeat neuropsychological testing to compare and contrast testing from one year ago. In collaboration with [place] considering evidence-based treatment, clinical judgment and patient preference, options of treatment were offered. [place] Robles expressed interest in engaging in a few [facility] appts to learn strategies for helping mange mild anxiety and depressive symptoms. He attended a few PCMOR sessions and reported that anxiety and stress have reduced. He requested to consolidate PCMOR treatment and PCMOR treatment was consolidated. /karen/ ALISON ORNELAS, PhD STAFF PSYCHOLOGIST Signed: 11/17/2024 16:11 ALISON OR[facility]ELAS [facility]
[2024-12-06 12:36] VITALS: BP 128/56; PULSE 68; TEMP 36.2; O2SAT 98; BMI 22.1
--- NOTE | 2024-12-06 12:36 | A.OFFPC_ITS ---
Vital Signs 12/06/24 12:36 Height 5 ft 7 in Weight 141 lb 4 oz BMI 22.1 BP 128/56 L Blood Pressure Location Lt brachial Position Sitting Pulse 68 Pulse Source Pulse Oximeter Temp 97.1 F Temp Source Temporal Artery Scan Pulse Oximetry (%) 98 Oxygen Delivery Method Room Air Intake Visit Reasons: PE Allergies ENVIROMENTAL Allergy (Unknown, Uncoded 06/06/24 08:26) RUNNY, SNEEZING, SINUS Medication List - Last Reconciled 12/06/24 by Lawrence Coats MD albuterol sulfate 90 mcg/actuation (ProAir HFA) 2 puffs inhalation Q4-6H PRN dutasteride 0.5 mg PO DAILY fluticasone propionate 50 mcg/actuation (Flonase Allergy Relief) 2 sprays intranasal DAILY multivitamin 1 tab PO DAILY pravastatin 40 mg PO DAILY 90 days Tobacco use date assessed: 12/05/23 Dental Screening Dental Screen Date: 12/05/23 HPI PE HPI Details The patient is a 69-year-old male presenting with an annual physical exam and discussion of flu vaccination. He has a history of hypercholeste rolemia, managed with pravastatin 40 mg once daily, with an LDL goal of less than 130 mg/dL and triglycerides less than 150 mg/dL. His last blood work in February 2024 showed normal results for cholesterol, blood count, electrolytes, renal function, blood sugar, and liver function. In addition to elevated Vitamin B12 levels, his Vitamin D, folic acid, and thyroid levels were within normal limits. The patient has been diagnosed with COPD but reports not using albuterol recently and denies shortness of breath. He has BPH, managed with dutasteride 0.5 mg once daily, and reports no nocturia. His last colonoscopy was in 2017. The patient also has mild cataracts with no significant symptoms. He occasionally uses Flonase for seasonal allergies, reports - Influenza vaccination recommended during flu season. - COVID-19 and RSV cautions discussed, w ith advice on preventive measures such as mask usage. - Tetanus vaccination is up to date. - Shingles vaccination and three pneumon ia vaccinations completed. - Encouragement to increase fluid intake to maintain kidney function. - Regular exercise through a [employer] at the [place] noted. - Annual eye exams and dietary intake mo nitoring encouraged.no regular aspirin use, and denies alcohol consumption more than once or twice per month, cigarette use, or recreational drugs. - Denies regular alcohol consumption, re ports only occasional use. - No current tobacco use or history of r ecreational drug use. - Exercises regularly with [employer], three days a week for one hour. - Reports low average daily water intake , especially during colder months. - Noted mild concern for cataracts; no s ignificant nighttime visibility issues reported. - General: Denies dizziness, fever, naus ea, or vomiting. - Respiratory: Denies shortness of breat h. - Cardiovascular: Denies chest pain, hea rt palpitations, and fainting. - Gastrointestinal: Denies constipation, diarrhea, or blood in stools. - Genitourinary: Denies waking up to uri ash at night. - Neurological: Denies dizziness, headac hes, or sensory deficits. - Musculoskeletal: Denies recent back pa in or joint pain. - Dermatological: Has a minor rash, note d as dry skin or eczema. - Labs: Blood work in February 2024 showed no rmal blood count, electrolytes, renal function, blood sugar, liver function, normal cholesterol, and elevated Vitamin B12. - Eye Exam: Mild cataracts noted, no add itional significant findings. - Prostate: PSA levels normal as per las t check. [facility] Medical History COPD (chronic obstructive pulmonary disease) BPH (benign prostatic hyperplasia) Impaired glucose tolerance Hypercholesterolemia Surgical History History of removal of skin mole History of wrist fracture History of nasal septoplasty History of dislocation of shoulder History of tonsillectomy History of appendectomy Family History Father CVD (cardiovascular disease) Myocardial infarction Mother Dementia Sister Family history of cervical cancer Social History (Updated 12/06/24 @ 12:46 by Lawrence Coats MD) Housing: House Alcohol intake: current Alcohol intake frequency: a few times a month Comment: oncea months 1 - 2 beer Patient Tobacco Use Status: Former Tobacco user Tobacco use type: Cigarette Years Smoked: quit 1999 e-Cigarette/Vaping Use: Never Used Second Hand Smoke Exposure: Yes service: Yes Current occupational status: retired Cognitive needs: No Hearing needs: No Vision needs: Yes Questionnaire PHQ-9 Over the last 2 weeks, how often have you been bothered by any of the following problems? 1. Little interest or pleasure in doing things: not at all 2. Feeling down, depressed, or hopeless: not at all 3. Trouble falling or staying asleep, or sleeping too much: not at all 4. Feeling tired or having little energy: not at all 5. Poor appetite or overeating: not at all 6. Feeling bad about yourself - or that you are a failure or have let yourself or your family down: not at all 7. Trouble concentrating on things, such as reading the newspaper or watching television: not at all 8. Moving or speaking so slowly that other people could have noticed. Or the opposite - being so fidgety or restless that you have been moving around a lot more than usual: not at all 9. Thoughts that you would be better off or of hurting yourself in some way: not at all Total score: 0 Depression Screening Interpretation: Negative Depression Screening Done: Yes [id number] - PHQ-9 Billing: Yes Source: Developed by Drs. Sumit Begum, Rosario Savage, Duarte Deras and colleagues, with an educational donavon from [employer]. Thrive Questionnaire Date Thrive assessed: 12/06/24 I am a: Patient What is your living situation today?: I have a steady place to live Within the past 12 months, did the food you bought not last and you didn't have the money to get more?: Never true Within the past 12 months, did you worry whether your food would run out before you got money to buy more?: Never true Do you have trouble paying for medicines?: No Do you have trouble getting transportation to medical appointments?: No Do you have trouble paying your heating and electricity bill?: No Do you have trouble taking care of your child, family member or friend?: No Do you have trouble with day-to-day activities such as bathing, preparing meals, shopping, managing finances, etc.?: No Are you currently unemployed and looking for a job?: Yes Are you interested in more education?: No Please select the resources that you would like help with: None Currently or been in a relationship where the following occur: No concerns reported THRIVE Score: 0 AUDIT C Alcohol Use Questionnaire (AUDIT-C) 1. How often do you have a drink containing alcohol?: Never 3. How often do you have six or more drinks on one occasion?: Never Total Score: 0 ADEN-7 AMB Questionnaire ADEN-7 Date ADEN - 7 assessed: 12/06/24 Feeling nervous, anxious, or on edge: 0 = Not at all Not being able to stop or control worryin = Not at all Worrying too much about different things: 0 = Not at all Trouble relaxin = Not at all Being so restless that it is hard to sit still: 0 = Not at all Becoming easily annoyed or irritable: 0 = Not at all Feeling afraid as if something awful might happen: 0 = Not at all Total ADEN-7 score (0-4 normal; 5-9 mild; 10-14 moderate; 15-21 severe): 0 Source: Developed by Drs. Sumit Begum, Rosario Savage, Duarte Deras and colleagues, with an educational donvaon from [employer]. ADEN-7 Assessment Billing ADEN-7 Assessment Tool: ADEN-7 Assessment 39378 Review of Systems Const Denies poor appetite and Denies weakness Eyes Denies no additional complaints ENT Reports Normal hearing present, Denies dizziness, Denies nasal congestion, Denies tinnitus and Denies sore throat Card Denies chest pain, Denies syncope, Denies rapid heart rate and Denies dyspnea Resp Denies cough and Denies dyspnea GI Denies change in stool character, Reports constipation, Denies diarrhea, Denies nausea and Denies vomiting Denies dysuria and Denies urinary frequency Neuro Reports Normal hearing present, Denies confusion, Denies dizziness, Denies syncope and Denies weakness Psych Denies confusion Physical exam (Primary Care) Vital Signs: Last Vital Signs Temp 97.1 F 12/06/24 12:36 Pulse 68 12/06/24 12:36 BP 128/56 L 12/06/24 12:36 Pulse Ox 98 12/06/24 12:36 Oxygen Delivery Method Room Air 12/06/24 12:36 BMI result Body Mass Index 22.1 Tobacco/Smoking Status: Tobacco use Status Tobacco use date assessed 12/05/23 12/06/24 12:40 Patient Tobacco Use Status Former Tobacco user 12/06/24 12:46 Tobacco use type Cigarette 12/06/24 12:46 e-Cigarette/Vaping Use Never Used 12/06/24 12:46 PHQ-9: PHQ-9 Score PHQ-9: Total score 0 12/06/24 12:41 Depression Screening Interpretation: Negative Thrive Assessment: Date of Thrive Assessment Date Thrive assessed 12/06/24 12/06/24 12:40 Currently or been in a relationship where the following occur: No concerns reported Const General: No confusion Orientation/consciousness: No confusion HENMT Head: Yes normocephalic Ears: external ears normal and TM's normal bilaterally Face and sinus: Yes normal facial exam Mouth: moist mucous membranes Throat: Yes tonsils normal Eyes Conjunctivae: conjunctivae normal Pupils: Equal, round and reactive pupils present and Pupil accommodation reflex normal Direct Ophthalmoscopy: normal light reflex Neck Neck: No lymphadenopathy Thyroid: Thyroid normal Chest Chest palpation & inspection: normal inspection of the chest Resp Effort & Inspection: normal respiratory effort and no audible wheezes Auscultation: clear to auscultation bilaterally, no crackles, no wheezes and lung sounds not diminished Cardio Rate: regular rate Rhythm: regular rhythm Peripheral pulses: radial pulses present and dorsalis pedis present GI Other: guaiac negative prostate enlarged Palpation (GI): no masses Auscultation: normal bowel sounds and normoactive bowel sounds Other: small maculopapular rash R superior anterion thigh area Male General Exam: Yes normal external exam Skin General skin exam: no rashes or lesions noted Rashes: no rashes Neuro General: No confusion Cranial nerves: Yes Equal, round and reactive pupils present and Yes Normal hearing present Cognition (Neuro): normal cognition Gait exam (Neuro): Normal gait present Motor exam (neuro): 5/5 motor strength present throughout Deep tendon reflexes (DTR's): Right brachioradialis reflex intensity grade: 2+, Left brachioradialis reflex intensity grade: 2+, Right patellar reflex intensity grade: 2+ and Left patellar reflex intensity grade: 2+ Extrem General: No edema Office Procedures Flu Questionnaire Does the patient have a severe egg allergy?: No Does the patient have severe life threatening allergies?: No Does the patient have a fever or illness today?: No Has the patient ever had Guillain-[place] Syndrome?: No Has the patient ever had any past reaction to a flu shot?: No Immunizations Fluarix Triv [id number] (PF) 45 mcg (15 mcg x 3)/0.5 mL IM syringe Performing Provider: Lawrence Coats MD [facility] Administered by: FRAN Blanchard on 12/06/24 13:04 Dose Route Admin Location Dispensed Lot Number Expiration Date NDC [employer] Operator 0.5 mL IM Left Deltoid 0.5 mL [id number] 04/22/25 [id number] [employer] VIS Given Date VIS Provided VIS Publication Date 12/06/24 Single Vaccine 21 Eligibility Eligibility Date Funding Source Not [facility] Eligible 12/06/24 Private Coding Level of Care Code Est Pt Prev Care >65y(44688) Diagnoses Annual physical exam Z00.00 COPD (chronic obstructive pulmonary disease) J44.9 Hypercholesterolemia E78.00 Benign prostatic hyperplasia with urinary hesitancy N40.1; R39.11 Lower urinary tract symptom detail: urinary hesitancy Lower urinary tract symptom presence: symptoms present Impaired fasting blood sugar R73.01 Additional Codes ADEN-7 Assessment Billing - ADEN-7 Assessment Tool: ADEN-7 Assessment [id number] ([id number]) PHQ-9 - 82887 - PHQ-9 Billing: Yes ([id number]) Assessment & Plan Assessment & Plan (1) Annual physical exam: Code(s): Z00.00 - Encounter for general adult medical examination without abnormal findings Category: Medical Plan: Patient is advised to eat healthy, keep well hydrated, keep active and have adequate sleep. (2) COPD (chronic obstructive pulmonary disease): Code(s): J44.9 - Chronic obstructive pulmonary disease, unspecified Category: Medical Plan: On albuterol only. (3) Hypercholesterolemia: Code(s): E78.00 - Pure hypercholesterolemia, unspecified Category: Medical Plan: Avoid fried foods, chicken skin, eggs, butter margarine, pastries and meat. Be it pork or beef they have a lot of cholesterol LDL goal of less than 130 and triglyceride of less than 150 on pravastatin 40 mg once a day (4) BPH (benign prostatic hyperplasia): Code(s): N40.0 - Benign prostatic hyperplasia without lower urinary tract symptoms Category: Medical Qualifiers: Lower urinary tract symptom detail: urinary hesitancy Lower urinary tract symptom presence: symptoms present Qualified Code(s): N40.1 - Benign prostatic hyperplasia with lower urinary tract symptoms; R39.11 - Hesitancy of micturition Plan: Continue with dutasteride 0.5 mg once a day (5) Impaired fasting blood sugar: Code(s): R73.01 - Impaired fasting glucose Category: Medical Plan: Decrease the amount of carbohydrate intake, pasta, bread, rice and potatoes are all sugar and that is aside from all the sweet stuff, remember that fruits are good but they are Sweet also. Plan 1. 5 mg: - Encourage increased fluid intake to 3-4 bottles a day. - Administer flu vaccination today. - Schedule blood work for fasting labs in the coming months. - Continue [employer] exercise program. - Use lotion for dry skin area to manage rash symptoms. - Schedule follow-up colonoscopy due to the last one in 2018. - Monitor B12 levels as clinically indicated. During the visit, I reviewed the patient?s history, focusing on his chronic conditions including hypercholesterolemia, COPD, and BPH. I emphasized the importance of maintaining fluid intake to aid kidney function and the continuation of exercise through the [employer] program. The need for regular eye exams was discussed, considering his mild cataracts, with no significant visual complaints noted. We discussed the importance of continued use of pravastatin to reach lipid goals and the absence of need for changes in current medication for COPD due to stable respiratory status without recent exacerbations. I provided investment counselor on flu, RSV, and COVID-19 prevention, with a flu vaccine administered during the visit. We addressed the mild skin condition, labeled as eczema, and recommended moisturizing agents. I also reiterated the importance of scheduling his next colonoscopy, as the last was conducted in 2018. - Continue current medications as prescribed. - Increase daily water intake to 3-4 bottles. - Attend scheduled flu vaccination today. - Continue exercise routine and regular physical activity. - Apply lotion to rash area for dryness. - Ensure timely scheduling for repeat colonoscopy. - Attend eye exams annually and update lenses as required. - Seek medical attention if new or worsening symptoms arise. Orders: Orders Hemoglobin A1c 2 Months R73.01 - Impaired fasting glucose Comprehensive Met. Panel 2 Months R73.01 - Impaired fasting glucose Prostate Specific Antigen Scr 2 Months N40.1 - Benign prostatic hyperplasia with lower urinary tract symptoms, R39.11 - Hesitancy of micturition Lipid Panel 2 Months E78.00 - Pure hypercholesterolemia, unspecified Free T4 (Free Thyroxine) 2 Months E78.00 - Pure hypercholesterolemia, unspecified Influenza [id number] Immunization Today Z23 - Encounter for immunization Complete Blood Count Auto Diff 2 Months E78.00 - Pure hypercholesterolemia, unspecified Thyroid Stimulating Hormone 2 Months E78.00 - Pure hypercholesterolemia, unspecified Vitamin B12 and Folate 2 Months E78.00 - Pure hypercholesterolemia, unspecified Medications: New Fluarix Triv [id number] (PF) (flu vacc [id number] 6mos up(PF)) 0.5 mL IM ONCE 0.5 mL 0RF NS Z23 - Encounter for immunization
== END 2024-12-06 13:04 | disposition home or self-care (01) ==
PROVIDERS: PCP Internal Medicine; Visit Provider Internal Medicine
DX: Z00.00 Encounter for general adult medical examination without abnormal findings (principal); J44.9 Chronic obstructive pulmonary disease, unspecified; E78.00 Pure hypercholesterolemia, unspecified; N40.1 Benign prostatic hyperplasia with lower urinary tract symptoms; R39.11 Hesitancy of micturition; R73.01 Impaired fasting glucose; Z23 Encounter for immunization

== ENCOUNTER → 2024-12-06 12:21 | Outpatient (BNVA) | payer MEDICARE, SELFPAY | PROVIDERS: PCP Internal Medicine; Visit Provider Internal Medicine | DX: Z00.00 Encounter for general adult medical examination without abnormal findings (principal); Z23 Encounter for immunization; J44.9 Chronic obstructive pulmonary disease, unspecified; E78.00 Pure hypercholesterolemia, unspecified; R73.01 Impaired fasting glucose; N40.1 Benign prostatic hyperplasia with lower urinary tract symptoms; R39.11 Hesitancy of micturition | CPT/HCPCS: 90471; 90656; 96127; 99397 ==

== ENCOUNTER 2024-12-10 08:28 | Outpatient (REF) | payer MEDICARE, SELFPAY ==
--- OUTSIDE RECORDS SUMMARY | 2024-12-10 08:31 | XMS_ITS | Clinical Summary ---
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
== END 2024-12-10 08:29 | disposition home or self-care (01) ==
LOC: HO.LAB 08:28
PROVIDERS: PCP Internal Medicine; Visit Provider Internal Medicine
DX: Z13.89 Encounter for screening for other disorder (principal)

== ENCOUNTER 2025-01-16 05:06 | Emergency (ER) | payer MEDICARE, SELFPAY ==
--- NOTE | ~2025-01-16 | XR_ITS ---
CLINICAL HISTORY: injury Exam: AP, lateral, and oblique views of the right foot. Comparison: None. Findings: Bony alignment of the Lisfranc articulation is anatomic. Acute fracture seen involving the proximal diaphysis of the proximal phalanx of the 4th toe. There is minimal displacement without significant angulation. No extension to the 4th metatarsophalangeal joint is seen. No other fractures identified. Scattered degenerative changes, most pronounced at the 1st metatarsophalangeal joint. Impression: Proximal phalanx 4th toe fracture as above. This document has been electronically signed by: Pelon Nelson MD on 01/16/2025 06:13:50
[2025-01-16 05:14] VITALS: BP 126/81; PULSE 70; RESP 16; TEMP 36.1; O2SAT 98; BMI 23.5
--- NOTE | 2025-01-16 05:30 | ED.LOWEXIN ---
HPI - Extremity Injury (Lower) General Chief Complaint: Extremity Injury, Lower Stated Complaint: stubbed right toe Time Seen by Provider: 01/16/25 05:23 Source: patient Mode of arrival: ambulatory Limitations: no limitations History of Present Illness ED Provider: Dr. Aleyda Newberry HPI Narrative: Patient comes to the emergency room complaining of a stubbed toe. According to the patient a proximally 9 hours ago patient was walking in the dark and accidentally walked his foot into a box. Patient states that since then his 4th toe of the right foot has been hurting. Denies any other injuries, denies being on blood thinners. Related Data Home Medications ?Medication ?Instructions ?Recorded ?Confirmed multivitamin 1 tab PO DAILY 08/04/20 12/06/24 Previous Rx's ?Medication ?Instructions ?Recorded fluticasone propionate 50 2 spray intranasal DAILY #16 grams 08/10/22 mcg/actuation nasal spray,suspension (Flonase Allergy Relief) albuterol sulfate 90 mcg/actuation 2 puff inhalation Q4-6H PRN 08/17/22 aerosol inhaler (ProAir HFA) bronchospasm #8.5 grams dutasteride 0.5 mg capsule 0.5 mg PO DAILY #90 caps 07/02/24 pravastatin 40 mg tablet 40 mg PO DAILY 90 days #90 tabs 12/11/24 acetaminophen 500 mg tablet 500 mg PO Q6H PRN fever or pain 01/16/25 #20 tabs ibuprofen 600 mg tablet 600 mg PO Q8H PRN fever or pain 01/16/25 #20 tabs Allergies Allergy/AdvReac Type Severity Reaction Status Date / Time ENVIROMENTAL Allergy Unknown RUNNY, Uncoded 01/16/25 05:16 SNEEZING, SINUS Review of Systems Review of Systems: Constitutional : No Weight loss, No Fever, No Chills, No Night Sweats, No Fatigue, No Malaise ENT/Mouth : No Hearing loss, No Ear Pain, No Nasal Congestion, No Sinus Pain, No Hoarseness, No sore throat, No Rhinorrhea, No Swallowing Difficulty Eyes: No Eye Pain, No Swelling, No Redness, No Foreign Body, No Discharge, No Vision Changes Cardiovascular : No Chest Pain, No SOB, No Dyspnea on Exertion, No Orthopnea, No Edema, No Palpitations Respiratory : No Cough, No Sputum, No Wheezing, No Smoke Exposure, No Dyspnea Gastrointestinal : No Nausea, No Vomiting, No Diarrhea, No Constipation, No abdominal Pain, No Hematochezia, No Melena Genitourinary : no irregular bleeding, No Dysuria, No Urinary Frequency, No Hematuria, No Urinary Incontinence, No Urgency, No Flank Pain, No Urinary Flow Changes, No Hesitancy Musculoskeletal : Complaining of toe pain 4th finger right foot, No Myalgias, No Joint Swelling Skin : No Skin Lesions, No rash Neuro : No Weakness, No Numbness, No Paresthesias, No Loss of Consciousness, No Dizziness, No Headache Psych : No Anxiety/Panic, No Depression, No SI/HI/AH/VH, No Social Issues, Heme/Lymph: No Bruising, No Bleeding,No Lymphadenopathy Endocrine : No Polyuria, No Polydipsia, No Temperature Intolerance [facility] Past Medical History Medical History COPD (chronic obstructive pulmonary disease) BPH (benign prostatic hyperplasia) Impaired glucose tolerance Hypercholesterolemia Surgical History History of removal of skin mole History of wrist fracture History of nasal septoplasty History of dislocation of shoulder History of tonsillectomy History of appendectomy Family History Family History Father CVD (cardiovascular disease) Myocardial infarction Mother Dementia Sister Family history of cervical cancer Social History Social History (Updated 12/06/24 @ 12:46 by Lawrence Coats MD) Housing: House Alcohol intake: current Alcohol intake frequency: a few times a month Comment: oncea months 1 - 2 beer Patient Tobacco Use Status: Former Tobacco user Tobacco use type: Cigarette Years Smoked: quit 1999 e-Cigarette/Vaping Use: Never Used Second Hand Smoke Exposure: Yes Advance Directives: No Advance Directives Information Provided: Yes Do you have a plan to hurt others: No Plan service: Yes Current occupational status: retired Cognitive needs: No Hearing needs: No Vision needs: Yes Physical Exam Vital Signs: Vital Signs: Last Vital Signs Temp 97.0 F 01/16/25 05:14 Pulse 70 01/16/25 05:14 Resp 16 01/16/25 05:14 BP 126/81 01/16/25 05:14 Pulse Ox 98 01/16/25 05:14 O2 Del Method Room Air 01/16/25 05:14 BMI result Body Mass Index 23.5 Const: Other: Appearance: Alert. Oriented X3. No acute distress. Eyes: Pupils equal, round and reactive to light. ENT: Pharynx normal. Neck: Normal inspection. Neck supple. No lymph nodes noted. No crepitus CVS: Normal heart rate and rhythm. Pulses normal. Normal S1 and S2 Respiratory: No respiratory distress. Breath sounds normal. No Wheezing. No rales Abdomen: Soft and nontender. No rigidity. No distention. Skin: Skin warm and dry. Normal skin color. Normal skin turgor. Extremities: No lower extremity edema. No Lacerations. No Rash. The 4th toe of the right foot is a bit swollen, mild ecchymosis in the dorsal aspect. No other injuries Neuro: Oriented X 3. No motor deficit. No sensory deficit. Moving all extremities. No slurred speech. CN 2 through 12 grossly intact Psych: calm, cooperative, normal affect Medical Decision Making Medical Decision Making MDM Narrative: Patient was given p.o. acetaminophen Patient's x-ray shows a proximal phalanx 4th toe fracture, minimal displacement without significant angulation Patient was provided with a hard sole shoe Patient instructed to follow-up with orthopedics Differential Diagnosis Differential Diagnoses: The differential diagnosis associated with the presentation includes (Toe contusion, fracture, dislocation) Independent Interpretation I performed an independent interpretation of an: Plain X-Ray Radiology Impression Discussion of test interpretation with radiology: I have reviewed the radiologist's reading. Radiologist Impression: Bony alignment of the Lisfranc articulation is anatomic. Acute fracture seen involving the proximal diaphysis of the proximal phalanx of the 4th toe. There is minimal displacement without significant angulation. No extension to the 4th metatarsophalangeal joint is seen. No other fractures identified. Scattered degenerative changes, most pronounced at the 1st metatarsophalangeal joint Discharge Plan Discharge Clinical Impression: Fracture, phalanx, foot Patient Disposition: Home, Self-Care Instructions: Toe Fracture (ED), Post Surgical Shoe (ED) Additional Instructions: Please follow-up with your primary care physician tomorrow. If you have any worsening or new symptoms, please return to the emergency room or call 911 Prescriptions: New ibuprofen 600 mg tablet 600 mg PO Q8H PRN (Reason: fever or pain) Qty: 20 0RF acetaminophen 500 mg tablet 500 mg PO Q6H PRN (Reason: fever or pain) Qty: 20 0RF No Action fluticasone propionate [Flonase Allergy Relief] 50 mcg/actuation spray,suspension 2 spray intranasal DAILY Qty: 16 0RF Rx Instructions: administer into each nostril dutasteride 0.5 mg capsule 0.5 mg PO DAILY Qty: 90 2RF pravastatin 40 mg tablet 40 mg PO DAILY 90 Days Qty: 90 0RF multivitamin Tablet 1 tab PO DAILY albuterol sulfate [ProAir HFA] 90 mcg/actuation HFA aerosol inhaler 2 puff inhalation Q4-6H PRN (Reason: bronchospasm) Qty: 8.5 0RF Referrals: Emerita Khan PA-C [Physician Account Executive Trainee] - 01/18/25 Print Language: Burundian
[2025-01-16] MEDS: Acetaminophen 325 MG TABLET 975 MG PO (06:28)
[2025-01-16 06:32] VITALS: BP 126/81; PULSE 70; RESP 16; TEMP 36.1; O2SAT 98
--- NOTE | 2025-01-16 06:32 | PC.NURSE ---
surgical shoe given by ed pct per MD verbal order. pt tolerating well.
== END 2025-01-16 06:32 | disposition home or self-care (01) ==
PROVIDERS: Emergency Provider Emergency Medicine; PCP Internal Medicine
DX: S92.511A Displaced fracture of proximal phalanx of right lesser toe(s), initial encounter for closed fracture (principal); W22.09XA Striking against other stationary object, initial encounter; M79.674 Pain in right toe(s); Y93.89 Activity, other specified; Y92.013 Bedroom of single-family (private) house as the place of occurrence of the external cause; Y99.9 Unspecified external cause status
CPT/HCPCS: 73630; 99283

== ENCOUNTER → 2025-01-16 05:40 | Outpatient (BNV) | payer MEDICARE, SELFPAY | PROVIDERS: Emergency Provider Emergency Medicine; PCP Internal Medicine; Visit Provider Radiology Diagnostic Radiology | DX: S92.511A Displaced fracture of proximal phalanx of right lesser toe(s), initial encounter for closed fracture (principal) | CPT/HCPCS: 73630 ==

== ENCOUNTER 2025-05-03 16:09 | Emergency (ER) | payer MEDICARE, SELFPAY ==
--- NOTE | ~2025-05-03 | XR_ITS ---
CLINICAL HISTORY: trauma 4 view left wrist Comparison: None provided Findings: Bones intact. No dislocations. Mild arthritic change. There are pockets of gas within the anterior soft tissues, compatible with penetrating injury. There is no radiopaque foreign body. IMPRESSION: No fracture or foreign body. This document has been electronically signed by: Jana James MD on 05/03/2025 17:16:09
[2025-05-03 16:17] VITALS: BP 114/76; PULSE 67; RESP 16; TEMP 36.9; O2SAT 98; BMI 21.3
--- NOTE | 2025-05-03 16:22 | ED_ITS ---
HPI - General Adult General Chief complaint: Wound/Laceration Stated complaint: Punctured wound rt wrist Time Seen by Provider: 05/03/25 17:01 Source: patient, RN notes reviewed and old records reviewed Mode of arrival: ambulatory Limitations: no limitations History of Present Illness ED Provider: Qasim HPI narrative: 70-year-old male presents for evaluation of a laceration to his left wrist. 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 He slipped and fell onto a metal liver. The piece of metal was not sharp but cause a small laceration to the ventral surface of the left forearm. He has no pain Per our records his last tetanus was 05/23/2024. He is not anticoagulated. He is able to move all of his fingers and his left wrist Related Data Home Medications ?Medication ?Instructions ?Recorded ?Confirmed multivitamin 1 tab PO DAILY 08/04/2011/24 Previous Rx's ?Medication ?Instructions ?Recorded fluticasone propionate 50 2 spray intranasal DAILY #16 grams 08/10/22 mcg/actuation nasal spray,suspension (Flonase Allergy Relief) albuterol sulfate 90 mcg/actuation 2 puff inhalation Q 4-6H PRN 08/17/22 aerosol inhaler (ProAir HFA) bronchospasm #8.5 grams dutasteride 0.5 mg capsule 0.5 mg PO DAILY #90 caps pravastatin 40 mg tablet 40 mg PO DAILY 90 days #90 t abs 12/11/24 acetaminophen 500 mg tablet 500 mg PO Q6H PRN fever or pain 01/16/25 #20 tabs ibuprofen 600 mg tablet 600 mg PO Q8H PRN fever or p ain 01/16/25 #20 tabs Allergies Allergy/AdvReac Type Severity Reaction Status Date / Time ENVIROMENTAL Allergy Unknown RUNNY, Uncoded 05/03/25 16:19 SNEEZING, SINUS Review of Systems Integumentary/Breasts: Skin/Breast: Reports wounds PMFSH Past Medical History Medical History COPD (chronic obstructive pulmonary disease) BPH (benign prostatic hyperplasia) Impaired glucose tolerance Hypercholesterolemia Surgical History History of removal of skin mole History of wrist fracture History of nasal septoplasty History of dislocation of shoulder History of tonsillectomy History of appendectomy Family History Family History Father CVD (cardiovascular disease) Myocardial infarction Mother Dementia Sister Family history of cervical cancer Social History Social History (Updated 12/06/24 @ 12:46 by Lawrence Coats MD) Housing: House Alcohol intake: current Alcohol intake frequency: a few times a month Comment: oncea months 1 - 2 beer Patient Tobacco Use Status: Former Tobacco user Tobacco use type: Cigarette Years Smoked: quit 1999 e-Cigarette/Vaping Use: Never Used Second Hand Smoke Exposure: Yes Advance Directives: No Advance Directives Information Provided: Yes Do you have a plan to hurt others: No Plan service: Yes Current occupational status: retired Cognitive needs: No Hearing needs: No Vision needs: Yes Physical Exam ED Vital Signs: Vital Signs - 24 hr 05/03/25 16:17 05/03/25 17:29 Temperature 98.5 F 98.5 F Pulse Rate 67 67 Respiratory Rate 16 16 Blood Pressure 114/76 114/76 Pulse Oximetry 98 98 Oxygen Delivery Method Room Air Room Air BMI result Body Mass Index 21.3 Skin Other: There was about 2 cm linear, partial-thickness laceration to the ventral surface of the left distal forearm. Extrem Other: The patient is able to flex all fingers of the left hand and flex the left wrist without any difficulty. Course Course Course Narrative: RME, this is a rapid medical exam performed by Jose Tripp please refer to primary provider for complete H&P- 70-year-old male presents for evaluation of a small laceration to the left ventral wrist. He reports that he fell onto a liver of a boat trailer causing a small laceration, about 1 cm. His last tetanus was 05/23/2024 Medications Administered Discontinued Medications Generic Name Dose Route Start Last Admin Trade Name Freq PRN Reason Stop Dose Admin Lidocaine/Epinephrine 10 ml 05/03/25 16:21 05/03/25 17:01 Lidocaine Hcl 1%/Epi 1:100,000 10 Ml Vial INFILTRATI 05/03/25 16:22 10 ml ONCE ONE Administration Procedures Laceration Laceration 1: Site: upper extremity Side (If applicable): left Size (cm): 2 Description: linear Depth: simple, single layer Local Anesthetic: lidocaine 1% and with epi Amount of anesthesia used (mL): 2 Pre-repair: wound explored, irrigated extensively and deep structures intact Skin layer closed with: nylon Size (cm): 4-0 Number of sutures: 3 Technique: simple, interrupted Medical Decision Making Medical Decision Making [facility] Narrative: 70-year-old male presents for evaluation of left forearm laceration. No evidence of tendinous injury. X-ray negative for fracture. No evidence of retained foreign body. The wound was cleaned and closed, see procedure note. Differential Diagnosis Differential Diagnoses: The differential diagnosis associated with the presentation includes Laceration Skin tear Puncture wound Wrist fracture Independent Interpretation I performed an independent interpretation of an: Plain X-Ray Interpretation: Agree with Radiology interpretation Radiology Impression Discussion of test interpretation with radiology: I have reviewed the radiologist's reading. Radiologist Impression: Findings: Bones intact. No dislocations. Mild arthritic change. There are pockets of gas within the anterior soft tissues, compatible with penetrating injury. There is no radiopaque foreign body. IMPRESSION: No fracture or foreign body. This document has been electronically signed by: Jana James MD on 05/03/2025 17:16:09 Discharge Plan Discharge Clinical Impression: Laceration of left forearm Patient Disposition: Home, Self-Care Instructions: Laceration (ED) Additional Instructions: Your x-ray did not show any fractures. You had 3 sutures placed today that can be removed in 7-10 days. Keep the area clean and dry. Follow up with your primary doctor, return for new or worsening symptoms Prescriptions: No Action fluticasone propionate [Flonase Allergy Relief] 50 mcg/actuation spray,suspension 2 spray intranasal DAILY Qty: 16 0RF Rx Instructions: administer into each nostril dutasteride 0.5 mg capsule 0.5 mg PO DAILY Qty: 90 2RF pravastatin 40 mg tablet 40 mg PO DAILY 90 Days Qty: 90 0RF ibuprofen 600 mg tablet 600 mg PO Q8H PRN (Reason: fever or pain) Qty: 20 0RF acetaminophen 500 mg tablet 500 mg PO Q6H PRN (Reason: fever or pain) Qty: 20 0RF multivitamin Tablet 1 tab PO DAILY albuterol sulfate [ProAir HFA] 90 mcg/actuation HFA aerosol inhaler 2 puff inhalation Q4-6H PRN (Reason: bronchospasm) Qty: 8.5 0RF Interventions: ED Discharge Assessment Last Done: 05/03/25 17:29 Discharge Date/Time: 05/03/25 17:31 Print Language: Dominican
[2025-05-03] MEDS: Lidocaine HCl 1%/Epi 1:100,000 10 ML VIAL INFILTRATI (17:01)
--- NOTE | 2025-05-03 17:02 | MHC.EDTECH ---
Small lac to left inner wrist was cleaned with saline and betadine mixture. Bleeding is controlled, RN aware
[2025-05-03 17:29] VITALS: BP 114/76; PULSE 67; RESP 16; TEMP 36.9; O2SAT 98
== END 2025-05-03 17:31 | disposition home or self-care (01) ==
PROVIDERS: Emergency Provider Emergency Medicine; PCP Internal Medicine
DX: S51.812A Laceration without foreign body of left forearm, initial encounter (principal); W01.198A Fall on same level from slipping, tripping and stumbling with subsequent striking against other object, initial encounter; M25.532 Pain in left wrist; Y93.19 Activity, other involving water and watercraft; Y92.828 Other wilderness area as the place of occurrence of the external cause; Y99.8 Other external cause status
CPT/HCPCS: 12001; 73110; 99282; 99284; J2004

== ENCOUNTER → 2025-05-03 16:21 | Outpatient (BNV) | payer MEDICARE, SELFPAY | PROVIDERS: Emergency Provider Emergency Medicine; PCP Internal Medicine; Visit Provider Radiology Diagnostic Radiology | DX: S61.511A Laceration without foreign body of right wrist, initial encounter (principal); W26.8XXA Contact with other sharp object(s), not elsewhere classified, initial encounter | CPT/HCPCS: 73110 ==

== ENCOUNTER 2025-05-10 09:26 | Emergency (ER) | payer MEDICARE, SELFPAY ==
--- OUTSIDE RECORDS SUMMARY | 2025-05-06 03:30 | XMS_ITS | Encounter Summary ---
Author Name [facility] [place] [facility] [place] [facility] [place] Address [address] [place] [id number] Care Team Providers Care Main Galley Scullion Name Role Phone CONSTANTIN SULTANA Primary Care [...] Patient's Relationship to Policy Raymond [facility] ([facility]) MEDICARE ADVANTAGE M[facility] ([facility]) Oct 24, 2021 [id number] [phone] DAREN MCGRAW PATIENT [facility] ([facility]) MEDICARE ADVANTAGE MCR ([facility]) Oct 24, 2021 [id number] [phone] DAREN MCGRAW PATIENT Selected Encounter This section includes the information on record at [place] for the Encounter. Date/Time Encounter Type Encounter Description Reason Provider Source May 06, 2025 07:30 AM EXERCISE CLASS HEALTH/WELLBEING [facility] ICD-10-CM Z72.3 Lack of physical exercise JANNA DANIELLE Kimberly Encounter Template Text not used by [place] Assessments - Encounter Diagnoses This section includes the primary and secondary diagnoses documented for the Encounter. Date/Time Primary/Secondary Diagnosis Diagnosis Name Provider Source May 06, 2025 10:28 AM PRIMARY Lack of physical exercise [facility]ATHER [facility] Plan of Treatment: Future Appointments (+ 6 months) and Future Tests (+/- 45 days) The Plan of Treatment section includes future care activities for the patient from [facility] [place] [facility]. This section includes future appointments and future orders which are active, pending or scheduled. Future Appointments This section includes appointments that were scheduled to occur 6 months from the date of the Encounter, up to a maximum of 20 appointments. The data comes from all [place] treatment facilities. Appointment Date/Time Appointment Type Appointme nt Facility Name May 27, 2025 03:00 PM [facility] Jul 29, 2025 10:00 AM AMBULATORY MEDICINE [facility] Social History: Smoking Status (Most current) and Tobacco Use (All prior to encounter date) This section includes the most current, and the historical, smoking and tobacco- related health factors from the [place] facility where the Encounter took place. Current Smoking Status This section includes the most current smoking, or tobacco-related health factor, from the [place] facility where the Encounter took place. Date/Time Current Smoking Status Comment Facil ity May 23, 2024 10:00 AM [place]-TOBACCO FORMER USER [facility] Tobacco Use History This section includes a history of the smoking, or tobacco-related health factors, that were collected on or before the date of the Encounter. The data comes from the [place] facility where the Encounter took place. Date/Time Smoking Status/Tobacco Use Comment F acility May 23, 2024 10:00 AM [place]-TOBACCO QUIT [facility] YRS [facility] Apr 06, 2023 11:05 AM [place] Apr 06, 2023 11:05 AM [place]-TOBACCO QUIT 15 YRS OR MORE [facility] Encounter Notes: All associated encounter notes This section contains the clinical notes associated to the Encounter. Date/Time Encounter Note(s) Provider Source May 06, 2025 10:27 AM PHYSICAL MEDICINE REHAB NOTE: LOCAL TITLE: GEROFIT-SUPERVISED EXERCISE NOTE STANDARD TITLE: PHYSICAL MEDICINE REHAB NOTE DATE OF NOTE: MAY 06, 2025@10:27 ENTRY DATE: MAY 06, 2025@10:27:33 AUTHOR: ANIKA HOANG EXP COSIGNER: URGENCY: STATUS: COMPLETED participated in the [facility] exercise program today. Activities were focused on progression of their individual exercise prescription (cardiorespiratory fitness training, strength training, etc.) and group based exercise sessions to include, but not limited to: flexibility training, balance training, functional circuit training, Vignesh Chi for arthritis, and other functional strength and neuromotor exercises. Exercise participation was supervised by [facility] staff and any questions/concerns were addressed with the patient. Modifications were made to programming as appropriate to suit Veterans individual needs, preferences, and whole health concerns. /karen/ AMADOR LI LICENSE MEDICAL PHYSICIST Signed: 05/06/2025 10:34 ANIKA HOANG [place] [facility]
[2025-05-10 09:28] VITALS: BP 122/66; PULSE 71; RESP 16; TEMP 36; O2SAT 96; BMI 21.9
--- NOTE | 2025-05-10 09:41 | ED.GENADULT ---
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 He reports adequate wound healing, no redness, swelling, pain, pus-like drainage fevers or chills. Related Data Home Medications ?Medication ?Instructions ?Recorded ?Confirmed multivitamin 1 tab PO DAILY 08/04/20 12/06/24 Previous Rx's ?Medication ?Instructions ?Recorded fluticasone propionate 50 2 spray intranasal DAILY #16 grams 08/10/22 mcg/actuation nasal spray,suspension (Flonase Allergy Relief) albuterol sulfate 90 mcg/actuation 2 puff inhalation Q4-6H PRN 08/17/22 aerosol inhaler (ProAir HFA) bronchospasm #8.5 grams acetaminophen 500 mg tablet 500 mg PO Q6H PRN fever or pain 01/16/25 #20 tabs ibuprofen 600 mg tablet 600 mg PO Q8H PRN fever or pain 01/16/25 #20 tabs dutasteride 0.5 mg capsule 0.5 mg PO DAILY #90 caps 05/05/25 pravastatin 40 mg tablet 40 mg PO DAILY 90 days #90 tabs 05/06/25 Allergies Allergy/AdvReac Type Severity Reaction Status Date / Time ENVIROMENTAL Allergy Unknown RUNNY, Uncoded 05/10/25 09:29 SNEEZING, SINUS Review of Systems Review of Systems: Yes all other systems are reviewed and are negative [facility] Past Medical History Attestation statement: The following information was validated with the patient. Source: old records reviewed Medical History COPD (chronic obstructive pulmonary disease) BPH (benign prostatic hyperplasia) Impaired glucose tolerance Hypercholesterolemia Surgical History History of removal of skin mole History of wrist fracture History of nasal septoplasty History of dislocation of shoulder History of tonsillectomy History of appendectomy Family History Family History Father CVD (cardiovascular disease) Myocardial infarction Mother Dementia Sister Family history of cervical cancer Social History Social History (Updated 12/06/24 @ 12:46 by Lawrence Coats MD) Housing: House Alcohol intake: current Alcohol intake frequency: a few times a month Comment: oncea months 1 - 2 beer Patient Tobacco Use Status: Former Tobacco user Tobacco use type: Cigarette Years Smoked: quit 1999 e-Cigarette/Vaping Use: Never Used Second Hand Smoke Exposure: Yes Advance Directives: No Advance Directives Information Provided: Yes Do you have a plan to hurt others: No Plan service: Yes Current occupational status: retired Cognitive needs: No Hearing needs: No Vision needs: Yes Physical Exam ED Exam Exam: Appearance: Alert.?Oriented to person, place and time. No acute distress.?Normal affect.? CVS: Heart sounds normal. Normal heart rate and rhythm.? Pulses normal.?? Respiratory: No respiratory distress.? Lung sounds clear to auscultation bilaterally?? Skin: Skin warm and dry.? Normal skin color.? He had laceration to left volar wrist with [address] no erythema warmth or swelling Extremities: Full range of motion to the left wrist. 2+ radial pulse. Neuro: Moves all extremities spontaneously. Sensation intact bilaterally. Ambulates with normal steady gait. Vital Signs: Vital Signs - 24 hr 05/10/25 09:28 Temperature 96.8 F Pulse Rate 71 Respiratory Rate 16 Blood Pressure 122/66 Pulse Oximetry 96 Oxygen Delivery Method Room Air BMI result Body Mass Index 21.9 Medical Decision Making Medical Decision Making MDM Narrative: Patient is a 70-year-old male presents emergency department for suture removal from accidental laceration to the volar aspect of the left wrist seen here on 05/03/2025. Three sutures were removed today without complication. No signs of infection. Stable for discharge home Differential Diagnosis Differential Diagnoses: The differential diagnosis associated with the presentation includes (See narrative above) External Record Review External record reviewed: Outpatient record Discharge Plan Discharge Clinical Impression: Laceration of left wrist Qualifiers: Encounter type: initial encounter Qualified Code(s): S61.512A - Laceration without foreign body of left wrist, initial encounter Patient Disposition: Home, Self-Care Prescriptions: No Action fluticasone propionate [Flonase Allergy Relief] 50 mcg/actuation spray,suspension 2 spray intranasal DAILY Qty: 16 0RF Rx Instructions: administer into each nostril dutasteride 0.5 mg capsule 0.5 mg PO DAILY Qty: 90 2RF pravastatin 40 mg tablet 40 mg PO DAILY 90 Days Qty: 90 0RF ibuprofen 600 mg tablet 600 mg PO Q8H PRN (Reason: fever or pain) Qty: 20 0RF acetaminophen 500 mg tablet 500 mg PO Q6H PRN (Reason: fever or pain) Qty: 20 0RF multivitamin Tablet 1 tab PO DAILY albuterol sulfate [ProAir HFA] 90 mcg/actuation HFA aerosol inhaler 2 puff inhalation Q4-6H PRN (Reason: bronchospasm) Qty: 8.5 0RF Print Language: Macedonian
--- OUTSIDE RECORDS SUMMARY | 2025-05-10 09:45 | XMS_ITS | Patient Health Record ---
Author Organization [facility] Address [address] [place] [id number] Care Team Providers Care Bow Making Machine Operator Name Role Phone Po Lawrence REDDING Primary Care Provider Sumit Coronado [phone] Reason For Referral No Information Medications Medication SIG (Take, Route, Frequency, Duration) Notes Start Date End Date Status Tamsulosin HCl 0.4 MG 1 capsule Orally Once a day Active Flovent HFA 110 MCG/ACT 1 puff Inhalatio n Twice a day/prn Active Pravastatin Sodium 40 MG 1 tablet Orally Once a day Active Aspir-Low 81 MG 1 tablet Orally Once a day for 30 day(s) Active Immunizations Vaccine Route Administration Date Status Comme nts Influenza Unknown 07/20/2018 Administered Social History Tobacco Use: Social History Observation Description Date Details (start date - stop date) Former Smoker NA - NA Tobacco Use/Smoking Question Answer Notes Patient is a former smoker How long has it been since you last smoked? > 10 years Alcohol Screen Question Answer Notes Did you have a drink contain ing alcohol in the past year? Yes How often did you have a dri nk containing alcohol in the past year? 2 to 4 times a month (2 points) How many drinks did you have on a typical day when you were drinking in the past year? 1 or 2 drinks (0 point) How often did you have 6 or more drinks on one occasion in the past year? Never (0 point) Points 2 Interpretation Negative Section Notes: Nonsmoker; no sig alcohol Problems Problem Type SNOMED Code ICD Code Onset Dates Problem Status W/U Status Risk Notes Problem [id number] Encounter for screening for malignant neoplasm of colon (Z12.11) Active confirmed Problem [id number] Pre-procedural examination (Z01.818) Active confirmed Plan Of Treatment Future Test Test Name Order Date COLONOSCOPY 06/12/2019 Insurance Providers Payer Name Payer Address Payer Phone Subscriber Number Group Number Insured Name Patient Relationship to Insured Coverage Start Date Coverage End Date [facility] [address] [place], [place] [id number] OLGA MCGRAW Self - patient is the insured Medical (General) History Medical History History ICD Code Denies ID,DM,CVA,renal disease Asthma Hyperlipidemia Screening Colonoscopy in 2008 with only a hyperplastic polyp Surgical History Surgery Date(Month/Year) appendectomy shoulder surgery
--- OUTSIDE RECORDS SUMMARY | 2025-05-10 09:45 | XMS_ITS | Clinical Summary ---
Author Organization [facility] Address [address] [place] [address] Care Team Providers Care Instrument Technician Name Role Phone Unavailable Primary Care Provider Unavailabl e Social History Tobacco Use Types Packs/Day Years Used Date Smoking Tobacco: Never Assessed Sex and Gender Information Value Date Recorded Sex Assigned at Not on file Legal Sex Male 4:08 PM EDT Gender Identity Not on file Sexual Orientation [...]
[2025-05-10 10:00] VITALS: BP 122/66; PULSE 71; RESP 16; TEMP 36; O2SAT 96
== END 2025-05-10 10:00 | disposition home or self-care (01) ==
PROVIDERS: Emergency Provider Emergency Medicine; PCP Internal Medicine
DX: Z48.02 Encounter for removal of sutures (principal); S61.512D Laceration without foreign body of left wrist, subsequent encounter; W45.8XXD Other foreign body or object entering through skin, subsequent encounter
CPT/HCPCS: 99282

== ENCOUNTER 2025-06-05 08:18 | Outpatient (AMB) | payer MEDICARE, SELFPAY ==
--- OUTSIDE RECORDS SUMMARY | 2025-02-21 07:00 | XMS_ITS ---
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 Date/Time Encounter Type Encounter Description Reason Provider Source February 21, 2025 11:00 AM OFFICE O/P NEW LOW 30 MIN PM&RS PHYSICIAN ICD-10-CM M65.30 Trigger finger, unspecified finger GARCÍA LARA IHKimberly Encounter Template Text not used by [facility] Assessments - Encounter Diagnoses This section includes the primary and secondary diagnoses documented for the Encounter. Date/Time Primary/Secondary Diagnosis Diagnosis Name Provider Source February 21, 2025 11:47 AM PRIMARY Trigger finger, unspecified finger GARCÍA LARA Delia [facility] Plan of Treatment: Future Appointments (+ 6 months) and Future Tests (+/- 45 days) The Plan of Treatment section includes [facility] care activities for the [facility] [place] [facility] This section includes future appointments and future orders which are active, pending or scheduled. Future Appointments This section includes appointments that were scheduled to occur 6 months from the date of the Encounter, up to a maximum of 20 appointments. The data comes from all [place] treatment facilities. Appointment Date/Time Appointment Type Appointme nt Facility Name February 22, 2025 11:00 AM AMBULATORY - PSYCHIATRY [facility] February 22, 2025 01:00 PM AMBULATORY PSYCHIATRY [facility] Mar 27, 2025 02:30 PM AMBULATORY PSYCHIATRY [facility] May 27, 2025 03:00 PM AMBULATORY - MEDICINE [facility] Jul 29, 2025 10:00 AM AMBULATORY MEDICINE [facility] Active, Pending, and Scheduled Orders This section includes a listing of several types of active, pending, and scheduled orders, including clinic medications orders, diagnostic test orders, procedure orders and consult orders; where the start date of the order is 45 days before the date of the Encounter or 45 days after the date of theEncounter. The data comes from all [facility]. Test Date/Time Test Type Test Details Facility Name February 22, 2025 12:46 PM Consult Order [facility] Cons Manager Vehicle's Choice [facility] Social History: Smoking Status (Most current) [...] Ariel miramontes May 23, 2024 10:00 AM [place]-TO[place]AC[place] QU[place] 15 YRS OR MORE [facility] Tobacco Use History This section includes a history of the smoking, or tobacco-related health factors, that were collected on or before the date of the Encounter. The data comes from the [place] facility where the Encounter took place. Date/Time Smoking Status/Tobacco Use Comment F acility May 23, 2024 10:00 AM [place] QU[place] 15 YRS OR MORE [place] [facility] [place] [facility] Apr 06, 2023 11:05 AM [place] [facility] [facility] Apr 06, 2023 11:05 AM [place] [facility] YRS OR MORE [facility] Encounter Notes: All associated encounter notes This section contains the clinical notes associated to the Encounter. Date/Time Encounter Note(s) Provider Source February 21, 2025 11:11 AM PHYSICAL MEDICINE REHAB CONSULT: LOCAL TITLE: CONSULT REPORT/PM&R STANDARD TITLE: PHYSICAL MEDICINE REHAB CONSULT DATE OF NOTE: FEBRUARY 21, 2025@11:11 ENTRY DATE: FEBRUARY 21, 2025@11:11:48 AUTHOR: TIN LARA COSIGNER: URGENCY: STATUS: COMPLETED FEBRUARY 21, 2025 OLGA MCGRAW is a 69 y/o RHD WHITE MALE, previously in [employer] FROM Dec TO May from [employer] [facility] [employer] [employer], who was seen today for consultation requested by _ today for chief complaint of left ring finger. 2-month history of triggering of the left ring finger. He has been seen by occupational therapy. Not currently using diclofenac gel. Does periodically use IP blocking splint. He has triggering approximately 4 times per day. He has improved range of motion over the last month but still is having significant discomfort over the volar surface of the flexor tendon sheath. No redness or warmth. No swelling. X-rays have demonstrated no osseous abnormalities. Aggravating factors: use Alleviating factors: non-use Severity: 2/10 or more when locking Overall average level of function: 10 Timing: (constant / intermittent) Medications/Therapy/Intervent ions history: Systemic/Other symptoms: Denies fever, chills, night sweats, weight loss, saddle paresthesia, or bowel/bladder incontinence. Daily activities/exercise:Was involved in [employer]. No longer due to missed appt Pertinent prior procedures and/or imaging: The soft tissues appear normal. The bony mineralization appears normal. No joint space erosions are identified. The left fourth finger joint spaces are normal and well-maintained. No acute bony abnormality is seen. PMHx as obtained from Chart: Active problems - Computerized Problem List is the source for the followin. Abdominal pain 2. Trigger finger 3. Anxiety ([facility] [id number]) 4. Mild cognitive disorder 5. Hypercholesterolemia ([facility] [id number]) 6. Pain of right knee joint 7. Enlarged prostate 8. Chronic obstructive lung disease 9. Tinnitus 10. Cataracts PSxHx:Dislocated left shoulder, right radius fracture 10 years ago, Fam Hx: Father- cardiac Rheumatic fever mother - dementia at 80 Soc Hx: MARITAL STATUS - [employer] FROM Dec TO May Service Connected Disabilities with % Eligibility: [facility]IF[place] ALL: LISINOPRIL, OMEPRAZOLE MEDS: Active Outpatient Medications (including Supplies): CARBOXYMETHYLCELLULOSE NA 0.5% OPH SOLN INSTILL 1 DROP ACTIVE INTO EACH EYE FOUR TIMES A DAY Indication: FOR DRY EYE SERTRALINE HCL 100MG TAB TAKE ONE-HALF TABLET BY MOUTH ACTIVE ONCE DAILY Indication: FOR MAJOR DEPRESSIVE DISORDER Non-VA PRAVASTATIN NA 40MG TAB 40MG BY MOUTH AT BEDTIME ACTIVE Indication: FOR HIGH CHOLESTEROL Non-VA TAMSULOSIN HCL 0.4MG CAP 0.4MG BY MOUTH AT BEDTIME ACTIVE 4 Total Medications No Active Remote Medications for this patient ROS: Constitutional - Denies fever or chills, night sweats, or unexplained weight loss. Head/Eyes/Ears/Neck- Denies headaches, dizziness, visual changes. Cardiovascular - Denies chest pain/palpitations, lower extremity swelling. Respiratory - Denies shortness of breath, or cough. GI - Denies nausea, vomiting, or loss of bowel fx/control. - Denies urinary difficulties or loss of bladder function. Musculoskeletal - See HPI. Neuro - See HPI. Psychiatric - See PMHx. Denies mood swings or change in behavior. Sleep - Denies nocturnal pain or excessive daytime fatigue. Skin/integuments - Denies rashes, lesions, or skin breakdown in the extremities. All other systems reviewed and are negative. PHYSICAL EXAMINATION: Vitals in chart. GEN: WD, WN. Awake, alert, cooperative with exam. In NAD. PSYCH: Good eye contact. Normal mood. Appropriately concerned. CVS: Extremities warm/well perfused. No lower extremity edema appreciated. PULM: Breathing unlabored, no accessory muscle use. ABD: Nondistended. EXTREMITIES: No cyanosis or edema of bilateral upper and lower extremities. SKIN: No rashes, lesions, or skin breakdown over exposed areas. MUSCULOSKELETAL/NEURO EXAM: Cervical range of motion was tolerated well. Negative Spurling's maneuver. No atrophy noted over the shoulder, upper arm or lower arm. He does have a well-healed incision over the right volar forearm from previous radial plating. Atrophy of the thenar region noted bilaterally. Weakly positive Tinel's on the right. No weakness in pincer grasp. 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 Digits extend fully. No weakness in intrinsics. Tenderness noted over the left ring finger with a tender point over the nodule. No demonstrable triggering today. Lacks terminal flexion at the MCP. No swelling of the joints of the digits. PROCEDURE: Trigger finger injection with cortisone for INDICATION: Trigger finger/stenosing tenosynovitis. INFORMED CONSENT: Obtained verbally, and through IMED. The procedure as well as potential risks and benefits of a trigger finger injection were discussed with patient, including potential for infection, soreness at the site of injection, nerve damage, hematoma, adverse reactions to cortisone, atrophy of subcutanous tissues,temporary increase in blood sugar (if applicable), and failure for the medication to be effective. Patient agreed to proceed with the injection. TIME OUT NOTE TIME:February@11:20 [place] correctly stated: [X]Full name: OLGA MCGRAW [ x]Last 4 of #: [id number] [ x]: Apr PROVIDER NAME: Tin Lara PA-c STAFF NAME: Jeanne Aly RN Lot #: [id number] Exp: Sep 2025 Patient was seated with the Left wrist in supination. Appropriate landmark (small tender nodule over the palmar surface of the flexor tendon of the {ring finger) was palpated and a point 1cm distal to that was marked. After cleaning the area with alcohol prep x 1 and ChloroPrep x 3, the area of interest was sprayed with vacocoolant spray and the flexor tendon sheath was accessed by entering the skin at the point marked using a 25G 1.5 needle with attached medicated syringe. The needle tip was angled at 45 degrees proximally, advancing to 1cm until contact with nodule is made, then withdrawn 1mm. After negative aspiration for heme, a solution consisting of 1.0mL total of 1% lidocaine and 20mg of methylprednisolone was injected without any difficulties or resistance. The needle was withdrawn and light compression was applied with a 2x2 gauze. A band-aid was applied. No complications. No blood loss. Patient reported decreased pain/discomfort within 5 minutes post injection. The patient tolerated the procedure well without any immediate adverse side effects. Patient was instructed on the use of ice prn post injection pain/swelling. The patient was discharged home with instructions to monitor for any adverse reactions/side effects, including increase in blood sugar, and to contact me with any issues/questions. Pre-procedure pain level:03/02 Post-procedure pain level:11/02 Labs: Collection DT Spec WBC HGB HCT PLT K+/Pot Sodium HGBA1c 11/13/2024 08:42 BLOOD 5.22 15.3 44.9 227 11/13/2024 08:42 SERUM 4.0 143 05/18/2024 09:55 SERUM 4.1 139 05/18/2024 09:55 BLOOD 4.63 14.7 42.9 190 08/15/2023 12:15 SERUM 4.4 140 Collection DT Spec GLUCOSE CREATIN AST ALT T BILI ALK MIKE CHOL 11/13/2024 08:42 SERUM 100 0.95 17 13 0.7 79 05/18/2024 09:55 SERUM 92 0.92 16 12 0.8 63 189 08/15/2023 12:15 SERUM 92 0.86 16 13 0.5 87 Collection DT Spec LDL-c HDL TRIG TSH B12 SR- 11/13/2024 08:42 SERUM 1.28 582 05/18/2024 09:55 SERUM 1.30 05/18/2024 09:55 SERUM 104 69 H 78 08/15/2023 12:15 SERUM 1.64 >2000 H CHEM 7 TREND LAB CUMULATIVE SELECTED Collection DT Spec GLUCOSE BUN CREATIN Sodium K+/Pot CL CO2 11/13/2024 08:42 SERUM 100 18 0.95 143 4.0 107 27 05/18/2024 09:55 SERUM 92 14 0.92 139 4.1 106 24 08/15/2023 12:15 SERUM 92 16 0.86 140 4.4 104 26 LAB CUMULATIVE SELECTED 2 No selection items chosen for this component. CHEM 7 Results Collection DT Spec Sodium K+/Pot CL CO2 GLUCOSE BUN 11/13/2024 08:42 SERUM 143 4.0 107 27 100 18 05/18/2024 09:55 SERUM 139 4.1 106 24 92 14 08/15/2023 12:15 SERUM 140 4.4 104 26 92 16 Liver Function Tests Collection DT Spec AST ALT ALK MIKE ALBUMIN T BILI T. PROT 11/13/2024 08:42 SERUM 17 13 79 4.3 0.7 7.3 HEMOGLOBIN A1C TREND Collection DT Spec HGBA1c 08/15/2023 12:15 BLOOD 5.5 Diagnostic Studies: [place] Hand Oct The soft tissues appear normal. The bony mineralization appears normal. No joint space erosions are identified. The left fourth finger joint spaces are normal and well-maintained. No acute bony abnormality is seen. ASSESSMENT/PLAN: Patient is a 69-year-old with flexor tenosynovitis of the left ring finger. Trigger finger csi injection- triamcinolone - provided today. If symptoms persist he will contact clinic. Trial of diclofenac gel was sent to the home for him to apply to the hand if symptoms are only minimal. [place] recently had an exacerbation of this depression as well. This led to his missing [facility] appointments. He would like to return but is under the assumption that he is unable to. Will reach out to [facility] team to determine if this is the case. FOLLOW-UP: As needed. Potential risks and side effects of any medication(s) prescribed today was reviewed with . Patient had many excellent questions, which I answered to the best of my ability and to patient's apparent satisfaction. MDM: 30 minutes which includes reviewing records, evaluating patient, documenting in medical record, educating, counseling and coordinating care. Medication Reconciliation: Outpatient: Has the patient been taking medications as documented in the EMLR? YES: The patient has been taking medications as documented in the EMLR. Essential Medication List for Review used to complete this medication reconciliation. INCLUDED IN THIS LIST: Alphabetical list of active outpatient prescriptions dispensed from this [place] (local) and dispensed from another [place] or [facility] facility (remote) as well as inpatient orders [...] with a VA or non-VA provider. /karen/ TIN LARA [facility] Signed: 02/21/2025 11:48 TIN LARA [place] [facility]
--- OUTSIDE RECORDS SUMMARY | 2025-06-05 08:24 | XMS_ITS | Patient Health Record ---
Author Organization [facility] Address [address] [place] [id number] Care Team Providers Care Theoretical Physicist Name Role Phone Po Lawrence REDDING Primary Care Provider Sumit Coronado [phone] Reason For Referral No Information Medications Medication [...] Problem Status W/U Status Risk Notes Problem [id number] Encounter for screening for malignant neoplasm of colon (Z12.11) Active confirmed Problem [id number] Pre-procedural examination (Z01.818) Active confirmed Plan Of Treatment Future Test Test Name Order Date COLONOSCOPY 06/12/2019 Insurance Providers Payer Name Payer Address Payer Phone Subscriber Number Group Number Insured Name Patient Relationship to Insured Coverage Start Date Coverage End Date [facility] [address] [place], [place] [id number] [id number] MCGRAW Self - patient is the insured Medical (General) History Medical History History ICD Code Denies CT,DM,CVA,renal disease Asthma Hyperlipidemia Screening Colonoscopy in 2008 with only a hyperplastic polyp Surgical History Surgery Date(Month/Year) appendectomy shoulder surgery
--- OUTSIDE RECORDS SUMMARY | 2025-06-05 08:24 | XMS_ITS | Clinical Summary ---
Author Organization [facility] Address [address] [place] [address] Care Team Providers Care Building Custodian Name Role Phone Unavailable Primary Care Provider [...]
[2025-06-05 08:27] VITALS: BP 118/68; PULSE 65; O2SAT 96; BMI 21.8
--- NOTE | 2025-06-05 08:27 | MHC.PC.OV ---
Vital Signs 06/05/25 08:27 Height 5 ft 7 in Weight 139 lb BMI 21.8 BP 118/68 Blood Pressure Location Lt brachial Position Sitting Pulse 65 Pulse Source Pulse Oximeter Pulse Oximetry (%) 96 Oxygen Delivery Method Room Air Intake Visit Reasons: 6mth f/u - see comments Allergies ENVIROMENTAL Allergy (Unknown, Uncoded 06/05/25 08:28) RUNNY, SNEEZING, SINUS Tobacco use date assessed: 06/05/25 Fall risk assessment: No Falls in past year Last assessed Fall Risk: 06/05/25 Dental Screening Dental Screen Date: 06/05/25 Did you have a dental visit in the last 12 months?: Yes Did you have a dental problem in the last 6 months where you did not have access to dental care?: No Was dental information given to patient?: Patient has dentist [facility] Medical History COPD (chronic obstructive pulmonary disease) BPH (benign prostatic hyperplasia) Impaired glucose tolerance Hypercholesterolemia Surgical History History of removal of skin mole History of wrist fracture History of nasal septoplasty History of dislocation of shoulder History of tonsillectomy History of appendectomy Family History Father CVD (cardiovascular disease) Myocardial infarction Mother Dementia Sister Family history of cervical cancer Social History (Updated 12/06/24 @ 12:46 by Lawrence Coats MD) Housing: House Alcohol intake: current Alcohol intake frequency: a few times a month Comment: oncea months 1 - 2 beer Patient Tobacco Use Status: Former Tobacco user Tobacco use type: Cigarette Years Smoked: quit 1999 e-Cigarette/Vaping Use: Never Used Second Hand Smoke Exposure: Yes service: Yes Current occupational status: retired Cognitive needs: No Hearing needs: No Vision needs: Yes Questionnaire PHQ-9 Over the last 2 weeks, how often have you been bothered by any of the following problems? 1. Little interest or pleasure in doing things: not at all 2. Feeling down, depressed, or hopeless: not at all 3. Trouble falling or staying asleep, or sleeping too much: not at all 4. Feeling tired or having little energy: not at all 5. Poor appetite or overeating: not at all 6. Feeling bad about yourself - or that you are a failure or have let yourself or your family down: not at all 7. Trouble concentrating on things, such as reading the newspaper or watching television: not at all 8. Moving or speaking so slowly that other people could have noticed. Or the opposite - being so fidgety or restless that you have been moving around a lot more than usual: not at all 9. Thoughts that you would be better off or of hurting yourself in some way: not at all Total score: 0 Depression Screening Interpretation: Negative Depression Screening Done: Yes 54437 - PHQ-9 Billing: Yes Source: Developed by Drs. Sumit Begum, Rosario Savage, Duarte Deras and colleagues, with an educational donavon from [employer]. Thrive Questionnaire Date Thrive assessed: 06/05/25 I am a: Patient What is your living situation today?: I have a steady place to live Within the past 12 months, did the food you bought not last and you didn't have the money to get more?: Never true Within the past 12 months, did you worry whether your food would run out before you got money to buy more?: Never true Do you have trouble paying for medicines?: No Do you have trouble getting transportation to medical appointments?: No Do you have trouble paying your heating and electricity bill?: No Do you have trouble taking care of your child, family member or friend?: No Do you have trouble with day-to-day activities such as bathing, preparing meals, shopping, managing finances, etc.?: No Are you currently unemployed and looking for a job?: Yes Are you interested in more education?: No Please select the resources that you would like help with: None Currently or been in a relationship where the following occur: No concerns reported THRIVE Score: 0 AUDIT C Alcohol Use Questionnaire (AUDIT-C) 1. How often do you have a drink containing alcohol?: Never 3. How often do you have six or more drinks on one occasion?: Never Total Score: 0 ADEN-7 AMB Questionnaire ADEN-7 Date ADEN - 7 assessed: 12/06/24 Source: Developed by Drs. Sumit Begum, Duarte Nicholson Kroenke and colleagues, with an educational donavon from [employer]. Physical exam (Primary Care) Vital Signs: Last Vital Signs Pulse 65 06/05/25 08:27 BP 118/68 06/05/25 08:27 Pulse Ox 96 06/05/25 08:27 Oxygen Delivery Method Room Air 06/05/25 08:27 BMI result Body Mass Index 21.8 Tobacco/Smoking Status: Tobacco use Status Tobacco use date assessed 06/05/25 06/05/25 08:31 Patient Tobacco Use Status Former Tobacco user 06/05/25 08:31 Tobacco use type Cigarette 06/05/25 08:31 e-Cigarette/Vaping Use Never Used 06/05/25 08:31 PHQ-9: PHQ-9 Score PHQ-9: Total score 0 06/05/25 08:31 Depression Screening Interpretation: Negative Thrive Assessment: Date of Thrive Assessment Date Thrive assessed 06/05/25 06/05/25 08:31 Currently or been in a relationship where the following occur: No concerns reported Const General: alert; No acute distress Eyes Conjunctivae: conjunctivae normal Resp Auscultation: clear to auscultation bilaterally Cardio Rate: regular rate Rhythm: regular rhythm GI Inspection: Yes normal to inspection Extrem General: Yes normal to inspection and No edema Coding Level of Care Code Est Pt Level 4 (48337) Complex EM visit Add On G2211 Diagnoses Hypercholesterolemia E78.00 Impaired fasting blood sugar R73.01 Benign prostatic hyperplasia with urinary hesitancy N40.1; R39.11 Lower urinary tract symptom presence: symptoms present Lower urinary tract symptom detail: urinary hesitancy COPD (chronic obstructive pulmonary disease) J44.9 Additional Codes PHQ-9 - 10618 - PHQ-9 Billing: Yes ([id number]) Assessment & Plan Assessment & Plan (1) Hypercholesterolemia: Code(s): E78.00 - Pure hypercholesterolemia, unspecified Category: Medical Plan: Avoid fried foods, chicken skin, eggs, butter margarine, pastries and meat. Be it pork or beef they have a lot of cholesterol on pravastatin patient needs blood work LDL goal of less than 130 and triglyceride of less than 150 (2) Impaired fasting blood sugar: Code(s): R73.01 - Impaired fasting glucose Category: Medical Plan: Decrease the amount of carbohydrate intake, pasta, bread, rice and potatoes are all sugar and that is aside from all the sweet stuff, remember that fruits are good but they are Sweet also. (3) BPH (benign prostatic hyperplasia): Code(s): N40.0 - Benign prostatic hyperplasia without lower urinary tract symptoms Category: Medical Qualifiers: Lower urinary tract symptom presence: symptoms present Lower urinary tract symptom detail: urinary hesitancy Qualified Code(s): N40.1 - Benign prostatic hyperplasia with lower urinary tract symptoms; R39.11 - Hesitancy of micturition Plan: Patient on dutasteride continue to monitor (4) COPD (chronic obstructive pulmonary disease): Code(s): J44.9 - Chronic obstructive pulmonary disease, unspecified Category: Medical Plan: Patient on albuterol as needed. Plan History of Present Illness The patient is a 70-year-old male presenting for a follow-up visit. He has a history of hypercholesterolemia, benign prostatic hyperplasia, and chronic obstructive pulmonary disease. The patient was last seen in November 2024, and his last colonoscopy was in 2018. In April, the patient visited the emergency room for a wrist laceration sustained while working, which required treatment with amoxicillin. Additionally, he had an ER visit for a toe fracture, specifically the right fourth toe. These have resolved. Recent blood work conducted in February showed normal blood count, electrolytes, renal function, blood sugar, and liver function. Cholesterol levels were reported as good, and B12, folate, and thyroid tests were within normal limits. The patient is currently on pravastatin for cholesterol management, with a goal of LDL less than 130 mg/dL and triglycerides less than 150 mg/dL. He is also on dutasteride for benign prostatic hyperplasia and uses albuterol as needed for COPD. The patient participates in an [facility] program at [facility], attending sessions three times a week, and acknowledges the importance of staying active and hydrated. Health Maintenance - Colonoscopy last performed in 2018 - Exercise program at the [facility], three times a week - Emphasis on hydration and healthy eating Social History - Participates in an exercise program at [facility] three times a week - Acknowledges the importance of hydration and healthy eating Review of Systems - Respiratory: Denies use of albuterol recently, reports stable respiratory status - Gastrointestinal: Denies constipation or diarrhea - Neurological: Denies memory issues, reports working on memory improvement Physical Exam Results - Labs: Normal blood count, electrolytes, renal function, blood sugar, liver function, cholesterol, B12, folate, and thyroid tests Plan The patient will continue on pravastatin with the goal of maintaining LDL cholesterol below 130 mg/dL and triglycerides below 150 mg/dL. He will remain on dutasteride for benign prostatic hyperplasia and use albuterol as needed for COPD management. The patient is advised to maintain his exercise routine at the [facility] and ensure adequate hydration, especially in hot weather. Follow-up blood work is recommended to monitor cholesterol levels and overall health status. Patient was informed and verbally consented to the use of an ambient scribe for clinic note documentation during this visit. Discussion Notes I discussed with the patient the importance of maintaining his current medication regimen, including pravastatin and dutasteride, to manage his cholesterol and benign prostatic hyperplasia. We also talked about the significance of staying active through his exercise program and ensuring proper hydration, particularly during hot weather. I emphasized the need for follow-up blood work to monitor his cholesterol levels and overall health. Patient Instructions - Continue taking pravastatin and dutasteride as prescribed. - Use albuterol as needed for COPD symptoms. - Maintain exercise routine at the [facility] three times a week. - Ensure adequate hydration, especially in hot weather. - Schedule follow-up blood work to monitor cholesterol and overall health.
== END 2025-06-05 08:46 | disposition home or self-care (01) ==
LOC: HO.HMCH 08:19
PROVIDERS: PCP Internal Medicine; Visit Provider Internal Medicine
DX: E78.00 Pure hypercholesterolemia, unspecified (principal); J44.9 Chronic obstructive pulmonary disease, unspecified; R73.01 Impaired fasting glucose; N40.1 Benign prostatic hyperplasia with lower urinary tract symptoms; R39.11 Hesitancy of micturition

== ENCOUNTER → 2025-06-05 08:18 | Outpatient (BNVA) | payer MEDICARE, SELFPAY | PROVIDERS: PCP Internal Medicine; Visit Provider Internal Medicine | DX: E78.00 Pure hypercholesterolemia, unspecified (principal); R73.01 Impaired fasting glucose; N40.1 Benign prostatic hyperplasia with lower urinary tract symptoms; R39.11 Hesitancy of micturition; J44.9 Chronic obstructive pulmonary disease, unspecified; Z13.31 Encounter for screening for depression | CPT/HCPCS: 96127; 99212 ==

== ENCOUNTER 2025-06-06 09:38 | Outpatient (REF) | payer MEDICARE, SELFPAY ==
[2025-06-06 10:00] LABS: MANUAL DIFF FLAG NO
[2025-06-06 10:15] LABS: Hematocrit 42.2 % (42.0-52.0); Hemoglobin 14.4 g/dl (14.0-18.0); Imm Gran Abs Auto 0.03 X10*3/uL (0.00-0.03); Imm Gran Pct Auto 0.7 % (0.0-0.4); Lymphocytes Absolute Auto 1.0 X10*3/uL (1.2-4.9); Mean Corpuscular HGB Conc 34.1 g/dl (31.0-36.0); Mean Corpuscular Hemoglobin 30.3 pg (27.0-33.0); Mean Corpuscular Volume 88.7 fL (80.0-98.0); NRBC Abs Auto 0.000 X10*3/uL (0.0-0.012); NRBC Pct Auto 0.0 /100WBC (0.0-0.2); Platelet Count 199 X10*3/uL (160-400); Red Blood Count 4.76 X10*6/uL (4.60-5.80); White Blood Count 4.1 X10*3/uL (4.8-10.8)
--- OUTSIDE RECORDS SUMMARY | 2025-06-06 10:21 | XMS_ITS | Patient Health Record ---
Author Organization [facility] Address [address] [place] [id number] Care Team Providers Care Tester Equipment Name Role Phone Po Lawrence REDDING Primary Care Provider Sumit Coronado [phone] Reason For Referral No Information Medications Medication [...] Problem Status W/U Status Risk Notes Problem [id number] Encounter for screening for malignant neoplasm of colon (Z12.11) Active confirmed Problem [id number] Pre-procedural examination (Z01.818) Active confirmed Plan Of Treatment Future Test Test Name Order Date COLONOSCOPY 06/12/2019 Insurance Providers Payer Name Payer Address Payer Phone Subscriber Number Group Number Insured Name Patient Relationship to Insured Coverage Start Date Coverage End Date [facility] [address] [place], [place] [id number] Self - patient is the insured Medical (General) History Medical History History ICD Code Denies LA,DM,CVA,renal disease Asthma Hyperlipidemia Screening Colonoscopy in 2008 with only a hyperplastic polyp Surgical History Surgery Date(Month/Year) appendectomy shoulder surgery
--- OUTSIDE RECORDS SUMMARY | 2025-06-06 10:21 | XMS_ITS | Clinical Summary ---
Author Organization [facility] Address [address] [place] [address] Care Team Providers Care House Registry Rn Name Role Phone Unavailable Primary Care Provider [...]
[2025-06-06 10:32] LABS: Hemoglobin A1C 139.0128 umol/L; Total Hemoglobin (HGBA1C) 3756.7063 umol/L
[2025-06-06 11:02] LABS: Alanine Aminotransferase 13 U/L (0-40); Albumin Level 4.1 g/dL (3.5-5.0); Alkaline Phosphatase 68 U/L (39-117); Anion Gap 8 (12-20); Aspartate Amino Transferase 21 U/L (5-37); Blood Urea Nitrogen 14 mg/dL (9-16); Calcium 8.9 mg/dL (8.4-10.2); Carbon Dioxide 30 mmol/L (22-29); Chloride 108 mmol/L (96-108); Cholesterol 173 mg/dL (<200); Estimated Glomerular Filt Rate > 60; HDL Cholesterol 59 mg/dL (>40); Potassium 4.4 mmol/L (3.3-5.1); Sodium 142 mmol/L (135-145); Total Protein 6.2 g/dL (6.5-8.0); Triglycerides 80 mg/dL (<150)
[2025-06-06 11:08] LABS: Free T4 (Free Thyroxine) 1.02 ng/dL (0.71-1.85); Thyroid Stimulating Hormone 1.38 uIU/mL (0.32-4.0)
[2025-06-06 11:17] LABS: Folate 9.5 ng/mL (> or = 4.0); Vitamin B12 450 pg/mL (200-900)
== END 2025-06-06 09:39 | disposition home or self-care (01) ==
LOC: HO.LAB 09:38
PROVIDERS: PCP Internal Medicine; Visit Provider Internal Medicine
DX: Z12.5 Encounter for screening for malignant neoplasm of prostate (principal); R73.01 Impaired fasting glucose; E78.00 Pure hypercholesterolemia, unspecified; N40.1 Benign prostatic hyperplasia with lower urinary tract symptoms
CPT/HCPCS: 36415; 80053; 80061; 82607; 82746; 83036; 84153; 84439; 84443; 85025